=== PATIENT | female | born 1960 | race Caucasian/White ===

== ENCOUNTER → 2017-12-20 11:53 | Outpatient (CLI) | payer OTHER, SELFPAY ==
--- NOTE | 2017-12-20 11:56 | BI_ITS ---
MAMMOGRAPHY - BILATERAL SCREENING REASON FOR EXAM: Female, 57 years old. Routine annual screening examination. PERTINENT HISTORY: Non-contributory. TECHNIQUE: Digital bilateral breast sangeeta (3D mammographic acquisition) in the CC and MLO projections. 2-D mediolateral oblique (MLO) and craniocaudad (CC) views of both breasts were obtained. CAD: Full Field Digital Mammography with Computer Added Detection was performed. COMPARISON: Comparison is made with prior study dated February 10, 2016 and December 10, 2014. FINDINGS: Breast Composition: The breasts are heterogeneously dense, which may obscure small masses. There are no dominant masses or suspicious calcifications. No other significant abnormalities are identified. There has been no significant change since the prior study. BI/SCREENING MAMM (CAD), BILAT IMPRESSION: Stable bilateral screening mammogram. Yearly follow-up mammogram recommended. (A) ASSESSMENT CATEGORY: BIRADS Category 1: Negative. A letter regarding these results will be sent to the patient by the facility within 30 days. Approximately 10% of breast cancers are not detected by mammography. A normal mammogram should not delay biopsy of a clinically suspicious abnormality. [id number] Electronically Signed: Jc Landin MD at 12:47 EDT Tel [phone], Service support ,
== END ==
PROVIDERS: Family Provider Family Medicine; PCP Family Medicine; Visit Provider Nurse Practitioner Adult Health
DX: Z12.31 Encounter for screening mammogram for malignant neoplasm of breast (principal)
CPT/HCPCS: 77063; 77067

== ENCOUNTER → 2018-12-02 | Outpatient (CLI) | payer OTHER, SELFPAY ==
[2016-10-30 11:30] VITALS: BMI 21.7
[2018-12-05 10:07] LABS: HPV Reflexed? NOT INDICATED
== END | disposition home or self-care (01) ==
LOC: LABSPEC 16:21
PROVIDERS: Family Provider Family Medicine; PCP Family Medicine; Referring Provider Nurse Practitioner Adult Health; Visit Provider Nurse Practitioner Adult Health
DX: Z01.419 Encounter for gynecological examination (general) (routine) without abnormal findings (principal)
CPT/HCPCS: 88175; G0145

== ENCOUNTER → 2018-12-25 | Outpatient (CLI) | payer OTHER, SELFPAY ==
--- NOTE | 2018-12-25 12:22 | BI_ITS ---
MAMMOGRAPHY - BILATERAL SCREENING REASON FOR EXAM: Female, 58 years old. Routine annual screening examination. PERTINENT HISTORY: Non-contributory. TECHNIQUE: Digital bilateral breast oren (3D mammographic acquisition) in the CC and MLO projections. 2-D mediolateral oblique (MLO) and craniocaudad (CC) views of both breasts were obtained. CAD: Full Field Digital Mammography with Computer Added Detection was performed. COMPARISON: Comparison is made with prior study dated December 20, 2017 and February 10, 2016. FINDINGS: Breast Composition: The breasts are heterogeneously dense, which may obscure small masses. There are no dominant masses or suspicious calcifications. No other significant abnormalities are identified. There has been no significant change since the prior study. BI/SCREEN MAMM (CAD) W/OREN BILAT IMPRESSION: Stable bilateral screening mammogram. Yearly follow-up mammogram recommended. (A) ASSESSMENT CATEGORY: BIRADS Category 1: Negative. A letter regarding these results will be sent to the patient by the facility within 30 days. Approximately 10% of breast cancers are not detected by mammography. A normal mammogram should not delay biopsy of a clinically suspicious abnormality. [id number] Electronically Signed: Jc Landin, at 13:21 EDT , Service support ,
== END | disposition home or self-care (01) ==
LOC: OPBI 12:19
PROVIDERS: Family Provider Family Medicine; PCP Family Medicine; Referring Provider Nurse Practitioner Adult Health; Visit Provider Nurse Practitioner Adult Health
DX: Z12.31 Encounter for screening mammogram for malignant neoplasm of breast (principal)
CPT/HCPCS: 77063; 77067

== ENCOUNTER → 2019-07-21 10:01 | Outpatient (CLI) | payer OTHER, SELFPAY ==
[2016-10-30 11:30] VITALS: BMI 21.7
[2019-07-21 12:21] LABS: Absolute Lymphocyte Count 1.28 X10^3/uL (0.83-4.51); Basophil# 0.06 X10^3/uL; Basophil% 0.8 % (0-1); Eosinophil# 0.18 X10^3/uL; Eosinophils% 2.5 % (0-5); Hemoglobin 16.3 g/dL (12.0-15.0); Lymphocyte # 1.28 X10^3/ul (4.0); Lymphocyte % 18.1 % (19-41); Mean Corp Hgb Conc 32.6 g/dL (32-36); Mean Corpuscular Hgb 28.7 pg (27.0-32.0); Mean Corpuscular Volume 88.2 fL (81-99); Mean Platelet Vol. 10.1 fl (6.2-12.0); Monocyte# 0.57 X10^3/uL; Monocyte% 8.1 % (0-10); NRBC Flagged by Analyzer 0 % (0-5); Neutrophil # 4.95 X10^3/uL (2.7-7.7); Neutrophil % 70.2 % (47-70); Platelet Count 259 K/mm3 (150-450); RBC Distribution Width CV 13.3 % (11.6-14.6); RBC Distribution Width SD 43.3 fl (35.1-43.9); Red Blood Count 5.67 M/mm3 (4.2-5.4); White Blood Count 7.1 K/mm3 (4.4-11.0)
[2019-07-21 12:45] LABS: AST(SGOT) 27 U/L (15-37); Alanine Aminotransfer ALT/SGPT 37 U/L (13-56)
== END ==
PROVIDERS: PCP Family Medicine; Referring Provider Dermatology; Visit Provider Dermatology
DX: L93.1 Subacute cutaneous lupus erythematosus (principal); L85.3 Xerosis cutis; Z79.899 Other long term (current) drug therapy
CPT/HCPCS: 36415; 84450; 84460; 85025

== ENCOUNTER → 2019-07-29 15:55 | Outpatient (CLI) | payer OTHER, SELFPAY ==
[2016-10-30 11:30] VITALS: BMI 21.7
[2019-07-29 18:35] LABS: ALB/GLOB Ratio 1.1 RATIO (0.9-2.4); AST(SGOT) 24 U/L (15-37); Alanine Aminotransfer ALT/SGPT 30 U/L (13-56); Albumin, Serum 3.8 g/dL (3.2-5.0); Alkaline Phosphatase 116 U/L (45-117); Anion Gap 5 (5-15); BUN 11 mg/dL (7-18); BUN/Creat Ratio 15.5 RATIO (10-20); Calcium,Total 9.8 mg/dL (8.5-10.1); Chloride 100 mmol/L (98-107); Creatinine, Serum 0.71 mg/dL (0.55-1.02); EST Glomerular Filtration Rate 90 mL/min (>60); Est Glom Filt Rate - Afr Amer 109 mL/min (>60); Ferritin 39 ng/mL (8-252); Globulin 3.6 g/dL (2.2-4.2); Glucose 107 mg/dL (74-106); Iron 107 ug/dL (50-170); Iron Binding Capacity,Total 410 ug/dL (250-450); Potassium 3.7 mmol/L (3.5-5.1); Protein, Total 7.4 g/dL (6.4-8.2); Sodium Level 130 mmol/L (136-145); Thyroid Stim Hormone (TSH) 1.21 uIU/mL (0.358-3.74)
[2019-07-29 18:37] LABS: Vitamin D,25 Hydroxy 27.3 ng/mL (29.95-100.01)
[2019-07-29 18:40] LABS: PTHIN 146.5 pg/mL (18.4-80.1)
[2019-07-31 17:09] LABS: Transferrin 287 mg/dL (200-370)
== END ==
PROVIDERS: PCP Family Medicine; Referring Provider Family Medicine; Visit Provider Family Medicine
DX: E83.52 Hypercalcemia (principal); D75.1 Secondary polycythemia; F31.81 Bipolar II disorder; L93.2 Other local lupus erythematosus
CPT/HCPCS: 36415; 80053; 82306; 82330; 82728; 83540; 83550; 83970; 84443; 84466

== ENCOUNTER → 2019-08-06 12:45 | Outpatient (CLI) | payer OTHER, SELFPAY ==
[2016-10-30 11:30] VITALS: BMI 21.7
[2019-08-06 14:20] LABS: Anion Gap 6 (5-15); BUN 10 mg/dL (7-18); BUN/Creat Ratio 15.9 RATIO (10-20); Chloride 100 mmol/L (98-107); Creatinine, Serum 0.63 mg/dL (0.55-1.02); EST Glomerular Filtration Rate 104 mL/min (>60); Est Glom Filt Rate - Afr Amer 125 mL/min (>60); Glucose 87 mg/dL (74-106); Potassium 4.3 mmol/L (3.5-5.1); Sodium Level 132 mmol/L (136-145)
[2019-08-06 14:30] LABS: Vitamin D,25 Hydroxy 22.3 ng/mL (29.95-100.01)
== END ==
PROVIDERS: PCP Family Medicine; Referring Provider Family Medicine; Visit Provider Family Medicine
DX: E83.52 Hypercalcemia (principal); E87.1 Hypo-osmolality and hyponatremia
CPT/HCPCS: 36415; 80048; 82306

== ENCOUNTER → 2019-08-13 09:10 | Outpatient (CLI) | payer OTHER, SELFPAY ==
[2016-10-30 11:30] VITALS: BMI 21.7
--- NOTE | 2019-08-13 09:15 | NM_ITS ---
CLINICAL: 59-year-old female with reported history of clinical hyperparathyroidism, hypercalcemia. 99m Tc SESTAMIBI DUAL PHASE PARATHYROID SCINTIGRAPHY COMPARISON: None available FINDINGS: Following the intravenous administration of 26.0 mCi of 99m Tc sestamibi, image acquisitions of the anterior neck at approximately 15 minutes and 2.0 hours post radiopharmaceutical provision reveal: 1. Immediate static blood pool acquisitions demonstrate symmetric radiopharmaceutical concentration noted in the right-left lobes of a [id number] thyroid gland. 2. Delayed images depict symmetric and near complete washout of the radiotracer from the previously defined right-left thyroid colloid without evidence of focal retention of the radiotracer readily identified. NM/Parathyroid Scan IMPRESSION: 1. NEGATIVE 99m Tc SESTAMIBI PARATHYROID IMAGING DUAL PHASE EXAMINATION. 2. There is no definitive scintigraphic evidence of parathyroid adenoma on the current evaluation. Electronically Signed: Barak Redd DO at 23:55 EST Tel , Service support ,
== END ==
PROVIDERS: PCP Family Medicine; Referring Provider Family Medicine; Visit Provider Family Medicine
DX: E21.3 Hyperparathyroidism, unspecified (principal)
CPT/HCPCS: 78070; A9500

== ENCOUNTER → 2019-09-02 14:56 | Outpatient (CLI) | payer OTHER, SELFPAY ==
[2019-08-28 08:43] VITALS: BMI 21.7
--- NOTE | 2019-09-02 15:05 | BD_ITS ---
STUDY: DUAL ENERGY X-RAY ABSORPTIOMETRY / DXA REASON FOR EXAM: Female, 59 years old. 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 COMPARISON: Comparison is made with prior examination dated April 22, 2014. FINDINGS: Lumbar Spine (L1-L4): g/cm2 (0.954) / T-score (-1.9) / Z-score (-0.8) Findings are suggestive of osteopenia with a moderate fracture risk. Left Femur Total: g/cm2 (0.881) / T-score (-1.0) / Z-score (-0.2) Left Femoral Neck: g/cm2 (0.823) / T-score (-1.5) / Z-score (-0.4) Right Femur Total: g/cm2 (0.868) / T-score (-1.2) / Z-score (-0.3) Right Femoral Neck: g/cm2 (0.819) / T-score (-1.6) / Z-score (-0.4) The T-Scores on the most recent prior examination were: Lumbar Spine (L1-L4): There has been worsening of bone density since the previous examination. Left Femur Total: which represents a worsening of 7.2%. Right Femur Total: which represents a worsening of 6.9%. BD/Dexa Bone Density Study IMPRESSION: The patient is considered osteopenic as outlined below according to World Federico Organization (WHO) criteria with a moderate fracture risk. There has been worsening of bone density since the previous examination. Reference Information: The T-score is the number of standard deviations above or below the standard which is normal for young adults at their peak bone mineral density. The World Health Organization (WHO) interprets the T-scores as follows: Above -1 Normal bone density Between -1 and -2.5 Osteopenia Equal to / or below -2.5 Osteoporosis As a practical clinical guideline, osteopenia may be graded as follows: Mild -1 through -1.5 Moderate -1.6 through -2.0 Severe -2.1 through -2.4 The Z-score is the number of standard deviations above or below age-matched controls. A Z-score of less than -1.5 would be considered abnormal. References: 1. NIH Osteoporosis and Related Bone Diseases http://www.osteo.org 2. International Society for Clinical Densitometry http://www.iscd.org 3. National Osteoporosis Foundation http://www.nof.org Electronically Signed: Jc Landin, at 15:20 EDT , Service support ,
== END ==
PROVIDERS: PCP Family Medicine; Referring Provider Internal Medicine Endocrinology, Diabetes & Metabolism; Visit Provider Internal Medicine Endocrinology, Diabetes & Metabolism
DX: M85.80 Other specified disorders of bone density and structure, unspecified site (principal)
CPT/HCPCS: 77080

== ENCOUNTER → 2019-09-22 14:09 | Outpatient (CLI) | payer OTHER, SELFPAY ==
[2019-08-28 08:43] VITALS: BMI 21.7
[2019-09-22 15:45] LABS: Vitamin D,25 Hydroxy 67.2 ng/mL
[2019-09-22 15:51] LABS: Calcium,Total 10.3 mg/dL (8.5-10.1); Prolactin 6.2 ng/mL; T4 Free Direct 0.94 ng/dL (0.76-1.46); Thyroid Stim Hormone (TSH) 1.41 uIU/mL (0.358-3.74)
[2019-09-23 07:51] LABS: PTHIN 90.5 pg/mL (18.4-80.1)
[2019-09-25 12:03] LABS: Somatomedin C 239 ng/mL (46-172)
== END ==
PROVIDERS: PCP Family Medicine; Referring Provider Internal Medicine Endocrinology, Diabetes & Metabolism; Visit Provider Internal Medicine Endocrinology, Diabetes & Metabolism
DX: E21.3 Hyperparathyroidism, unspecified (principal); E34.9 Endocrine disorder, unspecified; E55.9 Vitamin D deficiency, unspecified
CPT/HCPCS: 36415; 82306; 82310; 83970; 84146; 84305; 84439; 84443

== ENCOUNTER → 2019-12-16 12:02 | Outpatient (CLI) | payer OTHER, SELFPAY ==
[2019-08-28 08:43] VITALS: BMI 21.7
[2019-12-16 13:15] LABS: Anion Gap 7 (5-15); BUN 13 mg/dL (7-18); BUN/Creat Ratio 15.6 RATIO (10-20); Calcium,Total 9.9 mg/dL (8.5-10.1); Chloride 97 mmol/L (98-107); Creatinine, Serum 0.83 mg/dL (0.55-1.02); EST Glomerular Filtration Rate 75 mL/min (>60); Est Glom Filt Rate - Afr Amer 91 mL/min (>60); Glucose 96 mg/dL (74-106); Potassium 4.1 mmol/L (3.5-5.1); Sodium Level 130 mmol/L (136-145)
[2019-12-16 13:19] LABS: PTHIN 152.7 pg/mL (18.4-80.1)
[2019-12-16 13:22] LABS: Vitamin D,25 Hydroxy 70.2 ng/mL
== END ==
PROVIDERS: PCP Family Medicine; Referring Provider Family Medicine; Visit Provider Family Medicine
DX: E87.1 Hypo-osmolality and hyponatremia (principal); E21.3 Hyperparathyroidism, unspecified; E55.9 Vitamin D deficiency, unspecified
CPT/HCPCS: 36415; 80048; 82306; 83970

== ENCOUNTER → 2020-05-12 10:14 | Outpatient (CLI) | payer SELFPAY ==
[2020-05-12 09:02] VITALS: BMI 20.2
[2020-05-12 10:26] LABS: Bacteria 0 SEEN /hpf (None Seen); Mucous, Urine 0 SEEN /hpf (<or=2+); Red Blood Cells-Urine 0 SEEN /hpf (0-5); Squamous Epithelial Cells - UA 0 SEEN /hpf (5-10)
[2020-05-12 11:30] LABS: Absolute Lymphocyte Count 1.17 X10^3/uL (0.83-4.51); Absolute Neutrophil Count 3.5 X10^3/uL (2.0-7.7); Basophil# 0.03 X10^3/uL; Basophil% 0.6 % (0-1); Eosinophil# 0.02 X10^3/uL; Eosinophils% 0.4 % (0-5); Hematocrit 48.2 % (37-47); Hemoglobin 14.7 g/dL (12.0-15.0); Lymphocyte # 1.17 X10^3/ul (4.0); Lymphocyte % 22.3 % (19-41); Mean Corp Hgb Conc 30.5 g/dL (32-36); Mean Corpuscular Hgb 25.5 pg (27.0-32.0); Mean Corpuscular Volume 83.7 fL (81-99); Mean Platelet Vol. 10.1 fl (6.2-12.0); Monocyte# 0.53 X10^3/uL; Monocyte% 10.1 % (0-10); NRBC Flagged by Analyzer 0 % (0-5); Neutrophil # 3.47 X10^3/uL (2.7-7.7); Neutrophil % 66.2 % (47-70); Platelet Count 298 K/mm3 (150-450); RBC Distribution Width CV 19.8 % (11.6-14.6); RBC Distribution Width SD 59.1 fl (35.1-43.9); Red Blood Count 5.76 M/mm3 (4.2-5.4); White Blood Count 5.2 K/mm3 (4.4-11.0)
[2020-05-12 11:35] LABS: Color, Urine Yellow (Yellow); Glucose, Dipstick Normal (Normal); Ketone-Dipstick Negative (Negative); Leukocyte Esterase-Dipstick 25 /ul (Negative); Nitrite-Dipstick Negative (Negative); Occult Blood-Urine Negative /ul (Negative); Protein-Dipstick Negative (Negative); Specific Gravity, Urine 1.005 (1.002-1.030); Urine Bilirubin Dipstick Negative (Negative); Urine Clarity Sl. Cloudy (Clear); Urine Urobilinogen Normal (Normal)
[2020-05-12 11:42] LABS: White Blood Cells 0-5 SEEN /hpf (0-5)
[2020-05-12 12:07] LABS: PTHIN 103.8 pg/mL (18.4-80.1)
[2020-05-12 12:10] LABS: ALB/GLOB Ratio 1.2 RATIO (0.9-2.4); AST(SGOT) 34 U/L (15-37); Alanine Aminotransfer ALT/SGPT 35 U/L (13-56); Albumin, Serum 4.2 g/dL (3.2-5.0); Alkaline Phosphatase 115 U/L (45-117); Anion Gap 5 (5-15); BUN 7 mg/dL (7-18); BUN/Creat Ratio 12.4 RATIO (10-20); Calcium,Total 10.2 mg/dL (8.5-10.1); Chloride 98 mmol/L (98-107); Creatinine, Serum 0.56 mg/dL (0.55-1.02); EST Glomerular Filtration Rate 117 mL/min (>60); Est Glom Filt Rate - Afr Amer 142 mL/min (>60); Globulin 3.4 g/dL (2.2-4.2); Glucose 86 mg/dL (74-106); Phosphorus 3.1 mg/dL (2.5-4.9); Potassium 4.5 mmol/L (3.5-5.1); Protein, Total 7.6 g/dL (6.4-8.2); Sodium Level 130 mmol/L (136-145); Vitamin D,25 Hydroxy 53.3 ng/mL
[2020-05-16 12:16] LABS: Somatomedin C 164 ng/mL (60-207)
== END ==
PROVIDERS: PCP Family Medicine; Referring Provider Family Medicine; Visit Provider Family Medicine
DX: R79.89 Other specified abnormal findings of blood chemistry (principal); E21.3 Hyperparathyroidism, unspecified; M85.80 Other specified disorders of bone density and structure, unspecified site; Z72.0 Tobacco use
CPT/HCPCS: 36415; 80053; 81001; 82306; 83970; 84100; 84305; 85025

== ENCOUNTER → 2020-06-30 13:57 | Outpatient (CLI) | payer SELFPAY ==
[2020-05-12 09:02] VITALS: BMI 20.2
[2020-06-30 15:28] LABS: Absolute Lymphocyte Count 1.91 X10^3/uL (0.83-4.51); Absolute Neutrophil Count 5.2 X10^3/uL (2.0-7.7); Basophil# 0.03 X10^3/uL; Basophil% 0.4 % (0-1); Eosinophil# 0.09 X10^3/uL; Eosinophils% 1.1 % (0-5); Hematocrit 50.4 % (37-47); Hemoglobin 15.7 g/dL (12.0-15.0); Lymphocyte # 1.91 X10^3/ul (4.0); Mean Corp Hgb Conc 31.2 g/dL (32-36); Mean Corpuscular Hgb 26.7 pg (27.0-32.0); Mean Corpuscular Volume 85.9 fL (81-99); Mean Platelet Vol. 9.5 fl (6.2-12.0); Monocyte# 0.68 X10^3/uL; Monocyte% 8.5 % (0-10); NRBC Flagged by Analyzer 0 % (0-5); Neutrophil # 5.23 X10^3/uL (2.7-7.7); Neutrophil % 65.7 % (47-70); Platelet Count 273 K/mm3 (150-450); RBC Distribution Width CV 18.1 % (11.6-14.6); RBC Distribution Width SD 56.4 fl (35.1-43.9); Red Blood Count 5.87 M/mm3 (4.2-5.4)
[2020-06-30 15:59] LABS: Anion Gap 6 (5-15); BUN 10 mg/dL (7-18); BUN/Creat Ratio 12.8 RATIO (10-20); Calcium,Total 9.8 mg/dL (8.5-10.1); Chloride 99 mmol/L (98-107); Creatinine, Serum 0.78 mg/dL (0.55-1.02); EST Glomerular Filtration Rate 80 mL/min (>60); Est Glom Filt Rate - Afr Amer 97 mL/min (>60); Ferritin 14 ng/mL (8-252); Glucose 89 mg/dL (74-106); Iron 51 ug/dL (50-170); Iron Binding Capacity,Total 434 ug/dL (250-450); Potassium 4.3 mmol/L (3.5-5.1); Sodium Level 133 mmol/L (136-145)
[2020-07-01 09:09] LABS: PTHIN 124.3 pg/mL (18.4-80.1)
[2020-07-02 08:38] LABS: Transferrin 311 mg/dL (192-364)
== END ==
PROVIDERS: PCP Family Medicine; Referring Provider Family Medicine; Visit Provider Family Medicine
DX: E87.1 Hypo-osmolality and hyponatremia (principal); D75.1 Secondary polycythemia; E21.3 Hyperparathyroidism, unspecified
CPT/HCPCS: 36415; 80048; 82728; 83540; 83550; 83970; 84466; 85025

== ENCOUNTER → 2021-04-04 12:13 | Outpatient (CLI) | payer SELFPAY ==
[2021-04-04 15:19] LABS: Hematocrit 46.4 % (37-47); Hemoglobin 14.7 g/dL (12.0-15.0); Mean Corp Hgb Conc 31.7 g/dL (32-36); Mean Corpuscular Hgb 31.5 pg (27.0-32.0); Mean Corpuscular Volume 99.6 fL (81-99); Mean Platelet Vol. 10.5 fl (6.2-12.0); Platelet Count 673 K/mm3 (150-450); RBC Distribution Width CV 15.6 % (11.6-14.6); RBC Distribution Width SD 56.6 fl (35.1-43.9); Red Blood Count 4.66 M/mm3 (4.2-5.4); White Blood Count 13.6 K/mm3 (4.4-11.0)
[2021-04-04 15:36] LABS: Anion Gap 6 (5-15); BUN 9 mg/dL (7-18); BUN/Creat Ratio 11.7 RATIO (10-20); Calcium,Total 10.5 mg/dL (8.5-10.1); Chloride 103 mmol/L (98-107); Creatinine, Serum 0.77 mg/dL (0.55-1.02); EST Glomerular Filtration Rate 82 mL/min (>60); Est Glom Filt Rate - Afr Amer 99 mL/min (>60); Glucose 104 mg/dL (74-106); Potassium 4.6 mmol/L (3.5-5.1); Sodium Level 136 mmol/L (136-145)
== END ==
PROVIDERS: Nurse Practitioner Family; PCP Family Medicine; Visit Provider Family Medicine
DX: I10 Essential (primary) hypertension (principal)
CPT/HCPCS: 36415; 80048; 85027

== ENCOUNTER → 2021-05-04 11:40 | Outpatient (CLI) | payer SELFPAY ==
[2021-05-04 15:15] LABS: Absolute Lymphocyte Count 1.78 X10^3/uL (0.83-4.51); Absolute Neutrophil Count 5.5 X10^3/uL (2.0-7.7); Basophil# 0.05 X10^3/uL; Basophil% 0.6 % (0-1); Eosinophil# 0.12 X10^3/uL; Eosinophils% 1.5 % (0-5); Hematocrit 50.2 % (37-47); Hemoglobin 15.9 g/dL (12.0-15.0); Lymphocyte # 1.78 X10^3/ul (0.83-4.51); Lymphocyte % 22.4 % (19-41); Mean Corp Hgb Conc 31.7 g/dL (32-36); Mean Corpuscular Hgb 31.2 pg (27.0-32.0); Mean Corpuscular Volume 98.6 fL (81-99); Mean Platelet Vol. 11.1 fl (6.2-12.0); Monocyte# 0.49 X10^3/uL; Monocyte% 6.2 % (0-10); NRBC Flagged by Analyzer 0 % (0-5); Neutrophil # 5.45 X10^3/uL (2.7-7.7); Neutrophil % 68.8 % (47-70); Platelet Count 346 K/mm3 (150-450); Red Blood Count 5.09 M/mm3 (4.2-5.4); White Blood Count 7.9 K/mm3 (4.4-11.0)
[2021-05-04 15:34] LABS: Vitamin B12 301 pg/mL (211-911)
[2021-05-04 15:36] LABS: Erythrocyte Sedimentation Rate 12 mm/hr (0-30)
[2021-05-04 15:46] LABS: ALB/GLOB Ratio 0.9 RATIO (0.9-2.4); AST(SGOT) 17 U/L (15-37); Alanine Aminotransfer ALT/SGPT 27 U/L (13-56); Albumin, Serum 3.6 g/dL (3.2-5.0); Alkaline Phosphatase 110 U/L (45-117); Anion Gap 4 (5-15); BUN 8 mg/dL (7-18); BUN/Creat Ratio 11.1 RATIO (10-20); CRP < 2.90 mg/L (0.0-3.0); Calcium,Total 10.2 mg/dL (8.5-10.1); Chloride 105 mmol/L (98-107); Creatinine, Serum 0.72 mg/dL (0.55-1.02); EST Glomerular Filtration Rate 87 mL/min (>60); Est Glom Filt Rate - Afr Amer 106 mL/min (>60); Ferritin 48 ng/mL (8-252); Glucose 130 mg/dL (74-106); Iron 153 ug/dL (50-170); Iron Binding Capacity,Total 501 ug/dL (250-450); PERCENT IRON SATURATION 30.5 % (15.0-55.0); Potassium 3.4 mmol/L (3.5-5.1); Protein, Total 7.6 g/dL (6.4-8.2); Rheumatoid Factor < 10.0 IU/mL (<15); Sodium Level 136 mmol/L (136-145)
[2021-05-06 20:38] LABS: Erythropoietin 7.7 mIU/mL (2.6-18.5)
== END ==
PROVIDERS: PCP Family Medicine; Referring Provider Family Medicine
DX: D69.6 Thrombocytopenia, unspecified (principal)
CPT/HCPCS: 36415; 80053; 82607; 82668; 82728; 82746; 83540; 83550; 85025; 85652; 86038; 86140; 86431

== ENCOUNTER 2021-08-11 09:27 | Outpatient (CLI) | payer SELFPAY ==
[2021-08-11 09:55] LABS: Bacteria 0 SEEN /hpf (None Seen); Mucous, Urine 0 SEEN /hpf (<or=2+); Red Blood Cells-Urine 0 SEEN /hpf (0-5); Squamous Epithelial Cells - UA 0 SEEN /hpf (5-10); White Blood Cells 0 SEEN /hpf (0-5)
[2021-08-11 12:13] LABS: Color, Urine Straw (Yellow); Glucose, Dipstick Normal (Normal); Ketone-Dipstick Negative (Negative); Leukocyte Esterase-Dipstick Negative /ul (Negative); Nitrite-Dipstick Negative (Negative); Occult Blood-Urine Negative /ul (Negative); Protein-Dipstick Negative (Negative); Specific Gravity, Urine 1.005 (1.002-1.030); Urine Bilirubin Dipstick Negative (Negative); Urine Clarity Clear (Clear); Urine Urobilinogen Normal (Normal)
[2021-08-11 12:14] LABS: Absolute Lymphocyte Count 1.84 X10^3/uL (0.83-4.51); Absolute Neutrophil Count 4.3 X10^3/uL (2.0-7.7); Basophil# 0.05 X10^3/uL; Basophil% 0.7 % (0-1); Eosinophil# 0.08 X10^3/uL; Eosinophils% 1.1 % (0-5); Hematocrit 48.3 % (37-47); Hemoglobin 15.8 g/dL (12.0-15.0); Lymphocyte # 1.84 X10^3/ul (0.83-4.51); Lymphocyte % 26.3 % (19-41); Mean Corp Hgb Conc 32.7 g/dL (32-36); Mean Corpuscular Hgb 30.9 pg (27.0-32.0); Mean Corpuscular Volume 94.5 fL (81-99); Monocyte# 0.72 X10^3/uL; Monocyte% 10.3 % (0-10); NRBC Flagged by Analyzer 0 % (0-5); Neutrophil # 4.27 X10^3/uL (2.7-7.7); Neutrophil % 61.2 % (47-70); Platelet Count 277 K/mm3 (150-450); RBC Distribution Width CV 14.1 % (11.6-14.6); RBC Distribution Width SD 49.1 fl (35.1-43.9); Red Blood Count 5.11 M/mm3 (4.2-5.4)
[2021-08-11 12:28] LABS: ALB/GLOB Ratio 0.9 RATIO (0.9-2.4); AST(SGOT) 14 U/L (15-37); Alanine Aminotransfer ALT/SGPT 19 U/L (13-56); Albumin, Serum 3.6 g/dL (3.2-5.0); Alkaline Phosphatase 115 U/L (45-117); Anion Gap 3 (5-15); BUN 14 mg/dL (7-18); BUN/Creat Ratio 24.1 RATIO (10-20); Calcium,Total 10.3 mg/dL (8.5-10.1); Chloride 107 mmol/L (98-107); Creatinine, Serum 0.58 mg/dL (0.55-1.02); EST Glomerular Filtration Rate 113 mL/min (>60); Est Glom Filt Rate - Afr Amer 136 mL/min (>60); Globulin 3.8 g/dL (2.2-4.2); Glucose 83 mg/dL (74-106); Potassium 4.1 mmol/L (3.5-5.1); Protein, Total 7.4 g/dL (6.4-8.2); Sodium Level 136 mmol/L (136-145)
== END 2021-08-11 23:59 | disposition home or self-care (01) ==
PROVIDERS: PCP Family Medicine; Referring Provider Family Medicine; Visit Provider Family Medicine
DX: D69.6 Thrombocytopenia, unspecified (principal); I10 Essential (primary) hypertension
CPT/HCPCS: 36415; 80053; 81001; 83970; 85025

== ENCOUNTER → 2022-03-28 | Outpatient (CLI) | payer SELFPAY ==
[2022-03-28 15:23] LABS: Mucous, Urine 0 SEEN /hpf (<or=2+); Red Blood Cells-Urine 0 SEEN /hpf (0-5)
[2022-03-28 18:00] LABS: Color, Urine Straw (Yellow); Glucose, Dipstick Normal (Normal); Ketone-Dipstick Negative (Negative); Leukocyte Esterase-Dipstick 25 /ul (Negative); Nitrite-Dipstick Negative (Negative); Occult Blood-Urine Negative /ul (Negative); Protein-Dipstick Negative (Negative); Urine Bilirubin Dipstick Negative (Negative); Urine Clarity Clear (Clear); Urine Urobilinogen Normal (Normal); Urine pH 6.5 (5.0 - 8.0)
[2022-03-28 18:16] LABS: PTHIN 127.4 pg/mL (18.4-80.1)
[2022-03-28 19:03] LABS: Vitamin D,25 Hydroxy 32.9 ng/mL
[2022-03-28 19:07] LABS: Bacteria 4+ /hpf (None Seen); Squamous Epithelial Cells - UA 0-5 SEEN /hpf (5-10); White Blood Cells 0-5 SEEN /hpf (0-5)
[2022-03-28 19:49] LABS: ALB/GLOB Ratio 0.9 RATIO (0.9-2.4); AST(SGOT) 17 U/L (15-37); Alanine Aminotransfer ALT/SGPT 30 U/L (13-56); Albumin, Serum 3.5 g/dL (3.2-5.0); Alkaline Phosphatase 147 U/L (45-117); Anion Gap 7 (5-15); BUN 13 mg/dL (7-18); BUN/Creat Ratio 17.1 RATIO (10-20); Calcium,Total 9.8 mg/dL (8.5-10.1); Chloride 105 mmol/L (98-107); Cholesterol 162 mg/dL (200); Creatinine, Serum 0.76 mg/dL (0.55-1.02); EST Glomerular Filtration Rate 82 mL/min (>60); Est Glom Filt Rate - Afr Amer 99 mL/min (>60); Globulin 3.7 g/dL (2.2-4.2); Glucose 123 mg/dL (74-106); High Density Lipoprotein 49 mg/dL; Phosphorus 3.1 mg/dL (2.5-4.9); Potassium 3.8 mmol/L (3.5-5.1); Protein, Total 7.2 g/dL (6.4-8.2); Sodium Level 137 mmol/L (136-145); Thyroid Stim Hormone (TSH) 1.17 uIU/mL (0.358-3.74); Triglycerides 183 mg/dL; Very Low Density Lipoprotein 37 mg/dL (5-40)
== END | disposition home or self-care (01) ==
PROVIDERS: PCP Family Medicine; Referring Provider Family Medicine; Visit Provider Family Medicine
DX: I10 Essential (primary) hypertension (principal); E21.3 Hyperparathyroidism, unspecified; E55.9 Vitamin D deficiency, unspecified; M85.80 Other specified disorders of bone density and structure, unspecified site
CPT/HCPCS: 36415; 80053; 80061; 81001; 82306; 83970; 84100; 84443

== ENCOUNTER → 2022-05-01 | Outpatient (CLI) | payer SELFPAY | END | disposition home or self-care (01) | PROVIDERS: PCP Family Medicine; Visit Provider Family Medicine | DX: R73.09 Other abnormal glucose (principal) | CPT/HCPCS: 36415; 83036 ==

== ENCOUNTER → 2022-11-17 | Outpatient (CLI) | payer SELFPAY ==
[2022-11-17 17:35] LABS: Absolute Lymphocyte Count 2.01 X10^3/uL (0.83-4.51); Absolute Neutrophil Count 12.9 X10^3/uL (2.0-7.7); Basophil# 0.06 X10^3/uL; Basophil% 0.4 % (0-1); Eosinophil# 0.06 X10^3/uL; Eosinophils% 0.4 % (0-5); Hematocrit 48.6 % (37-47); Hemoglobin 15.7 g/dL (12.0-15.0); Lymphocyte # 2.01 X10^3/ul (0.83-4.51); Lymphocyte % 12.1 % (19-41); Mean Corp Hgb Conc 32.3 g/dL (32-36); Mean Corpuscular Hgb 28.3 pg (27.0-32.0); Mean Corpuscular Volume 87.6 fL (81-99); Mean Platelet Vol. 11.5 fl (6.2-12.0); Monocyte# 1.58 X10^3/uL; Monocyte% 9.5 % (0-10); NRBC Flagged by Analyzer 0 % (0-5); Neutrophil # 12.88 X10^3/uL (2.7-7.7); Neutrophil % 77.1 % (47-70); POSITIVE DIFFERENTIAL YES; Platelet Count 225 K/mm3 (150-450); RBC Distribution Width CV 14.1 % (11.6-14.6); RBC Distribution Width SD 45.8 fl (35.1-43.9); Red Blood Count 5.55 M/mm3 (4.2-5.4); White Blood Count 16.7 K/mm3 (4.4-11.0)
[2022-11-17 17:37] LABS: Differential Indicated SCAN CRITERIA MET
[2022-11-17 18:05] LABS: ALB/GLOB Ratio 0.7 RATIO (0.9-2.4); AST(SGOT) 26 U/L (15-37); Alanine Aminotransfer ALT/SGPT 42 U/L (13-56); Albumin, Serum 3.4 g/dL (3.2-5.0); Alkaline Phosphatase 185 U/L (45-117); Anion Gap 8 (5-15); BUN 10 mg/dL (7-18); BUN/Creat Ratio 12.5 RATIO (10-20); Calcium,Total 10.1 mg/dL (8.5-10.1); Chloride 100 mmol/L (98-107); EST Glomerular Filtration Rate 77 mL/min (>60); Est Glom Filt Rate - Afr Amer 93 mL/min (>60); Globulin 4.9 g/dL (2.2-4.2); Glucose 98 mg/dL (74-106); Lipase 20 U/L (13-75); Potassium 4.6 mmol/L (3.5-5.1); Protein, Total 8.3 g/dL (6.4-8.2); Sodium Level 130 mmol/L (136-145)
[2022-11-21 12:01] LABS: Pathologist Review Reviewed
== END | disposition home or self-care (01) ==
PROVIDERS: PCP Family Medicine; Visit Provider Family Medicine
DX: R10.9 Unspecified abdominal pain (principal)
CPT/HCPCS: 36415; 80053; 83690; 85025

== ENCOUNTER → 2022-11-17 | Outpatient (CLI) | payer SELFPAY ==
--- NOTE | 2022-11-17 16:24 | CT_ITS ---
STUDY: CT ABDOMEN AND PELVIS WITH CONTRAST REASON FOR EXAM: Female, 62 years old. DIVERTICULITIS RADIATION DOSAGE (If Supplied By Facility): CTDIvol = ( 12.89 ) mGy, DLP = ( 608.57 ) mGycm TECHNIQUE: Transaxial images were obtained from the dome of the diaphragm to the symphysis pubis without oral contrast. Oral and amp; IV Gastrografin and amp; 100mL Isovue-300 was administered. Sagittal and coronal images were reconstructed. Individualized dose optimization techniques were used for this CT. COMPARISON: None. FINDINGS: Limited views the lower chest show an irregular 2 cm focal pulmonary opacity in the posterior right lung base most consistent with focal atelectasis. However small mass is not excluded. Recommend follow-up CT of the chest. Normal liver. Normal gallbladder and extrahepatic biliary system. Normal spleen. Normal pancreas. Normal right knee. 3.6 cm elongated left adrenal mass. Follow-up in one year. Normal right kidney. Normal left kidney with tiny subcentimeter cyst. Normal visualized stomach. Normal small intestine. Inflammatory process involving the cecum prominent wall thickening and pericecal inflammatory stranding. Findings appear to represent severe acute diverticulitis related to an inflamed 2.8 cm diverticulum along the lateral cecal wall. See axial image 73 and coronal image 45. No gross evidence of perforation or abscess. There has been previous rectosigmoid surgery. There is diffuse atherosclerotic calcification of the abdominal aorta, without a demonstrated aneurysm. Normal inferior vena cava. Normal retroperitoneum. Normal urinary bladder. Normal visualized uterus. Normal abdominal wall. Normal osseous structures. CT/Abdomen/Pelvis WITH Contrast IMPRESSION: Inflammatory process involving the cecum and wall thickening and pericecal stranding. Findings appear to be related to severe diverticulitis without perforation or abscess. Probable focal atelectasis in the right lung base but CT of the chest recommended. Left adrenal mass. Recommend follow-up in 12 months. Electronically Signed: Vic Patricio MD at 19:43 EDT ,
== END | disposition home or self-care (01) ==
PROVIDERS: PCP Family Medicine; Referring Provider Family Medicine; Visit Provider Family Medicine
DX: K57.92 Diverticulitis of intestine, part unspecified, without perforation or abscess without bleeding (principal)
CPT/HCPCS: 74177; Q9967

== ENCOUNTER 2024-04-12 22:17 | Emergency (ER) | payer OTHER, SELFPAY ==
[2024-04-12 22:18] VITALS: BP 140/96; PULSE 90; RESP 17; TEMP 36.4; O2SAT 99
[2024-04-12 22:33] VITALS: BMI 22.3
--- NOTE | 2024-04-12 23:01 | RAD_ITS ---
INDICATION: cough sob EXAMINATION/TECHNIQUE: X-RAY - XR Chest 1 View COMPARISON: None. Findings: 2 frontal views of the chest. LUNG PARENCHYMA: No acute focal airspace disease or mass lesion. PLEURA: No pleural effusion. No pneumothorax. HEART/GREAT VESSELS: Cardiomediastinal silhouette is unremarkable. BONES: Osseous structures are unremarkable for age. RAD/Chest 1 View (Portable) IMPRESSION: Chest with no acute disease. Electronically Signed: Peter Sena MD at 23:48 EDT ,
--- NOTE | 2024-04-12 23:03 | EKG12_ITS ---
Test Reason : MHC Blood Pressure : / mmHG Vent. Rate : 075 BPM Atrial Rate : 075 BPM P-R Int : 154 ms QRS Dur : 084 ms QT Int : 352 ms P-R-T Axes : 044 080 073 degrees QTc Int : 393 ms Normal sinus rhythm Normal ECG Confirmed by Ramin Urbina ([id number]), features editor WAYNE LEE ([id number]) on 04/14/2024 11:42:40 AM Referred By: Confirmed By:Ramin Urbina
--- NOTE | 2024-04-12 23:05 | EX.ED.VIS.PS ---
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 She tells me she is an alcoholic and she needs detox but does not want detox, what I want is beer. She states she went through detox couple weeks ago and it was horrible. She is very labile, history is very limited. She told police that she has been ingesting nothing but beer recently, no other food for the past week at least. She tells me she has been feeling a little short of breath and she has had a cough. States she is coughing up sputum but swallowing of so she does not see it. She denies any other physical symptoms. [facility] Medical History (Updated 04/13/24 @ 01:[address] 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 Sigmoid colon injury Vitamin D deficiency Hyperparathyroidism Dysthymia Cutaneous lupus erythematosus Raynauds disease Home Medications ?Medication ?Instructions ?Recorded ?Last Taken ?Type loratadine 10 mg capsule 10 mg PO DAILY 08/28/19 Unknown History nystatin 100,000 unit/gram topical 1 applic topical DAILY 08/28/19 Unknown History powder (Nystop) sodium chloride 0.65 % nasal spray 2 spray intranasal Q2H PRN 08/28/19 Unknown History aerosol (Saline Mist) tacrolimus 0.5 mg capsule, 0.1 mg/kg PO ONCE 08/28/19 Unknown History immediate-release cholecalciferol (vitamin D3) 125 125 mcg PO DAILY 05/12/20 Unknown History mcg (5,000 unit) capsule famotidine 10 mg tablet 20 mg PO DAILY 05/12/20 Unknown History propranolol 120 mg capsule,24 120 mg PO BID 04/12/24 Unknown History hr,extended release (Inderal LA) Allergy/AdvReac Type Severity Reaction Status Date / Time No Known Allergies Allergy Verified 04/12/24 22:18 Family History Other Cancer Heart disease Myocardial infarction Surgical History Hx of appendectomy H/O dilation and curettage Hx of tonsillectomy Social History Smoking Status: Current every day smoker tobacco type: cigarettes alcohol intake: current details: daily 3-8 substance use type: does not use what type of physical activity do you participate in: walking, swimming and aerobics frequency: 5-6 times per week ROS ROS ED Constitutional Constitutional ED: Denies chills or fever(s) Eyes Eyes: Denies change in vision or diplopia ENT ENT ED: Denies rhinorrhea or sore throat Cardiovascular Cardiovascular: Denies chest pain or palpitations Respiratory/Chest Respiratory/Chest: Reports cough and dyspnea Gastrointestinal Gastrointestinal: Denies abdominal pain, diarrhea, nausea or vomiting Genitourinary Genitourinary ED: Denies dysuria or hematuria Musculoskeletal Musculoskeletal: Denies back pain or neck pain Integumentary Denies abscess or rash Neurologic Neurologic: Denies headache(s), paresthesias or weakness Psychiatric Psychiatric: Reports depression and suicidal thoughts; Denies homicidal ideation EXAM Physical Exam Const Vital Signs: 04/12/24 22:18 04/12/24 23:18 04/13/24 00:00 Temperature 97.6 F L Temperature Source Temporal Pulse Rate 90 77 76 Respiratory Rate 17 18 Blood Pressure 140/96 H 116/68 105/79 Blood Pressure Mean 110 84 87 Pulse Ox 99 92 93 Oxygen Delivery Method Room Air Room Air Room Air Positive well nourished and well developed General Appearance ED: well developed and NAD HEENT Reports moist mucous membranes normocephalic and atraumatic Eyes PERRL and EOMs intact bilaterally General Eye ED: Negative for scleral icterus Neck no lymphadenopathy and supple Resp normal respiratory effort and clear to auscultation bilaterally Cardio no murmurs Rate: regular rate Rhythm: regular rhythm GI non-tender and non-distended Auscultation: normoactive bowel sounds Palpation: soft Back/Spine no CVA tenderness and normal ROM Extremity normal to inspection General Extremety ED: Negative for edema General Extremity: Negative for edema Neuro oriented x3, CN's II-XII intact bilaterally, no sensory deficits noted and gait normal Sensorium / Orientation: alert Motor Exam: strength 5/5 throughout Psych mental status grossly normal, thought process normal, cooperative, activity/motor behavior normal and denies homicidal ideation Psych Narrative: Intoxicated. Labile emotions. Mood & Affect: depressed Thought Content: suicidality and other Focused on her alcohol problem mostly Memory / Cognition: cognition impaired Insight: fair Judgement: questionable Skin Lesions: no lesions Rashes: no rashes MDM MDM MDM Narrative Medical decision making narrative: With an alcohol of 337, her workup is negative/normal. She does not have an elevated anion gap and is not an alcoholic ketoacidosis. Other than being intoxicated she is medically cleared. Plan here will be to allow her to rest, keep her under pink slip that police wrote up to get her here, so she can sober up and be evaluated by crisis likely in the morning given that level. With regards to the dyspnea she states she was experiencing although she does not appear to be dyspneic, two-view chest x-ray was obtained and is normal without signs of pneumonia on my interpretation radiology was in agreement. Overnight patient cooperative and doing better after Vistaril which she requested, something to help her relax. Repeat alcohol level ordered for the morning based on rough computation of when she will be at or below 100. Checked out to a.m. physician at shift change for reevaluation, crisis evaluation, final disposition. Given what the patient is saying, I am not sure that she is ready for being admitted here for detox. Lab Data Attestation: I reviewed the patient's lab results. Labs: Laboratory Results - last 24 hr 04/12/24 04/12/24 22:36 23:50 WBC 8.4 RBC 6.12 H Hgb 17.3 H Hct 52.6 H MCV 85.9 MCH 28.3 MCHC 32.9 RDW Std Deviation 45.0 H RDW Coeff of Dave 14.6 Plt Count 324 MPV 9.0 Immature Gran % (Auto) 0.400 Neut % (Auto) 44.8 L Lymph % (Auto) 42.8 H Hood % (Auto) 11.1 H Eos % (Auto) 0.5 Baso % (Auto) 0.4 Absolute Neuts (auto) 3.8 Absolute Lymphs (auto) 3.59 Nucleated RBC % 0 PT 12.8 INR 1.0 Sodium 138 Potassium 4.5 Chloride 104 Carbon Dioxide 26.0 Anion Gap 7 BUN 10 Creatinine 0.62 Estim Creat Clear Calc 77.83 Est GFR (MDRD) Af Amer 125 Est GFR (MDRD) Non-Af 103 BUN/Creatinine Ratio 16.1 Glucose 94 Calcium 9.9 Total Bilirubin 0.30 AST 25 ALT 37 Alkaline Phosphatase 142 H Total Protein 7.3 Albumin 3.6 Globulin 3.7 Albumin/Globulin Ratio 1.0 Urine Opiates Screen NEGATIVE Urine Methadone Screen NEGATIVE Ur Barbiturates Screen NEGATIVE Ur Phencyclidine Scrn NEGATIVE Ur Amphetamines Screen NEGATIVE MDMA (Ecstasy) Screen NEGATIVE U Benzodiazepines Scrn NEGATIVE Urine Cocaine Screen NEGATIVE U Cannabinoids Screen NEGATIVE Ur Drug Screen Comment Ethyl Alcohol 337.0 H* Radiography Diagnostic Testing: Clinical Impression(s) from Imaging Studies Chest X-Ray 04/12/24 23:01 IMPRESSION: Chest with no acute disease. Electronically Signed: Peter Sena MD at 23:48 EDT , Rhythm Strip Rhythm Strip: Sinus Rhythm Rate: 75 Ectopy: None EKG Initial EKG: Attestation: I personally reviewed and interpreted this EKG as follows: Interpretation: Sinus Rhythm and No Acute Injury Pattern Comments: nml intervals, nml EKG Discharge Plan Triage Chief Complaint: Suicidal ED Provider: Dion Maldonado Dx/Rx/DC Orders Clinical Impression: Suicidal ideation, Alcohol abuse, Alcohol dependence Prescriptions: No Action loratadine 10 mg capsule 10 mg PO DAILY sodium chloride [Saline Mist] 0.65 % aerosol,spray 2 spray INTRANASAL Q2H PRN tacrolimus 0.5 mg capsule 0.1 mg/kg PO ONCE nystatin [Nystop] 100,000 unit/gram powder 1 applic TOPICAL DAILY cholecalciferol (vitamin D3) 125 mcg (5,000 unit) capsule 125 mcg PO DAILY Rx Instructions: 2000IU DAILY famotidine 10 mg tablet 20 mg PO DAILY propranolol [Inderal LA] 120 mg capsule,extended release 24 hr 120 mg PO BID Primary Care Provider: Elder Cabrera Referrals: Elder Cabrera MD [Primary Care Provider] - Print Language: Maori
[2024-04-12 23:14] LABS: Absolute Lymphocyte Count 3.59 X10^3/uL (0.83-4.51); Absolute Neutrophil Count 3.8 X10^3/uL (2.0-7.7); Basophil# 0.03 X10^3/uL; Basophil% 0.4 % (0-1); Eosinophil# 0.04 X10^3/uL; Eosinophils% 0.5 % (0-5); Hematocrit 52.6 % (37-47); Hemoglobin 17.3 g/dL (12.0-15.0); Lymphocyte # 3.59 X10^3/ul (0.83-4.51); Lymphocyte % 42.8 % (19-41); Mean Corp Hgb Conc 32.9 g/dL (32-36); Mean Corpuscular Hgb 28.3 pg (27.0-32.0); Mean Corpuscular Volume 85.9 fL (81-99); Monocyte# 0.93 X10^3/uL; Monocyte% 11.1 % (0-10); NRBC Flagged by Analyzer 0 % (0-5); Neutrophil # 3.77 X10^3/uL (2.7-7.7); Neutrophil % 44.8 % (47-70); Platelet Count 324 K/mm3 (150-450); RBC Distribution Width CV 14.6 % (11.6-14.6); Red Blood Count 6.12 M/mm3 (4.2-5.4); White Blood Count 8.4 K/mm3 (4.4-11.0)
[2024-04-12 23:18] VITALS: BP 116/68; PULSE 77; O2SAT 92
[2024-04-12 23:22] LABS: Prothrombin Time (Protime)PT. 12.8 SECONDS (11.7-14.9)
[2024-04-12 23:38] LABS: AST(SGOT) 25 U/L (15-37); Alanine Aminotransfer ALT/SGPT 37 U/L (13-56); Albumin, Serum 3.6 g/dL (3.2-5.0); Alkaline Phosphatase 142 U/L (45-117); Anion Gap 7 (5-15); BUN 10 mg/dL (7-18); BUN/Creat Ratio 16.1 RATIO (10-20); Calcium,Total 9.9 mg/dL (8.5-10.1); Chloride 104 mmol/L (98-107); Creatinine, Serum 0.62 mg/dL (0.55-1.02); EST Glomerular Filtration Rate 103 mL/min (>60); Est Glom Filt Rate - Afr Amer 125 mL/min (>60); Estimated Creatinine Clearance 77.83 ml/min; Globulin 3.7 g/dL (2.2-4.2); Glucose 94 mg/dL (74-106); Potassium 4.5 mmol/L (3.5-5.1); Protein, Total 7.3 g/dL (6.4-8.2); Sodium Level 138 mmol/L (136-145)
[2024-04-13] VITALS: BP 105/79; PULSE 76; RESP 18; O2SAT 93
--- OUTSIDE RECORDS SUMMARY | 2024-04-13 00:29 | XMS RPT_ITS | CCD ---
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 Mechanic Name Role Phone Bogdan Garcias MD Unavailable Gonzalo Rojas Unavailable Unavailable *SELF, REFERRED Unavailable Unavailable Bethany Prater Unavailable Unavailable Diana Rush Unavailable Unavailable Gonzalo Rojas Unavailable Unavailable Bethany Prater Unavailable Unavailable Chester Sanders Unavailable Unavailable Gonzalo Rojas Unavailable Unavailable Bethany Prater Unavailable Unavailable Bethany Prater Unavailable Unavailable Chester Sanders Unavailable Unavailable *SELF, REFERRED Unavailable Unavailable Bethany Prater Unavailable Unavailable Bogdan Garcias MD Unavailable [phone] BETHANY VELIZ MD Primary Care Physician [phone] Bethany Veliz MD Primary Care Provider BENDARAM, EMERY ABDULLAHI Referring Unavaila BETHANY Pickard Primary Care Unavailable MARIAH, EMERY ABDULLAHI Attending Unavaila BETHANY Pickard Referring Unavailable BETHANY VELIZ Primary Care Unavailable BETHANY VELIZ Primary Care Unavailable PETRONAARAM, EMERY ABDULLAHI Attending Unavaila ble MARIAH, EMERY ABDULLAHI Referring Unavaila BETHANY Pickard Primary Care Unavailable PENNYM, EMERY ABDULLAHI Referring Unavaila BETHANY Pickard Primary Care Unavailable Allergies Allergy Classification Reported Allergen(s) Allergy Type Date of Onset Reaction(s) Facility (3 sources) acyclovir; Translations: [ACYCLOVIR] drug allergy [address] [facility] Work Phone: (2 sources) aspartame drug allergy [address] [facility] Work Phone: (1 source) OTHER; Translations: [OTHER] Propensity to adverse reactions (disorder) 9 [facility] Rep[facility] Medications Current Medications Medication Drug Class(es) Dates Sig (Normalized) Sig (Original) amLODIPine 10 mg oral tablet (1 source) Dihydropyridine Calcium Channel Eddie Start: 03-25-2021 amLODIPine 10 mg oral tablet Dose : 10 mg = 1 tab(s), Oral, qDay, # 30 tab(s), 0 Refill(s) Start Date: 03/25/21 Status: Ordered iv contrast (will be provided with radiology test) (2 sources) Start: 08-13-2023 End: 08-14-2023 iv contrast (will be provided with radiology test) CT adrenal WO/W Inject, intravenously, once for 1 dose.No IV access, insert saline lock prior to the beginning of sedation, infusion, injection of imaging exam. Discontinue saline lock post exam. If Pt. has a central line or IVAD, may access for administration according to line specific nursing protocol. Once exam is complete flush line and de-access according to line specific nursing protocol in the CT contrast administration guidelines link. 1 Each 0 08/13/2023 08/14/2023 Active Comment on above: CT adrenal WO/W Inje ct, intravenously, once for 1 dose.No IV access, insert saline lock prior to the beginning of sedation, infusion, injection of imaging exam. Discontinue saline lock post exam. If Pt. has a central line or IVAD, may access for administration according to line specific nursing protocol. Once exam is complete flush line and de-access according to line specific nursing protocol in the CT contrast administration guidelines link. [employer] Women's Daily Multivitamin (1 source) Start: 05-17-2021 [employer] Women's Daily Multivitamin qDay, 0 Refill(s) Start Date: 05/17/21 Status: Ordered pantoprazole 40 mg delayed release oral tablet (1 source) Proton Pump Inhibitor Start: 03-24-2021 pantoprazole 40 mg oral enteric coated tablet Dose : 40 mg = 1 tab(s), Oral, qDayAC, 0 Refill(s) Start Date: 03/24/21 Status: Ordered polymyxin B-trimethoprim 10,000 units-1 mg/mL ophthalmic solution (1 source) Start: 03-28-2021 take 1 dose into the eye(s) every three hours polymyxin B-trimethoprim 10,000 units-1 mg/mL ophthalmic solution Dose = 1 drop(s), Eyes, both, q3h, 0 Refill(s) Start Date: 03/28/21 Status: Ordered Propranolol (1 source) beta-Adrenergic Eddie Start: 05-17-2021 take 1 capsule by mouth twice daily propranolol 120 mg oral capsule, extended release take 1 capsule by mouth twice a day Start Date: 05/17/21 Status: Ordered Completed/Discontinued Medications Medication Drug Class(es) Dates Sig (Normalized) Sig (Original) desloratadine / pseudoephedrine (2 sources) alpha-Adrenergic Agonist, Histamine-1 Receptor Antagonist Start: 08-03-2010 CLARINEX-D 24 HOUR 5-240 MG [id number] 1 tab daily DESLORATADINE-PSEU DOEPHEDRINE [id number] Odette HUDSON dexamethasone 1 mg oral tablet (2 sources) Corticosteroid Start: 06-15-2023 dexAMETHasone (DECADRON) 1 mg tablet Indications: Adrenal cortical nodule (HCC) Take at 11 pm on one day 1 tablet 0 06/15/2023 Active Comment on above: Take at 11 pm on one day famotidine 10 mg oral tablet (2 sources) Histamine-2 Receptor Antagonist Start: 05-12-2020 famotidine (PEPCID) 10 mg tablet Take by mouth. 0 05/12/2020 Active Comment on above: Take by mouth. ferrous sulfate 325 mg oral tablet (2 sources) Start: 10-08-2007 FERROUS SULFATE 325 MG (65 MG ELEMENTAL IRON) TAB one tab PRN 0 10/08/2007 Active Comment on above: one tab PRN ibuprofen 200 mg oral tablet (2 sources) Nonsteroidal Anti-inflammatory Drug Start: 04-11-2011 take 200-400 mg by mouth every four hours as needed ibuprofen 200 mg ORAL tablet Take 1-2 tablets by mouth every 4 hours as needed. FOR PAIN. 0 04/11/2011 Active Comment on above: Take 1-2 tablets by mouth every 4 hours as needed. FOR PAIN. loratadine 10 mg oral capsule (2 sources) Start: 08-28-2019 loratadine 10 mg cap Take by mouth. 0 08/28/2019 Active Comment on above: Take by mouth. multivit,thx,calcium, iron,mins (MULTIVITAMIN AND MINERAL ORAL) (2 sources) Start: 05-17-2021 multivit,thx,calci um,iron,mins (MULTIVITAMIN AND MINERAL ORAL) [employer] Women's Daily Multivitamin qDay, 0 Refill(s) Start Date: 05/17/21 Status: Ordered 0 05/17/2021 Active Comment on above: [employer] Wome n's Daily Multivitamin qDay, 0 Refill(s) Start Date: 05/17/21 Status: Ordered nystatin 100 unt/mg topical powder (2 sources) Polyene Antifungal Start: 05-25-2014 nystatin (MYCOSTATIN) powder Apply 1 application to affected area three times daily. 1 Bottle 0 05/25/2014 Active Comment on above: Apply 1 application to affected area three times daily. sodium chloride 0.111 meq/ml nasal spray (2 sources) Start: 08-28-2019 sodium chloride 0.65 % nasal spray as needed. 0 08/28/2019 Active Comment on above: as needed. Problems Active Problems Problem Classification Problem Date Documented Date Episodic/Chronic Anxiety disorders (4 sources) Anxiety disorder; Translations: [Anxiety disorder, unspecified] Onset: 02-17-2017 02-17-2017 Chronic Coagulation and hemorrhagic disorders (3 sources) Thrombocytopenic disorder; Translations: [Thrombocytopenia, unspecified] Onset: 08-08-2023 05-12-2021 Chronic Diseases of white blood cells (1 source) Leukopenia 05-12-2021 Chronic Diverticulosis and diverticulitis (2 sources) Diverticulitis of colon with perforation; Translations: [Diverticulitis of large intestine with perforation and abscess without bleeding] Onset: 04-11-2011 04-11-2011 Chronic Esophageal disorders (4 sources) Gastroesophageal reflux disease; Translations: [Gastro-esophageal reflux disease without esophagitis] Onset: 02-17-2017 02-17-2017 Chronic Essential hypertension (2 sources) Essential hypertension; Translations: [Essential (primary) hypertension] Onset: 04-02-2022 08-08-2023 Chronic Mood disorders (2 sources) Dysthymia; Translations: [Dysthymic disorder] Onset: 08-08-2023 08-08-2023 Chronic Nutritional deficiencies (2 sources) Vitamin D deficiency; Translations: [Vitamin D deficiency, unspecified] Onset: 08-08-2023 08-08-2023 Chronic Osteoarthritis (4 sources) Osteoarthritis; Translations: [Unspecified osteoarthritis, unspecified site] Onset: 02-17-2017 02-17-2017 Chronic Osteoporosis (2 sources) Osteoporosis; Translations: [Age-related osteoporosis without current pathological fracture] Onset: 08-08-2023 08-08-2023 Chronic Other circulatory disease (2 sources) Raynaud's disease; Translations: [Raynaud's syndrome without gangrene] Onset: 08-08-2023 08-08-2023 Chronic Other endocrine disorders (2 sources) Hyperparathyroidism; Translations: [Hyperparathyroidism, unspecified] Onset: 08-09-2019 08-08-2023 Chronic Other endocrine disorders (1 source) Disorder of adrenal gland; Translations: [Disorder of adrenal gland, unspecified] 08-13-2023 Chronic Other endocrine disorders (1 source) Hyperparathyroidism, unspecified; Translations: [Hyperparathyroidism (HCC)] Onset: 06-15-2023 Chronic Other endocrine disorders (1 source) Other specified disorders of adrenal gland; Translations: [Adrenal cortical nodule (HCC)] Onset: 06-15-2023 Chronic Other inflammatory condition of skin (2 sources) Cutaneous lupus erythematosus; Translations: [Other local lupus erythematosus] Onset: 08-08-2023 08-08-2023 Chronic Thyroid disorders (2 sources) Multinodular goiter; Translations: [Nontoxic multinodular goiter] Onset: 07-09-2023 08-13-2023 Chronic Unclassified (1 source) Physical examination; Translations: [Encounter for general adult medical examination without abnormal findings] Onset: 08-03-2010 08-03-2010 Past or Other Problems Problem Classification Problem Date Documented Da te Episodic/Chronic Appendicitis and other appendiceal conditions (2 sources) Appendicitis; Translations: [Unspecified appendicitis] Onset: 04-11-2011 04-11-2011 Episodic Hemorrhoids (4 sources) Hemorrhoids; Translations: [Unspecified hemorrhoids] Onset: 04-14-2014 02-17-2017 Episodic Other inflammatory condition of skin (2 sources) Pruritus ani; Translations: [Pruritus ani] Onset: 11-24-2014 11-24-2014 Episodic Other skin disorders (2 sources) Skin lesion; Translations: [Disorder of the skin and subcutaneous tissue, unspecified] Onset: 02-09-2016 02-09-2016 Episodic Results Test Name Value Interpretation Reference Range Facility [facility] 08-13-2023 CNOV Office Visit (ENWSTR ) -------- LATISHA STONE ([id number]) 1960 F Date Time Provider Department 08/13/23 11:20 AM EMERY CANTU ENWSTR During your visit today, we recorded the following information about you: Pulse Respiration Blood pressure Weight 77/minute 18/minute 124/82 64.3 kg Height 1.6 m Emery Cantu MD 08/13/2023 6:46 PM Addendum Endocrinology and Metabolism Cope Follow-up visit note Chief Complaint: Hyperparathyroidism History of Present Illness: Latisha Stone is a 63 year old old female with cutaneous lupus erythematosus presenting with hypercalcemia secondary to primary hyperparathyroidism, multinodular goiter, left adrenal nodule. 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 [employer] [employer] She initially presented on 06/15/2023 for hypercalcemia associated with elevated PTH levels. She had no history of kidney stones, fractures, osteoporosis, height loss, weight loss, prior radiation to head and neck. There was no personal history of known thyroid disease. There was no family history of thyroid or parathyroid disease, osteoporosis. Her calcium intake was suboptimal at 1 serving of dietary calcium per day. She was taking multivitamin sporadically which contains vitamin D. She use a steroid ointment for cutaneous lupus. Denied any systemic steroid for prolonged period. She denied use of medications like lithium or thiazide diuretics. Caffeine: 1-3 c/day Smoking: Never smoked and Smoker, 1 ppd Alcohol: occasionally Exercise: no regular exercise program and minimal exercise- walking once a week weh depressed, now incrased to doing more steps a day History of falls: no Menopause at age: 52 years, no HRT HRT: No She had no symptoms of hypercalcemia. She was advised to take adequate calcium, Vitamin D for bone protection. All calcium labs were ordered and revealed primary hyperparathyroidism. 24 hour urine calcium was requested after holding calcium and Vitamin D supplements for 3 weeks (for assessing hypercalciuria as a surgical indication), which she just completed she reports. She has not completed the urine labs yet, due to work. She reports today that she had parathyroid scan done in Jul 2019 for hyperparathyroidism and was negative for adenoma. Left adrenal nodule: On the initial visit, on chart review, there was also found a CT abdomen and pelvis which shows 3.6 cm left adrenal nodule. Patient says this was done to evaluate for abnormal parathyroid glands. She was unaware of adrenal nodule. Symptoms related: Weight gain- 20 lbs in 1 to 2 year no proximal weakness, no easy bruising, no abdominal stretch aguayo No hx of HTN, DM, PCOS Labs done: 1 mg DST- resulted normal. Normal BP and hence aldosterone was not done Multinodular goiter: And on examination on the last visit, thyroid nodules were felt and US thyroid was recommended which showed 3 nodules, and she was recommended FNAB based on review of images. This was not scheduled yet PAST MEDICAL HISTORY Diagnosis Date ALLERGY ENVIRONMENTAL Diverticulosis of colon (without mention of hemorrhage) Diverticulosis Esophageal reflux Gastroesophageal reflux Irritable bowel syndrome Irritable bowel PAST SURGICAL HISTORY Procedure Laterality Date COLONOSCOPY FLX DX W/COLLJ SPEC WHEN PFRMD 04-30-14 DILATION AND CURETTAGE DXAND/THER NONOBSTETRIC Dilation AND curettage DOPPLER ECHOCARD PULSE WAVE W/SPECTRAL DISPLAY ESOPHAGOGASTRODUODENOSCO PY TRANSORAL DIAGNOSTIC 2006 EGD and c-scope HEMORRHOIDECTOMY INT AND XTRNL 2/> COLUMN/FRITZ 04-30-14 LAPAROSCOPY COLECTOMY PARTIAL W/ANASTOMOSIS 04-04-11 appey and umbilical hernia PAST SURGICAL HISTORY OF re-implanted roots in teeth(peridontal disease TONSILLECTOMY PRIMARY/SECONDARY Tonsillectomy FAMILY HISTORY Problem Relation Age of Onset Coronary Artery Disease Mother Cancer Father lung Alcohol/Drug Mother Alcohol/Drug Father Cancer Mother brain Heart Mother Heart Father ALLERGIES No Known Allergies Social History Tobacco Use Smoking status: Every Day Packs/day: 1.00 Years: 30.00 Additional pack years: 0.00 Total pack years: 30.00 Types: Cigarettes Smokeless tobacco: Former Vaping Use Vaping Use: Never used Substance Use Topics Alcohol use: Yes Comment: SOCIAL APPROX. 2 DRINKS PER WEEK Drug use: No Current Outpatient Medications Medication Sig loratadine 10 mg cap Take by mouth. famotidine (PEPCID) 10 mg tablet Take by mouth. sodium chloride 0.65 % nasal spray as needed. nystatin (MYCOSTATIN) powder Apply 1 application to affected area three times daily. iv contrast (will be provided with radiology test) CT adrenal WO/W Inject, intravenously, once for 1 dose.No IV access, insert saline lock prior to the beginning of sedation, infus (more content not included)... Normal [facility] CNPNon 08-13-2023 CNPN Telephone (ENWSTR) -------- LATISHA STONE ([id number]) 1960 F Date Time Provider Department 08/13/23 EMERY CANTU ENWSTR During your visit today, we recorded the following information about you: Nori Dahl RN 08/13/2023 1:50 PM Signed Record release faxed to [facility] Medical Record department for Pt's parathyroid scan in ~2019. Fax confirmation received. Nori Dahl RN August 13, 2023 1:50 PM Allergies As of Date: 08/13/2023 (No Known Allergies) Date Reviewed: 08/13/2023 Reviewed by: Nori Dahl RN - Fully Assessed Reason for Visit: Release Of Medical Records [2017] Prescriptions as of 08/13/2023 - iv contrast (will be provided with radiology test) CT adrenal WO/W Inject, intravenously, once for 1 dose.No IV access, insert saline lock prior to the beginning of sedation, infusion, injection of imaging exam. Discontinue saline lock post exam. If Pt. has a central line or IVAD, may access for administration according to line specific nursing protocol. Once exam is complete flush line and de-access according to line specific nursing protocol in the CT contrast administration guidelines link. - multivit,thx,calcium,iro n,mins (MULTIVITAMIN AND MINERAL ORAL) [employer] Women's Daily Multivitamin qDay, 0 Refill(s) Start Date: 05/17/21 Status: Ordered - loratadine 10 mg cap Take by mouth. - famotidine (PEPCID) 10 mg tablet Take by mouth. - sodium chloride 0.65 % nasal spray as needed. - dexAMETHasone (DECADRON) 1 mg tablet Take at 11 pm on one day - nystatin (MYCOSTATIN) powder Apply 1 application to affected area three times daily. - ibuprofen 200 mg ORAL tablet Take 1-2 tablets by mouth every 4 hours as needed. FOR PAIN. - FERROUS SULFATE 325 MG (65 MG ELEMENTAL IRON) TAB one tab PRN Problem List As Of Date 08/13/2023 Noted Resolved Diverticulitis of colon with perforation [K57.2*04/11/2011 Appendicitis [K37] 04/11/2011 Unspecified hemorrhoids without mention of comp*04/14/2014 Anal pruritus [L29.0] 11/24/2014 Skin lesion [L98.9] 02/09/2016 Anxiety disorder [F41.9] 02/17/2017 Cutaneous lupus erythematosus [L93.2] 08/08/2023 Dysthymia [F34.1] 08/08/2023 Disorder involving thrombocytopenia (HCC) [D69.*08/08/2023 Essential (primary) hypertension [I10] 04/02/2022 Gastroesophageal reflux disease [K21.9] 02/17/2017 Hyperparathyroidism (HCC) [E21.3] 08/09/2019 Osteoarthritis [M19.90] 02/17/2017 Osteoporosis [M81.0] 08/08/2023 Raynaud's disease [I73.00] 08/08/2023 Vitamin D deficiency [E55.9] 08/08/2023 Encounter Status:Closed by NORI DAHL on 08/13/23 [facility] US THYROID/PARATHYROIDon US THYROID/PARATHYROID * * *Final Report* * * DATE OF EXAM: Jul 09 2023 10:56AM MARLY 1048 - US THYROID/PARATHYROID / PROCEDURE REASON: Nodular thyroid disease * * * * Physician Interpretation * * * * EXAMINATION: THYROID ULTRASOUND CLINICAL HISTORY: Nodular thyroid disease TECHNIQUE: Sonography and Doppler imaging of the thyroid was performed. Images were obtained and stored in a permanent archive and interpreted remotely. MQ: UST_1 COMPARISON: None. RESULT: Right Lobe: 1.5 x 1.6 x 4.3 cm; mildly heterogeneous echogenicity, expected vascular flow. Left Lobe: 1.1 x 1.3 x 3.9 cm; mildly heterogeneous echogenicity, expected vascular flow. Isthmus: 0.1 cm The most suspicious thyroid nodule(s) (up to four) as below: NODULE 1: Location: Right mid Size: 0.8 x 1.3 x 1.4 cm Characteristics: Composition: Mixed cystic and solid, 1 point Echogenicity: Echogenicity cannot be determined, 1 point Shape: Ulrtb-catz-cssd, 0 points Margin: Lobulated or irregular, 2 points Echogenic foci (add points for all that apply): None, 0 points Internal vascularity: absent Interval growth: No prior available for comparison TI-RADS Category: TR4 ACR Recommendation: TI-RADS 4 nodule. Follow up imaging in 1, 2, 3 and 5 years is advised. NODULE 2: Location: Right mid to lower Size: 0.8 x 0.8 x 1.4 cm Characteristics: Composition: Solid or almost completely solid, 2 points Echogenicity: Hypoechoic, 2 points Shape: Aknli-sric-ylsl, 0 points Margin: Lobulated or irregular, 2 points Echogenic foci (add points for all that apply): Punctate echogenic foci, 3 points Internal vascularity: present Interval growth: No prior available for comparison TI-RADS Category: TR5 ACR Recommendation: TI-RADS 5 nodule. FNA is advised. NODULE 3: Location: Left mid Size: 0.8 x 1.0 x 1.5 cm Characteristics: Composition: Solid or almost completely solid, 2 points Echogenicity: Hypoechoic, 2 points Shape: Aiaux-kgnb-rare, 0 points Margin: Lobulated or irregular, 2 points Echogenic foci (add points for all that apply): Large comet tail artifacts in cysts, 0 points Internal vascularity: present Interval growth: No prior available for comparison TI-RADS Category: TR4 ACR Recommendation: TI-RADS 4 nodule. FNA is recommended. IMPRESSION: Thyroid nodule(s) is/are present. Fine needle aspiration is recommended for one or more nodules as detailed in the synoptic report. TI-RADS Category: TR5 and TR4 ACR Recommendation: TI-RADS 5 nodule. FNA is advised. TI-RADS 4 nodule. FNA is recommended. ACR recommendations are strictly based on the size and imaging appearance at the time of the exam and do not consider stability or previous biopsy results. Gear Changer: PSCB Transcribe Date/Time: Jul 09 2023 12:25P Dictated by : LISA MONTE MD This examination was interpreted and the report reviewed and electronically signed by: LISA MONTE MD on Jul 09 2023 12:30PM EST [id number] Normal [facility] 25(OH)D3 [facility] 2022 25-hydroxyvitamin D3 [Mass/Vol] 43.4 ng/mL Normal 31.0-80.0 [facility] Comment on above: Order Comment: Speci men Type: BLOOD SPECIMEN Ordering Facility: [facility] Address: [address] [place] [address] Performed By: #### 1 989-3 #### [facility] CLIA [id number] [address] [place] [address] [place] ALK PHOS BONE SPECon 023 ALK PHOSPHATASE, BONE 40.1 ug/L Normal [facility] Comment on above: Order Comment: Speci men Type: BLOOD SPECIMEN Ordering Facility: [facility] Address: [address] [place] [address] Result Comment: INTERPRETIVE INFORMATION: Bone Specific Alkaline Phosphatase Premenopausal Female: 4.5 - 16.9 ug/L Postmenopausal Female: 7.0 - 22.4 ug/L INTERPRETIVE INFORMATION: Bone Specific Alkaline Phosphatase Liver alkaline phosphatase can affect the measurement of bone specific alkaline phosphatase in this assay. Each 100 U/L of liver alkaline phosphatase contributes an additional 2.5 to 5.8 ug/L to the bone specific alkaline phosphatase result. Performed By: [facility] [address] [place] [address] Straw Hat Washer Operator: Octavio Martinez MD, PhD CLIA Number: [id number] Performed By: #### A TYLER #### [id number] [address] [place] [address] Comprehensive metabolic 2000 panelon 06-23-2023 Albumin [Mass/Vol] 4.5 g/dL Normal 3.9-4.9 [facility] Comment on above: Order Comment: Speci men Type: BLOOD SPECIMEN Ordering Facility: [facility] Address: [address] [place] [address] Performed By: #### 2 777-1, , #### [facility] CLIA [id number] [address] [place] [address] [place] ALP [Catalytic activity/Vol] 154 U/L High 34-123 [facility] Comment on above: Order Comment: Speci men Type: BLOOD SPECIMEN Ordering Facility: [facility] Address: [address] [place] [address] Performed By: #### 2 777-1, , #### [facility] CLIA [id number] [address] [place] [address] [place] ALT [Catalytic activity/Vol] 18 U/L Normal 7-38 [facility] Comment on above: Order Comment: Speci men Type: BLOOD SPECIMEN Ordering Facility: [facility] Address: [address] [place] [address] Performed By: #### 2 777-1, , #### [facility] CLIA [id number] [address] [place] [id number] [place] Anion gap [Moles/Vol] 13 mmol/L Normal 9-18 [facility] Comment on above: Order Comment: Speci men Type: BLOOD SPECIMEN Ordering Facility: [facility] Address: [address] [place] [address] Performed By: #### 2 777-1, , #### [facility] CLIA [id number] [address] [place] [address] [place] AST [Catalytic activity/Vol] 19 U/L Normal 13-35 [facility] Comment on above: Order Comment: Speci men Type: BLOOD SPECIMEN Ordering Facility: [facility] Address: [address] [place] [address] Performed By: #### 2 777-1, 53409-5, #### [facility] CLIA [id number] [address] [place] [address] [place] Bilirubin [Mass/Vol] 0.3 mg/dL Normal 0.2-1.3 [facility] Comment on above: Order Comment: Speci men Type: BLOOD SPECIMEN Ordering Facility: [facility] Address: [address] [place] [address] Performed By: #### 2 777-1, , #### [facility] CLIA [id number] [address] [place] [address] [place] Calcium [Mass/Vol] 10.8 mg/dL High 8.5-10.2 [facility] Comment on above: Order Comment: Speci men Type: BLOOD SPECIMEN Ordering Facility: [facility] Address: [address] [place] [address] Performed By: #### 2 777-1, , #### [facility] CLIA [id number] [address] [place] [address] [place] Chloride [Moles/Vol] 99 mmol/L Normal 97-105 [facility] Comment on above: Order Comment: Speci men Type: BLOOD SPECIMEN Ordering Facility: [facility] Address: [address] [place] [address] Performed By: #### 2 777-1, , #### [facility] CLIA [id number] [address] [place] [address] [place] CO2 [Moles/Vol] 22 mmol/L Normal 22-30 [facility] Comment on above: Order Comment: Speci men Type: BLOOD SPECIMEN Ordering Facility: [facility] Address: [address] [place] [address] Performed By: #### 2 777-1, , #### [facility] CLIA [id number] [address] [place] [address] [place] Creatinine [Mass/Vol] 0.58 mg/dL Normal 0.58-0.96 [facility] Comment on above: Order Comment: Speci men Type: BLOOD SPECIMEN Ordering Facility: [facility] Address: [address] [place] [address] Performed By: #### 2 777-1, , #### [facility] CLIA [id number] [address] [place] [address] [place] Creatinine and Glomerular filtration rate.predicted panel (S/P/Bld) 102 mL/min/1.73m??? Normal >=60 [facility] Comment on above: Order Comment: Charmainei men Type: BLOOD SPECIMEN Ordering Facility: [facility] Address: [address] [place] [address] Result Comment: Jaz mated Glomerular Filtration Rate (eGFR) is calculated using the 2020 CKD-EPI creatinine equation. This equation utilizes serum creatinine, sex, and age as parameters. The creatinine assay has traceable calibration to isotope dilution-mass spectrometry. Refer to KDIGO guidelines for clinical interpretation. In patients with unstable renal function, e.g. those with acute kidney injury, the eGFR may not accurately reflect actual GFR. Performed By: #### 2 777-1, , #### [facility] CLIA [id number] [address] [place] [address] [place] Glucose [Mass/Vol] 147 mg/dL High 74-99 [facility] Comment on above: Order Comment: Speci men Type: BLOOD SPECIMEN Ordering Facility: [facility] Address: [address] [place] [address] Result Comment: The [place] Diabetes Association (ADA) provides guidance for cutoff values for fasting glucose and random glucose. The ADA defines fasting as no caloric intake for at least 8 hours. Fasting plasma glucose results between 100 to 125 mg/dL indicate increased risk for diabetes (prediabetes). Fasting plasma glucose results greater than or equal to 126 mg/dL meet the criteria for diagnosis of diabetes. In the absence of unequivocal hyperglycemia, results should be confirmed by repeat testing. In a patient with classic symptoms of hyperglycemia or hyperglycemic crisis, random plasma glucose results greater than or equal to 200 mg/dL meet the criteria for diagnosis of diabetes. Reference: Standards of Medical Care in Diabetes 2016, [place] [employer] Association. Diabetes Care. 2016.39(Suppl 1). Performed By: #### 2 777-1, , #### [facility] CLIA [id number] [address] [place] [address] [place] Potassium [Moles/Vol] 4.6 mmol/L Normal 3.7-5.1 [facility] Comment on above: Order Comment: Speci men Type: BLOOD SPECIMEN Ordering Facility: [facility] Address: [address] [place] [address] Performed By: #### 2 777-1, , #### [facility] CLIA [id number] [address] [place] [address] [place] Protein [Mass/Vol] 7.1 g/dL Normal 6.3-8.0 [facility] Comment on above: Order Comment: Speci men Type: BLOOD SPECIMEN Ordering Facility: [facility] Address: [address] [place] [address] Performed By: #### 2 777-1, , #### [facility] CLIA [id number] [address] [address] [place] Sodium [Moles/Vol] 134 mmol/L Low 136-144 [facility] Comment on above: Order Comment: Speci men Type: BLOOD SPECIMEN Ordering Facility: [facility] Address: [address] [place] [address] Performed By: #### 2 777-1, 22645-8, 94309-1 #### [facility] CLIA [id number] [address] [place] [address] [place] Urea nitrogen [Mass/Vol] 9 mg/dL Normal 7-21 [facility] Comment on above: Order Comment: Specperry men Type: BLOOD SPECIMEN Ordering Facility: [facility] Address: [address] [place] [address] Performed By: #### 2 777-1, 22343-5, 14906-0 #### [facility] CLIA [id number] [address] [place] [address] [place] Cortis p Dex SerPl-mCncon Cortisol post dose dexamethasone [Mass/Vol] 1.5 ug/dL Normal <1.8 [facility] Comment on above: Order Comment: Manjinder leyva Type: BLOOD SPECIMEN Ordering Facility: [facility] Address: [address] [place] [address] Result Comment: Afte r overnight 1 mg dexamethasone, an composite science teacher cortisol of <1.8 ug/dL may indicate an adequate cortisol suppression. This result should be interpreted within the clinical context and other test results. Mazin et al. Evidence for the Low Dose Dexamethasone Suppression Test to Screen for [place]'s Syndrome - Recommendations for a Protocol for Biochemistry Laboratories. 1996 Jaylene. Clin. Biochem. 34 222-229. Performed By: #### 4 7851-1 #### [facility] CLIA [id number] [address] [place] [address] [place] DEXAMETHASONEon 06-23-2023 DEXAMETHASONE 126.8 ng/dL Normal [facility] Comment on above: Order Comment: Manjinder leyva Type: BLOOD SPECIMEN Ordering Facility: [facility] Address: [address] [place] [address] Result Comment: INTE RPRETIVE INFORMATION: Dexamethasone, Serum or Plasma by LC-MS/MS Adults baseline: Less than 50 ng/dL 8:00 AM draw following 1 mg dexamethasone between 11:00 pm and 12:00 am the previous evenin - 295 ng/dL 8:00 AM draw following 8 mg dexamethasone (4 x 2 mg doses) between 11:00 pm and 12:00 am the previous evenin - 2850 ng/dL This test was developed and its performance characteristics determined by [facility]. It has not been cleared or approved by the US Food and Drug Administration. This test was performed in a CLIA certified laboratory and is intended for clinical purposes. Performed By: [facility] [address] [place] [address] Straw Hat Washer Operator: Octavio Martinez MD, PhD CLIA Number: [id number] Performed By: #### D CODEYA #### [facility] CLIA [id number] [address] [place] [address] Magnesium SerPl-mCncon 06-23 Magnesium [Mass/Vol] 2.0 mg/dL Normal 1.7-2.3 [facility] Comment on above: Order Comment: Speci men Type: BLOOD SPECIMEN Ordering Facility: [facility] Address: [address] [place] [address] Performed By: #### 2 777-1, 28672-1, 11839-7 #### [facility] CLIA [id number] [address] [place] [address] [place] PTH-Intact SerPl-mCncon 12-3 0-2022 Parathyrin.intact [Mass/Vol] 116 pg/mL High 15-65 [facility] Comment on above: Order Comment: Speci [facility] Type: BLOOD SPECIMEN Ordering Facility: [facility] Address: [address] [place] [address] Performed By: #### 2 731-8 #### [facility] CLIA [id number] [address] [place] [address] [place] Phosphate SerPl-mCncon 06-23 Phosphate [Mass/Vol] 2.6 mg/dL Low 2.7-4.8 [facility] Comment on above: Order Comment: Speci men Type: BLOOD SPECIMEN Ordering Facility: [facility] Address: [address] [place] [address] Performed By: #### 2 777-1, 71639-5, 01490-8 #### [facility] CLIA [id number] [address] [facility] [id number] [place] [address] OF [facility] CNOVon 06-15-2023 CNOV Office Visit (ENWSTR ) -------- LATISHA STONE ([id number]) 1960 F Date Time Provider Department 06/15/23 1:40 PM EMERY CANTU ENWSTR During your visit today, we recorded the following information about you: Temperature Pulse Blood pressure Weight 98.6 degrees 91/minute 130/62 64.4 kg Height 1.6 m Emery Cantu MD 06/20/2023 5:00 PM Addendum Endocrinology and Metabolism Cope Initial Clinic Visit Note NAME: Latisha Stone is a 63 year old old female PCP: Bethany Veliz MD, MD Requesting Provider: Bethany Veliz MD Critical access hospital [facility] [address] [address] My final recommendations will be communicated back to the requesting physician by way of shared medical record or letter via US mail. Chief Complaint: Hyperparathyroidism History of Present Illness: Latisha Stone is a 63 year old old female with cutaneous lupus erythematosus presenting with elevated PTH hormone. 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 [facility] Personal history of kidney stones: no Personal history of fractures: None Family history of osteoporosis: no Height loss: No Weight <127 lbs: No Prior radiation to the neck: no Personal history of thyroid or parathyroid disease: no Family history of thyroid or parathyroid disease: no Calcium Intake: Patient eats ~1 serving of calcium/day Patient takes calcium supplements- no Vitamin D Intake: Patient takes Vit D supplements- sporadic Mvt No recent or prolonged steroid use- Steroid ointment for Cutaneous lupus Caffeine: 1-3 c/day Smoking: Never smoked and Smoker, 1 ppd Alcohol: occasionally Exercise: no regular exercise program and minimal exercise- walking once a week weh depressed, now incrased to doing more steps a day History of falls: no Menopause at age: 52 years, no HRT HRT: No Signs, Symptoms AND Risk Factors for Hypercalcemia: - Anorexia: - Bone pain: no - Fatigue / poor concentration: no - Constipation: no - Fractures: no - Medications: [place] or thiazide diuretics- no - Muscle weakness: no - Nausea / vomiting: no - Nephrolithiasis: no On chart review, there was also found a CT abdomen and pelvis which shows 3.6 cm left adrenal nodule. Patient says this was done to evaluate for abnormal parathyroid glands. She was unaware of adrenal nodule. Symptoms related: Weight gain- 20 lbs in 1 to 2 year no proximal weakness, no easy bruising, no abdominal stretch aguayo No hx of HTN, DM, PCOS PAST MEDICAL HISTORY Diagnosis Date ALLERGY ENVIRONMENTAL Diverticulosis of colon (without mention of hemorrhage) Diverticulosis Esophageal reflux Gastroesophageal reflux Irritable bowel syndrome Irritable bowel PAST SURGICAL HISTORY Procedure Laterality Date COLONOSCOPY FLX DX W/COLLJ SPEC WHEN PFRMD 04-30-14 DILATION AND CURETTAGE DXAND/THER NONOBSTETRIC Dilation AND curettage DOPPLER ECHOCARD PULSE WAVE W/SPECTRAL DISPLAY ESOPHAGOGASTRODUODENOSCO PY TRANSORAL DIAGNOSTIC 2006 EGD and c-scope HEMORRHOIDECTOMY INT AND XTRNL 2/> COLUMN/FRITZ 04-30-14 LAPAROSCOPY COLECTOMY PARTIAL W/ANASTOMOSIS 04-04-11 appey and umbilical hernia PAST SURGICAL HISTORY OF re-implanted roots in teeth(peridontal disease TONSILLECTOMY PRIMARY/SECONDARY Tonsillectomy FAMILY HISTORY Problem Relation Age of Onset Coronary Artery Disease Mother Cancer Father lung Alcohol/Drug Mother Alcohol/Drug Father Cancer Mother brain Heart Mother Heart Father ALLERGIES Allergen Reactions Acyclovir Intolerance Sloughing of mucous membranes mouth and vagina Aspertain [Other] Hives Social History Tobacco Use Smoking status: Former Packs/day: 1.00 Years: 30.00 Additional pack years: 0.00 Total pack years: 30.00 Types: Cigarettes Quit date: 02/09/1976 Years since quittin.3 Substance Use Topics Alcohol use: Yes Comment: SOCIAL APPROX. 2 DRINKS PER WEEK Drug use: No Current Outpatient Medications Medication Sig multivit,thx,calcium,iro n,mins (MULTIVITAMIN AND MINERAL ORAL) [employer] [facility] Daily Multivitamin qDay, 0 Refill(s) Start Date: 05/17/21 Status: Ordered loratadine 10 mg cap Take by mouth. famotidine (PEPCID) 10 mg tablet Take by mouth. sodium chloride 0.65 % nasal spray as needed. nystatin (MYCOSTATIN) powder Apply 1 application to affected area three times daily. ibuprofen 200 mg ORAL tablet Take 1-2 tablets by mouth every 4 hours as needed. FOR PAIN. FERROUS SULFATE 325 MG (65 MG ELEMENTAL IRON) TAB one tab PRN No current facility-administered medications for this visit. Review of Systems 10 point ROS was reviewed and negative unless indicated in the HPI Physical Exam: Body mass index is 25.15 kg/m?. General: Comfortable, no obvious distress Eyes: Sclera anicteric, no pallor Mouth/Throat: Moist Mucous membra (more content not included)... Normal [facility] 03-31-2021 Methylmalonic Acid 190 nmol/L Normal 79-376 [facility] ([place]) Comment on above: Result Comment: This test was developed and its performance characteristics determined by [facility] ( [facility]). It has not been cleared or approved by the FDA. [facility] is regulated under CLIA as qualified to perform high complexity testing. This test is used for clinical purposes. It should not be regarded as investigational or for research. Performed By: [facility] [address] [place] [address] Filtrose Crusher: Juan Berry III, M.D. CLIA#: [id number] Phone#: Performed By: #### C BC, ADIFF, ANEU, LIP, AMRIT, CMP, ALC #### [address] [place], [place] [address] #### GFR, ACETA #### [id number] [place] [address] 03-31-2021 Rheumatoid Factor <6.0 Normal <=6.0 Replaced By [facility] ([place]) Comment on above: Result Comment: RF I gM Antibody by Enzyme Immunoassay: Negative < or = 6 Positive > 6 A positive result indicates the presence of RF antibodies and suggests the possibility of rheumatoid arthritis. A negative result indicates no RF IgM antibody or levels below the negative cut-off of the assay. Results of this assay should be used in conjunction with clinical findings and other serological tests. These results were obtained with the Commutable QUANTA Lite RF IgM CYNDIE. RF IgM values obtained with different manufacturers' assay methods may not be used interchangeably. The magnitude of the reported IgM levels cannot be correlated to an endpoint titer. Performed By: #### C BC, ADIFF, ANEU, LIP, AMRIT, CMP, ALC #### [place] [address] #### GFR, ACETA #### [place] [address] .ANATon 03-28-2021 PANKAJ Pattern 1 Homogeneous Normal Replaced By [facility] ([place]) Comment on above: Result Comment: At [facility], an PANKAJ titer of less than 160 is not considered suggestive of significant rheumatoid disease. If clinical suspicion is high, suggest repeat testing in 1-2 months. Performed By: #### C BC, ADIFF, ANEU, LIP, AMRIT, CMP, ALC #### [place] [address] #### GFR, ACETA #### [place] [address] PANKAJ Titer 1 40 Normal Replaced By [facility] ([place]) Comment on above: Performed By: #### C BC, ADIFF, ANEU, LIP, AMRIT, CMP, ALC #### [place] [address] #### GFR, ACETA #### [place] [address] .Auto Diffon 03-28-2021 Basophil, Absolute 0.00 10 3/mcL Normal 0.00-0.27 [facility] ([place]) Comment on above: Performed By: #### C BC, ADIFF, ANEU, LIP, AMRIT, CMP, ALC #### [place] [address] #### GFR, ACETA #### [address] [address] Basophils/100 WBC (Bld) 0.6 % Normal 0.0-2.5 Replaced By [facility] ([place]) Comment on above: Performed By: #### C BC, ADIFF, ANEU, LIP, AMRIT, CMP, ALC #### [place] [address] #### GFR, ACETA #### [address] [address] Eosinophil, Absolute 0.10 10 3/mcL Normal 0.00-0.65 A [facility] ([place]) Comment on above: Performed By: #### C BC, ADIFF, ANEU, LIP, AMRIT, CMP, ALC #### [place] [address] #### GFR, ACETA #### [address] [address] Eosinophils/100 WBC (Bld) 1.1 % Normal 0.0-6.0 Replaced By [facility] ([place]) Comment on above: Performed By: #### C BC, ADIFF, ANEU, LIP, AMRIT, CMP, ALC #### [place] [address] #### GFR, ACETA #### [address] [address] Lymphocyte, Absolute 1.30 10 3/mcL Normal 0.90-4.32 A [facility] ([place]) Comment on above: Performed By: #### C BC, ADIFF, ANEU, LIP, AMRIT, CMP, ALC #### [place] [address] #### GFR, ACETA #### [address] [address] Lymphocytes/100 WBC (Bld) 19.2 % Low 20.0-40.0 Replaced By [facility] ([place]) Comment on above: Performed By: #### C BC, ADIFF, ANEU, LIP, AMRIT, CMP, ALC #### [address] [address] #### GFR, ACETA #### [address] [address] Monocyte, Absolute 1.00 10 3/mcL Normal 0.09-1.40 [facility] ([place]) Comment on above: Performed By: #### C BC, ADIFF, ANEU, LIP, AMRIT, CMP, ALC #### [place] [address] #### GFR, ACETA #### [address] [address] Monocytes/100 WBC (Bld) 15.0 % High 2.0-13.0 Replaced By [facility] ([place]) Comment on above: Performed By: #### C BC, ADIFF, ANEU, LIP, AMRIT, CMP, ALC #### [address] [address] #### GFR, ACETA #### [address] [address] Neutrophils/100 WBC (Bld) 64.1 % Normal 50.0-75.0 Replaced By [facility] ([place] Comment on above: Performed By: #### C BC, ADIFF, ANEU, LIP, AMRIT, CMP, ALC #### [address] [address] #### GFR, ACETA #### [address] [address] .GFRon 03-28-2021 GFR >60 Normal [facility] ([place]) Comment on above: Result Comment: GFR Population mean for , Non- Americans Ages 20-29 = 116 mL/min/1.73 sq.m. Ages 30-39 = 107 mL/min/1.73 sq.m. Ages 40-49 = 99 mL/min/1.73 sq.m. Ages 50-59 = 93 mL/min/1.73 sq.m. Ages 60-69 = 85 mL/min/1.73 sq.m. Ages 70+ = 75 mL/min/1.73 sq.m. Chronic Kidney Disease: Less than 60 mL/min/1.73 square meters End Stage Renal Disease: Less than 15 mL/min/1.73 square meters Performed By: #### C BC, ADIFF, ANEU, LIP, AMRIT, CMP, ALC #### [place] [address] #### GFR, ACETA #### [address] [address] GFR Non- >60 Normal Replaced By [facility] ([place]) Comment on above: Result Comment: GFR Population mean for , Non- Americans Ages 20-29 = 116 mL/min/1.73 sq.m. Ages 30-39 = 107 mL/min/1.73 sq.m. Ages 40-49 = 99 mL/min/1.73 sq.m. Ages 50-59 = 93 mL/min/1.73 sq.m. Ages 60-69 = 85 mL/min/1.73 sq.m. Ages 70+ = 75 mL/min/1.73 sq.m. Chronic Kidney Disease: Less than 60 mL/min/1.73 square meters End Stage Renal Disease: Less than 15 mL/min/1.73 square meters Performed By: #### C BC, ADIFF, ANEU, LIP, AMRIT, CMP, ALC #### [place] [address] #### GFR, ACETA #### [place] [address] .Morphon 03-28-2021 Anisocytosis Ql (Bld) Slight Normal Replaced By [facility] ([place]) Comment on above: Performed By: #### C BC, ADIFF, ANEU, LIP, AMRIT, CMP, ALC #### [place] [address] #### GFR, ACETA #### [place] [address] Platelet Estimate Normal Normal Replaced By [facility] ([place] Comment on above: Performed By: #### C BC, ADIFF, ANEU, LIP, AMRIT, CMP, ALC #### [place] [address] #### GFR, ACETA #### [address] [address] .NEUABSon 03-28-2021 Neutrophil, Absolute 4.20 10 3/mcL Normal 2.25-8.10 A [facility] ([place]) Comment on above: Performed By: #### C BC, ADIFF, ANEU, LIP, AMRIT, CMP, ALC #### [address] [address] #### GFR, ACETA #### [place] [address] ANAon 03-28-2021 PANKAJ See Titer Normal Neg 40 Replaced By [facility] ([place] Comment on above: Result Comment: PANKAJ Screen and Titer methodology is an immunofluorescent technique utilizing Hep2 Substrate. Performed By: #### C BC, ADIFF, ANEU, LIP, AMRIT, CMP, ALC #### [place] [address] #### GFR, ACETA #### [place] [address] CBCon 03-28-2021 Platelet 186 10 3/mcL Normal 150-450 Replaced By [facility] ([place]) Comment on above: Performed By: #### C BC, ADIFF, ANEU, LIP, AMRIT, CMP, ALC #### [address] [address] #### GFR, ACETA #### [place] [address] Platelet mean volume (Bld) [Entitic vol] 8.1 fL Normal 6.6-10.5 Replaced By [facility] ([place] Comment on above: Performed By: #### C BC, ADIFF, ANEU, LIP, AMRIT, CMP, ALC #### [place] [address] #### GFR, ACETA #### [place] [address] Erythrocyte distribution width (RBC) [Ratio] 15.2 % Normal 11.5-15.5 Replaced By [facility] ([place] Comment on above: Performed By: #### C BC, ADIFF, ANEU, LIP, AMRIT, CMP, ALC #### [place] [address] #### GFR, ACETA #### [place] [address] Hematocrit (Bld) [Volume fraction] 43.1 % Normal 34.0-46.0 Replaced By [facility] ([place] Comment on above: Performed By: #### C BC, ADIFF, ANEU, LIP, AMRIT, CMP, ALC #### [place] [address] #### GFR, ACETA #### [place] [address] Hgb 14.5 G/dL Normal 12.0-16.0 Replaced By [facility] ([place] Comment on above: Performed By: #### C BC, ADIFF, ANEU, LIP, AMRIT, CMP, ALC #### [place] [address] #### GFR, ACETA #### [place] [address] MCH (RBC) [Entitic mass] 32.2 pg Normal 27.0-33.0 Replaced By [facility] ([place] Comment on above: Performed By: #### C BC, ADIFF, ANEU, LIP, AMRIT, CMP, ALC #### [place] [address] #### GFR, ACETA #### [place] [address] MCHC 33.6 G/dL Normal 32.0-36.0 Replaced By [facility] ([place]) Comment on above: Performed By: #### C BC, ADIFF, ANEU, LIP, AMRIT, CMP, ALC #### [place] [address] #### GFR, ACETA #### [place] [address] MCV (RBC) [Entitic vol] 95.6 fL Normal 80.0-99.0 Replaced By [facility] ([place] Comment on above: Performed By: #### C BC, ADIFF, ANEU, LIP, AMRIT, CMP, ALC #### [place] [address] #### GFR, ACETA #### [place] [address] RBC 4.50 10 6/mcL Normal 4.10-5.30 Replaced By [facility] ([place] Comment on above: Performed By: #### C BC, ADIFF, ANEU, LIP, AMRIT, CMP, ALC #### [place] [address] #### GFR, ACETA #### [place] [address] WBC 6.50 10 3/mcL Normal 4.50-10.80 Replaced By [facility] ([place] Comment on above: Performed By: #### C BC, ADIFF, ANEU, LIP, AMRIT, CMP, ALC #### [place] [address] #### GFR, ACETA #### [place] [address] CMPon 03-28-2021 Albumin Level 3.5 G/dL Normal 3.2-4.8 Replaced By [facility] ([place] Comment on above: Performed By: #### C BC, ADIFF, ANEU, LIP, AMRIT, CMP, ALC #### [place] [address] #### GFR, ACETA #### [place] [address] Albumin/Globulin [Mass ratio] 1.1 {ratio} Normal 0.9-1.6 Replaced By [facility] ([place] Comment on above: Performed By: #### C BC, ADIFF, ANEU, LIP, AMRIT, CMP, ALC #### [place] [address] #### GFR, ACETA #### [place] [address] ALP [Catalytic activity/Vol] 143 U/L High 38-126 Replaced By [facility] ([place] Comment on above: Performed By: #### C BC, ADIFF, ANEU, LIP, AMRIT, CMP, ALC #### [place] [address] #### GFR, ACETA #### [place] [address] ALT [Catalytic activity/Vol] 100 U/L High 10-49 Replaced By [facility] ([place] Comment on above: Performed By: #### C BC, ADIFF, ANEU, LIP, AMRIT, CMP, ALC #### [place] [address] #### GFR, ACETA #### [place] [address] AST [Catalytic activity/Vol] 109 U/L High 8-34 Replaced By [facility] ([place] Comment on above: Performed By: #### C BC, ADIFF, ANEU, LIP, AMRIT, CMP, ALC #### [place] [place] [address] #### GFR, ACETA #### [place] [address] Bili Total 0.70 mg/dL Normal 0.20-1.20 Replaced By [facility] ([place]) Comment on above: Result Comment: Use of this assay is not recommended for patients undergoing treatment with eltrombopag due to the potential for falsely elevated results. Performed By: #### C BC, ADIFF, ANEU, LIP, AMRIT, CMP, ALC #### [place] [address] #### GFR, ACETA #### [place] [address] BUN/Creatinine Ratio 20.7 ratio Normal 10.0-22.0 [facility] ([place]) Comment on above: Performed By: #### C BC, ADIFF, ANEU, LIP, AMRIT, CMP, ALC #### [place] [address] #### GFR, ACETA #### [place] [address] Calcium [Mass/Vol] 10.9 mg/dL High 8.7-10.4 [facility] ([place]) Comment on above: Result Comment: No te - New Reference Range in effect 20 Performed By: #### C BC, ADIFF, ANEU, LIP, AMRIT, CMP, ALC #### [place] [address] #### GFR, ACETA #### [place] [address] Chloride [Moles/Vol] 104 mmol/L Normal 98-110 [facility] ([place] Comment on above: Performed By: #### C BC, ADIFF, ANEU, LIP, AMRIT, CMP, ALC #### [place] [address] #### GFR, ACETA #### [place] [address] CO2 [Moles/Vol] 26 mmol/L Normal 22-32 Replaced By [facility] ([place] Comment on above: Performed By: #### C BC, ADIFF, ANEU, LIP, AMRIT, CMP, ALC #### [place] [address] #### GFR, ACETA #### [place] [address] Creatinine [Mass/Vol] 0.58 mg/dL Normal 0.50-1.20 Replaced By [facility] ([place] Comment on above: Performed By: #### C BC, ADIFF, ANEU, LIP, AMRIT, CMP, ALC #### [place] [address] #### GFR, ACETA #### [place] [address] Electrolyte Balance 8.0 mEq/L Normal 4.0-15.0 [facility] ([place]) Comment on above: Performed By: #### C BC, ADIFF, ANEU, LIP, AMRIT, CMP, ALC #### [place] [address] #### GFR, ACETA #### [place] [address] Globulin 3.2 G/dL Normal 1.5-3.8 Replaced By [facility] ([place] Comment on above: Performed By: #### C BC, ADIFF, ANEU, LIP, AMRIT, CMP, ALC #### [address] [address] #### GFR, ACETA #### [address] [address] Glucose [Mass/Vol] 101 mg/dL Normal 70-110 [facility] ([place] Comment on above: Performed By: #### C BC, ADIFF, ANEU, LIP, AMRIT, CMP, ALC #### [place] [address] #### GFR, ACETA #### [address] [address] Potassium [Moles/Vol] 3.8 mmol/L Normal 3.5-5.0 Replaced By [facility] ([place] Comment on above: Result Comment: Spec imen slightly hemolyzed. Performed By: #### C BC, ADIFF, ANEU, LIP, AMRIT, CMP, ALC #### [place] [address] #### GFR, ACETA #### [address] [address] Sodium [Moles/Vol] 138 mmol/L Normal 136-145 [facility] ([place] Comment on above: Performed By: #### C BC, ADIFF, ANEU, LIP, AMRIT, CMP, ALC #### [place] [address] #### GFR, ACETA #### [address] [address] Total Protein 6.7 G/dL Normal 5.7-8.2 Replaced By [facility] ([place] Comment on above: Result Comment: No te - New Reference Range in effect 20 Performed By: #### C BC, ADIFF, ANEU, LIP, AMRIT, CMP, ALC #### [place] [address] #### GFR, ACETA #### [address] [address] Urea nitrogen [Mass/Vol] 12.0 mg/dL Normal 8.0-22.0 Replaced By [facility] [place] Comment on above: Performed By: #### C BC, ADIFF, ANEU, LIP, AMRIT, CMP, ALC #### [place] [address] #### GFR, ACETA #### [address] [address] .Auto Diffon 03-27-2021 Basophil, Absolute 0.00 10 3/mcL Normal 0.00-0.27 [facility] ([place] Comment on above: Performed By: #### C BC, ADIFF, ANEU, LIP, AMRIT, CMP, ALC #### [place] [address] #### GFR, ACETA #### [address] [address] Basophils/100 WBC (Bld) 0.5 % Normal 0.0-2.5 Replaced By [facility] [place] Comment on above: Performed By: #### C BC, ADIFF, ANEU, LIP, AMRIT, CMP, ALC #### [place] [address] #### GFR, ACETA #### [address] [address] Eosinophil, Absolute 0.10 10 3/mcL Normal 0.00-0.65 A Formerly [facility] ([place] Comment on above: Performed By: #### C BC, ADIFF, ANEU, LIP, AMRIT, CMP, ALC #### [place] [address] #### GFR, ACETA #### [address] [address] Eosinophils/100 WBC (Bld) 1.3 % Normal 0.0-6.0 Replaced By [facility] [place] Comment on above: Performed By: #### C BC, ADIFF, ANEU, LIP, AMRIT, CMP, ALC #### [place] [address] #### GFR, ACETA #### [address] [address] Lymphocyte, Absolute 0.70 10 3/mcL Low 0.90-4.32 A [facility]ly [facility] ([place] Comment on above: Performed By: #### C BC, ADIFF, ANEU, LIP, AMRIT, CMP, ALC #### [place] [address] #### GFR, ACETA #### [address] [address] Lymphocytes/100 WBC (Bld) 15.8 % Low 20.0-40.0 Replaced By [facility] [place] Comment on above: Performed By: #### C BC, ADIFF, ANEU, LIP, AMRIT, CMP, ALC #### [place] [address] #### GFR, ACETA #### [address] [address] Monocyte, Absolute 0.50 10 3/mcL Normal 0.09-1.40 [facility] ([place]) Comment on above: Performed By: #### C BC, ADIFF, ANEU, LIP, AMRIT, CMP, ALC #### [place] [address] #### GFR, ACETA #### [address] [address] Monocytes/100 WBC (Bld) 10.5 % Normal 2.0-13.0 Replaced By [facility] ([place]) Comment on above: Performed By: #### C BC, ADIFF, ANEU, LIP, AMRIT, CMP, ALC #### [place] [address] #### GFR, ACETA #### [address] [address] Neutrophils/100 WBC (Bld) 71.9 % Normal 50.0-75.0 Replaced By [facility] ([place] Comment on above: Performed By: #### C BC, ADIFF, ANEU, LIP, AMRIT, CMP, ALC #### [address] [address] #### GFR, ACETA #### [facility] [address] [place] [address] .GFRon 03-27-2021 GFR >60 Normal [facility] ([place]) Comment on above: Result Comment: GFR Population mean for , Non- Americans Ages 20-29 = 116 mL/min/1.73 sq.m. Ages 30-39 = 107 mL/min/1.73 sq.m. Ages 40-49 = 99 mL/min/1.73 sq.m. Ages 50-59 = 93 mL/min/1.73 sq.m. Ages 60-69 = 85 mL/min/1.73 sq.m. Ages 70+ = 75 mL/min/1.73 sq.m. Chronic Kidney Disease: Less than 60 mL/min/1.73 square meters End Stage Renal Disease: Less than 15 mL/min/1.73 square meters Performed By: #### C BC, ADIFF, ANEU, LIP, AMRIT, CMP, ALC #### [address] [address] #### GFR, ACETA #### [facility] [address] [place] [address] GFR Non- >60 Normal Replaced By [facility] ([place] Comment on above: Result Comment: GFR Population mean for , Non- Americans Ages 20-29 = 116 mL/min/1.73 sq.m. Ages 30-39 = 107 mL/min/1.73 sq.m. Ages 40-49 = 99 mL/min/1.73 sq.m. Ages 50-59 = 93 mL/min/1.73 sq.m. Ages 60-69 = 85 mL/min/1.73 sq.m. Ages 70+ = 75 mL/min/1.73 sq.m. Chronic Kidney Disease: Less than 60 mL/min/1.73 square meters End Stage Renal Disease: Less than 15 mL/min/1.73 square meters Performed By: #### C BC, ADIFF, ANEU, LIP, AMRIT, CMP, ALC #### [place] [address] #### GFR, ACETA #### [place] [address] .NEUABSon 03-27-2021 Neutrophil, Absolute 3.20 10 3/mcL Normal 2.25-8.10 A [facility]ly [facility] ([place] Comment on above: Performed By: #### C BC, ADIFF, ANEU, LIP, AMRIT, CMP, ALC #### [place] [address] #### GFR, ACETA #### [place] [address] B12on 03-27-2021 Cobalamin (Vitamin B12) [Mass/Vol] 1134 pg/mL High 211-911 Replaced By [facility] [place] Comment on above: Performed By: #### C BC, ADIFF, ANEU, LIP, AMRIT, CMP, ALC #### [place] [address] #### GFR, ACETA #### [place] [address] CBCon 03-27-2021 Erythrocyte distribution width (RBC) [Ratio] 14.7 % Normal 11.5-15.5 Replaced By [facility] [place] Comment on above: Performed By: #### C BC, ADIFF, ANEU, LIP, AMRIT, CMP, ALC #### [place] [address] #### GFR, ACETA #### [place] [address] Hematocrit (Bld) [Volume fraction] 44.2 % Normal 34.0-46.0 Replaced By [facility] [place] Comment on above: Performed By: #### C BC, ADIFF, ANEU, LIP, AMRIT, CMP, ALC #### [place] [address] #### GFR, ACETA #### [place] [address] Hgb 14.8 G/dL Normal 12.0-16.0 Replaced By [facility] ([place] Comment on above: Performed By: #### C BC, ADIFF, ANEU, LIP, AMRIT, CMP, ALC #### [place] [address] #### GFR, ACETA #### [address] [address] MCH (RBC) [Entitic mass] 32.2 pg Normal 27.0-33.0 Replaced By [facility] [place] Comment on above: Performed By: #### C BC, ADIFF, ANEU, LIP, AMRIT, CMP, ALC #### [place] [address] #### GFR, ACETA #### [place] [address] MCHC 33.4 G/dL Normal 32.0-36.0 Replaced By [facility] ([place] Comment on above: Performed By: #### C BC, ADIFF, ANEU, LIP, AMRIT, CMP, ALC #### [place] [address] #### GFR, ACETA #### [place] [address] MCV (RBC) [Entitic vol] 96.4 fL Normal 80.0-99.0 Replaced By [facility] [place] Comment on above: Performed By: #### C BC, ADIFF, ANEU, LIP, AMRIT, CMP, ALC #### [place] [address] #### GFR, ACETA #### [place] [address] Platelet 82 10 3/mcL Low 150-450 Replaced By [facility] [place] Comment on above: Performed By: #### C BC, ADIFF, ANEU, LIP, AMRIT, CMP, ALC #### [place] [address] #### GFR, ACETA #### [place] [address] Platelet mean volume (Bld) [Entitic vol] 8.7 fL Normal 6.6-10.5 Replaced By [facility] [place] Comment on above: Performed By: #### C BC, ADIFF, ANEU, LIP, AMRIT, CMP, ALC #### [place] [address] #### GFR, ACETA #### [place] [address] RBC 4.58 10 6/mcL Normal 4.10-5.30 Replaced By [facility] [place] Comment on above: Performed By: #### C BC, ADIFF, ANEU, LIP, AMRIT, CMP, ALC #### [place] [address] #### GFR, ACETA #### [place] [address] WBC 4.40 10 3/mcL Low 4.50-10.80 Replaced By [facility] [place] Comment on above: Performed By: #### C BC, ADIFF, ANEU, LIP, AMRIT, CMP, ALC #### [place] [address] #### GFR, ACETA #### [place] [address] CMPon 03-27-2021 Albumin Level 3.5 G/dL Normal 3.2-4.8 Replaced By [facility] [place] Comment on above: Performed By: #### C BC, ADIFF, ANEU, LIP, AMRIT, CMP, ALC #### [place] [address] #### GFR, ACETA #### [place] [address] Albumin/Globulin [Mass ratio] 1.1 {ratio} Normal 0.9-1.6 Replaced By [facility] ([place] Comment on above: Performed By: #### C BC, ADIFF, ANEU, LIP, AMRIT, CMP, ALC #### [place] [address] #### GFR, ACETA #### [place] [address] ALP [Catalytic activity/Vol] 151 U/L High 38-126 Replaced By [facility] ([place] Comment on above: Performed By: #### C BC, ADIFF, ANEU, LIP, AMRIT, CMP, ALC #### [place] [address] #### GFR, ACETA #### [address] [address] ALT [Catalytic activity/Vol] 80 U/L High 10-49 Replaced By [facility] ([place] Comment on above: Performed By: #### C BC, ADIFF, ANEU, LIP, AMRIT, CMP, ALC #### [place] [address] #### GFR, ACETA #### [place] [address] AST [Catalytic activity/Vol] 119 U/L High 8-34 Replaced By [facility] ([place] Comment on above: Performed By: #### C BC, ADIFF, ANEU, LIP, AMRIT, CMP, ALC #### [place] [address] #### GFR, ACETA #### [place] [address] Bili Total 1.00 mg/dL Normal 0.20-1.20 Replaced By [facility] ([place] Comment on above: Result Comment: Use of this assay is not recommended for patients undergoing treatment with eltrombopag due to the potential for falsely elevated results. Performed By: #### C BC, ADIFF, ANEU, LIP, AMRIT, CMP, ALC #### [place] [address] #### GFR, ACETA #### [place] [address] BUN/Creatinine Ratio 13.6 ratio Normal 10.0-22.0 [facility] ([place] Comment on above: Performed By: #### C BC, ADIFF, ANEU, LIP, AMRIT, CMP, ALC #### [place] [address] #### GFR, ACETA #### [place] [address] Calcium [Mass/Vol] 10.8 mg/dL High 8.7-10.4 [facility] ([place] Comment on above: Result Comment: No te - New Reference Range in effect 20 Performed By: #### C BC, ADIFF, ANEU, LIP, AMRIT, CMP, ALC #### [place] [address] #### GFR, ACETA #### [place] [address] Chloride [Moles/Vol] 107 mmol/L Normal 98-110 [facility] ([place] Comment on above: Performed By: #### C BC, ADIFF, ANEU, LIP, AMRIT, CMP, ALC #### [place] [address] #### GFR, ACETA #### [place] [address] CO2 [Moles/Vol] 27 mmol/L Normal 22-32 Replaced By [facility] [place] Comment on above: Performed By: #### C BC, ADIFF, ANEU, LIP, AMRIT, CMP, ALC #### [place] [address] #### GFR, ACETA #### [place] [address] Creatinine [Mass/Vol] 0.44 mg/dL Low 0.50-1.20 Replaced By [facility] ([place] Comment on above: Performed By: #### C BC, ADIFF, ANEU, LIP, AMRIT, CMP, ALC #### [place] [address] #### GFR, ACETA #### [place] [address] Electrolyte Balance 9.0 mEq/L Normal 4.0-15.0 [facility] ([place]) Comment on above: Performed By: #### C BC, ADIFF, ANEU, LIP, AMRIT, CMP, ALC #### [place] [address] #### GFR, ACETA #### [address] [address] Globulin 3.2 G/dL Normal 1.5-3.8 Replaced By [facility] ([place] Comment on above: Performed By: #### C BC, ADIFF, ANEU, LIP, AMRIT, CMP, ALC #### [address] [address] #### GFR, ACETA #### [address] [address] Glucose [Mass/Vol] 105 mg/dL Normal 70-110 [facility] ([place] Comment on above: Performed By: #### C BC, ADIFF, ANEU, LIP, AMRIT, CMP, ALC #### [place] [address] #### GFR, ACETA #### [address] [address] Potassium [Moles/Vol] 3.3 mmol/L Low 3.5-5.0 Replaced By [facility] ([place] Comment on above: Performed By: #### C BC, ADIFF, ANEU, LIP, AMRIT, CMP, ALC #### [place] [address] #### GFR, ACETA #### [address] [address] Sodium [Moles/Vol] 143 mmol/L Normal 136-145 [facility] ([place] Comment on above: Performed By: #### C BC, ADIFF, ANEU, LIP, AMRIT, CMP, ALC #### [place] [address] #### GFR, ACETA #### [address] [address] Total Protein 6.7 G/dL Normal 5.7-8.2 Replaced By [facility] ([place] Comment on above: Result Comment: No te - New Reference Range in effect 20 Performed By: #### C BC, ADIFF, ANEU, LIP, AMRIT, CMP, ALC #### [place] [address] #### GFR, ACETA #### [place] [address] Urea nitrogen [Mass/Vol] 6.0 mg/dL Low 8.0-22.0 Replaced By [facility] [place] Comment on above: Performed By: #### C BC, ADIFF, ANEU, LIP, AMRIT, CMP, ALC #### [place] [address] #### GFR, ACETA #### [place] [address] CRPon 03-27-2021 C-Reactive Protein 0.5 mg/dL Normal 0.0-1.0 [facility] ([place] Comment on above: Result Comment: No te - New Reference Range in effect 20 Performed By: #### C BC, ADIFF, ANEU, LIP, AMRIT, CMP, ALC #### [place] [address] #### GFR, ACETA #### [place] [address] ESRon 03-27-2021 Erythrocyte Sed Rate 46 mm/hr High 0-30 [facility] ([place] Comment on above: Performed By: #### C BC, ADIFF, ANEU, LIP, AMRIT, CMP, ALC #### [place] [address] #### GFR, ACETA #### [place] [address] Swetha 03-27-2021 Ferritin [Mass/Vol] 183.2 ng/mL Normal 8.0-252.0 [facility] ([place] Comment on above: Performed By: #### C BC, ADIFF, ANEU, LIP, AMRIT, CMP, ALC #### [place] [address] #### GFR, ACETA #### [place] [address] FESon 03-27-2021 Iron [Mass/Vol] 110 ug/dL Normal 50-170 Replaced By [facility] [place] Comment on above: Performed By: #### C BC, ADIFF, ANEU, LIP, AMRIT, CMP, ALC #### [place] [address] #### GFR, ACETA #### [place] [address] Iron Sat 32 % Normal Replaced By [facility] ([place] Comment on above: Performed By: #### C BC, ADIFF, ANEU, LIP, AMRIT, CMP, ALC #### [place] [address] #### GFR, ACETA #### [place] [address] TIBC 339 mcg/dL Normal 250-500 Replaced By [facility] ([place] Comment on above: Performed By: #### C BC, ADIFF, ANEU, LIP, AMRIT, CMP, ALC #### [place] [address] #### GFR, ACETA #### [place] [address] FOLon 03-27-2021 Folate 11.98 ng/mL Normal 5.38-24.00 Replaced By [facility] [place] Comment on above: Performed By: #### C BC, ADIFF, ANEU, LIP, AMRIT, CMP, ALC #### [place] [address] #### GFR, ACETA #### [place] [address] LDHon 03-27-2021 LDH 310 U/L High 120-246 Replaced By [facility] [place] Comment on above: Performed By: #### C BC, ADIFF, ANEU, LIP, AMRIT, CMP, ALC #### [place] [address] #### GFR, ACETA #### [place] [address] MGon 03-27-2021 Magnesium [Mass/Vol] 1.9 mg/dL Normal 1.6-2.4 [facility] ([place] Comment on above: Performed By: #### C BC, ADIFF, ANEU, LIP, AMRIT, CMP, ALC #### [place] [address] #### GFR, ACETA #### [place] [address] RETICon 03-27-2021 Immature Retic Fraction 0.60 IRF High 0.20-0.46 Replaced By [facility] [place] Comment on above: Performed By: #### C BC, ADIFF, ANEU, LIP, AMRIT, CMP, ALC #### [place] [address] #### GFR, ACETA #### [place] [address] Reticulocytes, Absolute 23.8 10 3/mcL Normal 8.0-108.0 Replaced By [facility] [place] Comment on above: Performed By: #### C BC, ADIFF, ANEU, LIP, AMRIT, CMP, ALC #### [place] [address] #### GFR, ACETA #### [place] [address] Reticulocytes, Auto 0.5 % Normal 0.2-2.3 [facility] ([place] Comment on above: Performed By: #### C BC, ADIFF, ANEU, LIP, AMRIT, CMP, ALC #### [place] [address] #### GFR, ACETA #### [place] [address] TSHon 03-27-2021 TSH 2.286 mIU/mL Normal 0.550-4.780 Replaced By [facility] [place] Comment on above: Result Comment: No te - New Reference Range in effect 20 Performed By: #### C BC, ADIFF, ANEU, LIP, AMRIT, CMP, ALC #### [place] [address] #### GFR, ACETA #### [place] [address] .Auto Diffon 03-26-2021 Basophil, Absolute 0.00 10 3/mcL Normal 0.00-0.27 [facility] ([place] Comment on above: Performed By: #### C BC, ADIFF, ANEU, LIP, AMRIT, CMP, ALC #### [place] [address] #### GFR, ACETA #### [address] [address] Basophils/100 WBC (Bld) 0.4 % Normal 0.0-2.5 Replaced By [facility] [place] Comment on above: Performed By: #### C BC, ADIFF, ANEU, LIP, AMRIT, CMP, ALC #### [place] [address] #### GFR, ACETA #### [address] [address] Eosinophil, Absolute 0.10 10 3/mcL Normal 0.00-0.65 A Formerly [facility] ([place] Comment on above: Performed By: #### C BC, ADIFF, ANEU, LIP, AMRIT, CMP, ALC #### [place] [address] #### GFR, ACETA #### [address] [address] Eosinophils/100 WBC (Bld) 2.4 % Normal 0.0-6.0 Replaced By [facility] [place] Comment on above: Performed By: #### C BC, ADIFF, ANEU, LIP, AMRIT, CMP, ALC #### [place] [address] #### GFR, ACETA #### [address] [address] Lymphocyte, Absolute 1.00 10 3/mcL Normal 0.90-4.32 A [facility] ([place] Comment on above: Performed By: #### C BC, ADIFF, ANEU, LIP, AMRIT, CMP, ALC #### [place] [address] #### GFR, ACETA #### [address] [address] Lymphocytes/100 WBC (Bld) 24.9 % Normal 20.0-40.0 Replaced By [facility] [place] Comment on above: Performed By: #### C BC, ADIFF, ANEU, LIP, AMRIT, CMP, ALC #### [address] [address] #### GFR, ACETA #### [address] [address] Monocyte, Absolute 0.30 10 3/mcL Normal 0.09-1.40 [facility] ([place]) Comment on above: Performed By: #### C BC, ADIFF, ANEU, LIP, AMRIT, CMP, ALC #### [address] [address] #### GFR, ACETA #### [address] [address] Monocytes/100 WBC (Bld) 6.8 % Normal 2.0-13.0 Replaced By [facility] [place] Comment on above: Performed By: #### C BC, ADIFF, ANEU, LIP, AMRIT, CMP, ALC #### [address] [address] #### GFR, ACETA #### [address] [address] Neutrophils/100 WBC (Bld) 65.5 % Normal 50.0-75.0 Replaced By [facility] [place] Comment on above: Performed By: #### C BC, ADIFF, ANEU, LIP, AMRIT, CMP, ALC #### [address] [address] #### GFR, ACETA #### [address] [address] .GFRon 03-26-2021 GFR >60 Normal [facility] ([place] Comment on above: Result Comment: GFR Population mean for , Non- Americans Ages 20-29 = 116 mL/min/1.73 sq.m. Ages 30-39 = 107 mL/min/1.73 sq.m. Ages 40-49 = 99 mL/min/1.73 sq.m. Ages 50-59 = 93 mL/min/1.73 sq.m. Ages 60-69 = 85 mL/min/1.73 sq.m. Ages 70+ = 75 mL/min/1.73 sq.m. Chronic Kidney Disease: Less than 60 mL/min/1.73 square meters End Stage Renal Disease: Less than 15 mL/min/1.73 square meters Performed By: #### C BC, ADIFF, ANEU, LIP, AMRIT, CMP, ALC #### [address] [address] #### GFR, ACETA #### [address] [address] GFR Non- >60 Normal Replaced By [facility] [place] Comment on above: Result Comment: GFR Population mean for , Non- Americans Ages 20-29 = 116 mL/min/1.73 sq.m. Ages 30-39 = 107 mL/min/1.73 sq.m. Ages 40-49 = 99 mL/min/1.73 sq.m. Ages 50-59 = 93 mL/min/1.73 sq.m. Ages 60-69 = 85 mL/min/1.73 sq.m. Ages 70+ = 75 mL/min/1.73 sq.m. Chronic Kidney Disease: Less than 60 mL/min/1.73 square meters End Stage Renal Disease: Less than 15 mL/min/1.73 square meters Performed By: #### C BC, ADIFF, ANEU, LIP, AMRIT, CMP, ALC #### [address] [address] #### GFR, ACETA #### [address] [address] .NEUABSon 03-26-2021 Neutrophil, Absolute 2.70 10 3/mcL Normal 2.25-8.10 A [facility] ([place] Comment on above: Performed By: #### C BC, ADIFF, ANEU, LIP, AMRIT, CMP, ALC #### [address] [address] #### GFR, ACETA #### [address] [address] BMPon 03-26-2021 BUN/Creatinine Ratio 15.4 ratio Normal 10.0-22.0 [facility] ([place] Comment on above: Performed By: #### C BC, ADIFF, ANEU, LIP, AMRIT, CMP, ALC #### [address] [address] #### GFR, ACETA #### [address] [address] Calcium [Mass/Vol] 9.5 mg/dL Normal 8.7-10.4 [facility] ([place] Comment on above: Result Comment: No te - New Reference Range in effect 20 Performed By: #### C BC, ADIFF, ANEU, LIP, AMRIT, CMP, ALC #### [address] [address] #### GFR, ACETA #### [place] [address] Chloride [Moles/Vol] 110 mmol/L Normal 98-110 [facility] ([place] Comment on above: Performed By: #### C BC, ADIFF, ANEU, LIP, AMRIT, CMP, ALC #### [address] [address] #### GFR, ACETA #### [place] [address] CO2 [Moles/Vol] 28 mmol/L Normal 22-32 Replaced By [facility] [place] Comment on above: Performed By: #### C BC, ADIFF, ANEU, LIP, AMRIT, CMP, ALC #### [place] [address] #### GFR, ACETA #### [place] [address] Creatinine [Mass/Vol] 0.39 mg/dL Low 0.50-1.20 Replaced By [facility] [place] Comment on above: Performed By: #### C BC, ADIFF, ANEU, LIP, AMRIT, CMP, ALC #### [address] [address] #### GFR, ACETA #### [address] [address] Electrolyte Balance 7.0 mEq/L Normal 4.0-15.0 [facility] ([place]) Comment on above: Performed By: #### C BC, ADIFF, ANEU, LIP, AMRIT, CMP, ALC #### [place] [address] #### GFR, ACETA #### [address] [address] Glucose [Mass/Vol] 79 mg/dL Normal 70-110 [facility] ([place]) Comment on above: Performed By: #### C BC, ADIFF, ANEU, LIP, AMRIT, CMP, ALC #### [address] [address] #### GFR, ACETA #### [place] [address] Potassium [Moles/Vol] 2.7 mmol/L Critically abnormal 3.5-5.0 Replaced By [facility] ([place]) Comment on above: Performed By: #### C BC, ADIFF, ANEU, LIP, AMRIT, CMP, ALC #### [address] [address] #### GFR, ACETA #### [address] [address] Sodium [Moles/Vol] 145 mmol/L Normal 136-145 [facility] ([place]) Comment on above: Performed By: #### C BC, ADIFF, ANEU, LIP, AMRIT, CMP, ALC #### [place] [address] #### GFR, ACETA #### [address] [address] Urea nitrogen [Mass/Vol] 6.0 mg/dL Low 8.0-22.0 Replaced By [facility] ([place]) Comment on above: Performed By: #### C BC, ADIFF, ANEU, LIP, AMRIT, CMP, ALC #### [place] [address] #### GFR, ACETA #### [place] [address] CBCon 03-26-2021 Erythrocyte distribution width (RBC) [Ratio] 14.5 % Normal 11.5-15.5 Replaced By [facility] ([place]) Comment on above: Performed By: #### C BC, ADIFF, ANEU, LIP, AMRIT, CMP, ALC #### [place] [address] #### GFR, ACETA #### [place] [address] Hematocrit (Bld) [Volume fraction] 38.4 % Normal 34.0-46.0 Replaced By [facility] ([place] Comment on above: Performed By: #### C BC, ADIFF, ANEU, LIP, AMRIT, CMP, ALC #### [place] [address] #### GFR, ACETA #### [place] [address] Hgb 12.8 G/dL Normal 12.0-16.0 Replaced By [facility] ([place]) Comment on above: Performed By: #### C BC, ADIFF, ANEU, LIP, AMRIT, CMP, ALC #### [place] [address] #### GFR, ACETA #### [place] [address] MCH (RBC) [Entitic mass] 31.7 pg Normal 27.0-33.0 Replaced By [facility] ([place]) Comment on above: Performed By: #### C BC, ADIFF, ANEU, LIP, AMRIT, CMP, ALC #### [place] [address] #### GFR, ACETA #### [place] [address] MCHC 33.4 G/dL Normal 32.0-36.0 Replaced By [facility] ([place]) Comment on above: Performed By: #### C BC, ADIFF, ANEU, LIP, AMRIT, CMP, ALC #### [place] [address] #### GFR, ACETA #### [address] [address] MCV (RBC) [Entitic vol] 95.0 fL Normal 80.0-99.0 Replaced By [facility] [place] Comment on above: Performed By: #### C BC, ADIFF, ANEU, LIP, AMRIT, CMP, ALC #### [place] [address] #### GFR, ACETA #### [place] [address] Platelet 54 10 3/mcL Low 150-450 Replaced By [facility] ([place] Comment on above: Performed By: #### C BC, ADIFF, ANEU, LIP, AMRIT, CMP, ALC #### [place] [address] #### GFR, ACETA #### [place] [address] Platelet mean volume (Bld) [Entitic vol] 8.1 fL Normal 6.6-10.5 Replaced By [facility] [place] Comment on above: Performed By: #### C BC, ADIFF, ANEU, LIP, AMRIT, CMP, ALC #### [place] [address] #### GFR, ACETA #### [place] [address] RBC 4.04 10 6/mcL Low 4.10-5.30 Replaced By [facility] ([place]) Comment on above: Performed By: #### C BC, ADIFF, ANEU, LIP, AMRIT, CMP, ALC #### [place] [address] #### GFR, ACETA #### [place] [address] WBC 4.20 10 3/mcL Low 4.50-10.80 Replaced By [facility] [place] Comment on above: Performed By: #### C BC, ADIFF, ANEU, LIP, AMRIT, CMP, ALC #### [address] [address] #### GFR, ACETA #### [place] [address] CKon 03-26-2021 CK [Catalytic activity/Vol] 252 U/L High 7-185 Replaced By [facility] [place] Comment on above: Performed By: #### C BC, ADIFF, ANEU, LIP, AMRTI, CMP, ALC #### [place] [address] #### GFR, ACETA #### [place] [address] Gordy 03-26-2021 Potassium [Moles/Vol] 3.6 mmol/L Normal 3.5-5.0 Replaced By [facility] [place] Comment on above: Performed By: #### C BC, ADIFF, ANEU, LIP, AMRIT, CMP, ALC #### [place] [address] #### GFR, ACETA #### [place] [address] MGon 03-26-2021 Magnesium [Mass/Vol] 1.2 mg/dL Low 1.6-2.4 [facility] ([place]) Comment on above: Performed By: #### C BC, ADIFF, ANEU, LIP, AMRIT, CMP, ALC #### [place] [address] #### GFR, ACETA #### [place] [address] MRI BRAIN W/ + W/O CONTRASTo n 03-26-2021 MRI BRAIN W/ + W/O CONTRAST ORIGINAL MR of the brain HISTORY: Possible seizure, stroke, PRES COMPARISON: Head CT 2 days previously TECHNIQUE: 1. Axial and sagittal T1-weighted images. 2. Axial T2-weighted images. 3. Axial T2*-weighted images. 4. Axial FLAIR images. 5. Axial diffusion-weighted images with ADC map. 6. Axial, coronal and sagittal T1-weighted images following uncomplicated administration of intravenous gadolinium contrast. FINDINGS: The ventricles and sulci are normal in size and configuration. There are no abnormal intra or extra-axial fluid collection. There is mild T2 hyperintensity in the subcortical white matter in the occipital posterior occipital lobes, fairly symmetric, and in the parietal lobes right significantly greater than left. There is mild scattered punctate and nodular T2 hyperintensity in the cerebral white matter. Mercado-white matter differentiation is maintained. There is no abnormal restriction of diffusion. There is no abnormal enhancement of the brain or its coverings. The orbital contents are normal in appearance. The paranasal sinuses are clear. IMPRESSION: Findings are consistent with a combination of PRES and small vessel ischemic disease. Interpreted by: Jose Hoffmann MD Preliminary Report By: Jose Hoffmann MD Electronically signed By Jose Hoffmann MD Dictated Date: 03/25/2021 10:37:10 PM Prelim Date: 03/25/2021 10:41:29 PM Sign Date: 03/25/2021 10:41:29 PM Ordering Provider: ELAINA Gooden Replaced By [facility] ([place]) .Auto Diffon 03-25-2021 Basophil, Absolute 0.00 10 3/mcL Normal 0.00-0.27 [facility] ([place]) Comment on above: Performed By: #### C BC, ADIFF, ANEU, LIP, AMRIT, CMP, ALC #### [place] [address] #### GFR, ACETA #### [address] [address] Basophils/100 WBC (Bld) 0.5 % Normal 0.0-2.5 Replaced By [facility] [place] Comment on above: Performed By: #### C BC, ADIFF, ANEU, LIP, AMRIT, CMP, ALC #### [place] [address] #### GFR, ACETA #### [address] [address] Eosinophil, Absolute 0.10 10 3/mcL Normal 0.00-0.65 A [facility]ly [facility] ([place]) Comment on above: Performed By: #### C BC, ADIFF, ANEU, LIP, AMRIT, CMP, ALC #### [place] [address] #### GFR, ACETA #### [address] [address] Eosinophils/100 WBC (Bld) 1.4 % Normal 0.0-6.0 Replaced By [facility] [place] Comment on above: Performed By: #### C BC, ADIFF, ANEU, LIP, AMRIT, CMP, ALC #### [place] [address] #### GFR, ACETA #### [address] [address] Lymphocyte, Absolute 0.90 10 3/mcL Normal 0.90-4.32 A [facility] ([place] Comment on above: Performed By: #### C BC, ADIFF, ANEU, LIP, AMRIT, CMP, ALC #### [place] [address] #### GFR, ACETA #### [address] [address] Lymphocytes/100 WBC (Bld) 21.8 % Normal 20.0-40.0 Replaced By [facility] [place] Comment on above: Performed By: #### C BC, ADIFF, ANEU, LIP, AMRIT, CMP, ALC #### [place] [address] #### GFR, ACETA #### [address] [address] Monocyte, Absolute 0.20 10 3/mcL Normal 0.09-1.40 [facility] ([place] Comment on above: Performed By: #### C BC, ADIFF, ANEU, LIP, AMRIT, CMP, ALC #### [place] [address] #### GFR, ACETA #### [address] [address] Monocytes/100 WBC (Bld) 4.9 % Normal 2.0-13.0 Replaced By [facility] [place] Comment on above: Performed By: #### C BC, ADIFF, ANEU, LIP, AMRIT, CMP, ALC #### [place] [address] #### GFR, ACETA #### [address] [address] Neutrophils/100 WBC (Bld) 71.4 % Normal 50.0-75.0 Replaced By [facility] [place] Comment on above: Performed By: #### C BC, ADIFF, ANEU, LIP, AMRIT, CMP, ALC #### [address] [address] #### GFR, ACETA #### [address] [address] .GFRon 03-25-2021 GFR >60 Normal [facility] ([place] Comment on above: Result Comment: GFR Population mean for , Non- Americans Ages 20-29 = 116 mL/min/1.73 sq.m. Ages 30-39 = 107 mL/min/1.73 sq.m. Ages 40-49 = 99 mL/min/1.73 sq.m. Ages 50-59 = 93 mL/min/1.73 sq.m. Ages 60-69 = 85 mL/min/1.73 sq.m. Ages 70+ = 75 mL/min/1.73 sq.m. Chronic Kidney Disease: Less than 60 mL/min/1.73 square meters End Stage Renal Disease: Less than 15 mL/min/1.73 square meters Performed By: #### C BC, ADIFF, ANEU, LIP, AMRIT, CMP, ALC #### [address] [address] #### GFR, ACETA #### [address] [address] GFR Non- >60 Normal Replaced By [facility] ([place] Comment on above: Result Comment: GFR Population mean for , Non- Americans Ages 20-29 = 116 mL/min/1.73 sq.m. Ages 30-39 = 107 mL/min/1.73 sq.m. Ages 40-49 = 99 mL/min/1.73 sq.m. Ages 50-59 = 93 mL/min/1.73 sq.m. Ages 60-69 = 85 mL/min/1.73 sq.m. Ages 70+ = 75 mL/min/1.73 sq.m. Chronic Kidney Disease: Less than 60 mL/min/1.73 square meters End Stage Renal Disease: Less than 15 mL/min/1.73 square meters Performed By: #### C BC, ADIFF, ANEU, LIP, AMRIT, CMP, ALC #### [place] [address] #### GFR, ACETA #### [place] [address] .NEUABSon 03-25-2021 Neutrophil, Absolute 2.90 10 3/mcL Normal 2.25-8.10 A [facility] ([place] Comment on above: Performed By: #### C BC, ADIFF, ANEU, LIP, AMRIT, CMP, ALC #### [place] [address] #### GFR, ACETA #### [place] [address] CBCon 03-25-2021 Erythrocyte distribution width (RBC) [Ratio] 14.6 % Normal 11.5-15.5 Replaced By [facility] ([place] Comment on above: Performed By: #### C BC, ADIFF, ANEU, LIP, AMRIT, CMP, ALC #### [place] [address] #### GFR, ACETA #### [place] [address] Hematocrit (Bld) [Volume fraction] 38.0 % Normal 34.0-46.0 Replaced By [facility] [place] Comment on above: Performed By: #### C BC, ADIFF, ANEU, LIP, AMRIT, CMP, ALC #### [place] [address] #### GFR, ACETA #### [place] [address] Hgb 12.8 G/dL Normal 12.0-16.0 Replaced By [facility] ([place] Comment on above: Performed By: #### C BC, ADIFF, ANEU, LIP, AMRIT, CMP, ALC #### [place] [address] #### GFR, ACETA #### [place] [address] MCH (RBC) [Entitic mass] 32.0 pg Normal 27.0-33.0 Replaced By [facility] [place] Comment on above: Performed By: #### C BC, ADIFF, ANEU, LIP, AMRIT, CMP, ALC #### [place] [address] #### GFR, ACETA #### [place] [address] MCHC 33.8 G/dL Normal 32.0-36.0 Replaced By [facility] ([place]) Comment on above: Performed By: #### C BC, ADIFF, ANEU, LIP, AMRIT, CMP, ALC #### [place] [address] #### GFR, ACETA #### [place] [address] MCV (RBC) [Entitic vol] 94.7 fL Normal 80.0-99.0 Replaced By [facility] ([place]) Comment on above: Performed By: #### C BC, ADIFF, ANEU, LIP, AMRIT, CMP, ALC #### [place] [address] #### GFR, ACETA #### [place] [address] Platelet 50 10 3/mcL Low 150-450 Replaced By [facility] [place] Comment on above: Performed By: #### C BC, ADIFF, ANEU, LIP, AMRIT, CMP, ALC #### [place] [address] #### GFR, ACETA #### [place] [address] Platelet mean volume (Bld) [Entitic vol] 9.4 fL Normal 6.6-10.5 Replaced By [facility] [place] Comment on above: Performed By: #### C BC, ADIFF, ANEU, LIP, AMRIT, CMP, ALC #### [place] [address] #### GFR, ACETA #### [place] [id number] RBC 4.01 10 6/mcL Low 4.10-5.30 Replaced By [facility] [place] Comment on above: Performed By: #### C BC, ADIFF, ANEU, LIP, AMRIT, CMP, ALC #### [place] [address] #### GFR, ACETA #### [place] [address] WBC 4.00 10 3/mcL Low 4.50-10.80 Replaced By [facility] [place] Comment on above: Performed By: #### C BC, ADIFF, ANEU, LIP, AMRIT, CMP, ALC #### [place] [address] #### GFR, ACETA #### [place] [address] CKon 03-25-2021 CK [Catalytic activity/Vol] 616 U/L High 7-185 Replaced By [facility] [place] Comment on above: Performed By: #### C BC, ADIFF, ANEU, LIP, AMRIT, CMP, ALC #### [place] [address] #### GFR, ACETA #### [place] [address] CMPon 03-25-2021 Albumin Level 2.6 G/dL Low 3.2-4.8 Replaced By [facility] [place] Comment on above: Performed By: #### C BC, ADIFF, ANEU, LIP, AMRIT, CMP, ALC #### [place] [address] #### GFR, ACETA #### [place] [address] Albumin/Globulin [Mass ratio] 1.0 {ratio} Normal 0.9-1.6 Replaced By [facility] ([place] Comment on above: Performed By: #### C BC, ADIFF, ANEU, LIP, AMRIT, CMP, ALC #### [place] [address] #### GFR, ACETA #### [place] [address] ALP [Catalytic activity/Vol] 125 U/L Normal 38-126 Replaced By [facility] ([place] Comment on above: Performed By: #### C BC, ADIFF, ANEU, LIP, AMRIT, CMP, ALC #### [place] [address] #### GFR, ACETA #### [place] [address] ALT [Catalytic activity/Vol] 24 U/L Normal 10-49 Replaced By [facility] ([place] Comment on above: Performed By: #### C BC, ADIFF, ANEU, LIP, AMRIT, CMP, ALC #### [place] [address] #### GFR, ACETA #### [place] [address] AST [Catalytic activity/Vol] 78 U/L High 8-34 Replaced By [facility] [place] Comment on above: Performed By: #### C BC, ADIFF, ANEU, LIP, AMRIT, CMP, ALC #### [place] [address] #### GFR, ACETA #### [place] [address] Bili Total 0.80 mg/dL Normal 0.20-1.20 Replaced By [facility] ([place] Comment on above: Result Comment: Use of this assay is not recommended for patients undergoing treatment with eltrombopag due to the potential for falsely elevated results. Performed By: #### C BC, ADIFF, ANEU, LIP, AMRIT, CMP, ALC #### [place] [address] #### GFR, ACETA #### [place] [address] BUN/Creatinine Ratio 27.7 ratio High 10.0-22.0 [facility] ([place] Comment on above: Performed By: #### C BC, ADIFF, ANEU, LIP, AMRIT, CMP, ALC #### [address] [address] #### GFR, ACETA #### [address] [address] Calcium [Mass/Vol] 9.4 mg/dL Normal 8.7-10.4 [facility] ([place] Comment on above: Result Comment: No te - New Reference Range in effect 20 Performed By: #### C BC, ADIFF, ANEU, LIP, AMRIT, CMP, ALC #### [place] [address] #### GFR, ACETA #### [address] [address] Chloride [Moles/Vol] 110 mmol/L Normal 98-110 [facility] ([place] Comment on above: Performed By: #### C BC, ADIFF, ANEU, LIP, AMRIT, CMP, ALC #### [place] [address] #### GFR, ACETA #### [address] [address] CO2 [Moles/Vol] 27 mmol/L Normal 22-32 Replaced By [facility] [place] Comment on above: Performed By: #### C BC, ADIFF, ANEU, LIP, AMRIT, CMP, ALC #### [place] [address] #### GFR, ACETA #### [address] [address] Creatinine [Mass/Vol] 0.47 mg/dL Low 0.50-1.20 Replaced By [facility] ([place] Comment on above: Performed By: #### C BC, ADIFF, ANEU, LIP, AMRIT, CMP, ALC #### [place] [address] #### GFR, ACETA #### [address] [address] Electrolyte Balance 5.0 mEq/L Normal 4.0-15.0 [facility] ([place]) Comment on above: Performed By: #### C BC, ADIFF, ANEU, LIP, AMRIT, CMP, ALC #### [place] [address] #### GFR, ACETA #### [address] [address] Globulin 2.6 G/dL Normal 1.5-3.8 Replaced By [facility] [place] Comment on above: Performed By: #### C BC, ADIFF, ANEU, LIP, AMRIT, CMP, ALC #### [place] [address] #### GFR, ACETA #### [address] [address] Glucose [Mass/Vol] 93 mg/dL Normal 70-110 [facility] ([place] Comment on above: Performed By: #### C BC, ADIFF, ANEU, LIP, AMRIT, CMP, ALC #### [place] [address] #### GFR, ACETA #### [address] [address] Potassium [Moles/Vol] 3.3 mmol/L Low 3.5-5.0 Replaced By [facility] [place] Comment on above: Performed By: #### C BC, ADIFF, ANEU, LIP, AMRIT, CMP, ALC #### [place] [address] #### GFR, ACETA #### [address] [address] Sodium [Moles/Vol] 142 mmol/L Normal 136-145 [facility] ([place] Comment on above: Performed By: #### C BC, ADIFF, ANEU, LIP, AMRIT, CMP, ALC #### [place] [address] #### GFR, ACETA #### [address] [address] Total Protein 5.2 G/dL Low 5.7-8.2 Replaced By [facility] ([place] Comment on above: Result Comment: No te - New Reference Range in effect 20 Performed By: #### C BC, ADIFF, ANEU, LIP, AMRIT, CMP, ALC #### [place] [address] #### GFR, ACETA #### [address] [address] Urea nitrogen [Mass/Vol] 13.0 mg/dL Normal 8.0-22.0 Replaced By [facility] [place] Comment on above: Performed By: #### C BC, ADIFF, ANEU, LIP, AMRIT, CMP, ALC #### [place] [address] #### GFR, ACETA #### [place] [address] .Auto Diffon 03-24-2021 Basophil, Absolute 0.00 10 3/mcL Normal 0.00-0.27 [facility] ([place] Comment on above: Performed By: #### C BC, ADIFF, ANEU, LIP, AMRIT, CMP, ALC #### [place] [address] #### GFR, ACETA #### [place] [address] Basophils/100 WBC (Bld) 0.3 % Normal 0.0-2.5 Replaced By [facility] [place] Comment on above: Performed By: #### C BC, ADIFF, ANEU, LIP, AMRIT, CMP, ALC #### [place] [address] #### GFR, ACETA #### [place] [address] Eosinophil, Absolute 0.00 10 3/mcL Normal 0.00-0.65 A [facility]ly [facility] ([place] Comment on above: Performed By: #### C BC, ADIFF, ANEU, LIP, AMRIT, CMP, ALC #### [place] [address] #### GFR, ACETA #### [address] [address] Eosinophils/100 WBC (Bld) 0.4 % Normal 0.0-6.0 Replaced By [facility] [place] Comment on above: Performed By: #### C BC, ADIFF, ANEU, LIP, AMRIT, CMP, ALC #### [place] [address] #### GFR, ACETA #### [address] [address] Lymphocyte, Absolute 0.50 10 3/mcL Low 0.90-4.32 A [facility] ([place] Comment on above: Performed By: #### C BC, ADIFF, ANEU, LIP, AMRIT, CMP, ALC #### [place] [address] #### GFR, ACETA #### [address] [address] Lymphocytes/100 WBC (Bld) 12.2 % Low 20.0-40.0 Replaced By [facility] ([place]) Comment on above: Performed By: #### C BC, ADIFF, ANEU, LIP, AMRIT, CMP, ALC #### [place] [address] #### GFR, ACETA #### [address] [address] Monocyte, Absolute 0.30 10 3/mcL Normal 0.09-1.40 [facility] ([place] Comment on above: Performed By: #### C BC, ADIFF, ANEU, LIP, AMRIT, CMP, ALC #### [place] [address] #### GFR, ACETA #### [address] [address] Monocytes/100 WBC (Bld) 8.4 % Normal 2.0-13.0 Replaced By [facility] ([place]) Comment on above: Performed By: #### C BC, ADIFF, ANEU, LIP, AMRIT, CMP, ALC #### [place] [address] #### GFR, ACETA #### [address] [address] Neutrophils/100 WBC (Bld) 78.7 % High 50.0-75.0 Replaced By [facility] [place] Comment on above: Performed By: #### C BC, ADIFF, ANEU, LIP, AMRIT, CMP, ALC #### [address] [address] #### GFR, ACETA #### [address] [address] .GFRon 03-24-2021 GFR Non- >60 Normal Replaced By [facility] ([place] Comment on above: Result Comment: GFR Population mean for , Non- Americans Ages 20-29 = 116 mL/min/1.73 sq.m. Ages 30-39 = 107 mL/min/1.73 sq.m. Ages 40-49 = 99 mL/min/1.73 sq.m. Ages 50-59 = 93 mL/min/1.73 sq.m. Ages 60-69 = 85 mL/min/1.73 sq.m. Ages 70+ = 75 mL/min/1.73 sq.m. Chronic Kidney Disease: Less than 60 mL/min/1.73 square meters End Stage Renal Disease: Less than 15 mL/min/1.73 square meters Performed By: #### C BC, ADIFF, ANEU, LIP, AMRIT, CMP, ALC #### [address] [address] #### GFR, ACETA #### [address] [address] GFR >60 Normal [facility] ([place] Comment on above: Result Comment: GFR Population mean for , Non- Americans Ages 20-29 = 116 mL/min/1.73 sq.m. Ages 30-39 = 107 mL/min/1.73 sq.m. Ages 40-49 = 99 mL/min/1.73 sq.m. Ages 50-59 = 93 mL/min/1.73 sq.m. Ages 60-69 = 85 mL/min/1.73 sq.m. Ages 70+ = 75 mL/min/1.73 sq.m. Chronic Kidney Disease: Less than 60 mL/min/1.73 square meters End Stage Renal Disease: Less than 15 mL/min/1.73 square meters Performed By: #### C BC, ADIFF, ANEU, LIP, AMRIT, CMP, ALC #### [place] [address] #### GFR, ACETA #### [place] [address] .NEUABSon 03-24-2021 Neutrophil, Absolute 3.10 10 3/mcL Normal 2.25-8.10 A [facility] ([place] Comment on above: Performed By: #### C BC, ADIFF, ANEU, LIP, AMRIT, CMP, ALC #### [place] [address] #### GFR, ACETA #### [place] [address] Leydi 03-24-2021 Ammonia 17 mcmol/l Normal 11-32 Replaced By [facility] [place] Comment on above: Performed By: #### C BC, ADIFF, ANEU, LIP, AMRIT, CMP, ALC #### [place] [address] #### GFR, ACETA #### [place] [address] BMPon 03-24-2021 BUN/Creatinine Ratio 40.0 ratio High 10.0-22.0 [facility] ([place] Comment on above: Performed By: #### C BC, ADIFF, ANEU, LIP, AMRIT, CMP, ALC #### [place] [address] #### GFR, ACETA #### [place] [address] Calcium [Mass/Vol] 9.5 mg/dL Normal 8.7-10.4 [facility] ([place] Comment on above: Result Comment: No te - New Reference Range in effect 20 Performed By: #### C BC, ADIFF, ANEU, LIP, AMRIT, CMP, ALC #### [address] [address] #### GFR, ACETA #### [address] [address] Chloride [Moles/Vol] 103 mmol/L Normal 98-110 [facility] ([place] Comment on above: Performed By: #### C BC, ADIFF, ANEU, LIP, AMRIT, CMP, ALC #### [place] [address] #### GFR, ACETA #### [address] [address] CO2 [Moles/Vol] 28 mmol/L Normal 22-32 Replaced By [facility] [place] Comment on above: Performed By: #### C BC, ADIFF, ANEU, LIP, AMRIT, CMP, ALC #### [address] [address] #### GFR, ACETA #### [address] [address] Creatinine [Mass/Vol] 0.50 mg/dL Normal 0.50-1.20 Replaced By [facility] [place] Comment on above: Performed By: #### C BC, ADIFF, ANEU, LIP, AMRIT, CMP, ALC #### [address] [address] #### GFR, ACETA #### [address] [address] Electrolyte Balance 8.0 mEq/L Normal 4.0-15.0 [facility] ([place] Comment on above: Performed By: #### C BC, ADIFF, ANEU, LIP, AMRIT, CMP, ALC #### [address] [address] #### GFR, ACETA #### [address] [address] Glucose [Mass/Vol] 81 mg/dL Normal 70-110 [facility] ([place] Comment on above: Performed By: #### C BC, ADIFF, ANEU, LIP, AMRIT, CMP, ALC #### [place] [address] #### GFR, ACETA #### [address] [address] Potassium [Moles/Vol] 2.9 mmol/L Low 3.5-5.0 Replaced By [facility] [place] Comment on above: Performed By: #### C BC, ADIFF, ANEU, LIP, AMRIT, CMP, ALC #### [place] [address] #### GFR, ACETA #### [place] [address] Sodium [Moles/Vol] 139 mmol/L Normal 136-145 [facility] ([place] Comment on above: Performed By: #### C BC, ADIFF, ANEU, LIP, AMRIT, CMP, ALC #### [place] [address] #### GFR, ACETA #### [place] [address] Urea nitrogen [Mass/Vol] 20.0 mg/dL Normal 8.0-22.0 Replaced By [facility] [place] Comment on above: Performed By: #### C BC, ADIFF, ANEU, LIP, AMRIT, CMP, ALC #### [place] [address] #### GFR, ACETA #### [address] [address] CBCon 03-24-2021 Erythrocyte distribution width (RBC) [Ratio] 14.9 % Normal 11.5-15.5 Replaced By [facility] [place] Comment on above: Performed By: #### C BC, ADIFF, ANEU, LIP, AMRIT, CMP, ALC #### [place] [address] #### GFR, ACETA #### [place] [address] Hematocrit (Bld) [Volume fraction] 41.8 % Normal 34.0-46.0 Replaced By [facility] [place] Comment on above: Performed By: #### C BC, ADIFF, ANEU, LIP, AMRIT, CMP, ALC #### [place] [address] #### GFR, ACETA #### [place] [address] Hgb 14.0 G/dL Normal 12.0-16.0 Replaced By [facility] ([place] Comment on above: Performed By: #### C BC, ADIFF, ANEU, LIP, AMRIT, CMP, ALC #### [place] [address] #### GFR, ACETA #### [place] [address] MCH (RBC) [Entitic mass] 31.7 pg Normal 27.0-33.0 Replaced By [facility] ([place]) Comment on above: Performed By: #### C BC, ADIFF, ANEU, LIP, AMRIT, CMP, ALC #### [place] [address] #### GFR, ACETA #### [place] [address] MCHC 33.5 G/dL Normal 32.0-36.0 Replaced By [facility] ([place]) Comment on above: Performed By: #### C BC, ADIFF, ANEU, LIP, AMRIT, CMP, ALC #### [place] [address] #### GFR, ACETA #### [place] [address] MCV (RBC) [Entitic vol] 94.7 fL Normal 80.0-99.0 Replaced By [facility] ([place]) Comment on above: Performed By: #### C BC, ADIFF, ANEU, LIP, AMRIT, CMP, ALC #### [place] [address] #### GFR, ACETA #### [place] [address] Platelet 51 10 3/mcL Low 150-450 Replaced By [facility] ([place]) Comment on above: Performed By: #### C BC, ADIFF, ANEU, LIP, AMRIT, CMP, ALC #### [place] [address] #### GFR, ACETA #### [place] [address] Platelet mean volume (Bld) [Entitic vol] 8.7 fL Normal 6.6-10.5 Replaced By [facility] ([place] Comment on above: Performed By: #### C BC, ADIFF, ANEU, LIP, AMRIT, CMP, ALC #### [place] [address] #### GFR, ACETA #### [place] [address] RBC 4.41 10 6/mcL Normal 4.10-5.30 Replaced By [facility] ([place] Comment on above: Performed By: #### C BC, ADIFF, ANEU, LIP, AMRIT, CMP, ALC #### [place] [address] #### GFR, ACETA #### [place] [address] WBC 3.90 10 3/mcL Low 4.50-10.80 Replaced By [facility] ([place] Comment on above: Performed By: #### C BC, ADIFF, ANEU, LIP, AMRIT, CMP, ALC #### [place] [address] #### GFR, ACETA #### [place] [address] CKon 03-24-2021 CK [Catalytic activity/Vol] 1000 U/L High 7-185 Replaced By [facility] ([place] Comment on above: Performed By: #### C BC, ADIFF, ANEU, LIP, AMRIT, CMP, ALC #### [place] [address] #### GFR, ACETA #### [place] [address] US ABDOMEN LIMITEDon 021 US ABDOMEN LIMITED ORIGINAL EXAMINATION: LIMITED ABDOMINAL ULTRASOUND03/24/2021 3:05 pm COMPARISON: None HISTORY: ORDERING SYSTEM PROVIDED HISTORY: Reason for Exam: Elevated bilirubin FINDINGS: The liver is normal in size and echogenicity. No focal lesion is seen and there is no obvious nodularity of its margins. No intrahepatic bile duct dilatation. The common duct is 7 mm at the bharat hepatis but shows normal distal tapering. This is probably physiologic. The gallbladder is slightly over distended with a moderate amount of internal echoes of unlikely significance. There is no gallstone. No abnormal gallbladder wall thickening. Negative sonographic Rowe's sign. The visualized pancreas is normal, small lesions are not excludable. There is no right upper quadrant ascites. Right kidney is unremarkable. IMPRESSION: Negative right upper quadrant ultrasound. Interpreted by: Raheem Lira MD Preliminary Report By: Raheem Lira MD Electronically signed By Raheem Lira MD Dictated Date: 03/24/2021 4:00:23 PM Prelim Date: 03/24/2021 4:08:37 PM Sign Date: 03/24/2021 4:08:37 PM Ordering Provider: AYLA Gooden Replaced By [facility] ([place] .Auto Diffon 03-23-2021 Basophil, Absolute 0.00 10 3/mcL Normal 0.00-0.19 [facility]ly [facility], later [facility] ([place]) Comment on above: Performed By: #### C BC, ADIFF, ANEU, LIP, AMRIT, CMP, ALC #### [place] [address] #### GFR, ACETA #### [address] [address] Basophils/100 WBC (Bld) 0.1 % Normal 0.0-2.5 Replaced By [facility] ([place] Comment on above: Performed By: #### C BC, ADIFF, ANEU, LIP, AMRIT, CMP, ALC #### [address] [address] #### GFR, ACETA #### [address] [address] Eosinophil, Absolute 0.00 10 3/mcL Normal 0.00-0.40 A Formerly [facility] ([place]) Comment on above: Performed By: #### C BC, ADIFF, ANEU, LIP, AMRIT, CMP, ALC #### [place] [address] #### GFR, ACETA #### [address] [address] Eosinophils/100 WBC (Bld) 0.0 % Normal 0.0-7.0 Replaced By [facility] ([place]) Comment on above: Performed By: #### C BC, ADIFF, ANEU, LIP, AMRIT, CMP, ALC #### [place] [address] #### GFR, ACETA #### [address] [address] Lymphocyte, Absolute 0.40 10 3/mcL Low 0.77-3.85 A [facility]ly [facility] ([place]) Comment on above: Performed By: #### C BC, ADIFF, ANEU, LIP, AMRIT, CMP, ALC #### [place] [address] #### GFR, ACETA #### [address] [address] Lymphocytes/100 WBC (Bld) 3.8 % Low 10.0-50.0 Replaced By [facility] ([place]) Comment on above: Performed By: #### C BC, ADIFF, ANEU, LIP, AMRIT, CMP, ALC #### [place] [address] #### GFR, ACETA #### [address] [address] Monocyte, Absolute 0.50 10 3/mcL Normal 0.15-1.00 [facility] ([place]) Comment on above: Performed By: #### C BC, ADIFF, ANEU, LIP, AMRIT, CMP, ALC #### [place] [address] #### GFR, ACETA #### [address] [address] Monocytes/100 WBC (Bld) 4.9 % Normal 1.7-13.0 Replaced By [facility] ([place]) Comment on above: Performed By: #### C BC, ADIFF, ANEU, LIP, AMRIT, CMP, ALC #### [address] [address] #### GFR, ACETA #### [address] [address] Neutrophils/100 WBC (Bld) 91.2 % High 37.0-80.0 Replaced By [facility] [place] Comment on above: Performed By: #### C BC, ADIFF, ANEU, LIP, AMRIT, CMP, ALC #### [address] [address] #### GFR, ACETA #### [address] [address] .GFRon 03-23-2021 GFR 56 ml/min/1.73sqm Normal Replaced By [facility] ([place]) Comment on above: Result Comment: GFR Population mean for , Non- Americans Ages 20-29 = 116 mL/min/1.73 sq.m. Ages 30-39 = 107 mL/min/1.73 sq.m. Ages 40-49 = 99 mL/min/1.73 sq.m. Ages 50-59 = 93 mL/min/1.73 sq.m. Ages 60-69 = 85 mL/min/1.73 sq.m. Ages 70+ = 75 mL/min/1.73 sq.m. Chronic Kidney Disease: Less than 60 mL/min/1.73 square meters End Stage Renal Disease: Less than 15 mL/min/1.73 square meters Performed By: #### C BC, ADIFF, ANEU, LIP, AMRIT, CMP, ALC #### [address] [address] #### GFR, ACETA #### [address] [address] GFR Non- 46 ml/min/1.73sqm Normal Replaced By [facility] ([place]) Comment on above: Result Comment: GFR Population mean for , Non- Americans Ages 20-29 = 116 mL/min/1.73 sq.m. Ages 30-39 = 107 mL/min/1.73 sq.m. Ages 40-49 = 99 mL/min/1.73 sq.m. Ages 50-59 = 93 mL/min/1.73 sq.m. Ages 60-69 = 85 mL/min/1.73 sq.m. Ages 70+ = 75 mL/min/1.73 sq.m. Chronic Kidney Disease: Less than 60 mL/min/1.73 square meters End Stage Renal Disease: Less than 15 mL/min/1.73 square meters Performed By: #### C BC, ADIFF, ANEU, LIP, AMRIT, CMP, ALC #### [place] [address] #### GFR, ACETA #### [place] [address] .NEUABSon 03-23-2021 Neutrophil, Absolute 9.60 10 3/mcL High 2.85-6.16 A [facility] ([place] Comment on above: Performed By: #### C BC, ADIFF, ANEU, LIP, AMRIT, CMP, ALC #### [place] [address] #### GFR, ACETA #### [place] [address] .Urinalysis Microscopic (AO) on 03-23-2021 UA Bacteria 4+ /hpf Abnormal Replaced By [facility] ([place] Comment on above: Performed By: #### C BC, ADIFF, ANEU, LIP, AMRIT, CMP, ALC #### [place] [address] #### GFR, ACETA #### [place] [address] UA RBC None Seen Normal None Seen Replaced By [facility] ([place] Comment on above: Performed By: #### C BC, ADIFF, ANEU, LIP, AMRIT, CMP, ALC #### [place] [address] #### GFR, ACETA #### [place] [address] UA Squam Epithelial 0-5 Abnormal None Seen [facility] ([place]) Comment on above: Performed By: #### C BC, ADIFF, ANEU, LIP, AMRIT, CMP, ALC #### [place] [address] #### GFR, ACETA #### [place] [address] UA WBC 0-5 Abnormal None Seen Replaced By [facility] [place] Comment on above: Performed By: #### C BC, ADIFF, ANEU, LIP, AMRIT, CMP, ALC #### [place] [address] #### GFR, ACETA #### [place] [address] ACETAon 03-23-2021 Acetaminophen [Mass/Vol] 0.0 ug/mL Low 10.0-30.0 Replaced By [facility] [place] Comment on above: Performed By: #### C BC, ADIFF, ANEU, LIP, AMRIT, CMP, ALC #### [place] [address] #### GFR, ACETA #### [place] [address] Shahida 03-23-2021 Ethanol Level <3 Normal 0-3 Replaced By [facility] ([place] Comment on above: Performed By: #### C BC, ADIFF, ANEU, LIP, AMRIT, CMP, ALC #### [place] [address] #### GFR, ACETA #### [place] [address] CBCon 03-23-2021 Erythrocyte distribution width (RBC) [Ratio] 14.2 % Normal 11.5-14.5 Replaced By [facility] ([place] Comment on above: Performed By: #### C BC, ADIFF, ANEU, LIP, AMRIT, CMP, ALC #### [place] [address] #### GFR, ACETA #### [place] [address] Hematocrit (Bld) [Volume fraction] 48.9 % High 37.0-47.0 Replaced By [facility] [place] Comment on above: Performed By: #### C BC, ADIFF, ANEU, LIP, AMRIT, CMP, ALC #### [place] [address] #### GFR, ACETA #### [place] [address] Hgb 16.9 G/dL High 12.0-16.0 Replaced By [facility] [place] Comment on above: Performed By: #### C BC, ADIFF, ANEU, LIP, AMRIT, CMP, ALC #### [place] [address] #### GFR, ACETA #### [place] [address] MCH (RBC) [Entitic mass] 32.5 pg High 27.0-31.2 Replaced By [facility] ([place]) Comment on above: Performed By: #### C BC, ADIFF, ANEU, LIP, AMRIT, CMP, ALC #### [place] [address] #### GFR, ACETA #### [place] [address] MCHC 34.6 G/dL Normal 33.0-37.0 Replaced By [facility] ([place] Comment on above: Performed By: #### C BC, ADIFF, ANEU, LIP, AMRIT, CMP, ALC #### [place] [address] #### GFR, ACETA #### [place] [address] MCV (RBC) [Entitic vol] 93.9 fL Normal 80.0-94.0 Replaced By [facility] ([place]) Comment on above: Performed By: #### C BC, ADIFF, ANEU, LIP, AMRIT, CMP, ALC #### [place] [address] #### GFR, ACETA #### [place] [address] Platelet 94 10 3/mcL Low 130-400 Replaced By [facility] ([place]) Comment on above: Performed By: #### C BC, ADIFF, ANEU, LIP, AMRIT, CMP, ALC #### [place] [address] #### GFR, ACETA #### [place] [address] Platelet mean volume (Bld) [Entitic vol] 8.3 fL Normal 7.4-10.4 Replaced By [facility] [place] Comment on above: Performed By: #### C BC, ADIFF, ANEU, LIP, AMRIT, CMP, ALC #### [place] [address] #### GFR, ACETA #### [place] [address] RBC 5.21 10 6/mcL Normal 4.20-5.40 Replaced By [facility] [place] Comment on above: Performed By: #### C BC, ADIFF, ANEU, LIP, AMRIT, CMP, ALC #### [place] [address] #### GFR, ACETA #### [place] [address] WBC 10.50 10 3/mcL Normal 4.60-10.80 Replaced By [facility] ([place] Comment on above: Performed By: #### C BC, ADIFF, ANEU, LIP, AMRIT, CMP, ALC #### [place] [address] #### GFR, ACETA #### [place] [address] CKon 03-23-2021 CK [Catalytic activity/Vol] 369 U/L High 26-192 Replaced By [facility] ([place]) Comment on above: Performed By: #### C BC, ADIFF, ANEU, LIP, AMRIT, CMP, ALC #### [place] [address] #### GFR, ACETA #### [place] [address] CMPon 03-23-2021 Albumin Level 3.0 G/dL Low 3.5-5.0 Replaced By [facility] [place] Comment on above: Performed By: #### C BC, ADIFF, ANEU, LIP, AMRIT, CMP, ALC #### [place] [address] #### GFR, ACETA #### [address] [address] Albumin/Globulin [Mass ratio] 0.9 {ratio} Low 1.1-2.5 Replaced By [facility] [place] Comment on above: Performed By: #### C BC, ADIFF, ANEU, LIP, AMRIT, CMP, ALC #### [place] [address] #### GFR, ACETA #### [address] [address] ALP [Catalytic activity/Vol] 178 U/L High 40-135 Replaced By [facility] ([place]) Comment on above: Performed By: #### C BC, ADIFF, ANEU, LIP, AMRIT, CMP, ALC #### [place] [address] #### GFR, ACETA #### [address] [address] ALT [Catalytic activity/Vol] 34 U/L Normal 14-59 Replaced By [facility] ([place] Comment on above: Performed By: #### C BC, ADIFF, ANEU, LIP, AMRIT, CMP, ALC #### [place] [address] #### GFR, ACETA #### [address] [address] AST [Catalytic activity/Vol] 56 U/L High 10-40 Replaced By [facility] ([place]) Comment on above: Performed By: #### C BC, ADIFF, ANEU, LIP, AMRIT, CMP, ALC #### [place] [address] #### GFR, ACETA #### [address] [address] Bili Total 1.2 mg/dL High 0.2-1.0 Replaced By [facility] ([place]) Comment on above: Result Comment: Use of this assay is not recommended for patients undergoing treatment with eltrombopag due to the potential for falsely elevated results. Performed By: #### C BC, ADIFF, ANEU, LIP, AMRIT, CMP, ALC #### [place] [address] #### GFR, ACETA #### [address] [address] BUN/Creatinine Ratio 18 ratio Normal 7-27 [facility] ([place]) Comment on above: Performed By: #### C BC, ADIFF, ANEU, LIP, AMRIT, CMP, ALC #### [place] [address] #### GFR, ACETA #### [address] [address] Calcium [Mass/Vol] 9.5 mg/dL Normal 8.4-10.2 [facility] ([place]) Comment on above: Performed By: #### C BC, ADIFF, ANEU, LIP, AMRIT, CMP, ALC #### [place] [address] #### GFR, ACETA #### [address] [address] Chloride [Moles/Vol] 99 mmol/L Normal 98-107 [facility] ([place]) Comment on above: Performed By: #### C BC, ADIFF, ANEU, LIP, AMRIT, CMP, ALC #### [place] [address] #### GFR, ACETA #### [address] [address] CO2 [Moles/Vol] 27 mmol/L Normal 22-29 Replaced By [facility] ([place] Comment on above: Performed By: #### C BC, ADIFF, ANEU, LIP, AMRIT, CMP, ALC #### [place] [address] #### GFR, ACETA #### [address] [address] Creatinine [Mass/Vol] 1.19 mg/dL High 0.55-1.02 Replaced By [facility] [place] Comment on above: Performed By: #### C BC, ADIFF, ANEU, LIP, AMRIT, CMP, ALC #### [address] [address] #### GFR, ACETA #### [address] [address] Electrolyte Balance 12.0 mEq/L Normal [facility] ([place]) Comment on above: Performed By: #### C BC, ADIFF, ANEU, LIP, AMRIT, CMP, ALC #### [address] [address] #### GFR, ACETA #### [address] [address] Globulin 3.3 G/dL Normal Replaced By [facility] ([place] Comment on above: Performed By: #### C BC, ADIFF, ANEU, LIP, AMRIT, CMP, ALC #### [place] [address] #### GFR, ACETA #### [address] [address] Glucose [Mass/Vol] 125 mg/dL High 70-105 [facility] ([place] Comment on above: Performed By: #### C BC, ADIFF, ANEU, LIP, AMRIT, CMP, ALC #### [address] [address] #### GFR, ACETA #### [address] [address] Potassium [Moles/Vol] 3.7 mmol/L Normal 3.5-5.1 Replaced By [facility] [place] Comment on above: Performed By: #### C BC, ADIFF, ANEU, LIP, AMRIT, CMP, ALC #### [address] [address] #### GFR, ACETA #### [address] [address] Sodium [Moles/Vol] 138 mmol/L Normal 136-145 [facility] ([place] Comment on above: Performed By: #### C BC, ADIFF, ANEU, LIP, AMRIT, CMP, ALC #### [place] [address] #### GFR, ACETA #### [place] [address] Total Protein 6.3 G/dL Low 6.4-8.2 Replaced By [facility] [place] Comment on above: Performed By: #### C BC, ADIFF, ANEU, LIP, AMRIT, CMP, ALC #### [place] [address] #### GFR, ACETA #### [place] [address] Urea nitrogen [Mass/Vol] 21 mg/dL High 7-18 Replaced By [facility] [place] Comment on above: Performed By: #### C BC, ADIFF, ANEU, LIP, AMRIT, CMP, ALC #### [place] [address] #### GFR, ACETA #### [place] [address] [id number] 03-23-2021 Date of Onset [id number] Invalid Interpretation Code Replaced By [facility] ([place] Comment on above: Performed By: #### C BC, ADIFF, ANEU, LIP, AMRIT, CMP, ALC #### [place] [address] #### GFR, ACETA #### [place] [address] Employed in Healthcare No [facility] ([place] Comment on above: Performed By: #### C BC, ADIFF, ANEU, LIP, AMRIT, CMP, ALC #### [place] [address] #### GFR, ACETA #### [place] [address] First Test Unknown [facility] ([place] Comment on above: Performed By: #### C BC, ADIFF, ANEU, LIP, AMRIT, CMP, ALC #### [place] [address] #### GFR, ACETA #### [address] [address] Hospitalized No [facility] ([place] Comment on above: Performed By: #### C BC, ADIFF, ANEU, LIP, AMRIT, CMP, ALC #### [address] [address] #### GFR, ACETA #### [place] [address] ICU No [facility] ([place] Comment on above: Performed By: #### C BC, ADIFF, ANEU, LIP, AMRIT, CMP, ALC #### [place] [address] #### GFR, ACETA #### [place] [address] Not [facility] ([place] Comment on above: Performed By: #### C BC, ADIFF, ANEU, LIP, AMRIT, CMP, ALC #### [place] [address] #### GFR, ACETA #### [place] [address] Resides in Congregate Care Setting [facility] ([place] Comment on above: Performed By: #### C BC, ADIFF, ANEU, LIP, AMRIT, CMP, ALC #### [place] [address] #### GFR, ACETA #### [place] [address] SARS-CoV-2 (COVID-19) RNA GABRIELLE+probe Ql (Unsp spec) Negative Normal Negative Replaced By [facility] [place] Comment on above: Performed By: #### C BC, ADIFF, ANEU, LIP, AMRIT, CMP, ALC #### [place] [address] #### GFR, ACETA #### [place] [address] SARS-CoV-2 (COVID-19) RNA GABRIELLE+probe Ql (Unsp spec) Normal Replaced By [facility] ([place] Comment on above: Result Comment: Nega tive results do not preclude SARS-CoV-2 infection and should not be used as the sole basis for patient management decisions. Negative results must be combined with clinical observations, patient history, and epidemiological information. There is a risk of false negative values resulting from improperly collected, transported, or handled specimens. There is a risk of false negative values due to the presence of sequence variants in the pathogen targets of the assay, procedural errors, amplification inhibitors in specimens, or inadequate numbers of organisms for amplification. CHANG SARS-CoV-2 Assay is a Real-Time reverse-transcriptase polymerase chain reaction (RT-PCR) based qualitative in vitro diagnostic test intended for the qualitative detection of nucleic acid from the SARS-CoV-2 in nasopharyngeal swab specimens collected from individuals suspected of COVID-19 by their healthcare provider. Testing is limited to laboratories certified under the Clinical Laboratory Improvement Amendments of 1988 (CLIA), 42 U.S.C. ?263a, to perform moderate and high complexity tests. COVID-19 Int Performed By: #### C BC, ADIFF, ANEU, LIP, AMRIT, CMP, ALC #### [place] [address] #### GFR, ACETA #### [place] [address] Symptomatic as Defined by CDC No [facility] ([place]) Comment on above: Performed By: #### C BC, ADIFF, ANEU, LIP, AMRIT, CMP, ALC #### [place] [address] #### GFR, ACETA #### [place] [address] [address] HEAD OR BRAIN W/O CONTRAS Ton 03-23-2021 CT HEAD OR BRAIN W/O CONTRAST ORIGINAL EXAMINATION: CT OF THE HEAD WITHOUT CONTRAST03/23/2021 1:25 pm TECHNIQUE: Axial CT images from skull base to vertex without IV contrast. This exam was performed according to our departmental dose optimization program, and includes the following measures where applicable: automated exposure control, adjustment of the mAs and/or kVp according to patient size and/or exam, and an iterative reconstruction algorithm. COMPARISON: Comparison. HISTORY: ORDERING SYSTEM PROVIDED HISTORY: Reason for Exam: Altered mental status FINDINGS: Parenchyma: Symmetric areas of decreased attenuation are identified in the bilateral occipital lobes. No acute intracranial hemorrhage, midline shift, or mass effect is demonstrated. The mercado-white matter junctions are preserved. No space occupying intra-axial masses or extra-axial fluid collections are seen. Mild parenchymal volume loss is noted. Scattered areas of decreased attenuation within the subcortical periventricular deep white matter likely reflects mild chronic microvascular white matter ischemic disease Ventricles: No evidence of hydrocephalus or ventricular effacement. Vessels: No significant atherosclerotic calcifications. Orbits: Unremarkable. Calvarium: Unremarkable. Paranasal sinuses: Clear. Mastoid sinuses: Clear. IMPRESSION: 1.Symmetric areas of decreased attenuation within the bilateral occipital lobes. Considerations include PRES syndrome and acute/recent ischemic infarcts. Further evaluation with MRI brain recommended. 2. Mild parenchymal volume loss and chronic microvascular white matter ischemic disease. Communication was initiated for the radiology call center by this radiologist through PACS at 1:52 p.m. on 03/23/2021with instructions to provide the results of this examination to a licensed caregiver. Interpreted by: Bogdan Morin Preliminary Report By: Bogdan Morin Electronically signed By Bogdan Morin Dictated Date: 03/23/2021 1:35:13 PM Prelim Date: 03/23/2021 1:52:26 PM Sign Date: 03/23/2021 1:52:26 PM Ordering Provider: CECE Gooden Replaced By [facility] [place] on 03-23-2021 Magnesium [Mass/Vol] 1.9 mg/dL Normal 1.8-2.4 [facility]) Comment on above: Performed By: #### C BC, ADIFF, ANEU, LIP, AMRIT, CMP, ALC #### [address] [address] #### GFR, ACETA #### [id number] [place] [address] 03-23-2021 Salicylate Level 3.9 mg/dL Normal 2.8-20.0 [facility]) Comment on above: Performed By: #### C BC, ADIFF, ANEU, LIP, AMRIT, CMP, ALC #### [address] [address] #### GFR, ACETA #### [address] [address] TOXSCon 03-23-2021 U Ampheta (AO) Negative [facility] ([place]) Comment on above: Performed By: #### C BC, ADIFF, ANEU, LIP, AMRIT, CMP, ALC #### [address] [address] #### GFR, ACETA #### [address] [address] U Kimberly (AO) Negative [facility] ([place] Comment on above: Performed By: #### C BC, ADIFF, ANEU, LIP, AMRIT, CMP, ALC #### [place] [address] #### GFR, ACETA #### [place] [id number] U Yariel (AO) Negative [facility] ([place] Comment on above: Performed By: #### C BC, ADIFF, ANEU, LIP, AMRIT, CMP, ALC #### [place] [address] #### GFR, ACETA #### [address] [address] U Cannab (AO) Negative [facility] ([place] Comment on above: Performed By: #### C BC, ADIFF, ANEU, LIP, AMRIT, CMP, ALC #### [place] [address] #### GFR, ACETA #### [address] [address] U Cocaine (AO) Negative [facility] ([place]) Comment on above: Performed By: #### C BC, ADIFF, ANEU, LIP, AMRIT, CMP, ALC #### [address] [address] #### GFR, ACETA #### [address] [address] U Methadone (AO) Negative [facility] ([place]) Comment on above: Performed By: #### C BC, ADIFF, ANEU, LIP, AMRIT, CMP, ALC #### [address] [address] #### GFR, ACETA #### [address] [address] U PCP (AO) Negative [facility] ([place] Comment on above: Performed By: #### C BC, ADIFF, ANEU, LIP, AMRIT, CMP, ALC #### [address] [address] #### GFR, ACETA #### [address] [address] U TCA (AO) Negative [facility] ([place] Comment on above: Performed By: #### C BC, ADIFF, ANEU, LIP, AMRIT, CMP, ALC #### [place] [address] #### GFR, ACETA #### [address] [address] Urine Opiates (AO) Negative [facility] ([place]) Comment on above: Performed By: #### C BC, ADIFF, ANEU, LIP, AMRIT, CMP, ALC #### [address] [address] #### GFR, ACETA #### [address] [address] UAon 03-23-2021 Color (U) Yellow Normal Replaced By [facility] [place] Comment on above: Performed By: #### C BC, ADIFF, ANEU, LIP, AMRIT, CMP, ALC #### [place] [address] #### GFR, ACETA #### [address] [address] Glucose (U) [Mass/Vol] Negative Normal Negative Replaced By [facility] [place] Comment on above: Performed By: #### C BC, ADIFF, ANEU, LIP, AMRIT, CMP, ALC #### [place] [address] #### GFR, ACETA #### [address] [address] Ketones Ql (U) Negative Normal Negative Replaced By [facility] [place] Comment on above: Performed By: #### C BC, ADIFF, ANEU, LIP, AMRIT, CMP, ALC #### [place] [address] #### GFR, ACETA #### [place] [address] UA Appear Cloudy Abnormal Clear Replaced By [facility] [place] Comment on above: Performed By: #### C BC, ADIFF, ANEU, LIP, AMRIT, CMP, ALC #### [place] [address] #### GFR, ACETA #### [place] [address] UA Blood Small Abnormal Negative Replaced By [facility] [place] Comment on above: Performed By: #### C BC, ADIFF, ANEU, LIP, AMRIT, CMP, ALC #### [place] [address] #### GFR, ACETA #### [place] [address] UA Leuk Est Negative Normal Negative Replaced By [facility] [place] Comment on above: Performed By: #### C BC, ADIFF, ANEU, LIP, AMRIT, CMP, ALC #### [place] [address] #### GFR, ACETA #### [place] [address] UA Nitrite Negative Normal Negative Replaced By [facility] [place] Comment on above: Performed By: #### C BC, ADIFF, ANEU, LIP, AMRIT, CMP, ALC #### [place] [address] #### GFR, ACETA #### [place] [address] UA pH 6.0 Normal 5.0 - 8.0 Replaced By [facility] ([place] Comment on above: Performed By: #### C BC, ADIFF, ANEU, LIP, AMRIT, CMP, ALC #### [place] [address] #### GFR, ACETA #### [place] [address] UA Protein 100 mg/dL Abnormal Negative Replaced By [facility] ([place] Comment on above: Performed By: #### C BC, ADIFF, ANEU, LIP, AMRIT, CMP, ALC #### [place] [address] #### GFR, ACETA #### [place] [address] UA Spec Grav >=1.030 Abnormal 1.015-1.025 Replaced By [facility] [place] Comment on above: Performed By: #### C BC, ADIFF, ANEU, LIP, AMRIT, CMP, ALC #### [place] [address] #### GFR, ACETA #### [place] [address] UA Specimen Type Clean Catch Normal Replaced By [facility] [place] Comment on above: Performed By: #### C BC, ADIFF, ANEU, LIP, AMRIT, CMP, ALC #### [place] [address] #### GFR, ACETA #### [place] [address] UA Urobilinogen 0.2 E.U./dL Normal 0.2-1.0 Replaced By [facility] [place] Comment on above: Performed By: #### C BC, ADIFF, ANEU, LIP, AMRIT, CMP, ALC #### [place] [address] #### GFR, ACETA #### [place] [address] Urobilinogen (U) [Mass/Vol] Negative Normal Negative Replaced By [facility] [place] Comment on above: Performed By: #### C BC, ADIFF, ANEU, LIP, AMRIT, CMP, ALC #### [address] [address] #### GFR, ACETA #### [place] [id number] XR CHEST 1 VIEWon 03-23-2021 XR CHEST 1 VIEW ORIGINAL EXAMINATION: ONE XRAY VIEW OF THE CHEST 03/23/2021 1:24 pm COMPARISON: None. HISTORY: ORDERING SYSTEM PROVIDED HISTORY: Reason for Exam: Altered mental status FINDINGS: The cardiomediastinal silhouette demonstrates a normal appearance. No consolidative opacity is identified. There is no pleural effusion or pneumothorax. No free air seen beneath the level of the diaphragm. The bony thorax appears acutely intact. IMPRESSION: No evidence of an acute process. Interpreted by: Bernardino Phelan Preliminary Report By: Bernardino Phelan Electronically signed By Bernardino Phelan Dictated Date: 03/23/2021 1:29:49 PM Prelim Date: 03/23/2021 1:31:08 PM Sign Date: 03/23/2021 1:31:08 PM Ordering Provider: CECE BRADLEY Normal Replaced By [facility] [place] .Urinalysis Microscopic (AO) on 08-19-2020 UA Bacteria 3+ /hpf Abnormal Replaced By [facility] [place] Comment on above: Performed By: #### C BC, ADIFF, ANEU, LIP, AMRIT, CMP, ALC #### [place] [address] #### GFR, ACETA #### [place] [address] UA RBC None Seen Normal None Seen Replaced By [facility] [place] Comment on above: Performed By: #### C BC, ADIFF, ANEU, LIP, AMRIT, CMP, ALC #### [place] [address] #### GFR, ACETA #### [place] [address] UA Squam Epithelial 0-5 Abnormal None Seen [facility] ([place] Comment on above: Performed By: #### C BC, ADIFF, ANEU, LIP, AMRIT, CMP, ALC #### [address] [address] #### GFR, ACETA #### [address] [address] UA WBC 5-10 Abnormal None Seen Replaced By [facility] [place] Comment on above: Performed By: #### C BC, ADIFF, ANEU, LIP, AMRIT, CMP, ALC #### [address] [address] #### GFR, ACETA #### [address] [address] TOXSCon 08-19-2020 U Ampheta (AO) Negative Normal Replaced By [facility] [place] Comment on above: Performed By: #### T OXSC, UADIP, UAMICAO #### [address] [address] U Kimberly (AO) Negative Normal Replaced By [facility] [place] Comment on above: Performed By: #### T OXSC, UADIP, UAMICAO #### [address] [address] U Yariel (AO) Negative Normal Replaced By [facility] [place] Comment on above: Performed By: #### T OXSC, UADIP, UAMICAO #### [address] [address] U Cannab (AO) Negative [facility] ([place] Comment on above: Performed By: #### T OXSC, UADIP, UAMICAO #### [address] [address] U Cocaine (AO) Negative [facility] ([place] Comment on above: Performed By: #### T OXSC, UADIP, U[place]ICAO #### [address] [address] U Methadone (AO) Negative [facility] ([place] Comment on above: Performed By: #### T OXSC, UADIP, U[place]O #### [address] [address] U PCP (AO) Negative Normal Replaced By [facility] [place] Comment on above: Performed By: #### T OXSC, UADIP, UAMICAO #### [address] [address] U TCA (AO) Negative Normal Replaced By [facility] [place] Comment on above: Performed By: #### T OXSC, UADIP, UAMICAO #### [address] [address] Urine Opiates (AO) Negative Normal [facility] ([place] Comment on above: Performed By: #### T OXSC, UADIP, UAMICAO #### [place] [address] URINon 08-19-2020 Color (U) Yellow Normal Replaced By [facility] [place] Comment on above: Performed By: #### C BC, ADIFF, ANEU, LIP, AMRIT, CMP, ALC #### [place] [address] #### GFR, ACETA #### [place] [address] Glucose (U) [Mass/Vol] Negative Normal Negative Replaced By [facility] [place] Comment on above: Performed By: #### C BC, ADIFF, ANEU, LIP, AMRIT, CMP, ALC #### [place] [address] #### GFR, ACETA #### [place] [address] Ketones Ql (U) Negative Normal Negative Replaced By [facility] [place] Comment on above: Performed By: #### C BC, ADIFF, ANEU, LIP, AMRIT, CMP, ALC #### [place] [address] #### GFR, ACETA #### [place] [address] UA Appear Slightly Cloudy Abnormal Clear Replaced By [facility] [place] Comment on above: Performed By: #### C BC, ADIFF, ANEU, LIP, AMRIT, CMP, ALC #### [place] [address] #### GFR, ACETA #### [place] [address] UA Blood Negative Normal Negative Replaced By [facility] [place] Comment on above: Performed By: #### C BC, ADIFF, ANEU, LIP, AMRIT, CMP, ALC #### [place] [address] #### GFR, ACETA #### [place] [address] UA Leuk Est Trace Abnormal Negative Replaced By [facility] [place] Comment on above: Performed By: #### C BC, ADIFF, ANEU, LIP, AMRIT, CMP, ALC #### [place] [address] #### GFR, ACETA #### [place] [address] UA Nitrite Positive Abnormal Negative Replaced By [facility] [place] Comment on above: Performed By: #### C BC, ADIFF, ANEU, LIP, AMRIT, CMP, ALC #### [place] [address] #### GFR, ACETA #### [place] [address] UA pH 6.0 Normal 5.0 - 8.0 Replaced By [facility] [place] Comment on above: Performed By: #### C BC, ADIFF, ANEU, LIP, AMRIT, CMP, ALC #### [place] [address] #### GFR, ACETA #### [place] [address] UA Protein Negative Normal Negative Replaced By [facility] [place] Comment on above: Performed By: #### C BC, ADIFF, ANEU, LIP, AMRIT, CMP, ALC #### [place] [address] #### GFR, ACETA #### [place] [address] UA Spec Grav 1.015 Normal 1.015-1.025 Replaced By [facility] [place] Comment on above: Performed By: #### C BC, ADIFF, ANEU, LIP, AMRIT, CMP, ALC #### [place] [address] #### GFR, ACETA #### [place] [address] UA Specimen Type Clean Catch Normal Replaced By [facility] [place] Comment on above: Performed By: #### C BC, ADIFF, ANEU, LIP, AMRIT, CMP, ALC #### [place] [address] #### GFR, ACETA #### [place] [address] UA Urobilinogen 0.2 E.U./dL Normal 0.2-1.0 Replaced By [facility] [place] Comment on above: Performed By: #### C BC, ADIFF, ANEU, LIP, AMRIT, CMP, ALC #### [place] [address] #### GFR, ACETA #### [place] [address] Urobilinogen (U) [Mass/Vol] Negative Normal Negative Replaced By [facility] [place] Comment on above: Performed By: #### C BC, ADIFF, ANEU, LIP, AMRIT, CMP, ALC #### [place] [address] #### GFR, ACETA #### [place] [address] .Auto Diffon 08-18-2020 Basophil, Absolute 0.10 10 3/mcL Normal 0.00-0.19 [facility] ([place] Comment on above: Performed By: #### C BC, ADIFF, ANEU, LIP, AMRIT, CMP, ALC #### [place] [address] #### GFR, ACETA #### [place] [address] Basophils/100 WBC (Bld) 0.9 % Normal 0.0-2.5 Replaced By [facility] [place] Comment on above: Performed By: #### C BC, ADIFF, ANEU, LIP, AMRIT, CMP, ALC #### [place] [address] #### GFR, ACETA #### [address] [address] Eosinophil, Absolute 0.00 10 3/mcL Normal 0.00-0.40 A [facility] ([place] Comment on above: Performed By: #### C BC, ADIFF, ANEU, LIP, AMRIT, CMP, ALC #### [place] [address] #### GFR, ACETA #### [address] [address] Eosinophils/100 WBC (Bld) 0.3 % Normal 0.0-7.0 Replaced By [facility] [place] Comment on above: Performed By: #### C BC, ADIFF, ANEU, LIP, AMRIT, CMP, ALC #### [place] [address] #### GFR, ACETA #### [address] [address] Lymphocyte, Absolute 2.60 10 3/mcL Normal 0.77-3.85 A [facility] ([place] Comment on above: Performed By: #### C BC, ADIFF, ANEU, LIP, AMRIT, CMP, ALC #### [place] [address] #### GFR, ACETA #### [address] [address] Lymphocytes/100 WBC (Bld) 32.8 % Normal 10.0-50.0 Replaced By [facility] [place] Comment on above: Performed By: #### C BC, ADIFF, ANEU, LIP, AMRIT, CMP, ALC #### [place] [address] #### GFR, ACETA #### [address] [address] Monocyte, Absolute 0.60 10 3/mcL Normal 0.15-1.00 [facility] ([place] Comment on above: Performed By: #### C BC, ADIFF, ANEU, LIP, AMRIT, CMP, ALC #### [address] [address] #### GFR, ACETA #### [address] [address] Monocytes/100 WBC (Bld) 7.5 % Normal 1.7-13.0 Replaced By [facility] [place] Comment on above: Performed By: #### C BC, ADIFF, ANEU, LIP, AMRIT, CMP, ALC #### [address] [address] #### GFR, ACETA #### [address] [address] Neutrophils/100 WBC (Bld) 58.5 % Normal 37.0-80.0 Replaced By [facility] [place] Comment on above: Performed By: #### C BC, ADIFF, ANEU, LIP, AMRIT, CMP, ALC #### [address] [address] #### GFR, ACETA #### [address] [address] .GFRon 08-18-2020 GFR 109 ml/min/1.73sqm Normal Replaced By [facility] ([place] Comment on above: Result Comment: GFR Population mean for , Non- Americans Ages 20-29 = 116 mL/min/1.73 sq.m. Ages 30-39 = 107 mL/min/1.73 sq.m. Ages 40-49 = 99 mL/min/1.73 sq.m. Ages 50-59 = 93 mL/min/1.73 sq.m. Ages 60-69 = 85 mL/min/1.73 sq.m. Ages 70+ = 75 mL/min/1.73 sq.m. Chronic Kidney Disease: Less than 60 mL/min/1.73 square meters End Stage Renal Disease: Less than 15 mL/min/1.73 square meters Performed By: #### C BC, ADIFF, ANEU, LIP, AMRIT, CMP, ALC #### [place] [address] [place], [place] [address] #### GFR, ACETA #### [address] [address] GFR Non- 90 ml/min/1.73sqm Normal Replaced By [facility] [place] Comment on above: Result Comment: GFR Population mean for , Non- Americans Ages 20-29 = 116 mL/min/1.73 sq.m. Ages 30-39 = 107 mL/min/1.73 sq.m. Ages 40-49 = 99 mL/min/1.73 sq.m. Ages 50-59 = 93 mL/min/1.73 sq.m. Ages 60-69 = 85 mL/min/1.73 sq.m. Ages 70+ = 75 mL/min/1.73 sq.m. Chronic Kidney Disease: Less than 60 mL/min/1.73 square meters End Stage Renal Disease: Less than 15 mL/min/1.73 square meters Performed By: #### C BC, ADIFF, ANEU, LIP, AMRIT, CMP, ALC #### [address] [address] #### GFR, ACETA #### [address] [address] .NEUABSon 08-18-2020 Neutrophil, Absolute 4.70 10 3/mcL Normal 2.85-6.16 A [facility] ([place] Comment on above: Performed By: #### C BC, ADIFF, ANEU, LIP, AMRIT, CMP, ALC #### [address] [address] #### GFR, ACETA #### [address] [address] ACETAon 08-18-2020 Acetaminophen [Mass/Vol] 0.0 ug/mL Low 10.0-30.0 Replaced By [facility] [place] Comment on above: Performed By: #### C BC, ADIFF, ANEU, LIP, AMRIT, CMP, ALC #### [address] [address] #### GFR, ACETA #### [place] [address] Shahida 08-18-2020 Ethanol Level 360 mg/dL Critically abnormal 0-3 Replaced By [facility] ([place] Comment on above: Performed By: #### C BC, ADIFF, ANEU, LIP, AMRIT, CMP, ALC #### [place] [address] #### GFR, ACETA #### [place] [address] CBCon 08-18-2020 Erythrocyte distribution width (RBC) [Ratio] 16.4 % High 11.5-14.5 Replaced By [facility] ([place]) Comment on above: Performed By: #### C BC, ADIFF, ANEU, LIP, AMRIT, CMP, ALC #### [place] [address] #### GFR, ACETA #### [place] [address] Hematocrit (Bld) [Volume fraction] 51.6 % High 37.0-47.0 Replaced By [facility] ([place]) Comment on above: Performed By: #### C BC, ADIFF, ANEU, LIP, AMRIT, CMP, ALC #### [place] [address] #### GFR, ACETA #### [place] [address] Hgb 17.6 G/dL High 12.0-16.0 Replaced By [facility] [place] Comment on above: Performed By: #### C BC, ADIFF, ANEU, LIP, AMRIT, CMP, ALC #### [place] [address] #### GFR, ACETA #### [place] [address] MCH (RBC) [Entitic mass] 30.0 pg Normal 27.0-31.2 Replaced By [facility] ([place] Comment on above: Performed By: #### C BC, ADIFF, ANEU, LIP, AMRIT, CMP, ALC #### [place] [address] #### GFR, ACETA #### [place] [address] MCHC 34.1 G/dL Normal 33.0-37.0 Replaced By [facility] ([place] Comment on above: Performed By: #### C BC, ADIFF, ANEU, LIP, AMRIT, CMP, ALC #### [place] [address] #### GFR, ACETA #### [place] [address] MCV (RBC) [Entitic vol] 88.0 fL Normal 80.0-94.0 Replaced By [facility] [place] Comment on above: Performed By: #### C BC, ADIFF, ANEU, LIP, AMRIT, CMP, ALC #### [place] [address] #### GFR, ACETA #### [place] [address] Platelet 294 10 3/mcL Normal 130-400 Replaced By [facility] ([place] Comment on above: Performed By: #### C BC, ADIFF, ANEU, LIP, AMRIT, CMP, ALC #### [place] [address] #### GFR, ACETA #### [place] [address] Platelet mean volume (Bld) [Entitic vol] 7.4 fL Normal 7.4-10.4 Replaced By [facility] [place] Comment on above: Performed By: #### C BC, ADIFF, ANEU, LIP, AMRIT, CMP, ALC #### [place] [address] #### GFR, ACETA #### [place] [address] RBC 5.86 10 6/mcL High 4.20-5.40 Replaced By [facility] [place] Comment on above: Performed By: #### C BC, ADIFF, ANEU, LIP, AMRIT, CMP, ALC #### [place] [address] #### GFR, ACETA #### [place] [address] WBC 8.00 10 3/mcL Normal 4.60-10.80 Replaced By [facility] ([place] Comment on above: Performed By: #### C BC, ADIFF, ANEU, LIP, AMRIT, CMP, ALC #### [place] [address] #### GFR, ACETA #### [place] [address] CMPon 08-18-2020 Albumin Level 3.9 G/dL Normal 3.5-5.0 Replaced By [facility] [place] Comment on above: Performed By: #### C BC, ADIFF, ANEU, LIP, AMRIT, CMP, ALC #### [place] [address] #### GFR, ACETA #### [place] [address] Albumin/Globulin [Mass ratio] 1.1 {ratio} Normal 1.1-2.5 Replaced By [facility] [place] Comment on above: Performed By: #### C BC, ADIFF, ANEU, LIP, AMRIT, CMP, ALC #### [place] [address] #### GFR, ACETA #### [place] [address] ALP [Catalytic activity/Vol] 151 U/L High 40-135 Replaced By [facility] ([place] Comment on above: Performed By: #### C BC, ADIFF, ANEU, LIP, AMRIT, CMP, ALC #### [place] [address] #### GFR, ACETA #### [place] [address] ALT [Catalytic activity/Vol] 91 U/L High 14-59 Replaced By [facility] ([place] Comment on above: Performed By: #### C BC, ADIFF, ANEU, LIP, AMRIT, CMP, ALC #### [place] [address] #### GFR, ACETA #### [address] [address] AST [Catalytic activity/Vol] 105 U/L High 10-40 Replaced By [facility] ([place] Comment on above: Performed By: #### C BC, ADIFF, ANEU, LIP, AMRIT, CMP, ALC #### [place] [address] #### GFR, ACETA #### [place] [address] Bili Total 0.4 mg/dL Normal 0.2-1.0 Replaced By [facility] ([place] Comment on above: Result Comment: Use of this assay is not recommended for patients undergoing treatment with eltrombopag due to the potential for falsely elevated results. Performed By: #### C BC, ADIFF, ANEU, LIP, AMRIT, CMP, ALC #### [place] [address] #### GFR, ACETA #### [place] [address] BUN/Creatinine Ratio 15 ratio Normal 7-27 [facility] ([place]) Comment on above: Performed By: #### C BC, ADIFF, ANEU, LIP, AMRIT, CMP, ALC #### [place] [address] #### GFR, ACETA #### [place] [address] Calcium [Mass/Vol] 9.9 mg/dL Normal 8.4-10.2 [facility] ([place] Comment on above: Performed By: #### C BC, ADIFF, ANEU, LIP, AMRIT, CMP, ALC #### [place] [address] #### GFR, ACETA #### [place] [address] Chloride [Moles/Vol] 101 mmol/L Normal 98-107 [facility] ([place] Comment on above: Performed By: #### C BC, ADIFF, ANEU, LIP, AMRIT, CMP, ALC #### [address] [address] #### GFR, ACETA #### [address] [address] CO2 [Moles/Vol] 24 mmol/L Normal 22-29 Replaced By [facility] [place] Comment on above: Performed By: #### C BC, ADIFF, ANEU, LIP, AMRIT, CMP, ALC #### [place] [address] #### GFR, ACETA #### [address] [address] Creatinine [Mass/Vol] 0.67 mg/dL Normal 0.55-1.02 Replaced By [facility] ([place] Comment on above: Performed By: #### C BC, ADIFF, ANEU, LIP, AMRIT, CMP, ALC #### [place] [address] #### GFR, ACETA #### [address] [address] Electrolyte Balance 14.0 mEq/L Normal [facility] ([place]) Comment on above: Performed By: #### C BC, ADIFF, ANEU, LIP, AMRIT, CMP, ALC #### [place] [address] #### GFR, ACETA #### [address] [address] Globulin 3.6 G/dL Normal Replaced By [facility] ([place] Comment on above: Performed By: #### C BC, ADIFF, ANEU, LIP, AMRIT, CMP, ALC #### [address] [address] #### GFR, ACETA #### [address] [address] Glucose [Mass/Vol] 79 mg/dL Normal 70-105 [facility] ([place] Comment on above: Performed By: #### C BC, ADIFF, ANEU, LIP, AMRIT, CMP, ALC #### [place] [address] #### GFR, ACETA #### [address] [address] Potassium [Moles/Vol] 4.4 mmol/L Normal 3.5-5.1 Replaced By [facility] [place] Comment on above: Performed By: #### C BC, ADIFF, ANEU, LIP, AMRIT, CMP, ALC #### [place] [address] #### GFR, ACETA #### [place] [address] Sodium [Moles/Vol] 139 mmol/L Normal 136-145 [facility] ([place] Comment on above: Performed By: #### C BC, ADIFF, ANEU, LIP, AMRIT, CMP, ALC #### [place] [address] #### GFR, ACETA #### [place] [address] Total Protein 7.5 G/dL Normal 6.4-8.2 Replaced By [facility] ([place] Comment on above: Performed By: #### C BC, ADIFF, ANEU, LIP, AMRIT, CMP, ALC #### [place] [address] #### GFR, ACETA #### [place] [address] Urea nitrogen [Mass/Vol] 10 mg/dL Normal 7-18 Replaced By [facility] ([place] Comment on above: Performed By: #### C BC, ADIFF, ANEU, LIP, AMRIT, CMP, ALC #### [place] [address] #### GFR, ACETA #### [place] [id number] LIPon 08-18-2020 Lipase Level 198 U/L Normal 73-393 Replaced By [facility] ([place] Comment on above: Performed By: #### C BC, ADIFF, ANEU, LIP, AMRIT, CMP, ALC #### [place] [address] #### GFR, ACETA #### [address] [address] SALon 08-18-2020 Salicylate Level 7.1 mg/dL Normal 2.8-20.0 Replaced By [facility] ([place] Comment on above: Performed By: #### C BC, ADIFF, ANEU, LIP, AMRIT, CMP, ALC #### [address] [address] #### GFR, ACETA #### [address] [address] PANKAJ PANELon 07-18-2017 ANTINUCLEAR ANTIBODY Negative Normal NEGATIVE [facility] Comment on above: Order Comment: PANKAJ T EST INCLUDED IN ANAP2 Performed By: #### A NAP2 ####[facility] [place] [address] ANTI-CENTROMERE <0.2 Normal [facility] Comment on above: Order Comment: PANKAJ T EST INCLUDED IN ANAP2 Result Comment: REF VALUES< 1.0 = NEGATIVE>=1.0 = POSITIVE Performed By: #### A NAP2 ####[facility] [place] [address] ANTI-CHROMATIN <0.2 Normal [facility] Comment on above: Order Comment: PANKAJ T EST INCLUDED IN ANAP2 Result Comment: REF VALUES< 1.0 = NEGATIVE>=1.0 = POSITIVE Performed By: #### A NAP2 ####[facility] [place] [address] ANTI-DNA [DS] 2.0 IU/mL Normal [facility] Comment on above: Order Comment: PANKAJ T EST INCLUDED IN ANAP2 Result Comment: REF VALUESNEGATIVE: <= 4 IU/MLEQUIVOCAL: 5- 9 IU/MLPOSITIVE: >=10 IU/ML Performed By: #### A NAP2 ####[facility] [place] [address] ANTI-NATALY-1 <0.2 Normal [facility] Comment on above: Order Comment: PANKAJ T EST INCLUDED IN ANAP2 Result Comment: REF VALUES< 1.0 = NEGATIVE>=1.0 = POSITIVE Performed By: #### A NAP2 ####[facility] [place] [address] ANTI-RIBOSOMAL P <0.2 Normal [facility] Comment on above: Order Comment: PANKAJ T EST INCLUDED IN ANAP2 Result Comment: REF VALUES< 1.0 = NEGATIVE>=1.0 = POSITIVE Performed By: #### A NAP2 ####[facility] [place] [address] ANTI-TERMINAL OPERATIONS MANAGER <0.2 Normal [facility] Comment on above: Order Comment: PANKAJ T EST INCLUDED IN ANAP2 Result Comment: REF VALUES< 1.0 = NEGATIVE>=1.0 = POSITIVE Performed By: #### A NAP2 ####[facility] [place] [address] ANTI-SCL-70 <0.2 Normal [facility] Comment on above: Order Comment: PANKAJ T EST INCLUDED IN ANAP2 Result Comment: REF VALUES< 1.0 = NEGATIVE>=1.0 = POSITIVE Performed By: #### A NAP2 ####[facility] [place] [address] ANTI-SM <0.2 Normal [facility] Comment on above: Order Comment: PANKAJ T EST INCLUDED IN ANAP2 Result Comment: REF VALUES< 1.0 = NEGATIVE>=1.0 = POSITIVE Performed By: #### A NAP2 ####[facility] [place] [address] ANTI-SM/TERMINAL OPERATIONS MANAGER <0.2 Normal [facility] Comment on above: Order Comment: PANKAJ T EST INCLUDED IN ANAP2 Result Comment: REF VALUES< 1.0 = NEGATIVE>=1.0 = POSITIVE Performed By: #### A NAP2 ####[facility] [place] [address] ANTI-SSA 0.8 AI Normal [facility] Comment on above: Order Comment: PANKAJ T EST INCLUDED IN ANAP2 Result Comment: REF VALUES< 1.0 = NEGATIVE>=1.0 = POSITIVE Performed By: #### A NAP2 ####[facility] [place] [address] ANTI-SSB 0.2 AI Normal [facility] Comment on above: Order Comment: PANKAJ T EST INCLUDED IN ANAP2 Result Comment: REF VALUES< 1.0 = NEGATIVE>=1.0 = POSITIVE Performed By: #### A NAP2 ####[facility] [place] [address] URINALYSISon 07-18-2017 APPEARANCE CLEAR Normal CLEAR [facility] Comment on above: Order Comment: PANKAJ T EST INCLUDED IN ANAP2 Performed By: #### U A ####[facility] [place] [address] BILIRUBIN Negative Normal NEGATIVE [facility] Comment on above: Order Comment: PANKAJ T EST INCLUDED IN ANAP2 Performed By: #### U A ####[facility] [place] [address] BLOOD Negative Normal NEGATIVE [facility] Comment on above: Order Comment: PANKAJ T EST INCLUDED IN ANAP2 Performed By: #### U A ####[facility] [place] [address] COLOR STRAW Normal STRAW,YELLOW [facility] Comment on above: Order Comment: PANKAJ T EST INCLUDED IN ANAP2 Performed By: #### U A ####[facility] [place] [place] [address] GLUCOSE Negative Normal NEGATIVE [facility] Comment on above: Order Comment: PANKAJ T EST INCLUDED IN ANAP2 Performed By: #### U A ####[facility] [place] [place] [address] KETONES Negative Normal NEGATIVE [facility] Comment on above: Order Comment: PANKAJ T EST INCLUDED IN ANAP2 Performed By: #### U A ####[facility] [place] [id number] LEUKOCYTE ESTERASE Negative Normal NEGATIVE [facility] Comment on above: Order Comment: PANKAJ T EST INCLUDED IN ANAP2 Performed By: #### U A ####[facility] [place] [place] [address] NITRITE Negative Normal NEGATIVE [facility] Comment on above: Order Comment: PANKAJ T EST INCLUDED IN ANAP2 Performed By: #### U A ####[facility] [place] [place] [address] pH 7.0 Normal 5.0 - 8.0 [facility] Comment on above: Order Comment: PANKAJ T EST INCLUDED IN ANAP2 Performed By: #### U A ####[facility] [place] [place] [address] PROTEIN Negative Normal NEGATIVE [facility] Comment on above: Order Comment: PANKAJ T EST INCLUDED IN ANAP2 Performed By: #### U A ####[facility] [place] [place] [address] SPECIFIC GRAVITY 1.003 Low 1.005 - 1.035 [facility] [place], [facility] Comment on above: Order Comment: PANKAJ T EST INCLUDED IN ANAP2 Performed By: #### U A ####[facility] [place] [place] [address] UROBILINOGEN <2.0 Normal 0.0 - 1.9 [facility] Comment on above: Order Comment: PANKAJ T EST INCLUDED IN ANAP2 Performed By: #### U A ####[facility] [place] [place] [address] CBC AND DIFFERENTIALon 07-17 % AUTOMATED IMMATURE GRAN 0.3 % Normal 0.0 - 0.9 [facility] Comment on above: Order Comment: PANKAJ T EST INCLUDED IN ANAP2 Result Comment: Perc ent differential counts (%) should be interpreted in the context of the absolute cell counts (cells/L). Performed By: #### C BCDF ####[facility] [place] [place] [address] % NEUTROPHIL 58.0 % Normal 40.0 - 80.0 [facility] Comment on above: Order Comment: PANKAJ T EST INCLUDED IN ANAP2 Performed By: #### C BCDF ####[facility] [place] [place] [address] Basophils/100 WBC Auto (Bld) 0.04 x10E9/L Normal 0.00 - 0.10 [facility] Comment on above: Order Comment: PANKAJ T EST INCLUDED IN ANAP2 Performed By: #### C BCDF ####[facility] [place] [place] [address] Basophils/100 WBC Auto (Bld) 0.6 % Normal 0.0 - 2.0 [facility] Comment on above: Order Comment: PANKAJ T EST INCLUDED IN ANAP2 Performed By: #### C BCDF ####[facility] [place] [place] [address] Eosinophils 0.05 10*3/uL Normal 0.00 - 0.70 [facility] Comment on above: Order Comment: PANKAJ T EST INCLUDED IN ANAP2 Performed By: #### C BCDF ####[facility] [place] [place] [address] Eosinophils/100 leukocytes 0.7 % Normal 0.0 - 6.0 [facility] Comment on above: Order Comment: PANKAJ T EST INCLUDED IN ANAP2 Performed By: #### C BCDF ####[facility] [place] [place] [address] Erythrocyte distribution width Auto Ratio (RBC) 15.3 % High 11.5 - 14.5 [facility] Comment on above: Order Comment: PANKAJ T EST INCLUDED IN ANAP2 Performed By: #### C BCDF ####[facility] [place] [place] [address] Erythrocytes (RBC) 5.36 x10E12/L High 4.00 - 5.20 [facility] Comment on above: Order Comment: PANKAJ T EST INCLUDED IN ANAP2 Performed By: #### C BCDF ####[facility] [place] [place] [address] Hematocrit (HCT) 49.6 % High 36.0 - 46.0 [facility] [place] Comment on above: Order Comment: PANKAJ T EST INCLUDED IN ANAP2 Performed By: #### C BCDF ####[facility] [place] [place] [address] Hemoglobin mass conc (Bld) 15.4 g/dL Normal 12.0 - 16.0 [facility] Comment on above: Order Comment: PANKAJ T EST INCLUDED IN ANAP2 Performed By: #### C BCDF ####[facility] [place] [place] [address] Lymphocytes 2.26 10*3/uL Normal 1.20 - 4.80 [facility] Comment on above: Order Comment: PANKAJ T EST INCLUDED IN ANAP2 Performed By: #### C BCDF ####[facility] [place] [place] [address] Lymphocytes/100 leukocytes 33.2 % Normal 13.0 - 44.0 [facility] Comment on above: Order Comment: PANKAJ T EST INCLUDED IN ANAP2 Performed By: #### C BCDF ####[facility] [place] [place] [address] MCHC mass conc (RBC) 31.0 g/dL Low 32.0 - 36.0 [facility] Comment on above: Order Comment: PANKAJ T EST INCLUDED IN ANAP2 Performed By: #### C BCDF ####[facility] [place] [place] [address] MCV 93 fL Normal 80 - 100 [facility] Comment on above: Order Comment: PANKAJ T EST INCLUDED IN ANAP2 Performed By: #### C BCDF ####[facility] [place] [place] [address] Monocytes 0.49 10*3/uL Normal 0.10 - 1.00 [facility] Comment on above: Order Comment: PANKAJ T EST INCLUDED IN ANAP2 Performed By: #### C BCDF ####[facility] [place] [place] [address] Monocytes/100 leukocytes 7.2 % Normal 2.0 - 10.0 [facility] Comment on above: Order Comment: PANKAJ T EST INCLUDED IN ANAP2 Performed By: #### C BCDF ####[facility] [place] [place] [address] Neutrophils 3.94 10*3/uL Normal 1.20 - 7.70 [facility] Comment on above: Order Comment: PANKAJ T EST INCLUDED IN ANAP2 Performed By: #### C BCDF ####[facility] [place] [place] [address] Nucleated erythrocytes 0.0 /100 WBC Normal 0.0-0.0 [facility] Comment on above: Order Comment: PANKAJ T EST INCLUDED IN ANAP2 Performed By: #### C BCDF ####[facility] [place] [place] [address] Platelets 323 10*3/uL Normal 150 - 450 [facility] Comment on above: Order Comment: PANKAJ T EST INCLUDED IN ANAP2 Performed By: #### C BCDF ####[facility] [place] [place] [address] WBC (Leukocytes) 6.8 10*3/uL Normal 4.4 - 11.3 [facility] [place] Comment on above: Order Comment: PANKAJ T EST INCLUDED IN ANAP2 Performed By: #### C BCDF ####[facility] [place] [place] [address] COMPREHENSIVE PANELon 2017 Alanine aminotransferase (ALT) 17 U/L Normal 7 - 45 [facility] Comment on above: Order Comment: PANKAJ T EST INCLUDED IN ANAP2 Result Comment: Lu ents treated with Sulfasalazine may generate falsely decreased results for ALT. Performed By: #### C MP ####[facility] [place] [place] [address] Albumin 5.2 g/dL High 3.4 - 5.0 [facility] Comment on above: Order Comment: PANKAJ T EST INCLUDED IN ANAP2 Performed By: #### C MP ####[facility] [place] [place] [address] Alkaline phosphatase (ALP) 112 U/L High 33 - 110 [facility] Comment on above: Order Comment: PANKAJ T EST INCLUDED IN ANAP2 Performed By: #### C MP ####[facility] [place] [place] [address] Anion gap 12 mmol/L Normal 10 - 20 [facility] Comment on above: Order Comment: PANKAJ T EST INCLUDED IN ANAP2 Performed By: #### C MP ####[facility] [place] [place] [address] Aspartate aminotransferase (AST) 18 U/L Normal 9 - 39 [facility] Comment on above: Order Comment: PANKAJ T EST INCLUDED IN ANAP2 Performed By: #### C MP ####[facility] [place] [place] [address] Bicarbonate (HCO3) 28 mmol/L Normal 21 - 32 [facility] Comment on above: Order Comment: PANKAJ T EST INCLUDED IN ANAP2 Performed By: #### C MP ####[facility] [place] [place] [address] Bilirubin (total) 0.5 mg/dL Normal 0.0 - 1.2 [facility] [place] Comment on above: Order Comment: PANKAJ T EST INCLUDED IN ANAP2 Performed By: #### C MP ####[facility] [place] [place] [address] Calcium 11.3 mg/dL High 8.6 - 10.6 [facility] Comment on above: Order Comment: PANKAJ T EST INCLUDED IN ANAP2 Performed By: #### C MP ####[facility] [place] [place] [address] Chloride 100 mmol/L Normal 98 - 107 [facility] Comment on above: Order Comment: PANKAJ T EST INCLUDED IN ANAP2 Performed By: #### C MP ####[facility] [place] [place] [address] Creatinine 0.72 mg/dL Normal 0.50 - 1.05 [facility] Comment on above: Order Comment: PANKAJ T EST INCLUDED IN ANAP2 Performed By: #### C MP ####[facility] [place] [place] [address] GFR- AM. >60 Normal >60 [facility] Comment on above: Order Comment: PANKAJ T EST INCLUDED IN ANAP2 Result Comment: CALC ULATIONS OF ESTIMATED GFR ARE PERFORMED USING THE MDRD STUDY EQUATION FOR THE IDMS-TRACEABLE CREATININE METHODS. CLIN CHEM 2007;53:766-72 Performed By: #### C MP ####[facility] [place] [place] [address] GFR-NON AM. >60 Normal >60 [facility] [place] Comment on above: Order Comment: PANKAJ T EST INCLUDED IN ANAP2 Performed By: #### C MP ####[facility] [place] [place] [address] Glucose mass conc 85 mg/dL Normal 74 - 99 [facility] [place] Comment on above: Order Comment: PANKAJ T EST INCLUDED IN ANAP2 Performed By: #### C MP ####[facility] [place] [place] [address] Potassium molar conc 4.3 mmol/L Normal 3.5 - 5.3 [facility] Comment on above: Order Comment: PANKAJ T EST INCLUDED IN ANAP2 Performed By: #### C MP ####[facility] [place] [place] [address] Protein 7.7 g/dL Normal 6.4 - 8.2 [facility] Comment on above: Order Comment: PANKAJ T EST INCLUDED IN ANAP2 Performed By: #### C MP ####[facility] [place] [place] [address] Sodium 136 mmol/L Normal 136 - 145 [facility] Comment on above: Order Comment: PANKAJ T EST INCLUDED IN ANAP2 Performed By: #### C MP ####[facility] [place] [place] [address] Urea nitrogen 9 mg/dL Normal 6 - 23 [facility] Comment on above: Order Comment: PANKAJ T EST INCLUDED IN ANAP2 Performed By: #### C MP ####[facility] [place] [place] [address] SYPHILIS IGGon 07-17-2017 SYPHILIS IGG NON REACTIVE Normal NONREACTIVE [facility] Comment on above: Order Comment: PANKAJ T EST INCLUDED IN ANAP2 Result Comment: Lu ents receiving more than 5 mg/day of biotin may have interference in test results. A sample should be taken no sooner than eight hours after previous dose. Contact [phone] for additional information. Performed By: #### S YPH ####[facility] [place] [place] [address] Lab Specimen Source Normal [facility] [place] Comment on above: Order Comment: PANKAJ T EST INCLUDED IN ANAP2 Performed By: #### S YPH ####[facility] [place] [place] [address] Performed By: #### C MP ####[facility] [place] [id number] Dermatopathologyon 7 Dermatopathology 83 Pathologist: CHANEL ADDISONate of Procedure: 06/12/2017Date Received: 06/13/2017Date Reported 06/19/2017Submitting Physician: GONZALO ROJAS MDLocation: BETINA FINAL DIAGNOSISSKIN, LEFT MIDLINE UPPER BACK, SHAVE BIOPSY:INTERFACE DERMATITIS WITH OCCASIONAL ISLANDS OF MILDLY ATYPICAL KERATINOCYTESIN THE SUPERFICIAL DERMIS, SEE NOTE.Note: Microscopic examination reveals a specimen that extends into thesuperficial dermis. There is basal layer vacuolization, with a superficiallymphocytic infiltrate. There are areas of epidermal hyperplasia, and thereare occasional islands of mildly atypical keratinocytes in the superficialdermis, with mild solar elastosis. While the findings may represent an interface dermatitis that could be seen dwayne connective tissue disease such as acute cutaneous lupus erythematosus,subacute cutaneous lupus erythematosus, or dermatomyositis, secondary syphilisor pityriasis lichenoides and an invasive squamous cell carcinoma, welldifferentiated, cannot be excluded. If this is a solitary lesion, a completere-excision is recommended. Electronically Signed Out by DIANA RUSH M.D. Electronically SignedOut By DIANA RUSH MD/[facility] Clinical History:R/O inflammatory. R/O pleva. ([facility]). Specimens Submitted As:A: SKIN, LEFT MIDLINE UPPER BACK Gross Description:Received in formalin is a hagan piece of skin measuring [id number]. The specimen isinked and embedded in toto.dcp/06/13/2017 Normal [facility] Comment on above: Performed By: #### D ####Dermatopathology Office Visit: excision recta l tagon 02-17-2017 Documentation of current medications (procedure) Done Invalid Interpretation Code [facility] Work Phone: Fall risk assessment No [facility] [employer] Work Phone: Protein mass conc yes [facility] [employer] Work Phone: Protein mass conc Done [facility] [employer] Work Phone: Smoking cessation education (procedure) yes Invalid Interpretation Code [facility] [employer] Work Phone: Tobacco smoking status NHIS no [facility] [employer] Work Phone: Tobacco smoking status NHIS Current every day smoker [facility] [employer] Work Phone: Tobacco use [facility] Current every day smoker Invali d Interpretation Code [facility] [employer] Work Phone: Vital Signs Date Time Vital Sign Value Performing Clinician Facility 08-13-2023 11:22-0500 Body height 160 cm Emery Cantu MD Work Phone: [facility] 08-13-2023 11:22-0500 Body weight 64.32 kg Emery Cantu MD Work Phone: [facility] 08-13-2023 11:22-0500 Diastolic blood pressure 82 mm[Hg] Emery Cantu MD Work Phone: [facility] 08-13-2023 11:22-0500 Heart rate 77 /min Emery Cantu MD Work Phone: [facility] 08-13-2023 11:22-0500 Respiratory rate 18 /min Emery Cantu MD Work Phone: [facility] 08-13-2023 11:22-0500 SaO2% (BldA) [Mass fraction] 98 % Emery Cantu MD Work Phone: [facility] 08-13-2023 11:22-0500 Systolic blood pressure 124 mm[Hg] Emery Cantu MD Work Phone: [facility] 02-17-2017 08:51-0400 Height 160.02 cm Bogdan Garcias MD [facility] [employer] Work Phone: 08-03-2010 17:45-0500 Body Temperature 97.7 [degF] Bogdan Garcias MD [facility] Work Phone: 08-03-2010 17:45-0500 BP Diastolic 70 mm[Hg] Bogdan Garcias MD [facility] Work Phone: 08-03-2010 17:45-0500 BP Systolic 110 mm[Hg] Bogdan Garcias MD [facility] [employer] Work Phone: 08-03-2010 17:45-0500 Pulse (Heart Rate) 72 /min Bogdan Garcias MD [facility] [employer] Work Phone: 08-03-2010 17:45-0500 Respiratory Rate 16 /min Bogdan Garcias MD [facility] [employer] Work Phone: 08-03-2010 17:45-0500 Weight 59.42 kg Bogdan Garcias MD [facility] [employer] Work Phone: Encounters Encounter Date Encounter Type Care Provider Facility Start: 08-13-2023 Telephone encounter Emery Cantu MD Work Phone: Endocrinology Comment on above: Release Of Medical R ecords Start: 08-13-2023 End: 08-13-2023 ambulatory BETHANY VELIZ Facility:[facility] Start: 08-13-2023 End: 08-13-2023 Patient encounter procedure Emery Cantu MD Work Phone: Endocrinology Comment on above: Multinodular goiter (Primary Dx); Disorder of adrenal gland (HCC) Start: 07-09-2023 End: 07-09-2023 ambulatory EMERYMUKUND CANTU Facility:[facility] Start: 06-23-2023 End: 06-24-2023 ambulatory EMERY CANTU Facility:[facility] Start: 06-15-2023 End: 06-16-2023 ambulatory EMERY CANTU Facility:[facility] Start: 06-15-2023 End: 06-15-2023 ambulatory EMERY CANTU Facility:[facility] Start: 05-15-2023 End: 05-15-2023 ambulatory EMERY CANTU Facility:[facility] Start: 05-17-2021 End: 05-17-[address] ANNAMARIE GOMEZ MD [facility] Start: 01-15-2018 Patient encounter Chester Prince Coope r Facility:[id number] Start: 07-17-2017 Patient encounter Bethany Prater Facility:[facility] Start: 07-17-2017 Patient encounter Chester Prince Coope r Facility:[id number] Start: 06-12-2017 Patient encounter Gonzalo Mclaughlin cility:[id number] Start: 06-12-2017 Patient encounter Diana Noonan acility:[id number] Procedures Date Procedure Procedure Detail Performing Clinician Start: 08-03-2010 Physical examination PHYSICAL EXAMIN ALYSON Garcias MD Plan of Treatment Date Care Activity Detail Author Start: 12-02-2028 Urine microalbumin profile DTaP,Tdap,Td Vaccine (4 - Td or Tdap) [facility] Start: 06-23-2026 Diabetes Screening Diabetes Screenin g [facility] Start: 08-13-2023 End: 11-12-2023 Thyrotropin [Units/volume] in Serum or Plasma TSH BLD Lab Routine Multinodular goiter Expected: 08/13/2023, Expires: 11/12/2023 [facility] Work Phone: Comment on above: Expected: 08/13/2023 , Expires: 11/12/2023 Start: 02-23-2023 Covid-19 Vaccine ( season) Covid-19 Vaccine ( season) [facility] Start: 2021 RSV Vaccine (1 - 1-d ose 60+ series) RSV Vaccine (1 - 1-dose 60+ series) [facility] Start: 01-03-2018 Pneumococcal vaccination Pneumococcal Vaccine (2 of 2 - PCV) [facility] Start: 02-17-2017 End: 02-17-[address] [facility] Work Phone: Start: 11-25-2013 Screening for malign ant neoplasm of cervix [facility] Start: 2011 Screening for malign ant neoplasm of lung Lung Cancer Screening [facility] Start: 10-07-2008 Screening for malign ant neoplasm of breast Mammogram Screening [facility] Start: 2006 Lipid panel Lipid Screening [facility] Start: 2006 Screening for malign ant neoplasm of colon [facility] Start: 1979 Annual PCP Team Sap Abap Programmer robin Disease Visit Annual PCP Team Chronic Disease Visit [facility] Start: 1979 BP Controlled (<130/80) BP Controlle d (<130/80) [facility] Start: 1979 Hepatitis C screening Hepatitis C Sc reening [facility] Start: 1979 HIV screening HIV Screening [facility] End: 09-11-2024 CT Adrenal gland WO and W contrast IV CT ADRENAL WO/W IVCON Radiology Routine Disorder of adrenal gland (HCC) 1 Occurrences starting 08/13/2023 until 09/11/2024 [facility] Work Phone: Comment on above: 1 Occurrences starti ng 08/13/2023 until 09/11/2024 Immunizations Immunization Date Immunization Notes Care Provider Fa cili 05-10-2023 influenza, injectabl e, quadrivalent, preservative free Emery Cantu MD Work Phone: [facility] 06-06-2018 zoster vaccine recombinant Emery Cantu MD Work Phone: [facility] 10-29-2008 tetanus toxoid, redu khloe diphtheria toxoid, and acellular pertussis vaccine, adsorbed Emery Cantu MD Work Phone: [facility] 10-23-1986 hepatitis B immune globulin Emery Cantu MD Work Phone: [facility] Payers Date Payer Category Payer Private Health Insurance [employer] PPO TPA [id number] 2023-Present [address] [place] [phone] PPO [id number] 2023 Private Health Insurance [id number] 2023 Unknown MMO [employer] PPO [id number] 2023-Present [phone] [address] [place] [address] PPO [id number] 2023 Unknown [id number] Unknown [id number] Social History Date Type Detail Facility Start: 08-18-2020 Heavy tobacco smoker (finding) [facility] Sex Assigned At [facility] Start: 08-13-2023 Tobacco smoking stat us MAIS Smokes tobacco daily [facility] History of tobacco use Cigarette Smoker C [facility] Start: 06-15-2023 End: 08-13-2023 Cigarettes smoked current (pack per day) - Reported 1 [facility] Start: 08-13-2023 Tobacco use and exposure Former smokeless tobacco user [facility] Start: 08-13-2023 Alcohol intake Current drinke r of alcohol (finding) [facility] Start: 06-15-2023 End: 08-13-2023 Tobacco use panel [facility] National Score (1-10 0), lower number is lower risk 46 [facility] Start: 11-25-2008 Alcohol Comment SOCIAL APPROX. 2 DRINKS PER WEEK [facility] Start: 1960 Sex Assigned At Not on file C [facility] Note 08-13-2023 Telephone Encounter - Nori Dahl RN - 08/13/2023 1:48 PM EST Note Date & Type Note Facility 08-13-2023 Miscellaneous Notes Formattin g of this note might be different from the original. Record release faxed to [facility] Medical Record department for Pt's parathyroid scan in ~2019. Fax confirmation received. Nori Dahl RN August 13, 2023 1:50 PM documented in this encounter [facility] Progress note 08-13-2023 Note Date & Type Note Facility 08-13-2023 Note HNO ID: [id number] Author: EMERY CANTU MD Service: ? Author Type: Physician Type: Progress Notes Filed: 08/13/2023 18:46 Note Text: Endocrinology and Metabolism Cope Follow-up visit note Chief Complaint: Hyperparathyroidism History of Present Illness: Latisha Stone is a 63 year old old female with cutaneous lupus erythematosus presenting with hypercalcemia secondary to primary hyperparathyroidism, multinodular goiter, left adrenal nodule. 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 [facility] She initially presented on 06/15/2023 for hypercalcemia associated with elevated PTH levels. She had no history of kidney stones, fractures, osteoporosis, height loss, weight loss, prior radiation to head and neck. There was no personal history of known thyroid disease. There was no family history of thyroid or parathyroid disease, osteoporosis. Her calcium intake was suboptimal at 1 serving of dietary calcium per day. She was taking multivitamin sporadically which contains vitamin D. She use a steroid ointment for cutaneous lupus. Denied any systemic steroid for prolonged period. She denied use of medications like lithium or thiazide diuretics. Caffeine: 1-3 c/day Smoking: Never smoked and Smoker, 1 ppd Alcohol: occasionally Exercise: no regular exercise program and minimal exercise- walking once a week weh depressed, now incrased to doing more steps a day History of falls: no Menopause at age: 52 years, no HRT HRT: No She had no symptoms of hypercalcemia. She was advised to take adequate calcium, Vitamin D for bone protection. All calcium labs were ordered and revealed primary hyperparathyroidism. 24 hour urine calcium was requested after holding calcium and Vitamin D supplements for 3 weeks (for assessing hypercalciuria as a surgical indication), which she just completed she reports. She has not completed the urine labs yet, due to work. She reports today that she had parathyroid scan done in Jul 2019 for hyperparathyroidism and was negative for adenoma. Left adrenal nodule: On the initial visit, on chart review, there was also found a CT abdomen and pelvis which shows 3.6 cm left adrenal nodule. Patient says this was done to evaluate for abnormal parathyroid glands. She was unaware of adrenal nodule. Symptoms related: Weight gain- 20 lbs in 1 to 2 year no proximal weakness, no easy bruising, no abdominal stretch aguayo No hx of HTN, DM, PCOS Labs done: 1 mg DST- resulted normal. Normal BP and hence aldosterone was not done Multinodular goiter: And on examination on the last visit, thyroid nodules were felt and US thyroid was recommended which showed 3 nodules, and she was recommended FNAB based on review of images. This was not scheduled yet PAST MEDICAL HISTORY Diagnosis Date ALLERGY ENVIRONMENTAL Diverticulosis of colon (without mention of hemorrhage) Diverticulosis Esophageal reflux Gastroesophageal reflux Irritable bowel syndrome Irritable bowel PAST SURGICAL HISTORY Procedure Laterality Date COLONOSCOPY FLX DX W/COLLJ SPEC WHEN PFRMD 04-30-14 DILATION AND CURETTAGE DXAND/THER NONOBSTETRIC Dilation AND curettage DOPPLER ECHOCARD PULSE WAVE W/SPECTRAL DISPLAY ESOPHAGOGASTRODUODENOSCOPY TRANSORAL DIAGNOSTIC 2006 EGD and c-scope HEMORRHOIDECTOMY INT AND XTRNL 2/> COLUMN/FRITZ 04-30-14 LAPAROSCOPY COLECTOMY PARTIAL W/ANASTOMOSIS 04-04-11 appey and umbilical hernia PAST SURGICAL HISTORY OF re-implanted roots in teeth(peridontal disease TONSILLECTOMY PRIMARY/SECONDARY Tonsillectomy FAMILY HISTORY Problem Relation Age of Onset Coronary Artery Disease Mother Cancer Father lung Alcohol/Drug Mother Alcohol/Drug Father Cancer Mother brain Heart Mother Heart Father ALLERGIES No Known Allergies Social History Tobacco Use Smoking status: Every Day Packs/day: 1.00 Years: 30.00 Additional pack years: 0.00 Total pack years: 30.00 Types: Cigarettes Smokeless tobacco: Former Vaping Use Vaping Use: Never used Substance Use Topics Alcohol use: Yes Comment: SOCIAL APPROX. 2 DRINKS PER WEEK Drug use: No Current Outpatient Medications Medication Sig loratadine 10 mg cap Take by mouth. famotidine (PEPCID) 10 mg tablet Take by mouth. sodium chloride 0.65 % nasal spray as needed. nystatin (MYCOSTATIN) powder Apply 1 application to affected area three times daily. iv contrast (will be provided with radiology test) CT adrenal WO/W Inject, intravenously, once for 1 dose.No IV access, insert saline lock prior to the beginning of sedation, infusion, injection of imaging exam. Discontinue saline lock post exam. If Pt. has a central line or IVAD, may access for administration according to line specific nursing protocol. Once exam is complete flush line and de-access according to line specific nursing protocol in the CT contrast administration (more content not included)... [facility] 08-13-2023 Patient Instructions Note Date & Type Note Facility 08-13-2023 Instructions Emery Cantu MD - 08/13/2023 11:45 AM EST Please do 24 hour urine labs along with blood labs for calcium: You have been off Vitamin D and calcium supplements for 3 weeks, so this collection can be done anytime soon. COLLECTING URINE FOR 24 HOURS: 1. Best done the morning of one day to the morning of the next day ( two consecutive mornings). 2. Imperative that you arise from bed at the exact same time on Day 1 and Day 2. 3. When you arise on Day 1 you will have to urinate. This goes into the toilet and is flushed away. 4. Every time from then on for the remainder of Day 1 and at night Day 1 to Day 2, every drop of urine that you pass must go into the container that we will provide for you. 5. When you arise on Day 2 you will also have to urinate. This goes into the container and completes the urine collection. 6. The container should be kept refrigerated until it is turned in to the laboratory. 7. Bring the completed urine collection container to the laboratory as soon as possible. ............................................ ............................................ ............................................ ............................... Please schedule an appointment for FNA of the thyroid nodules- right mid and left mid ............................................ ............................................ ............................................ .......... CT adrenal protocol ordered documented in this encounter [facility] History of Present illness Narrative 08-13-2023 Emery Cantu MD - 08/13/2023 11:40 AM EST Note Date & Type Note Facility 08-13-2023 History of Presen t illness Narrative Endocrinology and Metabolism Cope Follow-up visit note Chief Complaint: Hyperparathyroidism History of Present Illness: Latisha Stone is a 63 year old old female with cutaneous lupus erythematosus presenting with hypercalcemia secondary to primary hyperparathyroidism, multinodular goiter, left adrenal nodule. 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 [employer] [facility] [employer] She initially presented on 06/15/2023 for hypercalcemia associated with elevated PTH levels. She had no history of kidney stones, fractures, osteoporosis, height loss, weight loss, prior radiation to head and neck. There was no personal history of known thyroid disease. There was no family history of thyroid or parathyroid disease, osteoporosis. Her calcium intake was suboptimal at 1 serving of dietary calcium per day. She was taking multivitamin sporadically which contains vitamin D. She use a steroid ointment for cutaneous lupus. Denied any systemic steroid for prolonged period. She denied use of medications like lithium or thiazide diuretics. Caffeine: 1-3 c/day Smoking: Never smoked and Smoker, 1 ppd Alcohol: occasionally Exercise: no regular exercise program and minimal exercise- walking once a week weh depressed, now incrased to doing more steps a day History of falls: no Menopause at age: 52 years, no HRT HRT: No She had no symptoms of hypercalcemia. She was advised to take adequate calcium, Vitamin D for bone protection. All calcium labs were ordered and revealed primary hyperparathyroidism. 24 hour urine calcium was requested after holding calcium and Vitamin D supplements for 3 weeks (for assessing hypercalciuria as a surgical indication), which she just completed she reports. She has not completed the urine labs yet, due to work. She reports today that she had parathyroid scan done in Jul 2019 for hyperparathyroidism and was negative for adenoma. Left adrenal nodule: On the initial visit, on chart review, there was also found a CT abdomen and pelvis which shows 3.6 cm left adrenal nodule. Patient says this was done to evaluate for abnormal parathyroid glands. She was unaware of adrenal nodule. Symptoms related: Weight gain- 20 lbs in 1 to 2 year no proximal weakness, no easy bruising, no abdominal stretch aguayo No hx of HTN, DM, PCOS Labs done: 1 mg DST- resulted normal. Normal BP and hence aldosterone was not done Multinodular goiter: And on examination on the last visit, thyroid nodules were felt and US thyroid was recommended which showed 3 nodules, and she was recommended FNAB based on review of images. This was not scheduled yet PAST MEDICAL HISTORY Diagnosis Date ALLERGY ENVIRONMENTAL Diverticulosis of colon (without mention of hemorrhage) Diverticulosis Esophageal reflux Gastroesophageal reflux Irritable bowel syndrome Irritable bowel PAST SURGICAL HISTORY Procedure Laterality Date COLONOSCOPY FLX DX W/COLLJ SPEC WHEN PFRMD 04-30-14 DILATION & CURETTAGE DX&/THER NONOBSTETRIC Dilation & curettage DOPPLER ECHOCARD PULSE WAVE W/SPECTRAL DISPLAY ESOPHAGOGASTRODUODENOSCOPY TRANSORAL DIAGNOSTIC 2006 EGD and c-scope HEMORRHOIDECTOMY INT & XTRNL 2/> COLUMN/FRITZ 04-30-14 LAPAROSCOPY COLECTOMY PARTIAL W/ANASTOMOSIS 04-04-11 appey and umbilical hernia PAST SURGICAL HISTORY OF re-implanted roots in teeth(peridontal disease TONSILLECTOMY PRIMARY/SECONDARY <AGE 12 Tonsillectomy FAMILY HISTORY Problem Relation Age of Onset Coronary Artery Disease Mother Cancer Father lung Alcohol/Drug Mother Alcohol/Drug Father Cancer Mother brain Heart Mother Heart Father ALLERGIES No Known Allergies Social History Tobacco Use Smoking status: Every Day Packs/day: 1.00 Years: 30.00 Additional pack years: 0.00 Total pack years: 30.00 Types: Cigarettes Smokeless tobacco: Former Vaping Use Vaping Use: Never used Substance Use Topics Alcohol use: Yes Comment: SOCIAL APPROX. 2 DRINKS PER WEEK Drug use: No Current Outpatient Medications Medication Sig loratadine 10 mg cap Take by mouth. famotidine (PEPCID) 10 mg tablet Take by mouth. sodium chloride 0.65 % nasal spray as needed. nystatin (MYCOSTATIN) powder Apply 1 application to affected area three times daily. iv contrast (will be provided with radiology test) CT adrenal WO/W Inject, intravenously, once for 1 dose.No IV access, insert saline lock prior to the beginning of sedation, infusion, injection of imaging exam. Discontinue saline lock post exam. If Pt. has a central line or IVAD, may access for administration according to line specific nursing protocol. Once exam is complete flush line and de-access according to line specific nursing protocol in the CT contrast administration guidelines link. multivit,thx,calcium,iron,mins (MULTIVITAMIN AND MINERAL ORAL) [employer] Women's Daily Multivitamin qDay, 0 Refill(s) Start Date: 05/17/21 Status: Ordered (Patient not taking: Reported on 08/13/2023) dexAMETHasone (DECADRON) 1 mg tablet Take at 11 pm on one day (Patient not taking: Reported on 08/13/2023) ibuprofen 200 mg ORAL tablet Take 1-2 tablets by mouth every 4 hours as needed. FOR PAIN. (Patient not taking: Reported on 08/13/2023) FERROUS SULFATE 325 MG (65 MG ELEMENTAL IRON) TAB one tab PRN (Patient not taking: Reported on 08/13/2023) No current facility-administered medications for this visit. Review of Systems 10 point ROS was reviewed and negative unless indicated in the HPI Physical Exam: Body mass index is 25.12 kg/m . General: Comfortable, no obvious distress Eyes: Sclera anicteric, no pallor Mouth/Throat: Moist Mucous membranes, no erythema or exudate Thyroid: irregular contour on palpation, normal in size CV: Regular rhythm, normal rate. No murmurs auscultated Resp: Clear to auscultation bilaterally, equal air entry bilaterally, good effort Abdomen: Soft, non tender, non distended. No organomegaly Skin: No rashes, lesions, or subcutaneous nodules, no striae Psych: Alert and orientated x 3. Appropriate affect, good insight Extremities: No peripheral edema, no tenderness Musculoskeletal: Appropriate muscle bulk and strength Lymphatic: No cervical or axillary lymphadenopathy Neuro: Moves all four extremities. No focal deficits on limited exam. LABS: March 28, 2022 PTH 127.4 (18.4-80.1) Phosphorus 3.1 mg/dL (2.5-4.9) Vitamin D 25 hydroxy-32.9 ng/mL No concomitant calcium levels TSH 1.17 IU/mL (0.358-3.74) In October 2022, calcium, total was 9.8 mg/dl (8.5-10.1) Albumin 3.5 g/dL Component Latest Ref Rng & Units 06/23/2023 Protein, Total 6.3 - 8.0 g/dL 7.1 Albumin 3.9 - 4.9 g/dL 4.5 Calcium 8.5 - 10.2 mg/dL 10.8 (H) Bilirubin, Total 0.2 - 1.3 mg/dL 0.3 Alkaline Phosphatase 34 - 123 U/L 154 (H) AST 13 - 35 U/L 19 ALT 7 - 38 U/L 18 Glucose 74 - 99 mg/dL 147 (H) BUN 7 - 21 mg/dL 9 Creatinine 0.58 - 0.96 mg/dL 0.58 Sodium 136 - 144 mmol/L 134 (L) Potassium 3.7 - 5.1 mmol/L 4.6 Chloride 97 - 105 mmol/L 99 CO2 22 - 30 mmol/L 22 Anion Gap 9 - 18 mmol/L 13 eGFR >=60 mL/min/1.73m 102 PTH, Intact 15 - 65 pg/mL 116 (H) Magnesium 1.7 - 2.3 mg/dL 2.0 Phosphorus 2.7 - 4.8 mg/dL 2.6 (L) Vitamin D 25 Hydroxy 31.0 - 80.0 ng/mL 43.4 Alk Phosphatase, Bone ug/L 40.1 Dexamethasone ng/dL 126.8 Cortisol,ON DEX,Post <1.8 ug/dL 1.5 Ionized calcium was not done despite ordering, but corrected calcium was higher than normal at 10.4 mg/dl 24 hour urine collection for assessing hypercalcuria 99m Tc sestamibi dual phase parathyroid scintigraphy: 08/13/2019- requested from [facility] today Comparison: None available Findings: Following the intravenous administration of 26.0 mCi of 99m Tc sestamibi, image acquisitions of the anterior neck at approximately 15-minute and 2.0 hours post radiopharmaceutical provision revealed: 1. Immediate static blood pool acquisitions demonstrate symmetric radiopharmaceutical concentration noted in the right-left lobes of [id number] thyroid gland. 2. Delayed images depict symmetric and near complete washout of the radiotracer from the previously defined right-left thyroid colloid without evidence of focal retention of the radiotracer readily identified. Impression: Negative 99m Tc sestamibi parathyroid imaging dual phase examination. 2. There is no definitive scintigraphic evidence of parathyroid adenoma on the current evaluation. DXA: Not available CT abdomen/pelvis with contrast (likely 17/11/2022) Findings/impression: Normal right adrenal. 3.6 cm elongated left adrenal mass. Recommend follow-up in 12 months. Assessment & Plan: Hyperparathyroidism I indicated again that we need to complete labs to see if there is surgical indication and if there is, this will be followed by neck imaging, which was when she reported she had parathyroid scan done in 2019 not revealing any adenoma. If urine calcium is not high, will do DXA Scan If in case she has a surgical indication, I will refer her to ENT surgery, where she will have localizing imaging done. If negative for surgical indications, discussed monitoring calcium levels and bone density once every 6 months to 1 year Left adrenal nodule: 1 mg- DST with normal results No HTN, hence no ARR done. CT adrenal protocol advised Thyroid nodule on examination: She is asymptomatic and no history of thyroid nodules/cancer in the family US thyroid shows multinodular goiter TSH ordered Advised scheduling for FNAB due to two nodules meeting criteria, but if low TSH, will do thyroid uptake and scan to evaluate accordingly Follow up: based on cytopathology and labs/imaging I spent a total of 50 minutes on the date of the service which included preparing to see the patient, [id number] patient care, completing clinical documentation, obtaining and/or reviewing separately obtained history, performing a medically appropriate examination, counseling and educating the patient/family/caregiver, ordering medications, tests, or procedures, and independently interpreting results (not separately reported). Emery Cantu MD [facility] Endocrinology and Metabolism Cope [phone] documented in this encounter [facility] Progress note 07-09-2023 Note Date & Type Note Facility 07-09-2023 Note HNO ID: [id number] Author: JONAS GRIMM RDMS Service: ? Author Type: Weight Guesser Type: Progress Notes Filed: 07/09/2023 10:57 Note Text: Radiology Service Progress Note PATIENT NAME: Latisha Stone DATE OF SERVICE: July 09, 2023 TIME: 10:57 AM PATIENT IDENTITY VERIFICATION COMPLETED USING TWO (2) IDENTIFIERS: Name and Date of confirmed by patient verbally. FALL SCREENING: Has the patient had 2 falls in the last year or 1 fall with injury or currently using an Ambulatory Assistive Device (Walker, Cane, Wheelchair, Crutches, etc.)? No PATIENT GENDER DATA: Female. status: : No status: NO. PATIENT RELEVANT IMPLANT DATA REVIEWED: Not Applicable RADIOLOGY DEPARTMENT: Ultrasound PERIPHERAL IV DATA: Not applicable SIGNED BY: Jonas Grimm RDMS RVT July 09, 2023 10:57 AM [facility] Progress note 06-15-2023 Note Date & Type Note Facility 06-15-2023 Note HNO ID: [id number] Author: Emery Cantu MD Service: ? Author Type: Physician Type: Progress Notes Filed: 06/20/2023 5:00 PM Note Text: Endocrinology and Metabolism Cope Initial Clinic Visit Note NAME: Latisha Stone is a 63 year old old female PCP: Bethany Veliz MD, MD Requesting Provider: Bethany Veliz MD [address] [place], [place] [id number] My final recommendations will be communicated back to the requesting physician by way of shared medical record or letter via US mail. Chief Complaint: Hyperparathyroidism History of Present Illness: Latisha Stone is a 63 year old old female with cutaneous lupus erythematosus presenting with elevated PTH hormone. 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 [facility] Personal history of kidney stones: no Personal history of fractures: None Family history of osteoporosis: no Height loss: No Weight <127 lbs: No Prior radiation to the neck: no Personal history of thyroid or parathyroid disease: no Family history of thyroid or parathyroid disease: no Calcium Intake: Patient eats ~1 serving of calcium/day Patient takes calcium supplements- no Vitamin D Intake: Patient takes Vit D supplements- sporadic Mvt No recent or prolonged steroid use- Steroid ointment for Cutaneous lupus Caffeine: 1-3 c/day Smoking: Never smoked and Smoker, 1 ppd Alcohol: occasionally Exercise: no regular exercise program and minimal exercise- walking once a week weh depressed, now incrased to doing more steps a day History of falls: no Menopause at age: 52 years, no HRT HRT: No Signs, Symptoms AND Risk Factors for Hypercalcemia: - Anorexia: - Bone pain: no - Fatigue / poor concentration: no - Constipation: no - Fractures: no - Medications: [place] or thiazide diuretics- no - Muscle weakness: no - Nausea / vomiting: no - Nephrolithiasis: no On chart review, there was also found a CT abdomen and pelvis which shows 3.6 cm left adrenal nodule. Patient says this was done to evaluate for abnormal parathyroid glands. She was unaware of adrenal nodule. Symptoms related: Weight gain- 20 lbs in 1 to 2 year no proximal weakness, no easy bruising, no abdominal stretch aguayo No hx of HTN, DM, PCOS PAST MEDICAL HISTORY Diagnosis Date ALLERGY ENVIRONMENTAL Diverticulosis of colon (without mention of hemorrhage) Diverticulosis Esophageal reflux Gastroesophageal reflux Irritable bowel syndrome Irritable bowel PAST SURGICAL HISTORY Procedure Laterality Date COLONOSCOPY FLX DX W/COLLJ SPEC WHEN PFRMD 04-30-14 DILATION AND CURETTAGE DXAND/THER NONOBSTETRIC Dilation AND curettage DOPPLER ECHOCARD PULSE WAVE W/SPECTRAL DISPLAY ESOPHAGOGASTRODUODENOSCOPY TRANSORAL DIAGNOSTIC 2006 EGD and c-scope HEMORRHOIDECTOMY INT AND XTRNL 2/> COLUMN/FRITZ 04-30-14 LAPAROSCOPY COLECTOMY PARTIAL W/ANASTOMOSIS 04-04-11 appey and umbilical hernia PAST SURGICAL HISTORY OF re-implanted roots in teeth(peridontal disease TONSILLECTOMY PRIMARY/SECONDARY Tonsillectomy FAMILY HISTORY Problem Relation Age of Onset Coronary Artery Disease Mother Cancer Father lung Alcohol/Drug Mother Alcohol/Drug Father Cancer Mother brain Heart Mother Heart Father ALLERGIES Allergen Reactions Acyclovir Intolerance Sloughing of mucous membranes mouth and vagina Aspertain [Other] Hives Social History Tobacco Use Smoking status: Former Packs/day: 1.00 Years: 30.00 Additional pack years: 0.00 Total pack years: 30.00 Types: Cigarettes Quit date: 02/09/1976 Years since quittin.3 Substance Use Topics Alcohol use: Yes Comment: SOCIAL APPROX. 2 DRINKS PER WEEK Drug use: No Current Outpatient Medications Medication Sig multivit,thx,calcium,iron,mins (MULTIVITAMIN AND MINERAL ORAL) [employer] Women's Daily Multivitamin qDay, 0 Refill(s) Start Date: 05/17/21 Status: Ordered loratadine 10 mg cap Take by mouth. famotidine (PEPCID) 10 mg tablet Take by mouth. sodium chloride 0.65 % nasal spray as needed. nystatin (MYCOSTATIN) powder Apply 1 application to affected area three times daily. ibuprofen 200 mg ORAL tablet Take 1-2 tablets by mouth every 4 hours as needed. FOR PAIN. FERROUS SULFATE 325 MG (65 MG ELEMENTAL IRON) TAB one tab PRN No current facility-administered medications for this visit. Review of Systems 10 point ROS was reviewed and negative unless indicated in the HPI Physical Exam: Body mass index is 25.15 kg/m?. General: Comfortable, no obvious distress Eyes: Sclera anicteric, no pallor Mouth/Throat: Moist Mucous membranes, no erythema or exudate Thyroid: irregular contour on palpation, normal in size CV: Regular rhythm, normal rate. No murmurs auscultated Resp: Clear to auscultation bilaterally, equal air entry bilaterally, good effort Abdomen: Soft, non tender, non distended. No organomegaly Skin: No rashe (more content not included)... [facility] Clinical Note 08-21-2020 Note Date & Type Note Facility 08-21-2020 Note . MICRO - Microbiology PROCEDURE: Urine Culture [*1] SOURCE: Urine, Clean Catch BODY SITE: COLLECTED DATE/TIME: 08/18/2020 22:39 EST RECEIVED DATE/TIME: 08/19/2020 14:45 EST START DATE/TIME: 08/19/2020 14:45 EST FREE TEXT SOURCE: FINAL REPORTS Final Report [] Verified Date/Time/Personnel: 08/21/2020 07:47 EST >100,000 organisms per mL Escherichia coli PRELIMINARY REPORTS Preliminary Report [] Verified Date/Time/Personnel: 08/20/2020 12:31 EST >100,000 organisms per mL Escherichia coli DARBY to follow SUSCEPTIBILITY RESULTS Escherichia coli Antibiotic DARBY Dilut DARBY Inter Ampicillin <=8 Susceptible Ampicillin/ <=4/2 Susceptible Sulbactam Aztreonam <=4 Susceptible Cefazolin <=2 Susceptible Ciprofloxacin <=0.25 Susceptible Ertapenem <=0.5 Susceptible Gentamicin <=2 Susceptible Imipenem <=1 Susceptible Levofloxacin <=0.5 Susceptible Meropenem <=1 Susceptible Nitrofurantoin <=32 Susceptible Trimethoprim/ <=0.5/9.5 Susceptible Sulfa Performing Locations *1: This test was performed at: [facility], [address] [place] [address], [id number] , [facility] ([place]) Comment on above: Performed By: #### C BC, ADIFF, ANEU, LIP, AMRIT, CMP, ALC #### [facility] [address] [place], [place] [address] #### GFR, ACETA #### [address] [address] Evaluation + Plan note Note Date & Type Note Facility Evaluation + Plan note No data available for this section [facility] Evaluation note Note Date & Type Note Facility Evaluation note Diagnosis Multinodular goiter- Primary Nontoxic multinodular goiter Disorder of adrenal gland (HCC) Unspecified disorder of adrenal glands documented in this encounter [facility] Discharge instructions Note Date & Type Note Facility Hospital Discharge instructions No data available for this section [facility] Summary Purpose Family History No Family History Records FoundNo Family History Records FoundNo Family History Records Found Advance Directives No Advanced Directives Records FoundNo Advanced Directives Records FoundNo Advanced Directives Records Found Reason for Referral Specialty Diagnoses / Procedures Referred By Selena t Referred To Contact CT IMAGING Diagnoses Disorder of adrenal gland (HCC) Procedures CT ADRENAL WO/W IVCON CT ABDOMEN W & W/O CONTRAST Emery Cantu MD [address] [place] [address] [place] [address] Referral ID Status Reason Start Date Expiration Date Visits Requested Visits Authorized [id number] Pending Review Auto-Generat ed Referral 08/13/2023 09/11/2024 1 1 Additional Source Comments INFORMATION SOURCE (unrecogn ized section and content) DATE CREATED AUTHOR 01/16/2018 [facility] DATE CREATED AUTHOR AUTHOR'S ORGANIZ ATION 05/18/2021 [facility] ([place]) DATE CREATED AUTHOR AUTHOR'S ORGANIZ ATION 08/14/2023 [facility] Source Comments (unrecognize d section and content) In the event this informatio n is protected by the Federal Confidentiality of Alcohol and Drug Abuse Patient Records regulations: The Federal rules restrict any use of the information to criminally investigate or prosecute any alcohol or drug abuse patient.[facility] the event this information is protected by the Federal Confidentiality of Alcohol and Drug Abuse Patient Records regulations: The Federal rules restrict any use of the information to criminally investigate or prosecute any alcohol or drug abuse patient.[facility] Reason for Visit (unrecogniz ed section and content) Reason Comments Release Of Medical Records Reason Comments Follow Up Hyperparathyroidism Care Teams (unrecognized sec tion and content) Electrical And Radio Mechanic Relationship Specialty Start Date End Date Bethany Veliz MD [address] [place] [address] PCP - General Family Medicine 05/15/23 Electrical And Radio Mechanic Relationship Specialty Start Date End Date Bethany Veliz MD [address] [place] [address] PCP - General Family Medicine 05/15/23 FOR RECORDS PERTAINING TO PATIENTS WHO ARE OR HAVE BEEN ENROLLED IN A CHEMICAL DEPENDENCY/SUBSTANCEABUSE PROGRAM, SOME INFORMATION MAY BE OMITTED. This clinical summary was aggregated from multiple sources. Caution should be exercised in using it in the provision of clinical care. This summary normalizes information from multiple sources, and as a consequence, information in this document may materially change the coding, format and clinical context of patient data. In addition, data may be omitted in some cases. CLINICAL DECISIONS SHOULD BE BASED ON THE PRIMARY CLINICAL RECORDS. [facility] [employer] [facility]. provides no warranty or guarantee of the accuracy or completeness of information in this document.
[2024-04-13 00:34] LABS: Amphetamine Urine VISTA NEGATIVE (<1000 ng/mL); Barbiturate Urine VISTA NEGATIVE (< 200 ng/mL); Benzodiazepine Urine VISTA NEGATIVE (< 200 ng/mL); Cocaine Urine VISTA NEGATIVE (< 300 ng/mL); Ecstacy Urine VISTA NEGATIVE (< 500 ng/mL); Methadone Urine VISTA NEGATIVE (< 300 ng/mL); PCP Urine VISTA NEGATIVE (< 25 ng/mL); THC Urine VISTA NEGATIVE (< 50 ng/mL); Vista UDS pH Range 6
[2024-04-13] MEDS: hydrOXYzine PAM 25 MG Capsule 50 MG PO (01:30)
[2024-04-13] MEDS: Acetaminophen 325 MG Tablet 650 MG PO (06:57)
[2024-04-13] MEDS: Ondansetron ODT 4 MG Tablet 8 MG PO (07:40)
[2024-04-13 08:16] VITALS: BP 147/107; PULSE 71; RESP 16; O2SAT 97
--- NOTE | 2024-04-13 09:15 | ED.RN ---
Crisis called. ETOH below 100. Chart is faxed and Roxanne will be coming to see patient.
[2024-04-13] MEDS: Propranolol LA 60 MG Capsule 120 MG PO ×2 (11:28→23:40)
--- NOTE | 2024-04-13 15:03 | ED.RN ---
Left message for [facility] to give the ER called back.
--- NOTE | 2024-04-13 15:49 | CM.ED ---
Social Work: propeller layout worker faxed over the eligibility denial form to the Crisis Team per their request in order to help get patient placed. Needed proof of no insurance. Patient also confirmed with delinquency prevention social worker that she's self-pay. Cornelia Sotelo, HOSPITAL INTERNSHIP, SERVICE ASSOCIATE
[2024-04-13 16:17] VITALS: BP 172/92; PULSE 72; RESP 18; TEMP 36.8; O2SAT 98
--- NOTE | 2024-04-13 20:02 | ED.RN ---
accepted to [facility]. [facility]. Dr. Bell
--- NOTE | 2024-04-13 20:17 | CM.ED ---
Social Work: market research worker stopped in to make sure patient was ok and didn't need anything. Patient began talking about her history of alcohol abuse, current supports and community resources such as AA. Patient reported her friends were visiting earlier who agreed to take care of all patient's animals and feed them until patient returns home. Patient enjoyed having someone to talk to. market research worker provided emotional support and encouragement. No other needs identified at this time. Cornelia Sotelo, STAFF THERAPIST, TICKET MANAGER
[2024-04-13] MEDS: Famotidine 20 MG Tablet PO (23:40)
[2024-04-13 23:44] VITALS: BP 177/86; PULSE 63; RESP 18; O2SAT 94
--- NOTE | 2024-04-14 01:14 | ED.RN ---
continues to deny need for nausea meds
[2024-04-14] MEDS: Acetaminophen 325 MG Tablet 650 MG PO (04:34)
[2024-04-14] MEDS: Ondansetron ODT 4 MG Tablet PO (04:38)
[2024-04-14 06:30] VITALS: BP 151/84; PULSE 60; RESP 16; TEMP 36.7; O2SAT 96
[2024-04-14 08:00] VITALS: BP 147/86; PULSE 60; RESP 14; TEMP 37.2; O2SAT 95
--- NOTE | 2024-04-14 08:56 | NURSING ---
ETA 15 MINUTE
== END 2024-04-14 09:24 ==
PROVIDERS: Emergency Provider Emergency Medicine; PCP Family Medicine; Visit Provider Emergency Medicine
DX: R45.851 Suicidal ideations (principal); F10.229 Alcohol dependence with intoxication, unspecified; F17.210 Nicotine dependence, cigarettes, uncomplicated; E55.9 Vitamin D deficiency, unspecified; E21.3 Hyperparathyroidism, unspecified; I73.00 Raynaud's syndrome without gangrene; Z90.49 Acquired absence of other specified parts of digestive tract; Z79.899 Other long term (current) drug therapy
CPT/HCPCS: 71045; 80053; 80307; 82077; 85025; 85610; 93005; 99285; J7030; A4216

== ENCOUNTER 2024-12-28 14:16 | Inpatient (IN) | payer SELFPAY ==
[2024-12-28] VITALS (7 sets, daily range): BP systolic 136–178; BP diastolic 76–88; PULSE 85–106; RESP 16–20; TEMP 35.8–37; O2SAT 93–97; BMI 20.2; BMI 24.0
--- NOTE | 2024-12-28 15:07 | EDS_ITS ---
HPI History of Present Illness Chief Complaint: ETOH Intox Informant: patient Associated Symptoms Associated Symptoms: Positive for vomiting* Narrative Narrative: 64-year-old female history of intermittent alcohol abuse and hyperparathyroidism. She also has cutaneous lupus. Patient states she binge drinks sugar all month without drinking at all and then she will drink a lot in several days. States that she has had a 12 pack a day for the last 7 days. She is requesting detox. Prior similar symptoms: Yes Recent Illness/Hospitalization: No PFSH PFSH Medical History (Updated 12/28/24 @ 17:[address] Austen Garcia MD) Alcohol withdrawal seizure IBS (irritable bowel syndrome) GERD (gastroesophageal reflux disease) Hypertension Depression Anxiety Tonsillectomy planned Rupture of bowel Cutaneous lupus erythematosus Hyperparathyroidism Allergy/AdvReac Type Severity Reaction Status Date / Time No Known Allergies Allergy Verified 12/28/24 14:17 Family History no significant family his Surgical History (Updated 12/28/24 @ 15:08 by Irene Jauregui) History of umbilical hernia repair History of appendectomy History of colectomy H/O dilation and curettage History of bowel resection Social History Smoking Status: Heavy Smoker (>10/day) ROS ROS ED ROS Narrative Nausea and vomiting. Constitutional Constitutional ED: Denies chills or fever(s) Eyes Eyes: Denies blurry vision ENT ENT ED: Denies ear pain Cardiovascular Cardiovascular: Denies chest pain Respiratory/Chest Respiratory/Chest: Denies cough or dyspnea Gastrointestinal Gastrointestinal: Reports nausea and vomiting; Denies abdominal pain, constipation, diarrhea or melena Genitourinary Genitourinary ED: Denies dysuria Musculoskeletal Musculoskeletal: Denies arthralgias or back pain Integumentary Denies abscess Neurologic Neurologic: Denies headache(s) Psychiatric Psychiatric: Denies anxiety or depression Endocrine Endocrinology: Denies cold intolerance or heat intolerance Hematologic/Lymphatic Hematologic/Lymphatic: Denies easy bleeding, easy bruising or lymphadenopathy EXAM Physical Exam Narrative Exam Narrative: Well-appearing 64-year-old female. Vital signs are stable afebrile. Pulse ox 96% on room air no hypoxia. She is in no distress. She is actively nausea and vomiting in a bag. 2 family members present. H EENT exam pupils round reactive light. Moist mucous membranes. Neck nontender. No lymphadenopathy. Lungs clear to auscultation bilaterally. Heart regular rhythm rate about 90 no murmur. Chest wall ribs nontender. Abdomen soft nontender. Moving all 4 extremities. Nontender no edema. Normal strength. Normal range of motion. She is awake alert. Answering questions following commands. Const Vital Signs: 12/28/24 14:18 12/28/24 15:17 12/28/24 16:00 Temperature 96.5 F L Temperature Source Temporal Pulse Rate 95 89 93 Respiratory Rate 18 17 16 Blood Pressure 136/76 H 146/79 H 178/88 H Blood Pressure Mean 96 101 118 Pulse Ox 96 97 95 Oxygen Delivery Method Room Air Room Air Room Air Positive well nourished and well developed; Negative for obese, cachectic, contractures or unkempt General Appearance ED: well developed and NAD; Negative for unkempt, cachectic, contractures or pallor Nutritional Appearance: Negative for cachectic or obese HEENT Reports moist mucous membranes atraumatic; Negative for trauma or tenderness Eyes PERRL and EOMs intact bilaterally General Eye ED: Negative for pale conjunctiva or scleral icterus Neck no lymphadenopathy, supple and no JVD Thyroid: Negative for tender Lymph Lymphatic: no lymphadenopathy noted Chest Wall inspection of chest normal and palpation of chest normal Resp normal respiratory effort and clear to auscultation bilaterally Auscultation: Negative for rales, rhonchi or wheezes Cardio regular rate, regular rhythm, S1 normal heart sound, S2 normal heart sound and no murmurs GI soft to palpation, non-tender, non-distended and no masses Palpation: Negative for tender, guarding, rigid, hepatomegaly or splenomegaly Back/Spine no CVA tenderness General Back: Negative for CVA tenderness Cervical Spine: Negative for cervical spine tenderness Thoracic Spine / Upper Back: Negative for thoracic spinal tenderness Lumbar Spine / Lower Back: Negative for lumbar spinal tenderness Coccyx: Negative for swelling Extremity General Extremety ED: Negative for edema General Extremity: Negative for edema Neuro oriented x3 and CN's II-XII intact bilaterally Sensorium / Orientation: alert, oriented to person, oriented to place and oriented to time; Negative for confused or lethargic Speech: speech normal Motor Exam: strength 5/5 throughout Psych mental status grossly normal and thought process normal Appearance: Negative for unkempt Skin General Skin Exam: Negative for jaundice or pallor Lesions: no lesions Rashes: no rashes Trauma: Negative for abrasion or laceration MDM MDM MDM Narrative Medical decision making narrative: 64-year-old female binge drinker requesting detox for alcoholism. She will be given Zofran for nausea. Screening labs will be obtained. Repeat exam patient doing well at 5:22 PM. I went over test results. Hospitalist on page for admission. She will be given Zofran for continued nausea. A liter of fluid. History & Record Review Discussion w/independent historian: Patient and Family Additional record(s) reviewed:: No prior records Lab Data Attestation: I reviewed the patient's lab results. Lab results narrative: CBC shows a white count 8.6. H&H 15 and 46. Platelets 299. Urine tox screen negative. Alcohol elevated at 140. Electrolytes show sodium 127. Gap 18. BUN and creatinine 8 and 0.5. Glucose is 62. Liver enzymes are elevated with a direct bilirubin of 0.36. AST of 344. ALT of 269. Alk phos 136. Labs: Laboratory Results - last 24 hr 12/28/24 12/28/24 14:40 15:31 WBC 8.6 RBC 5.52 H Hgb 15.8 H Hct 46.1 MCV 83.5 MCH 28.6 MCHC 34.3 RDW Std Deviation 43.9 RDW Coeff of Dave 14.4 Plt Count 299 MPV 9.1 Immature Gran % (Auto) 0.300 Neut % (Auto) 82.1 H Lymph % (Auto) 12.7 L Barnwell % (Auto) 4.1 Eos % (Auto) 0.1 Baso % (Auto) 0.7 Absolute Neuts (auto) 7.1 Absolute Lymphs (auto) 1.09 Nucleated RBC % 0 Sodium 127 L Potassium 3.9 Chloride 86 L Carbon Dioxide 23.3 Anion Gap 18 H BUN 8 Creatinine 0.57 L Estim Creat Clear Calc 96.17 Est GFR (MDRD) Non-Af 102 BUN/Creatinine Ratio 14.2 Glucose 62 L Calcium 9.8 Total Bilirubin 0.75 Direct Bilirubin 0.36 H AST 344 H ALT 269 H Alkaline Phosphatase 136 H Total Protein 6.8 Albumin 4.4 Globulin 2.5 Urine Opiates Screen NEGATIVE U Buprenorphine Qual NEGATIVE Ur Oxycodone Screen NEGATIVE Urine Methadone Screen NEGATIVE Urine Fentanyl Screen NEGATIVE Ur Barbiturates Screen NEGATIVE Ur Phencyclidine Scrn NEGATIVE Ur Amphetamines Screen NEGATIVE U Benzodiazepines Scrn NEGATIVE Urine Cocaine Screen NEGATIVE U Cannabinoids Screen NEGATIVE Ethyl Alcohol 140.0 H Discharge Plan Dx/Rx/DC Orders Clinical Impression: Alcohol abuse, Admitted to alcohol detoxification center, Acute alcoholic hepatitis, Acute alcohol intoxication, Acute hyponatremia Disposition Disposition: Acute Care Hospital [facility]
--- NOTE | 2024-12-28 15:25 | ED.RN ---
Dr. Garcia notified of CIWA score of 15
[2024-12-28 15:46] LABS: Barbiturate Urine NEGATIVE (< 200 ng/mL); Benzodiazepine Urine NEGATIVE (< 200 ng/mL); PCP Urine NEGATIVE (< 25 ng/mL); THC Urine NEGATIVE (< 50 ng/mL)
[2024-12-28 15:46] LABS: Hematocrit 46.1 % (37-47); Hemoglobin 15.8 g/dL (12.0-15.0); Immature Granulocytes Count 0.030 X10^3/uL (0.0-0.0); Mean Corp Hgb Conc 34.3 g/dL (32-36); Mean Corpuscular Volume 83.5 fL (81-99); Mean Platelet Vol. 9.1 fl (6.2-12.0); NRBC Flagged by Analyzer 0 % (0-5); Platelet Count 299 K/mm3 (150-450); RBC Distribution Width CV 14.4 % (11.6-14.6); RBC Distribution Width SD 43.9 fl (35.1-43.9); Red Blood Count 5.52 M/mm3 (4.2-5.4); White Blood Count 8.6 K/mm3 (4.4-11.0)
--- OUTSIDE RECORDS SUMMARY | 2024-12-28 16:26 | XMS RPT_ITS | CCD ---
Author Organization [facility] Care Team Providers Care Phone Manager Name Role Phone Bogdan Garcias MD Unavailable Gonzalo Rojas Unavailable Unavailable *SELF, REFERRED Unavailable Unavailable Bethany Prater Unavailable Unavailable Merrick Boyer Unavailable Unavailable Gonzalo Rojas Unavailable Unavailable Bethany Prater Unavailable Unavailable Chester Sanders Unavailable Unavailable Gonzalo Rojas Unavailable Unavailable Bethany Prater Unavailable Unavailable Bethany Prater Unavailable Unavailable Chester Sanders Unavailable Unavailable *SELF, REFERRED Unavailable Unavailable Bethany Prater Unavailable Unavailable Bogdan Garcias MD Unavailable [phone] BETHANY VELIZ MD Primary Care Physician [phone] Bethany Veliz MD Primary Care Provider Bethany Veliz MD Primary Care Provider BENDARAM, EMERY ABDULLAHI Referring Unavaila BETHANY Pickard Primary Care Unavailable PENNYM, EMERY ABDULLAHI Referring Unavaila BETHANY Pickard Primary Care Unavailable PETRONAARAM, EMERY ABDULLAHI Attending Unavaila ble SELF Referring Unavailable BETHANY VELIZ Primary Care Unavailable PETRONAARAM, EMERY ABDULLAHI Attending Unavaila ble SELF Referring Unavailable BETHANY VELIZ Primary Care Unavailable PETRONAARAM, EMERY ABDULLAHI Referring Unavaila BETHANY Pickard Primary Care Unavailable PETRONAARAM, EMERY ABDULLAHI Referring Unavaila ble BETHANY VELIZ Primary Care Unavailable PENNYM, EMERY ABDULLAHI Referring Unavaila BETHANY Pickard Primary Care Unavailable Allergies Allergy Classification Reported Allergen(s) Allergy Type Date of Onset Reaction(s) Facility (2 sources) acyclovir drug allergy 08-03-2010 [facility] Work Phone: (2 sources) aspartame drug allergy 08-03-2010 [facility] Work Phone: Medications Current Medications Medication Drug Class(es) Dates Sig (Normalized) Sig (Original)
[2024-12-28 16:48] LABS: Alcohol, Blood (Medical)-Serum 140.0 mg/dL (<=10.0)
[2024-12-28 16:56] LABS: AST(SGOT) 344 U/L (<=31); Alanine Aminotransfer ALT/SGPT 269 U/L (<=34); Albumin, Serum 4.4 g/dL (3.4-4.8); Alkaline Phosphatase 136 U/L (35-104); Anion Gap 18 (5-15); BUN 8 mg/dL (4-19); BUN/Creat Ratio 14.2 RATIO (10-20); Bilirubin, Direct 0.36 mg/dL (0.00-0.30); Calcium,Total 9.8 mg/dL (7.6-11.0); Carbon Dioxide 23.3 mmol/L (21.0-32.0); Chloride 86 mmol/L (98-108); Estimated Creatinine Clearance 96.17 ml/min (50-250); Globulin 2.5 g/dL (2.2-4.2); Glucose 62 mg/dL (70-99); Potassium 3.9 mmol/L (3.3-5.1)
[2024-12-28] MEDS: 0.9% Normal Saline (1000mL) 1,000 ML 999 ML IV (17:43)
--- NOTE | 2024-12-28 17:47 | PCM.HP.STD ---
HPI - General General Date of Admission: 12/28/24 Date of Service: 12/28/24 Chief Complaint: Requesting detox HPI Narrative ALEXIS STONE, is a[age]-year-old female history of alcohol abuse presented to [facility] ED 12/28/2024 requesting detox from alcohol. She has had a 12 pack a day for the last 7 days. Additionally having nausea and vomiting on presentation. In the ED temperature 96.5, heart rate 95 with blood pressure 136/76, respiratory rate 18 and pulse ox 96% on room air. CBC with white blood cell count 8.6, hemoglobin 15.8. BMP w/ sodium 127, Cr of 0.57, glc 62. Liver profile with a an AST of 344 ALT 69, alk phos of 136 and direct bili of 0.36. Alcohol level 140. UDS negative. Hospitalist contacted for admission for alcohol detox. Patient evaluated at bedside, reports she has been binging a 12 pack a day for 7 days and was sipping on drinks this morning. She has been having vomiting and diarrhea which she reports happens when she starts drinking heavily and then tries to stop, denies any headache, has a chronic cough and a low bit of a sore throat presently with her vomiting, no chest pain or shortness of breath. Has some general complaints of abdominal pain but says this is chronic, overall patient poor historian and often changes answers to questions. [facility] Medical History (Updated 12/28/24 @ 17:[address] Austen Garcia MD) Alcohol withdrawal seizure Anxiety Cutaneous lupus erythematosus Depression GERD (gastroesophageal reflux disease) Hyperparathyroidism Hypertension IBS (irritable bowel syndrome) Rupture of bowel Tonsillectomy planned Home Medications ?Medication ?Instructions ?Recorded ?Last Taken ?Type famotidine 20 mg tablet (Pepcid) 20 mg PO DAILY 12/28/24 Unknown History loratadine 10 mg disintegrating 10 mg PO BID 12/28/24 Unknown History tablet (Allergy Relief (loratadine)) Allergy/AdvReac Type Severity Reaction Status Date / Time No Known Allergies Allergy Verified 12/28/24 14:17 Family History no significant family his Surgical History (Updated 12/28/24 @ 15:08 by Irene Jauregui) H/O dilation and curettage History of appendectomy History of bowel resection History of colectomy History of umbilical hernia repair Social History Smoking Status: Heavy Smoker (>10/day) ROS ROS Narrative General: Denies fever/chills HENT: Denies headache, denies stuffy nose, has a little bit of a sore throat EYES: Denies changes in vision Resp: Chronic cough, denies shortness of breath Cardiac: Denies chest pain GI: Some nausea and vomiting since this morning, chronic diarrhea, some chronic abdominal pain : Has been urinating a lot since getting fluids in the ED Extremity: Denies swelling MSK: Denies weakness Neuro: Denies any numbness/tingling Heme: Denies any bleeding or bruising Skin: Has had a rash on her arms since September, canceled her appointment with dermatology several days ago Psychiatric: No complaints voiced Vital Signs Vital Signs Vital Signs: 12/28/24 14:18 12/28/24 15:17 12/28/24 16:00 Temperature 96.5 F L Temperature Source Temporal Pulse Rate 95 89 93 Respiratory Rate 18 17 16 Blood Pressure 136/76 H 146/79 H 178/88 H Blood Pressure Mean 96 101 118 Pulse Ox 96 97 95 Oxygen Delivery Method Room Air Room Air Room Air 12/28/24 17:00 Temperature Temperature Source Pulse Rate 88 Respiratory Rate 16 Blood Pressure Blood Pressure Mean Pulse Ox 94 Oxygen Delivery Method Room Air Weight Weight: 60.3 kg Body Mass Index (BMI) 20.2 Physical Exam Narrative General: Patient alert, slow to answer questions, also will give different answers to the same question and fairly poor historian HEENT: Atraumatic, normocephalic Eyes: Anicteric, normal conjunctiva, extraocular movements grossly intact Neck: Supple Respiratory: Clear to auscultation bilaterally, normal respiratory effort Cardiovascular: Regular rate and rhythm GI: Soft, nontender, nondistended Extremities: No edema Musculoskeletal: Moving all extremities Neuro: No overt focal neurological deficits Skin: Has a scattered red rash on arms Psych: Cooperative Results Lab / Micro Data 12/28/24 15:31 12/28/24 15:31 Labs: Laboratory Results - last 24 hr 12/28/24 14:40: Urine Opiates Screen NEGATIVE, U Buprenorphine Qual NEGATIVE, Ur Oxycodone Screen NEGATIVE, Urine Methadone Screen NEGATIVE, Urine Fentanyl Screen NEGATIVE, Ur Barbiturates Screen NEGATIVE, Ur Phencyclidine Scrn NEGATIVE, Ur Amphetamines Screen NEGATIVE, U Benzodiazepines Scrn NEGATIVE, Urine Cocaine Screen NEGATIVE, U Cannabinoids Screen NEGATIVE 12/28/24 15:31: WBC 8.6, RBC 5.52 H, Hgb 15.8 H, Hct 46.1, MCV 83.5, MCH 28.6, MCHC 34.3, RDW Std Deviation 43.9, RDW Coeff of Dave 14.4, Plt Count 299, MPV 9.1, Immature Gran % (Auto) 0.300, Neut % (Auto) 82.1 H, Lymph % (Auto) 12.7 L, Centre % (Auto) 4.1, Eos % (Auto) 0.1, Baso % (Auto) 0.7, Absolute Neuts (auto) 7.1, Absolute Lymphs (auto) 1.09, Nucleated RBC % 0, Sodium 127 L, Potassium 3.9, Chloride 86 L, Carbon Dioxide 23.3, Anion Gap 18 H, BUN 8, Creatinine 0.57 L, Estim Creat Clear Calc 96.17, Est GFR (MDRD) Non-Af 102, BUN/Creatinine Ratio 14.2, Glucose 62 L, Calcium 9.8, Total Bilirubin 0.75, Direct Bilirubin 0.36 H, AST 344 H, ALT 269 H, Alkaline Phosphatase 136 H, Total Protein 6.8, Albumin 4.4, Globulin 2.5, Ethyl Alcohol 140.0 H Assessment & Plan Assessment/Plan (1) Acute alcohol intoxication: (2) Alcohol abuse: PLAN: Plan #Alcohol use disorder - We will begin CIWA every 4 for 24 hours, then every 6 for 24 hours, then every 12 until discharge -Will begin phenobarbital taper -Gabapentin 300 mg every 8 as needed -Will start Bentyl and hydroxyzine as needed as well as loperamide as needed -Trazodone 100 mg p.o. nightly as needed sleep -Begin thiamine and folic acid supplementation -Zofran as needed for nausea -Case management consult to assist with discharge planning -EtOH 140 -UDS negative #Elevated LFTs - Liver profile with a an AST of 344 ALT 69, alk phos of 136 and direct bili of 0.36 -Suspect this is d/t pts binge drinking -Repeat in the AM #Hyponatremia -Na 127 in the ED, no baseline in our system -IVF -Will check serum osms and urine studies -Repeat in the AM - Check TSH #Tobacco use -Advise cessation -Nicotine replacement available if desired #DVT ppx: Lovenox subq Ilsa Raymundo MD Charges/Coding Visit Charges Inpatient E&M: 98880 Init Hosp L2
--- OUTSIDE RECORDS SUMMARY | 2024-12-28 17:56 | XMS RPT_ITS | CCD ---
Author Organization [facility] Care Team Providers Care Supervisor Beet End Name Role Phone Bogdan Garcias MD Unavailable [phone] Gonzalo Rojas Unavailable Unavailable *SELF, REFERRED Unavailable Unavailable Bethany Prater Unavailable Unavailable Merrick Rush Unavailable Unavailable Gonzalo Rojas Unavailable Unavailable Bethany Prater Unavailable Unavailable Chester Sanders Unavailable Unavailable Gonzalo Rojas Unavailable Unavailable Bethany Prater Unavailable Unavailable Bethany Prater Unavailable Unavailable Chester Sanders Unavailable Unavailable *SELF, REFERRED Unavailable Unavailable Bethany Prater Unavailable Unavailable Bogdan Garcias MD Unavailable BETHANY VELIZ MD Primary Care Physician Bethany Veliz MD Primary Care Provider Bethany [...] Facility (2 sources) acyclovir drug allergy 08-03-2010 [facility] Work Phone: (2 sources) aspartame drug allergy 08-03-2010 [facility] Work Phone: Medications Current Medications Medication Drug Class(es) Dates Sig (Normalized) Sig (Original) amLODIPine 10 mg oral tablet (1 source) Dihydropyridine Calcium Channel Eddie Start: 03-25-2021 amLODIPine 10 mg oral tablet Dose : 10 mg = 1 tab(s), Oral, qDay, # 30 tab(s), 0 Refill(s) Start Date: 03/25/21 Status: Ordered calcium phosphate dibas/vit D3 (VITAMIN D, WITH CALCIUM, ORAL) (6 sources) calcium phosphat e dibas/vit D3 (VITAMIN D, WITH CALCIUM, ORAL) Take by mouth. Active dexamethasone 1 mg oral tablet (12 sources) Corticosteroid Start: 12-09-2024 dexAMETHasone (DECADRON) 1 mg tablet Indications: Adrenal cortical nodule (HCC) Take the tablet at 11 pm and go for labs the next morning on fasting at 8 am 1 tablet 12/09/2024 Active Start: 06-15-2023 End: 11-11-2024 dexAMETHasone (DECADRON) 1 m g tablet Indications: Adrenal cortical nodule (HCC) Take at 11 pm on one day 1 tablet 11/11/2024 Active Comment on above: Take at 11 pm on one day famotidine 10 mg oral tablet (8 sources) Histamine-2 Receptor Antagonist Start: 0 famotidine (PEPCID) 10 mg tablet Take by mouth. 05/12/2020 Active Comment on above: Take by mouth. ferrous sulfate 325 mg oral tablet (8 sources) Start: 8 FERROUS SULFATE 325 MG (65 MG ELEMENTAL IRON) TAB one tab PRN 0 10/08/2007 Active Comment on above: one tab PRN ibuprofen 200 mg oral tablet (8 sources) Nonsteroidal Anti-inflammatory Drug Start: 1 take 200-400 mg by mouth every four hours as needed ibuprofen 200 mg ORAL tablet Take 200-400 mg by mouth every 4 hours as needed. FOR PAIN. 0 04/11/2011 Active Comment on above: Take 1-2 tablets by mouth every 4 hours as needed. FOR PAIN. ketotifen 0.25 mg/ml ophthalmic solution (6 sources) Histamine-1 Receptor Inhibitor ketotifen fumarate (ALAWAY) 0.025 % (0.035 %) ophthalmic solution 1 drop two times a day. Active loratadine 10 mg oral capsule (8 sources) Start: 0 loratadine 10 mg cap Take by mouth. 08/28/2019 Active Comment on above: Take by mouth. multivit with minerals/lutein (MULTIVITAMIN 50 PLUS ORAL) (6 sources) multivit with minerals/lutein (MULTIVITAMIN 50 PLUS ORAL) Take by mouth. Active multivit,thx,calcium ,iron,mins (MULTIVITAMIN AND MINERAL ORAL) (8 sources) Start: 1 multivit,thx,calciu m,iron,mins (MULTIVITAMIN AND MINERAL ORAL) 05/17/2021 Active Start: 05-17-2021 multivit,thx,c alcium,iron,mins (MULTIVITAMIN AND MINERAL ORAL) [employer] Women's Daily Multivitamin qDay, 0 Refill(s) Start Date: 05/17/21 Status: Ordered 05/17/2021 Active Start: 05-17-2021 multivit,thx,c alcium,iron,mins (MULTIVITAMIN AND MINERAL ORAL) [employer] Women's Daily Multivitamin qDay, 0 Refill(s) Start Date: 05/17/21 Status: Ordered 0 05/17/2021 Active Comment on above: [employer] Wome n's Daily Multivitamin qDay, 0 Refill(s) Start Date: 05/17/21 Status: Ordered [employer] Women's Daily Multivitamin (1 source) Start: 05-17-20 21 [employer] Women's Daily Multivitamin qDay, 0 Refill(s) Start Date: 05/17/21 Status: Ordered nystatin 100 unt/mg topical powder (8 sources) Polyene Antifungal Start: 05-25-20 14 nystatin (MYCOSTATIN) powder Apply 1 application to affected area three times daily. 1 Bottle 0 05/25/2014 Active Comment on above: Apply 1 application to affected area three times daily. pantoprazole 40 mg delayed release oral tablet (1 source) Proton Pump Inhibitor Start: 03-24-20 21 pantoprazole 40 mg oral enteric coated tablet Dose : 40 mg = 1 tab(s), Oral, qDayAC, 0 Refill(s) Start Date: 03/24/21 Status: Ordered polymyxin B-trimethoprim 10,000 units-1 mg/mL ophthalmic solution (1 source) Start: 03-28-20 take 1 dose into the eye(s) every three hours polymyxin B-trimethoprim 10,000 units-1 mg/mL ophthalmic solution Dose = 1 drop(s), Eyes, both, q3h, 0 Refill(s) Start Date: 03/28/21 Status: Ordered Propranolol (1 source) beta-Adrenergic Eddie Start: 05-17-20 take 1 capsule by mouth twice daily propranolol 120 mg oral capsule, extended release take 1 capsule by mouth twice a day Start Date: 05/17/21 Status: Ordered sodium chloride 0.111 meq/ml nasal spray (8 sources) Start: 08-28-19 sodium chloride 0.65 % nasal spray as needed. 08/28/2019 Active Comment on above: as needed. Completed/Discontinued Medications Medication Drug Class(es) Dates Sig (Normalized) Sig (Original) desloratadine / pseudoephedrine (2 sources) alpha-Adrenergic Agonist, Histamine-1 Receptor Antagonist Start: 08-03-2010 CLARINEX-D 24 HOUR 5-240 MG [id number] 1 tab daily DESLORATADINE-PSEUDO EPHEDRINE [id number] Odette HUDSON iv contrast (will be provided with radiology test) (3 sources) Start: 11-11-2024 End: 11-12-2024 iv contrast (will be provided with radiology [...] the CT contrast administration guidelines link. 1 each 11/11/2024 11/12/2024 Start: 08-13-2023 End: 08-14-2023 iv contrast (will be provide d with radiology test) CT adrenal WO/W Inject, [...] in the CT contrast administration guidelines link. Problems Active Problems Problem Classification Problem Date Documented Date Episodic/Chronic Anxiety disorders (10 sources) Anxiety disorder; Translations: [Anxiety disorder, unspecified] Onset: 02-17-2017 02-17-2017 Chronic Coagulation and hemorrhagic disorders (9 sources) Thrombocytopenic disorder; Translations: [Thrombocytopenia, unspecified] Onset: 08-08-2023 05-12-2021 Chronic Diabetes mellitus without complication (1 source) Impaired glucose tolerance (oral); Translations: [Impaired glucose tolerance associated with drugs] Onset: 11-11-2024 Episodic Diseases of white blood cells (1 source) Leukopenia 05-12-2021 Chronic Diverticulosis and diverticulitis (8 sources) Diverticulitis of colon with perforation; Translations: [Diverticulitis of large intestine with perforation and abscess without bleeding] Onset: 04-11-2011 04-11-2011 Chronic E Codes: Adverse effects of medical drugs (1 source) Adverse effect of unspecified drugs, medicaments and biological substances, initial encounter; Translations: [Impaired glucose tolerance associated with drugs] Onset: 11-11-2024 Episodic Esophageal disorders (10 sources) Gastroesophageal reflux disease; Translations: [Gastro-esophageal reflux disease without esophagitis] Onset: 02-17-2017 02-17-2017 Chronic Essential hypertension (9 sources) Essential hypertension; Translations: [Essential (primary) hypertension] Onset: 04-02-2022 08-08-2023 Chronic Mood disorders (8 sources) Dysthymia; Translations: [Dysthymic disorder] Onset: 08-08-2023 08-08-2023 Chronic Nutritional deficiencies (8 sources) Vitamin D deficiency; Translations: [Vitamin D deficiency, unspecified] Onset: 08-08-2023 08-08-2023 Chronic Osteoarthritis (10 sources) Osteoarthritis; Translations: [Unspecified osteoarthritis, unspecified site] Onset: 02-17-2017 02-17-2017 Chronic Osteoporosis (8 sources) Osteoporosis; Translations: [Age-related osteoporosis without current pathological fracture] Onset: 08-08-2023 08-08-2023 Chronic Other circulatory disease (8 sources) Raynaud's disease; Translations: [Raynaud's syndrome without gangrene] Onset: 08-08-2023 08-08-2023 Chronic Other endocrine disorders (11 sources) Hyperparathyroidism; Translations: [Hyperparathyroidism, unspecified] Onset: 08-09-2019 08-08-2023 Chronic Other endocrine disorders (5 sources) Disorder of adrenal gland; Translations: [Disorder of adrenal gland, unspecified] 08-13-2023 Chronic Other endocrine disorders (4 sources) Disorder of adrenal gland, unspecified; Translations: [Unspecified disorder of adrenal glands] Onset: 11-11-2024 11-11-2024 Chronic Other endocrine disorders (1 source) Hyperparathyroidism, unspecified; Translations: [Hyperparathyroidism (HCC)] Onset: 08-08-2023 Chronic Other inflammatory condition of skin (8 sources) Cutaneous lupus erythematosus; Translations: [Other local lupus erythematosus] Onset: 08-08-2023 08-08-2023 Chronic Thyroid disorders (7 sources) Multinodular goiter; Translations: [Nontoxic multinodular goiter] Onset: 11-11-2024 08-13-2023 Chronic Unclassified (1 source) Physical examination; Translations: [Encounter for general adult medical examination without abnormal findings] Onset: 08-03-2010 08-03-2010 Past or Other Problems Problem Classification Problem Date Documented Da te Episodic/Chronic Appendicitis and other appendiceal conditions (8 sources) Appendicitis; Translations: [Unspecified appendicitis] Onset: 04-11-2011 04-11-2011 Episodic Hemorrhoids (10 sources) Hemorrhoids; Translations: [Unspecified hemorrhoids] Onset: 04-14-2014 02-17-2017 Episodic Other inflammatory condition of skin (8 sources) Pruritus ani; Translations: [Pruritus ani] Onset: 11-24-2014 11-24-2014 Episodic Other skin disorders (8 sources) Skin lesion; Translations: [Disorder of the skin and subcutaneous tissue, unspecified] Onset: 02-09-2016 02-09-2016 Episodic Results Test Name Value Interpretation Reference Range Facility [facility] 12-09-2024 CNOV Office Visit (ENWSTR ) -------- LATISHA STONE ([id number]) 1960 F Date Time Provider Department 12/09/24 1:40 PM EMERY CANTU ENWSTR During your visit today, we recorded the following information about you: Temperature Pulse Respiration Blood pressure 98.4 degrees 94/minute 12/minute 118/76 Weight 60.7 kg Emery Cantu MD 12/09/2024 6:54 PM Signed Endocrinology and Metabolism [place] Follow-up visit note Chief Complaint: Hyperparathyroidism History of Present Illness: Latisha Stone is a 64 year old old female with cutaneous lupus erythematosus presenting for follow up of hypercalcemia secondary to primary hyperparathyroidism, multinodular goiter, left adrenal nodule. 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 LV 07/[address] 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 [employer] She initially presented on 06/15/2023 for hypercalcemia associated with elevated PTH levels. She had no history of kidney stones, fractures, osteoporosis, height loss, weight loss, prior radiation to head and neck. There was no personal history of known thyroid disease. There was no family history of thyroid or parathyroid disease, osteoporosis. Her calcium intake : almond milk 2 glasses daily, about 900 ml, eats yogurt, sardines etc. Thinks she is getting She use a steroid ointment for cutaneous [...] adequate calcium, Vitamin D for bone protection. Calcium labs including 24 hr urine calcium was ordered, but were done different from instructions given She had parathyroid scan done in Jul 2019 for hyperparathyroidism and was negative for adenoma. Left adrenal nodule: On the initial visit, on chart review, there was also found a CT abdomen and pelvis which shows 3.6 cm left adrenal nodule. Patient reported this was done to evaluate for abnormal parathyroid glands. She was unaware of adrenal nodule. Explained on last visit, but she again ask the same thing, and says she knows that the adenoma is causing high calcium Symptoms related: Weight gain- 20 lbs in 1 to 2 year no proximal weakness, no easy bruising, no abdominal stretch aguayo No hx of HTN, DM, PCOS Labs done: 1 mg DST- resulted normal in 05/2023. Normal BP and hence aldosterone was not done. No concerns for Pheo Multinodular goiter: And on examination on the last visit, thyroid nodules were felt and US thyroid was recommended which showed 3 nodules, and she was recommended FNAB based on review of images. Not done, repeat thyroid US was recommended which was done along with TSH PAST MEDICAL HISTORY Diagnosis Date ALLERGY ENVIRONMENTAL [...] History Tobacco Use Smoking status: Every Day Current packs/day: 1.00 Average packs/day: 1 pack/day for 30.0 years (30.0 ttl pk-yrs) Types: Cigarettes Smokeless tobacco: Former Vaping Use Vaping status: Never Used Substance Use Topics Alcohol use: Yes Comment: SOCIAL APPROX. 2 DRINKS PER WEEK Drug use: No Current Outpatient Medications Medication Sig multivit with minerals/lutein (MULTIVITAMIN 50 PLUS ORAL) Take by mouth. calcium phosphate dibas/vit D3 (VITAMIN D, WITH CALCIUM, ORAL) Take by mouth. ketotifen fumarate (ALAWAY) 0.025 % (0.035 %) ophthalmic solution 1 drop two times a day. dexAMETHasone (DECADRON) 1 mg tablet Take at 11 pm on one day multivit,thx,calcium,iro n,mins (MULTIVITAMIN AND MINERAL ORAL) [employer] (more content not included)... Normal [facility] -------- LATISHA STONE ([id number]) 1960 F Date Time Provider Department 12/09/24 EMERY CANTU ENTR During your visit today, we recorded the following information about you: Emery Cantu MD 12/09/2024 6:54 PM Signed Please advise patient to do salivary cortisol test: day 1 and day 2 as per instructions below: Salivary cortisol tests - to measure cortisol levels in saliva Instructions for Collection: - Do not brush teeth before collecting sample. - Do not eat or drink for 15 minutes prior to sample collection. - Collect sample between 11:00 pm and midnight. No earlier than 11:00 pm and no later than 12:00 am, midnight , otherwise you will have to repeat the test. This is a time sensitive collection. It must be done between 11:00 pm and 12:00 am, midnight. To use the Salivette: - Remove top cap of the tube to expose the swab. - Pour swab directly into the mouth by tipping the tube so the swab falls into the mouth. - Do NOT touch the swab with your fingers. - Keep the swab in your mouth for approximately one minute. - Roll the swab in your mouth. - Do NOT chew the swab. - Spit the swab back into the tube. - Do NOT touch the swab with your fingers. - Replace the cap. - Make sure cap is screwed on tightly. - Record the collection time on the tube. Additional Instructions: If you are not able to return within eight hours after collection, please keep refrigerated until you can bring back; must be returned within three days. On , advise doing a repeat dexamethasone test Instructions: 1. Take dexamethasone 1-mg tab by mouth at 11 PM the evening before your test. 2. Go to the lab the next morning and have your blood drawn at ~8 AM. *Do not eat or drink anything other than water from the time you take dexamethasone to the time you get your blood drawn. 3. If either of the following situations happen, DO NOT HAVE YOUR BLOOD DRAWN: A. You forget to take the pill at 11 PM the evening before B. You cannot get your blood drawn the next morning at ~8 AM C. If either situation happens, please call me to let me know All orders placed Cornelia Rodriges MA 12/12/2024 9:35 AM Signed Phoned patient to answer her questions regarding labs. I answered all questions to patients satisfaction and she reports no other questions. Cornelia Rodriges MA Allergies As of Date: 12/09/2024 (No Known Allergies) Date Reviewed: 12/09/2024 Reviewed by: Cornelia Rodriges MA - Fully Assessed Reason for Visit: Patient Question [5991] Cmt: Upcoming lab tests Prescriptions as of 12/12/2024 - dexAMETHasone (DECADRON) 1 mg tablet Take the tablet at 11 pm and go for labs the next morning on fasting at 8 am - multivit with minerals/lutein (MULTIVITAMIN 50 PLUS ORAL) Take by mouth. - calcium phosphate dibas/vit D3 (VITAMIN D, WITH CALCIUM, ORAL) Take by mouth. - ketotifen fumarate (ALAWAY) 0.025 % (0.035 %) ophthalmic solution 1 drop two times a day. - dexAMETHasone (DECADRON) 1 mg tablet Take at 11 pm on one day - multivit,thx,calcium,iro n,mins (MULTIVITAMIN AND MINERAL ORAL) - loratadine 10 mg cap Take by mouth. - famotidine (PEPCID) 10 mg tablet Take by mouth. - sodium chloride 0.65 % nasal spray as needed. - nystatin (MYCOSTATIN) powder Apply 1 application to affected area three times daily. - ibuprofen 200 mg ORAL tablet Take 200-400 mg by mouth every 4 hours as needed. FOR PAIN. - FERROUS SULFATE 325 MG (65 MG ELEMENTAL IRON) TAB one tab PRN Problem List As Of Date 12/09/2024 Noted Resolved Diverticulitis of colon with perforation [K57.2*04/11/2011 Appendicitis [K37] 04/11/2011 Unspecified hemorrhoids without mention of comp*04/14/2014 Anal pruritus [L29.0] 11/24/2014 Skin lesion [L98.9] 02/09/2016 Anxiety disorder [F41.9] 02/17/2017 Diagnosed: 08/08/2023 Cutaneous lupus erythematosus [L93.2] 08/08/2023 Diagnosed: 08/08/2023 Dysthymia [F34.1] 08/08/2023 Diagnosed: 08/08/2023 Disorder involving thrombocytopenia (HCC) [D69.*08/08/2023 Diagnosed: 08/08/2023 Essential (primary) hypertension [I10] 04/02/2022 Diagnosed: 08/08/2023 Gastroesophageal reflux disease [K21.9] 02/17/2017 Diagnosed: 08/08/2023 Hyperparathyroidism (HCC) [E21.3] 08/09/2019 Diagnosed: 08/08/2023 Osteoarthritis [M19.90] 02/17/2017 Diagnosed: 08/08/2023 Osteoporosis [M81.0] 08/08/2023 Diagnosed: 08/08/2023 Raynaud's disease [I73.00] 08/08/2023 Diagnosed: 08/08/2023 Vitamin D deficiency [E55.9] 08/08/2023 Diagnosed: 08/08/2023 Encounter Status:Closed by CORNELIA RODRIGES on 6/20/25 Normal [facility] CALCIUM, 24 HR URINEon 12-04 Calcium (24H U) [Mass/Time] 549.7 mg/24 hr High 100.0-300.0 [facility] Comment on above: Order Comment: Speci men Type: BLOOD SPECIMEN Ordering Facility: [facility] Address: [address] [place], [place] [address] Performed By: #### 2 4331-1 #### [facility] CLIA [id number] [address] [place], [place] [id number] [place] [facility] CLIA [id number] [address] [place] [address] [place] #### 3016-3, 2731-01 #### [facility] CLIA [id number] [address] [place], [place] [address] [place] PERIOD (HRS) 24 hr Normal [facility] Comment on above: Order Comment: Speci men Type: BLOOD SPECIMEN Ordering Facility: [facility] Address: [address] [place] [address] Performed By: #### 2 4331-1 #### [facility] CLIA [id number] [address] [place], [place] [address] [place] [facility] CLIA [id number] [address] [place] [id number] [place] #### 3016-3, 2731-01 #### [facility] CLIA [id number] [address] [place], [place] [address] [place] Specimen volume (24H U) 5.975 L Normal [facility] Comment on above: Order Comment: Speci men Type: BLOOD SPECIMEN Ordering Facility: [facility] Address: [address] [place], [place] [address] Performed By: #### 2 4331-1 #### [facility] CLIA [id number] [address] [place], [place] [address] [place] [facility] CLIA [id number] [address] [place] [address] [place] #### 3016-3, 2731-8 #### [facility] CLIA [id number] [address] [place] [address] [place] CREATININE, 24 HOUR URINEon 12-04-2024 Creatinine (24H U) [Mass/Time] 0.926 g/24 hr Normal 0.800-1.800 [facility] Comment on above: Order Comment: Speci men Type: URINE SPECIMEN Ordering Facility: [facility] Address: [address] [place] [address] Performed By: #### U CRD #### [facility] CLIA [id number] [address] [place] [address] [place] [facility] CLIA [id number] [address] [place] [address] [place] PERIOD (HRS) 24 hr Normal [facility] Comment on above: Order Comment: Speci men Type: URINE SPECIMEN Ordering Facility: [facility] Address: [address] [place] [address] Performed By: #### U CRD #### [facility] CLIA [id number] [address] [place] [address] [place] [facility] CLIA [id number] [address] [place] [address] [place] Specimen volume (24H U) 5.975 L Normal [facility] Comment on above: Order Comment: Speci men Type: URINE SPECIMEN Ordering Facility: [facility] Address: [address] [place] [address] Performed By: #### U CRD #### [facility] CLIA [id number] [address] [place], [place] [address] [place] [facility] CLIA [id number] [address] [place] [address] [place] Cortis p Dex SerPl-mCncon Cortisol post dose dexamethasone [Mass/Vol] 1.8 ug/dL High <1.8 [facility] Comment on above: Order Comment: Manjinder leyva Type: BLOOD SPECIMEN Ordering Facility: [facility] Address: [address] [place] [address] Result Comment: Afte r overnight 1 mg dexamethasone, an manager construction cortisol of <1.8 ug/dL may indicate an adequate cortisol suppression. This result should be interpreted within the clinical context and other test results. Mazin et al. Evidence for the Low Dose Dexamethasone Suppression Test to Screen for Liverpool's Syndrome - Recommendations for a Protocol for Biochemistry Laboratories. 1997 Jaylene. Clin. Biochem. 34 222-229. Performed By: #### 2 4331-1 #### [facility] CLIA [id number] [address] [place] [address] [place] [facility] CLIA [id number] [address] [place] [address] [place] #### 3016-3, 2731-8 #### [facility] CLIA [id number] [address] [place] [address] [place] DEXAMETHASONEon 12-04-2024 DEXAMETHASONE 229.2 ng/dL Normal [facility] Comment on above: Order Comment: Manjinder leyva Type: BLOOD SPECIMEN Ordering Facility: [facility] Address: [address] [place] [address] Result Comment: INTE RPRETIVE INFORMATION: Dexamethasone, Serum [...] developed and its performance characteristics determined by [facility]. It has not been cleared or approved by the [place] Food and Drug Administration. This test was performed in a CLIA certified laboratory and is intended for clinical purposes. Performed By: [facility] [address] [place] [address] Licensed Professional Counselor: Octavio Martinez MD, PhD CLIA Number: [id number] Performed By: #### 2 4331-1 #### [facility] CLIA [id number] [address] [place] [address] [place] [facility] CLIA [id number] [address] [place] [address] [place] #### 3016-3, 2731-8 #### [facility] CLIA [id number] [address] [place] [address] [place] Sodium (24H U) [Moles/Time]o n 12-04-2024 PERIOD (HRS) 24 hr Normal [facility] Comment on above: Order Comment: Speci men Type: URINE SPECIMEN Ordering Facility: [facility] Address: [address] [place] [address] Performed By: #### 2 956-1 #### [facility] CLIA [id number] [address] [place] [address] [place] Specimen volume (24H U) 5.975 L Normal [facility] Comment on above: Order Comment: Speci men Type: URINE SPECIMEN Ordering Facility: [facility] Address: [address] [place] [address] Performed By: #### 2 956-1 #### [facility] CLIA [id number] [address] [place] [address] [place] Sodium 24h Ur-sRateon 2024 Sodium (24H U) [Moles/Time] <120 Normal 40-220 [facility] Comment on above: Order Comment: Speci men Type: URINE SPECIMEN Ordering Facility: [facility] Address: [address] [place] [address] Performed By: #### 2 956-1 #### [facility] CLIA [id number] [address] [place] [address] [place] [place] ALK PHOS BONE SPECon 025 ALK PHOSPHATASE, BONE 28.7 ug/L Normal [facility] Comment on above: Order Comment: Speci men Type: BLOOD SPECIMEN Ordering Facility: [facility] Address: [address] [place] [address] Result Comment: INTE RPRETIVE INFORMATION: Bone Specific Alkaline Phosphatase Premenopausal Female: 4.5 - 16.9 ug/L Postmenopausal Female: 7.0 - 22.4 ug/L INTERPRETIVE INFORMATION: Bone Specific Alkaline Phosphatase Liver alkaline phosphatase can affect the measurement of bone specific alkaline phosphatase in this assay. Each 100 U/L of liver alkaline phosphatase contributes an additional 2.5 to 5.8 ug/L to the bone specific alkaline phosphatase result. Performed By: [facility] [address] [place] [address] Licensed Professional Counselor: Octavio Martinez MD, PhD CLIA Number: [id number] Performed By: #### 2 4331-1 #### [facility] CLIA [id number] [address] [place] [address] [place] [facility] CLIA [id number] [address] [place] [address] [place] #### 3016-3, 2731-8 #### [facility] CLIA [id number] [address] [place] [address] [place] [address] ADRENAL WO/W IVCONon 06-0 CT ADRENAL WO/W IVCON * * *Final Report* * * DATE OF EXAM: Nov 28 2024 12:22PM [facility] 0536 - CT ADRENAL WO/W IVCON / PROCEDURE REASON: Disorder of adrenal gland (HCC) * * * * Physician Interpretation * * * * EXAMINATION: CT ABDOMEN / ADRENAL GLANDS WITHOUT IV CONTRAST CLINICAL HISTORY: Disorder of adrenal gland (HCC) TECHNIQUE: Thin section spiral imaging through the adrenal glands was performed without IV or oral contrast due to the clinical indication. This does limit the exam for some other diagnoses. MQ: CTAdWO_2 Contrast: IV: None Oral: None CT Radiation dose: Integrated dose-length product (DLP) for this visit = 246 mGy*cm. CT Dose Reduction Employed: Automated exposure control(AEC) and iterative recon COMPARISON: CT abdomen 11/17/2022. RESULT: Adrenal glands: Right adrenal gland: No nodules, masses or thickening. Left adrenal gland: Hypoattenuating thickening of the posteromedial limb in the left adrenal gland measures up to 1.0 cm, demonstrates hypoattenuation (-13 HU), no significant interval changes compared to 10/2022 characteristics that favor benign etiology such as adenoma. Abdomen: Liver: Unremarkable. Biliary System: Gallbladder is unremarkable. Spleen: No splenomegaly. Pancreas: No pancreatic duct dilation. Otherwise unremarkable. Kidneys: No stones or hydronephrosis. Stable 1.0 cm cyst in the superior left renal pole. Lymph Nodes: No abdominal lymphadenopathy. Mesentery/Peritoneum: No ascites or mass. GI Tract: Imaged segments are unremarkable. Vasculature: Atherosclerotic vascular calcifications, no aneurysm. Lower thorax and bones: No significant findings. Basket Assembler (topogram) images: No additional findings. IMPRESSION: Stable nodular thickening of the left adrenal gland as noted on 10/2022 with hypoattenuation suggestive of adenoma. Personal Assistant: RACHAEL Transcribe Date/Time: Nov 28 2024 12:16P Dictated by : MILDRED LINDSAY MD This examination was interpreted and the report reviewed and electronically signed by: MILDRED LINDSAY MD on Nov 28 2024 1:16PM EST [id number] Normal [facility] CT Adrenal gland WO and W co ntrast Anupama 11-28-2024 IMPRESSION: Stable nodular thickening of the left adrenal gland as noted on 10/2022 with hypoattenuation suggestive of adenoma. Personal Assistant: [facility] Transcribe Date/Time: Nov 28 2024 12:16P Dictated by : MILDRED LINDSAY MD This examination was interpreted and the report reviewed and electronically signed by: MILDRED LINDSAY MD on Nov 28 2024 1:16PM EST DIVISION OF RADIOLOGY * * *Final Report* * * DATE OF EXAM: Nov 28 2024 12:22PM [facility] 0536 - CT ADRENAL WO/W IVCON / PROCEDURE REASON: Disorder of adrenal gland (HCC) * * * * Physician Interpretation * * * * EXAMINATION: CT ABDOMEN / ADRENAL GLANDS WITHOUT IV CONTRAST CLINICAL HISTORY: Disorder of adrenal gland (HCC) TECHNIQUE: Thin section spiral imaging through the adrenal glands was performed without IV or oral contrast due to the clinical indication. This does limit the exam for some other diagnoses. MQ: CTAdWO_2 Contrast: IV: None Oral: None CT Radiation dose: Integrated dose-length product (DLP) for this visit = 246 mGy*cm. CT Dose Reduction Employed: Automated exposure control(AEC) and iterative recon COMPARISON: CT abdomen 11/17/2022. RESULT: Adrenal glands: Right adrenal gland: No nodules, masses or thickening. Left adrenal gland: Hypoattenuating thickening of the posteromedial limb in the left adrenal gland measures up to 1.0 cm, demonstrates hypoattenuation (-13 HU), no significant interval changes compared to 10/2022 characteristics that favor benign etiology such as adenoma. Abdomen: Liver: Unremarkable. Biliary System: Gallbladder is unremarkable. Spleen: No splenomegaly. Pancreas: No pancreatic duct dilation. Otherwise unremarkable. Kidneys: No stones or hydronephrosis. Stable 1.0 cm cyst in the superior left renal pole. Lymph Nodes: No abdominal lymphadenopathy. Mesentery/Peritoneum: No ascites or mass. GI Tract: Imaged segments are unremarkable. Vasculature: Atherosclerotic vascular calcifications, no aneurysm. Lower thorax and bones: No significant findings. Basket Assembler (topogram) images: No additional findings. DIVISION OF RADIOLOGY Provider, [facility] - 11/28/2024 * * *Final Report* * * DATE OF EXAM: Nov 28 2024 12:22PM [facility] 0536 - CT ADRENAL WO/W IVCON / PROCEDURE REASON: Disorder of adrenal gland (HCC) * * * * Physician Interpretation * * * * EXAMINATION: CT ABDOMEN / ADRENAL GLANDS WITHOUT IV CONTRAST CLINICAL HISTORY: Disorder of adrenal gland (HCC) TECHNIQUE: Thin section spiral imaging through the adrenal glands was performed without IV or oral contrast due to the clinical indication. This does limit the exam for some other diagnoses. MQ: CTAdWO_2 Contrast: IV: None Oral: None CT Radiation dose: Integrated dose-length product (DLP) for this visit = 246 mGy*cm. CT Dose Reduction Employed: Automated exposure control(AEC) and iterative recon COMPARISON: CT abdomen 11/17/2022. RESULT: Adrenal glands: Right adrenal gland: No nodules, masses or thickening. Left adrenal gland: Hypoattenuating thickening of the posteromedial limb in the left adrenal gland measures up to 1.0 cm, demonstrates hypoattenuation (-13 HU), no significant interval changes compared to 10/2022 characteristics that favor benign etiology such as adenoma. Abdomen: Liver: Unremarkable. Biliary System: Gallbladder is unremarkable. Spleen: No splenomegaly. Pancreas: No pancreatic duct dilation. Otherwise unremarkable. Kidneys: No stones or hydronephrosis. Stable 1.0 cm cyst in the superior left renal pole. Lymph Nodes: No abdominal lymphadenopathy. Mesentery/Peritoneum: No ascites or mass. GI Tract: Imaged segments are unremarkable. Vasculature: Atherosclerotic vascular calcifications, no aneurysm. Lower thorax and bones: No significant findings. Basket Assembler (topogram) images: No additional findings. IMPRESSION IMPRESSION: Stable nodular thickening of the left adrenal gland as noted on 10/2022 with hypoattenuation suggestive of adenoma. Personal Assistant: [facility] Transcribe Date/Time: Nov 28 2024 12:16P Dictated by : MILDRED LINDSAY MD This examination was interpreted and the report reviewed and electronically signed by: MILDRED LINDSAY MD on Nov 28 2024 1:16PM EST [facility] Radiology Study observation (narrative) [facility] CT Adrenal gland WO and W co ntrast IVOrdered By: Ccf Provider on 11-28-2024 [facility] Calcium.ionized [Moles/Vol]o n 11-28-2024 Calcium.ionized (Bld) [Mass/Vol] 1.46 mmol/L High 1.08-1.30 [facility] Comment on above: Order Comment: Speci men Type: BLOOD SPECIMEN Ordering Facility: [facility] Address: [address] [place] [address] Performed By: #### 1 995-0 #### [facility] CLIA [id number] [address] [place] [address] [place] [address] [place] Calcium.ionized adjusted to pH 7.4 (Bld) [Moles/Vol] 1.42 mmol/L High 1.08-1.30 [facility] Comment on above: Order Comment: Speci men Type: BLOOD SPECIMEN Ordering Facility: [facility] Address: [address] [id number] Performed By: #### 1 995-0 #### [facility] CLIA [id number] [address] [place], [place] [address] [place] [facility] Comprehensive metabolic 2000 panelon 11-28-2024 Albumin [Mass/Vol] 4.8 g/dL Normal 3.9-4.9 [facility] Comment on above: Order Comment: Speci men Type: BLOOD SPECIMEN Ordering Facility: [facility] Address: [address] [place], [place] [address] Performed By: #### 2 4331-1 #### [facility] CLIA [id number] [address] [place] [address] [place] [facility] [id number] [place] [address] [place] #### 3016-3, 273-8 #### [facility] CLIA [id number] [address] [place] [address] [place] ALP [Catalytic activity/Vol] 134 U/L High 34-123 [facility] Comment on above: Order Comment: Speci men Type: BLOOD SPECIMEN Ordering Facility: [facility] Address: [address] [place], [place] [address] Performed By: #### 2 4331-1 #### [facility] CLIA [id number] [address] [address] [place] [facility] CLIA [id number] [place] [address] [place] #### 3016-3, 273-8 #### [facility] CLIA [id number] [address] [place], [place] [address] [place] ALT [Catalytic activity/Vol] 14 U/L Normal 7-38 [facility] Comment on above: Order Comment: Speci men Type: BLOOD SPECIMEN Ordering Facility: [facility] Address: [address] [id number] Performed By: #### 2 4331-1 #### [facility] CLIA [id number] [address] [address] [place] [facility] CLIA [id number] [address] [place] [address] [place] #### 3016-3, 2731-8 #### [facility] CLIA [id number] [address] [place] [address] [place] Anion gap [Moles/Vol] 11 mmol/L Normal 8-15 [facility] Comment on above: Order Comment: Speci men Type: BLOOD SPECIMEN Ordering Facility: [facility] Address: [address] [place], [place] [address] Performed By: #### 2 4331-1 #### [facility] CLIA [id number] [address] [place] [address] [place] [facility] CLIA [id number] [address] [place] [address] [place] #### 3016-3, 273-8 #### [facility] CLIA [id number] [address] [place], [place] [address] [place] AST [Catalytic activity/Vol] 16 U/L Normal 13-35 [facility] Comment on above: Order Comment: Speci men Type: BLOOD SPECIMEN Ordering Facility: [facility] Address: [facility] [place] [id number] Performed By: #### 2 4331-1 #### [facility] CLIA [id number] [address] [address] [place] [facility] CLIA [id number] [address] [place] [address] [place] #### 3016-3, 2731-01 #### [facility] CLIA [id number] [address] [place] [address] [place] Bilirubin [Mass/Vol] 0.3 mg/dL Normal 0.2-1.3 [facility] Comment on above: Order Comment: Speci men Type: BLOOD SPECIMEN Ordering Facility: [facility] Address: [address] [place] [address] Performed By: #### 2 4331-1 #### [facility] CLIA [id number] [address] [place] [address] [place] [facility] CLIA [id number] [address] [place] [address] [place] #### 3016-3, 2731-01 #### [facility] CLIA [id number] [address] [place] [address] [place] Calcium [Mass/Vol] 11.2 mg/dL High 8.5-10.2 [facility] Comment on above: Order Comment: Speci men Type: BLOOD SPECIMEN Ordering Facility: [facility] Address: [address] [place] [address] Performed By: #### 2 4331-1 #### [facility] CLIA [id number] [address] [place] [address] [place] [facility] CLIA [id number] [address] [place] [address] [place] #### 3016-3, 27307-02 #### [facility] CLIA [id number] [address] [place] [address] [place] Chloride [Moles/Vol] 100 mmol/L Normal 98-107 [facility] Comment on above: Order Comment: Speci men Type: BLOOD SPECIMEN Ordering Facility: [facility] Address: [address] [place] [address] Performed By: #### 2 4331-1 #### [facility] CLIA [id number] [address] [address] [place] [facility] CLIA [id number] [address] [place] [address] [place] #### 3016-3, 2730-8 #### [facility] CLIA [id number] [address] [facility] [place] [id number] [place] CO2 [Moles/Vol] 21 mmol/L Low 22-30 [facility] Comment on above: Order Comment: Speci men Type: BLOOD SPECIMEN Ordering Facility: [facility] Address: [address] [id number] Performed By: #### 2 4331-1 #### [facility] CLIA [id number] [address] [address] [place] [facility] CLIA [id number] [address] [place] [address] [place] #### 3016-3, 2731-01 #### [facility] CLIA [id number] [address] [address] [place] Creatinine [Mass/Vol] 0.59 mg/dL Normal 0.58-0.96 [facility] Comment on above: Order Comment: Speci men Type: BLOOD SPECIMEN Ordering Facility: [facility] Address: [address] [place] [address] Performed By: #### 2 4331-1 #### [facility] CLIA [id number] [address] [facility] [place] [id number] [place] [facility] CLIA [id number] [address] [place] [address] [place] #### 3016-3, 273-8 #### [facility] CLIA [id number] [facility] [place] [id number] [facility] Creatinine and Glomerular filtration rate.predicted panel (S/P/Bld) 101 mL/min/1.73m??? Normal >=60 [facility] Comment on above: Order Comment: Manjinder leyva Type: BLOOD SPECIMEN Ordering Facility: [facility] Address: [address] [place] [address] Result Comment: Jaz mated Glomerular Filtration Rate [...] reflect actual GFR. Performed By: #### 2 4331-1 #### [facility] CLIA [id number] [address] [place] [address] [place] [facility] CLIA [id number] [address] [place] #### 3016-3, 2738 #### [facility] CLIA [id number] [address] [place] [address] [place] Glucose [Mass/Vol] 94 mg/dL Normal 74-99 [facility] Comment on above: Order Comment: Manjinder leyva Type: BLOOD SPECIMEN Ordering Facility: [facility] Address: [address] [place] [address] Result Comment: The [place] Diabetes Association (ADA) provides guidance for cutoff [...] Standards of Medical Care in Diabetes 2016, [place] [employer]. Diabetes Care. 2016.39(Suppl 1). Performed By: #### 2 4331-1 #### [facility] CLIA [id number] [address] [place] [address] [place] [id number] [place] [address] [place] #### 3016-3, 273-8 #### [facility] CLIA [id number] [address] [place] [address] [place] Potassium [Moles/Vol] 4.4 mmol/L Normal 3.7-5.1 [facility] Comment on above: Order Comment: Speci men Type: BLOOD SPECIMEN Ordering Facility: [facility] Address: [address] [place] [address] Performed By: #### 2 4331-1 #### [facility] CLIA [id number] [address] [place] [address] [place] [facility] [id number] [address] [place] [address] [place] #### 3016-3, 2731-01 #### [facility] CLIA [id number] [address] [place], [place] [address] [place] Protein [Mass/Vol] 7.4 g/dL Normal 6.3-8.0 [facility] Comment on above: Order Comment: Speci men Type: BLOOD SPECIMEN Ordering Facility: [facility] Address: [address] [place], [place] [address] Performed By: #### 2 4331-1 #### [facility] CLIA [id number] [address] [place], [place] [address] [place] [facility] CLIA [id number] [address] [place] [address] [place] #### 3016-3, 8 #### [facility] CLIA [id number] [address] [address] [place] Sodium [Moles/Vol] 132 mmol/L Low 136-144 [facility] Comment on above: Order Comment: Speci men Type: BLOOD SPECIMEN Ordering Facility: [facility] Address: [address] [place] [address] Performed By: #### 2 4331-1 #### [facility] CLIA [id number] [address] [place], [place] [address] [place] [facility] CLIA [id number] [address] [place] [address] [place] #### 3016-3, 2731-01 #### [facility] CLIA [id number] [address] [place], [place] [address] [place] Urea nitrogen [Mass/Vol] 9 mg/dL Normal 7-21 [facility] Comment on above: Order Comment: Speci men Type: BLOOD SPECIMEN Ordering Facility: [facility] Address: [address] [place] [address] Performed By: #### 2 4331-1 #### [facility] CLIA [id number] [address] [place] [address] [place] [facility] CLIA [id number] [address] [place] [address] [place] #### 3016-3, 2731-01 #### [facility] CLIA [id number] [address] [place] [address] [place] US THYROID/PARATHYROIDon US THYROID/PARATHYROID * * *Final Report* * * DATE OF EXAM: Nov 28 2024 11:57AM [facility] 1048 - US THYROID/PARATHYROID / PROCEDURE REASON: multiple diagnoses * * * * Physician Interpretation * * * * EXAMINATION: THYROID ULTRASOUND CLINICAL HISTORY: Nontoxic multinodular goiter Hyperparathyroidism (HCC) TECHNIQUE: Sonography and Doppler imaging of the thyroid was performed. Images were obtained and stored in a permanent archive. MQ: UST_1 COMPARISON: 05/09/2024. RESULT: Right Lobe: 5.0 cm x 1.2 cm x 2.0 cm; homogeneous echogenicity, expected vascular flow. Left Lobe: 4.2 cm x 1.2 cm x 1.6 cm; homogeneous echogenicity, expected vascular flow. Isthmus: 0.2 cm The most suspicious thyroid nodule(s) (up to four) as below: NODULE 1: Location: Right mid Size: 1.4 x 0.9 x 1.3 cm Characteristics: Composition: Mixed cystic and solid, 1 point Echogenicity: Hypoechoic, 2 points Shape: Aeyyn-hqvz-iuaz, 0 points Margin: Smooth, 0 points Echogenic foci (add points for all that apply): Large comet tail artifacts in cysts, 0 points Internal vascularity: absent Interval growth: No significant growth given differences in technique TI-RADS Category: TR3 ACR Recommendation: TI-RADS 3 nodule. No FNA or further imaging is advised. NODULE 2: Location: Right mid/lower pole Size: 1.4 x 0.9 x 1.3 cm Characteristics: Composition: Solid or almost completely solid, 2 points Echogenicity: Hypoechoic, 2 points Shape: Waotv-lcjn-cscr, 0 points Margin: Smooth, 0 points Echogenic foci (add points for all that apply): Punctate echogenic foci, 3 points Macrocalcifications, 1 point Internal vascularity: present Interval growth: No significant growth given differences in technique TI-RADS Category: TR5 ACR Recommendation: TI-RADS 4 nodule. FNA is recommended. NODULE 3: Location: Left mid/upper pole Size: 1.6 x 0.8 x 1 cm Characteristics: Composition: Solid or almost completely solid, 2 points Echogenicity: Hypoechoic, 2 points Shape: Hnbhj-qnje-mjnk, 0 points Margin: Smooth, 0 points Echogenic foci (add points for all that apply): Large comet tail artifacts in cysts, 0 points Internal vascularity: present Interval growth: No significant growth given differences in technique TI-RADS Category: TR4 ACR Recommendation: TI-RADS 4 nodule. FNA is recommended. IMPRESSION: Thyroid nodule(s) is/are present. Fine needle aspiration is recommended if not previously performed. TI-RADS Category: TR5 ACR Recommendation: TI-RADS 5 nodule. FNA is advised. ACR recommendations are strictly based on the size and imaging appearance at the time of the exam and do not consider stability or previous biopsy results. Personal Assistant: PSCB Transcribe Date/Time: Dec 01 2024 7:26P Dictated by : SHARLENE PAEZ MD This examination was interpreted and the report reviewed and electronically signed by: SHARLENE PAEZ MD on Dec 01 2024 7:29PM EST [id number] Normal [facility] 25-hydroxyvitamin D3 [Mass/V ol]on 11-12-2024 Interpretation and review of laboratory results Normal [facility] The reference range interval was based on an analysis of samples from healthy adults and may not pertain to children from 0-18 years old. [facility] PTH INTACTon 11-12-2024 Parathyrin.intact [Mass/Vol] 65 pg/mL 15 - 65 pg/mL [facility] Parathyrin.intact [Mass/Vol] on 11-12-2024 Interpretation and review of laboratory results Normal [facility] THYROID STIMULATING HORMONEo n 11-12-2024 TSH Qn 1.26 m[IU]/L [facility] TSH Qnon 11-12-2024 Interpretation and review of laboratory results Normal [facility] VITAMIN D 25 HYDROXYon 11-12 25-hydroxyvitamin D3 [Mass/Vol] 41.1 ng/mL 31.0 - 80.0 ng/mL [facility] Comment on above: Classification of 25 [place] Vitamin D status: Deficiency/Insufficiency: < or = 30 ng/ml. Sufficiency/Optimal Levels: 31-80 ng/mL Toxicity: > 100 ng/mL. Test performed by chemiluminescent immunoassay. 25(OH)D3 SerPl-mCncon 2024 25-hydroxyvitamin D3 [Mass/Vol] 41.1 ng/mL Normal 31.0-80.0 [facility] Comment on above: Order Comment: Speci men Type: BLOOD SPECIMEN Ordering Facility: [facility] Address: [address] [place] [address] Result Comment: Clas sification of 25 [place] Vitamin D status: Deficiency/Insufficiency: < or = 30 ng/ml. Sufficiency/Optimal Levels: 31-80 ng/mL Toxicity: > 100 ng/mL. Test performed by chemiluminescent immunoassay. Performed By: #### 1 989-3 #### [facility] CLIA [id number] [address] [place] [address] [place] CBC W Auto Differential pane l (Bld)on 11-11-2024 Basophils (Bld) [#/Vol] 0.04 10*3/uL Normal <0.11 [facility] Comment on above: Order Comment: Speci men Type: BLOOD SPECIMEN Ordering Facility[facility] Address: [address] [place] [address] Performed By: #### 2 4331-1 #### [facility] CLIA [id number] [address] [place] [address] [place] [facility] CLIA [id number] [address] [place] [address] [place] #### 3016-3, 2738 #### [facility] CLIA [id number] [address] [place] [address] [place] Basophils/100 WBC (Bld) 0.5 % Normal [facility] Comment on above: Order Comment: Speci men Type: BLOOD SPECIMEN Ordering Facility: [facility] Address: [address] [place], [place] [address] Performed By: #### 2 4331-1 #### [facility] CLIA [id number] [address] [place], [place] [address] [place] [facility] CLIA [id number] [address] [place] [address] [place] #### 3016-3, 2731-01 #### [facility] CLIA [id number] [address] [place] [address] [place] Differential cell count method Nom (Bld) Auto Normal [facility] Comment on above: Order Comment: Speci men Type: BLOOD SPECIMEN Ordering Facility: [facility] Address: [address] [place] [address] Performed By: #### 2 4331-1 #### [facility] CLIA [id number] [address] [place] [address] [place] [facility] CLIA [id number] [place] [address] [place] #### 3016-3, 2731-01 #### [facility] CLIA [id number] [address] [place] [address] [place] Eosinophils (Bld) [#/Vol] 0.05 10*3/uL Normal <0.46 [facility] Comment on above: Order Comment: Speci men Type: BLOOD SPECIMEN Ordering Facility: [facility] Address: [address] [place] [address] Performed By: #### 2 4331-1 #### [facility] CLIA [id number] [address] [place] [address] [place] [facility] CLIA [id number] [place] [address] [place] #### 3016-3, 2731-01 #### [facility] CLIA [id number] [address] [place] [address] [place] Eosinophils/100 WBC (Bld) 0.6 % Normal [facility] Comment on above: Order Comment: Speci men Type: BLOOD SPECIMEN Ordering Facility: [facility] Address: [address] [place] [address] Performed By: #### 2 4331-1 #### [facility] CLIA [id number] [address] [place] [address] [place] [facility] CLIA [id number] [address] [place] [address] [place] #### 3016-3, 8 #### [facility] CLIA [id number] [address] [place] [address] [place] Erythrocyte distribution width (RBC) [Ratio] 15.7 % High 11.5-15.0 [facility] Comment on above: Order Comment: Speci men Type: BLOOD SPECIMEN Ordering Facility: [facility] Address: [address] [place] [address] Performed By: #### 2 4331-1 #### [facility] CLIA [id number] [address] [place] [address] [place] [facility] CLIA [id number] [address] [place] [address] [place] #### 3016-3, 2731-01 #### [facility] CLIA [id number] [address] [place] [address] [place] Hematocrit (Bld) [Volume fraction] 43.4 % Normal 36.0-46.0 [facility] Comment on above: Order Comment: Speci men Type: BLOOD SPECIMEN Ordering Facility: [facility] Address: [address] [place] [address] Performed By: #### 2 4331-1 #### [facility] CLIA [id number] [address] [place] [address] [place] [facility] CLIA [id number] [address] [place] [address] [place] #### 3016-3, 8 #### [facility] CLIA [id number] [address] [place] [address] [place] Hemoglobin (Bld) [Mass/Vol] 14.4 g/dL Normal 11.5-15.5 [facility] Comment on above: Order Comment: Speci men Type: BLOOD SPECIMEN Ordering Facility: [facility] Address: [address] [place] [address] Performed By: #### 2 4331-1 #### [facility] CLIA [id number] [address] [place] [address] [place] [facility] CLIA [id number] [address] [place] [address] [place] #### 3016-3, 8 #### [facility] CLIA [id number] [address] [place] [address] [place] Immature granulocytes (Bld) [#/Vol] 0.03 10*3/uL Normal <0.10 [facility] Comment on above: Order Comment: Speci men Type: BLOOD SPECIMEN Ordering Facility: [facility] Address: [address] [place] [address] Performed By: #### 2 4331-1 #### [facility] CLIA [id number] [address] [place] [address] [place] [facility] CLIA [id number] [address] [place] [address] [place] #### 3016-3, 2738 #### [facility] CLIA [id number] [address] [place] [address] [place] Immature granulocytes/100 WBC (Bld) 0.4 % Normal [facility] Comment on above: Order Comment: Speci men Type: BLOOD SPECIMEN Ordering Facility: [facility] Address: [address] [place], [place] [address] Performed By: #### 2 4331-1 #### [facility] CLIA [id number] [address] [place] [address] [place] [facility] CLIA [id number] [address] [place] [address] [place] #### 3016-3, 8 #### [facility] CLIA [id number] [address] [place] [address] [place] Lymphocytes (Bld) [#/Vol] 2.34 10*3/uL Normal 1.00-4.00 [facility] Comment on above: Order Comment: Speci men Type: BLOOD SPECIMEN Ordering Facility: [facility] Address: [address] [place] [address] Performed By: #### 2 4331-1 #### [facility] CLIA [id number] [address] [place] [address] [place] [facility] CLIA [id number] [address] [place] [address] [place] #### 3016-3, 2731-01 #### [facility] CLIA [id number] [address] [place] [address] [place] Lymphocytes/100 WBC (Bld) 29.4 % Normal [facility] Comment on above: Order Comment: Speci men Type: BLOOD SPECIMEN Ordering Facility: [facility] Address: [address] [place] [address] Performed By: #### 2 4331-1 #### [facility] CLIA [id number] [address] [place] [address] [place] [facility] CLIA [id number] [address] [place] [address] [place] #### 3016-3, 2730-8 #### [facility] CLIA [id number] [address] [place] [address] [place] MCH (RBC) [Entitic mass] 28.3 pg Normal 26.0-34.0 [facility] Comment on above: Order Comment: Speci men Type: BLOOD SPECIMEN Ordering Facility: [facility] Address: [address] [place] [address] Performed By: #### 2 4331-1 #### [facility] CLIA [id number] [address] [place] [address] [place] [facility] CLIA [id number] [address] [place] [address] [place] #### 3016-3, 27307-02 #### [facility] CLIA [id number] [address] [place] [address] [place] MCHC (RBC) [Mass/Vol] 33.2 g/dL Normal 30.5-36.0 [facility] Comment on above: Order Comment: Speci men Type: BLOOD SPECIMEN Ordering Facility: [facility] Address: [address] [place], [place] [address] Performed By: #### 2 4331-1 #### [facility] CLIA [id number] [address] [place] [address] [place] [facility] CLIA [id number] [address] [place] [address] [place] #### 3016-3, 27307-02 #### [facility] CLIA [id number] [address] [place], [place] [address] [place] MCV (RBC) [Entitic vol] 85.4 fL Normal 80.0-100.0 [facility] Comment on above: Order Comment: Speci men Type: BLOOD SPECIMEN Ordering Facility: [facility] Address: [address] [place], [place] [address] Performed By: #### 2 4331-1 #### [facility] CLIA [id number] [address] [place] [address] [place] [facility] CLIA [id number] [address] [place] [address] [place] #### 3016-3, 273-8 #### [facility] CLIA [id number] [address] [place] [address] [place] Monocytes (Bld) [#/Vol] 0.58 10*3/uL Normal <0.87 [facility] Comment on above: Order Comment: Speci men Type: BLOOD SPECIMEN Ordering Facility: [facility] Address: [address] [place] [address] Performed By: #### 2 4331-1 #### [facility] CLIA [id number] [address] [place] [address] [place] [facility] [id number] [address] [place] [address] [place] #### 3016-3, 2731-01 #### [facility] CLIA [id number] [address] [place] [address] [place] Monocytes/100 WBC (Bld) 7.3 % Normal [facility] Comment on above: Order Comment: Speci men Type: BLOOD SPECIMEN Ordering Facility: [facility] Address: [address] [place] [address] Performed By: #### 2 4331-1 #### [facility] CLIA [id number] [address] [place] [address] [place] [facility] CLIA [id number] [address] [place] [address] [place] #### 3016-3, 273-8 #### [facility] CLIA [id number] [address] [place] [address] [place] Neutrophils (Bld) [#/Vol] 4.92 10*3/uL Normal 1.45-7.50 [facility] Comment on above: Order Comment: Speci men Type: BLOOD SPECIMEN Ordering Facility: [facility] Address: [address] [place] [address] Performed By: #### 2 4331-1 #### [facility] CLIA [id number] [address] [place] [address] [place] [facility] CLIA [id number] [address] [place] [address] [place] #### 3016-3, 27307-02 #### [facility] CLIA [id number] [address] [place] [address] [place] Neutrophils/100 WBC (Bld) 61.8 % Normal [facility] Comment on above: Order Comment: Speci men Type: BLOOD SPECIMEN Ordering Facility: [facility] Address: [address] [place] [address] Performed By: #### 2 4331-1 #### [facility] CLIA [id number] [address] [place] [address] [place] [facility] CLIA [id number] [address] [place] [address] [place] #### 3016-3, 2731-01 #### [facility] CLIA [id number] [address] [place] [address] [place] Nucleated RBC (Bld) [#/Vol] 10*3/uL Normal <0.01 [facility] Comment on above: Order Comment: Speci men Type: BLOOD SPECIMEN Ordering Facility: [facility] Address: [address] [place], [place] [address] Performed By: #### 2 4331-1 #### [facility] CLIA [id number] [address] [place] [address] [place] [facility] CLIA [id number] [address] [place] [address] [place] #### 3016-3, 2731-01 #### [facility] CLIA [id number] [facility] [place] [address] [place] Nucleated RBC/100 WBC (Bld) [Ratio] 0.0 /100 WBC Normal [facility] Comment on above: Order Comment: Speci men Type: BLOOD SPECIMEN Ordering Facility: [facility] Address: [address] [place] [address] Performed By: #### 2 4331-1 #### [facility] CLIA [id number] [address] [place] [address] [place] [facility] [id number] [place] [address] [place] #### 3016-3, 2731-01 #### [facility] CLIA [id number] [address] [place] [address] [place] Platelet mean volume (Bld) [Entitic vol] 10.0 fL Normal 9.0-12.7 [facility] Comment on above: Order Comment: Speci men Type: BLOOD SPECIMEN Ordering Facility: [facility] Address: [address] [place] [address] Performed By: #### 2 4331-1 #### [facility] CLIA [id number] [address] [place], [place] [address] [place] [facility] CLIA [id number] [address] [place] [address] [place] #### 3016-3, 2731-01 #### [facility] CLIA [id number] [address] [place], [place] [address] [place] Platelets (Bld) [#/Vol] 347 10*3/uL Normal 150-400 [facility] Comment on above: Order Comment: Speci men Type: BLOOD SPECIMEN Ordering Facility: [facility] Address: [address] [place] [address] Performed By: #### 2 4331-1 #### [facility] CLIA [id number] [address] [place] [address] [place] [facility] CLIA [id number] [address] [place] [address] [place] #### 3016-3, 273-8 #### [facility] CLIA [id number] [address] [place] [address] [place] RBC (Bld) [#/Vol] 5.08 10*6/uL Normal 3.90-5.20 [facility] Comment on above: Order Comment: Speci men Type: BLOOD SPECIMEN Ordering Facility: [facility] Address: [address] [place] [address] Performed By: #### 2 4331-1 #### [facility] CLIA [id number] [address] [place] [address] [place] [facility] CLIA [id number] [address] [place] [address] [place] #### 3016-3, 273-8 #### [facility] CLIA [id number] [address] [place] [address] [place] WBC (Bld) [#/Vol] 7.96 10*3/uL Normal 3.70-11.00 [facility] Comment on above: Order Comment: Speci men Type: BLOOD SPECIMEN Ordering Facility: [facility] Address: [address] [place] [address] Performed By: #### 2 4331-1 #### [facility] CLIA [id number] [address] [place] [address] [facility] CLIA [id number] [address] [place] #### 3016-3, 2731-8 #### [facility] CLIA [id number] [address] [place] [address] [facility] CNOVon 11-11-2024 CNOV Office Visit (ENWSTR ) -------- LATISHA STONE ([id number]) 1960 F Date Time Provider Department 11/11/24 12:00 PM EMERY CANTU ENWSTR During your visit today, we recorded the following information about you: Temperature Pulse Respiration Weight 98.6 degrees 90/minute 12/minute 62.1 kg Emery Cantu MD 11/16/2024 10:23 PM Signed Endocrinology [facility] Metabolism [place] Follow-up visit note Chief Complaint: Hyperparathyroidism History of Present Illness: Latisha Stone is a 64 year old old female with cutaneous lupus erythematosus presenting for follow up of hypercalcemia secondary to primary hyperparathyroidism, multinodular goiter, left adrenal nodule. 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 LV 07/[address] 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 [employer] She initially presented on 06/15/2023 for hypercalcemia [...] urine labs yet, due to work. She reportedly had parathyroid scan done in Jul 2019 [...] Normal BP and hence aldosterone was not done. No concerns for Pheo Multinodular goiter: And on examination on the last visit, thyroid nodules were felt and US thyroid was recommended which showed 3 nodules, and she was recommended FNAB based on review of images. She was lost to follow up for more than one year due to alcohol abuse and suicidal ideation leading to hospitalization, and presenting today for rest of the work up PAST MEDICAL HISTORY Diagnosis Date ALLERGY ENVIRONMENTAL [...] History Tobacco Use Smoking status: Every Day Current packs/day: 1.00 Average packs/day: 1 pack/day for 30.0 years (30.0 ttl pk-yrs) Types: Cigarettes Smokeless tobacco: Former Vaping Use Vaping status: Never Used Substance Use Topics Alcohol use: Yes Comment: SOCIAL APPROX. 2 DRINKS PER WEEK Drug use: No Current Outpatient Medications Medication Sig multivit with minerals/lutein (MULTIVITAMIN 50 PLUS ORAL) Take by mouth. calcium phosphate dibas/vit D3 (VITAMIN D, WITH CALCIUM, ORAL) Take by mouth. ketotifen fumarate (ALAWAY) 0.025 % (0.035 (more content not included)... Normal [facility] HbA1c (Bld)on 11-11-2024 Average glucose Estimated from glycated hemoglobin (Bld) [Mass/Vol] 120 mg/dL Normal [facility] Comment on above: Order Comment: Manjinder leyva Type: BLOOD SPECIMEN Ordering Facility: [facility] Address: [address] [place] [address] Result Comment: eAG: (Estimated average glucose) is a calculated value from HgbA1c and is call center support representative of the average blood glucose level in the last 2-3 month period. Performed By: #### 2 4331-1 #### [facility] CLIA [id number] [address] [place] [address] [place] [facility] CLIA [id number] [address] [place] [address] [place] #### 3016-3, 2731-8 #### [facility] CLIA [id number] [address] [place] [address] [place] HbA1c (Bld) [Mass fraction] 5.8 % High 4.3-5.6 [facility] Comment on above: Order Comment: Manjinder leyva Type: BLOOD SPECIMEN Ordering Facility: [facility] Address: [address] [place] [address] Result Comment: Amer ican Diabetes Association guidelines indicate that patients with HgbA1c in the range 5.7-6.4% are at increased risk for development of diabetes, and intervention by lifestyle modification may be beneficial. HgbA1c greater or equal to 6.5% is considered diagnostic of diabetes. Performed By: #### 2 4331-1 #### [facility] CLIA [id number] [address] [place] [address] [place] [facility] CLIA [id number] [address] [place] [address] [place] #### 3016-3, 2731-01 #### [facility] CLIA [id number] [address] [place], [place] [address] [place] Lipid 1996 panelon 5 Cholesterol [Mass/Vol] 184 mg/dL Normal <200 [facility] Comment on above: Order Comment: Manjinder leyva Type: BLOOD SPECIMEN Ordering Facility: [facility] Address: [address] [place] [address] Result Comment: <200 mg/dL, Desirable 200-239 mg/dL, Borderline high >239 mg/dL, High Performed By: #### 2 4331-1 #### [facility] CLIA [id number] [address] [place] [address] [place] [facility] CLIA [id number] [address] [place] [address] [place] #### 3016-3, 2731-01 #### [facility] CLIA [id number] [address] [place] [address] [place] Cholesterol in HDL [Mass/Vol] 63 mg/dL Normal >39 [facility] Comment on above: Order Comment: Manjinder leyva Type: BLOOD SPECIMEN Ordering Facility: [facility] Address: [address] [facility] , [place] [address] Result Comment: 40-5 9 mg/dL, Acceptable >59 mg/dL, High: Negative risk factor for coronary heart disease <40 mg/dL, Low: Positive risk factor for coronary heart disease Performed By: #### 2 4331-1 #### [facility] CLIA [id number] [address] [place] [address] [place] [facility] CLIA [id number] [address] [place] [address] [place] #### 3016-3, 27307-02 #### [facility] CLIA [id number] [address] [place] [address] [place] Cholesterol in LDL [Mass/Vol] 105 mg/dL High <100 [facility] Comment on above: Order Comment: Speci men Type: BLOOD SPECIMEN Ordering Facility: [facility] Address: [facility] [address] [facility] , [place] [address] Result Comment: <100 mg/dL, Optimal 100-129 mg/dL, Near optimal/above optimal 130-159 mg/dL, Borderline high 160-189 mg/dL, High >189 mg/dL, Very high Secondary prevention optimal LDL Cholesterol levels are recommended to be <70 mg/dL LDL cholesterol is calculated using the Busch-NIH equation. Performed By: #### 2 4331-1 #### [facility] CLIA [id number] [address] [place] [address] [place] [facility] CLIA [id number] [address] [place] [address] [place] #### 3016-3, 27307-02 #### [facility] CLIA [id number] [address] [place] [address] [place] Cholesterol in LDL/Cholesterol in HDL [Mass ratio] 1.67 {ratio} Normal <2.54 [facility] Comment on above: Order Comment: Speci men Type: BLOOD SPECIMEN Ordering Facility: [facility] Address: [address] [place] [address] Result Comment: Fany aquino: 1. National Cholesterol Education Program ATP III Guideline At-A-Glance Quick Desk Reference: National Heart, Lung, and Blood [place]. National Institutes of Health. 2001: NIH Publication No. 01-3305. 2. An International Atherosclerosis Society position paper: global recommendations for the management of dyslipidemia: executive summary, Atherosclerosis. 2014: 232(2):410-413. Performed By: #### 2 4331-1 #### [facility] CLIA [id number] [address] [place] [address] [place] [facility] [id number] [address] [place] [address] [place] #### 3016-3, 273-8 #### [facility] CLIA [id number] [address] [place] [address] [place] Cholesterol in VLDL [Mass/Vol] 14 mg/dL Normal <30 [facility] Comment on above: Order Comment: Manjinder leyva Type: BLOOD SPECIMEN Ordering Facility: [facility] Address: [address] [place] [address] Performed By: #### 2 4331-1 #### [facility] CLIA [id number] [address] [place] [address] [place] [facility] [id number] [address] [place] [address] [place] #### 3016-3, 2730-8 #### [facility] CLIA [id number] [address] [address] [place] Cholesterol non HDL [Mass/Vol] 121 mg/dL Normal <130 [facility] Comment on above: Order Comment: Manjinder men Type: BLOOD SPECIMEN Ordering Facility: [facility] Address: [address], [place] [address] Result Comment: <130 mg/dL, Optimal 130-159 mg/dL, Near optimal/above optimal 160-189 mg/dL, Borderline high 190-219 mg/dL, High >219 mg/dL, Very high Secondary prevention optimal non HDL Cholesterol levels are recommended to be <100 mg/dL Performed By: #### 2 4331-1 #### [facility] CLIA [id number] [address] [place] [address] [place] [facility] CLIA [id number] [address] [place] [address] [place] #### 3016-3, 2731-01 #### [facility] CLIA [id number] [address] [place] [address] [place] Cholesterol.total/Ch olesterol in HDL [Mass ratio] 2.92 {ratio} Normal <5.10 [facility] Comment on above: Order Comment: Speci men Type: BLOOD SPECIMEN Ordering Facility: [facility] Address: [address], [place] [address] Performed By: #### 2 4331-1 #### [facility] CLIA [id number] [address] [place] [address] [place] [facility] CLIA [id number] [address] [place] [address] [place] #### 3016-3, 2731-01 #### [facility] CLIA [id number] [address] [place] [id number] [place] FASTING TIME 12 hrs Normal [facility] Comment on above: Order Comment: Speci men Type: BLOOD SPECIMEN Ordering Facility: [facility] Address: [address], [place] [address] Performed By: #### 2 4331-1 #### [facility] CLIA [id number] [address] [place] [id number] [place] [facility] CLIA [id number] [address] [place] [address] [place] #### 3016-3, 273-8 #### [facility] CLIA [id number] [address] [place] [address] [place] Triglyceride [Mass/Vol] 86 mg/dL Normal <150 [facility] Comment on above: Order Comment: Speci men Type: BLOOD SPECIMEN Ordering Facility: [facility] Address: [address] [address] Result Comment: <150 mg/dL, Normal 150-199 mg/dL, Borderline high 200-499 mg/dL, High >499 mg/dL, Very high Performed By: #### 2 4331-1 #### [facility] CLIA [id number] [address] [place] [address] [place] [facility] CLIA [id number] [address] [place] [address] [place] #### 3016-3, 2731-01 #### [facility] CLIA [id number] [address] [place] [address] [place] MAGNESIUMOrdered By: Risa rick on 11-11-2024 Magnesium [Mass/Vol] 2.2 mg/dL 1.7 - 2 .3 mg/dL [facility] Magnesium SerPl-mCncon 11-11 Magnesium [Mass/Vol] 2.2 mg/dL Normal 1.7-2.3 [facility] Comment on above: Order Comment: Speci men Type: BLOOD SPECIMEN Ordering Facility: [facility] Address: [address] [id number] Performed By: #### 2 4331-1 #### [facility] CLIA [id number] [address] [place] [address] [place] [facility] CLIA [id number] [address] [place] [address] [place] #### 3016-3, 273-8 #### [facility] CLIA [id number] [facility] [address] [address] [place] No Panel InformationOrdered By: Risa Martinez on 11-11-2024 Interpretation and review of laboratory results Normal [facility] PHOSPHORUS INORGANICon 11-11 Phosphate [Mass/Vol] 3.1 mg/dL 2.7 - 4 .8 mg/dL [facility] PTH-Intact SerPl-mCncon 10-24 Parathyrin.intact [Mass/Vol] 65 pg/mL Normal 15-65 [facility] Comment on above: Order Comment: Speci men Type: BLOOD SPECIMEN Ordering Facility: [facility] Address: [address] [place], [place] [address] Performed By: #### 2 4331-1 #### [facility] CLIA [id number] [address] [place] [address] [place] [facility] CLIA [id number] [address] [place] [address] [place] #### 3016-3, 2730-8 #### [facility] CLIA [id number] [address] [place], [place] [address] [place] Phosphate SerPl-mCncon 11-11 Phosphate [Mass/Vol] 3.1 mg/dL Normal 2.7-4.8 [facility] Comment on above: Order Comment: Speci men Type: BLOOD SPECIMEN Ordering Facility: [facility] Address: [address] [place], [place] [address] Performed By: #### 2 4331-1 #### [facility] CLIA [id number] [address] [place] [address] [place] [facility] CLIA [id number] [address] [place] [address] [place] #### 3016-3, 273-8 #### [facility] CLIA [id number] [address] [place] [address] [place] TSH SerPl-aCncon 11-11-2024 TSH Qn 1.260 m[IU]/L Normal 0.270-4.200 [facility] Comment on above: Order Comment: Speci men Type: BLOOD SPECIMEN Ordering Facility: [facility] Address: [address] [place] [address] Performed By: #### 2 4331-1 #### [facility] CLIA [id number] [address] [place] [address] [place] [facility] [id number] [address] [place] [address] [place] #### 3016-3, 2731-01 #### [facility] CLIA [id number] [address] [place] [address] [place] URINALYSIS, REFLEX MICROSCOP ICon 11-11-2024 Bilirubin Ql (U) Negative Normal Negative [facility] Comment on above: Order Comment: Speci men Type: BLOOD SPECIMEN Ordering Facility: [facility] Address: [address] [place] [address] Performed By: #### 2 4331-1 #### [facility] CLIA [id number] [address] [place] [address] [place] [facility] CLIA [id number] [address] [place] [address] [place] #### 3016-3, 273- #### [facility] CLIA [id number] [address] [place] [address] [place] Clarity (Unsp spec) Clear Normal Clear [facility] Comment on above: Order Comment: Speci men Type: BLOOD SPECIMEN Ordering Facility: [facility] Address: [address] [place], [place] [address] Performed By: #### 2 4331-1 #### [facility] CLIA [id number] [address] [address] [place] [facility] CLIA [id number] [address] [place] [address] [place] #### 3016-3, 273-8 #### [facility] CLIA [id number] [address] [place], [place] [address] [place] Color (U) Yellow Normal Yellow [facility] Comment on above: Order Comment: Speci men Type: BLOOD SPECIMEN Ordering Facility: [facility] Address: [address] [place] [address] Performed By: #### 2 4331-1 #### [facility] CLIA [id number] [address] [place], [place] [address] [place] [facility] CLIA [id number] [address] [place] [address] [place] #### 3016-3, 273-8 #### [facility] CLIA [id number] [address] [place] [address] [place] Glucose Test strip (U) [Mass/Vol] Negative Normal Negative [facility] Comment on above: Order Comment: Speci men Type: BLOOD SPECIMEN Ordering Facility: [facility] Address: [address] [place], [place] [address] Performed By: #### 2 4331-1 #### [facility] CLIA [id number] [address] [place] [address] [place] [facility] CLIA [id number] [address] [place] [address] [place] #### 3016-3, 2730-8 #### [facility] CLIA [id number] [address] [place] [address] [place] Hemoglobin Ql (U) Negative Normal Negative [facility] Comment on above: Order Comment: Speci men Type: BLOOD SPECIMEN Ordering Facility: [facility] Address: [address] [place] [address] Performed By: #### 2 4331-1 #### [facility] CLIA [id number] [address] [place] [address] [place] [facility] CLIA [id number] [address] [place] [address] [place] #### 3016-3, 8 #### [facility] CLIA [id number] [address] [place] [address] [place] Ketones Ql (U) Negative Normal Negative [facility] Comment on above: Order Comment: Speci men Type: BLOOD SPECIMEN Ordering Facility: [facility] Address: [address] [place] [address] Performed By: #### 2 4331-1 #### [facility] CLIA [id number] [address] [place] [address] [place] [facility] CLIA [id number] [address] [place] [address] [place] #### 3016-3, 8 #### [facility] CLIA [id number] [address] [place], [place] [address] [place] Leukocyte esterase Test strip Ql (U) Negative Normal Negative [facility] Comment on above: Order Comment: Speci men Type: BLOOD SPECIMEN Ordering Facility: [facility] Address: [address] [place] [address] Performed By: #### 2 4331-1 #### [facility] CLIA [id number] [facility] [address] [address] [place] [facility] CLIA [id number] [address] [place] [address] [place] #### 3016-3, 273-8 #### [facility] CLIA [id number] [address] [place] [address] [place] Nitrite Ql (U) Negative Normal Negative [facility] Comment on above: Order Comment: Speci men Type: BLOOD SPECIMEN Ordering Facility: [facility] Address: [address] [place] [address] Performed By: #### 2 4331-1 #### [facility] CLIA [id number] [address] [place] [address] [place] [id number] [place] [address] [place] #### 3016-3, 8 #### [facility] CLIA [id number] [address] [place] [address] [place] pH (U) 6.5 [pH] Normal <8.5 [facility] Comment on above: Order Comment: Speci men Type: BLOOD SPECIMEN Ordering Facility: [facility] Address: [address] [place] [address] Performed By: #### 2 4331-1 #### [facility] CLIA [id number] [address] [place], [place] [address] [place] [id number] [place] [address] [place] #### 3016-3, 273-8 #### [facility] CLIA [id number] [address] [place] [address] [place] Protein (U) [Mass/Vol] Negative Normal Negative [facility] Comment on above: Order Comment: Speci men Type: BLOOD SPECIMEN Ordering Facility: [facility] Address: [address] [place] [address] Performed By: #### 2 4331-1 #### [facility] CLIA [id number] [address] [place] [address] [place] [facility] CLIA [id number] [address] [place] [address] [place] #### 3016-3, 8 #### [facility] CLIA [id number] [address] [place] [address] [place] Specific gravity (U) [Rel density] 1.004 Low 1.005-1.030 [facility] Comment on above: Order Comment: Speci men Type: BLOOD SPECIMEN Ordering Facility: [facility] Address: [address] [place] [address] Performed By: #### 2 4331-1 #### [facility] CLIA [id number] [address] [place] [address] [place] [facility] CLIA [id number] [address] [place] [address] [place] #### 3016-3, 2731-01 #### [facility] CLIA [id number] [address] [place] [address] [place] Urobilinogen Ql (U) 0.2 EU/dL Normal 0.2-1.0 EU/dL [facility] Comment on above: Order Comment: Speci men Type: BLOOD SPECIMEN Ordering Facility: [facility] Address: [address] [place], [place] [address] Performed By: #### 2 4331-1 #### [facility] CLIA [id number] [address] [place], [place] [address] [place] [facility] CLIA [id number] [address] [place] [address] [place] #### 3016-3, 2731-8 #### [facility] CLIA [id number] [address] [place] [address] [place] 03-31-2021 Methylmalonic Acid 190 nmol/L Normal 79-376 [facility] ([place]) Comment on above: Result Comment: This test was developed and its performance characteristics determined by [facility]'s Bogdan Lizarraga [facility] Pathology and Laboratory Medicine [place] (RT PLNM). It has not been cleared or approved by the FDA. [facility] is regulated under CLIA as qualified to perform high complexity testing. This test is used for clinical purposes. It should not be regarded as investigational or for research. Performed By: [place] [address] [employer] Trimmer: Juan Berry III, M.D. CLIA#: [id number] Phone#: Performed By: #### C BC, ADIFF, ANEU, LIP, AMRIT, CMP, ALC #### [address] [address] #### GFR, ACETA #### [address] [address] RF 03-31-2021 Rheumatoid Factor <6.0 Normal <=6.0 [facility] ([place]) Comment on above: Result Comment: RF I [...] tests. These results were obtained with the [employer] QUANTA Lite RF IgM CYNDIE. RF IgM values obtained with different manufacturers' assay methods may not be used interchangeably. The magnitude of the reported IgM levels cannot be correlated to an endpoint titer. Performed By: #### C BC, ADIFF, ANEU, LIP, AMRIT, CMP, ALC #### [address] [address] #### GFR, ACETA #### [address] [address] .ANATon 03-28-2021 PANKAJ Pattern 1 Homogeneous Normal [facility] ([place]) Comment on above: Result Comment: At A ultman, an PANKAJ titer of less than 160 is not considered suggestive of significant rheumatoid disease. If clinical suspicion is high, suggest repeat testing in 1-2 months. Performed By: #### C BC, ADIFF, ANEU, LIP, AMRIT, CMP, ALC #### [address] [address] #### GFR, ACETA #### [address] [address] PANKAJ Titer 1 40 Normal [facility] ([place]) Comment on above: Performed By: #### C BC, ADIFF, ANEU, LIP, AMRIT, CMP, ALC #### [address] [address] #### GFR, ACETA #### [address] [address] .Auto Diffon 03-28-2021 Basophil, Absolute 0.00 10 3/mcL Normal 0.00-0.27 [facility] ([place]) Comment on above: Performed By: #### C BC, ADIFF, ANEU, LIP, AMRIT, CMP, ALC #### [address] [address] #### GFR, ACETA #### [address] [address] Basophils/100 WBC (Bld) 0.6 % Normal 0.0-2.5 [facility] ([place]) Comment on above: Performed By: #### C BC, ADIFF, ANEU, LIP, AMRIT, CMP, ALC #### [address] [address] #### GFR, ACETA #### [address] [address] Eosinophil, Absolute 0.10 10 3/mcL Normal 0.00-0.65 [facility] ([place]) Comment on above: Performed By: #### C BC, ADIFF, ANEU, LIP, AMRIT, CMP, ALC #### [address] [address] #### GFR, ACETA #### [address] [address] Eosinophils/100 WBC (Bld) 1.1 % Normal 0.0-6.0 [facility] ([place] Comment on above: Performed By: #### C BC, ADIFF, ANEU, LIP, AMRIT, CMP, ALC #### [address] [address] #### GFR, ACETA #### [address] [address] Lymphocyte, Absolute 1.30 10 3/mcL Normal 0.90-4.32 [facility] ([place]) Comment on above: Performed By: #### C BC, ADIFF, ANEU, LIP, AMRIT, CMP, ALC #### [address] [address] #### GFR, ACETA #### [address] [address] Lymphocytes/100 WBC (Bld) 19.2 % Low 20.0-40.0 [facility] ([place] Comment on above: Performed By: #### C BC, ADIFF, ANEU, LIP, AMRIT, CMP, ALC #### [address] [address] #### GFR, ACETA #### [address] [address] Monocyte, Absolute 1.00 10 3/mcL Normal 0.09-1.40 [facility] ([place]) Comment on above: Performed By: #### C BC, ADIFF, ANEU, LIP, AMRIT, CMP, ALC #### [address] [address] #### GFR, ACETA #### [address] [address] Monocytes/100 WBC (Bld) 15.0 % High 2.0-13.0 [facility] ([place] Comment on above: Performed By: #### C BC, ADIFF, ANEU, LIP, AMRIT, CMP, ALC #### [address] [address] #### GFR, ACETA #### [address] [address] Neutrophils/100 WBC (Bld) 64.1 % Normal 50.0-75.0 [facility] ([place] Comment on above: Performed By: #### C BC, ADIFF, ANEU, LIP, AMRIT, CMP, ALC #### [address] [address] #### GFR, ACETA #### [address] [address] .GFRon 03-28-2021 GFR >60 Normal [facility] ([place]) Comment on above: Result Comment: GFR Population [...] ADIFF, ANEU, LIP, AMRIT, CMP, ALC #### [address] [address] #### GFR, ACETA #### [address] [address] GFR Non- >60 Normal [facility] ([place] Comment on above: Result Comment: GFR Population [...] ADIFF, ANEU, LIP, AMRIT, CMP, ALC #### [address] [address] #### GFR, ACETA #### [address] [address] .Morphon 03-28-2021 Anisocytosis Ql (Bld) Slight Normal [facility] ([place] Comment on above: Performed By: #### C BC, ADIFF, ANEU, LIP, AMRIT, CMP, ALC #### [address] [address] #### GFR, ACETA #### [address] [address] Platelet Estimate Normal Normal [facility] ([place] Comment on above: Performed By: #### C BC, ADIFF, ANEU, LIP, AMRIT, CMP, ALC #### [address] [address] #### GFR, ACETA #### [address] [address] .NEUABSon 03-28-2021 Neutrophil, Absolute 4.20 10 3/mcL Normal 2.25-8.10 [facility] ([place]) Comment on above: Performed By: #### C BC, ADIFF, ANEU, LIP, AMRIT, CMP, ALC #### [address] [address] #### GFR, ACETA #### [address] [place] [address] ANAon 03-28-2021 PANKAJ See Titer Normal Neg 40 [facility] ([place] Comment on above: Result Comment: PANKAJ Screen and Titer methodology is an immunofluorescent technique utilizing Hep2 Substrate. Performed By: #### C BC, ADIFF, ANEU, LIP, AMRIT, CMP, ALC #### [address] [address] #### GFR, ACETA #### [address] [address] CBCon 03-28-2021 Platelet 186 10 3/mcL Normal 150-450 [facility] ([place]) Comment on above: Performed By: #### C BC, ADIFF, ANEU, LIP, AMRIT, CMP, ALC #### [address] [address] #### GFR, ACETA #### [address] [address] Platelet mean volume (Bld) [Entitic vol] 8.1 fL Normal 6.6-10.5 [facility] ([place] Comment on above: Performed By: #### C BC, ADIFF, ANEU, LIP, AMRIT, CMP, ALC #### [address] [address] #### GFR, ACETA #### [address] [address] Erythrocyte distribution width (RBC) [Ratio] 15.2 % Normal 11.5-15.5 [facility] ([place] Comment on above: Performed By: #### C BC, ADIFF, ANEU, LIP, AMRIT, CMP, ALC #### [address] [address] #### GFR, ACETA #### [address] [address] Hematocrit (Bld) [Volume fraction] 43.1 % Normal 34.0-46.0 [facility] ([place] Comment on above: Performed By: #### C BC, ADIFF, ANEU, LIP, AMRIT, CMP, ALC #### [place] [address] #### GFR, ACETA #### [address] [place] [address] Hgb 14.5 G/dL Normal 12.0-16.0 [facility] ([place] Comment on above: Performed By: #### C BC, ADIFF, ANEU, LIP, AMRIT, CMP, ALC #### [place] [address] #### GFR, ACETA #### [place] [address] MCH (RBC) [Entitic mass] 32.2 pg Normal 27.0-33.0 [facility] ([place] Comment on above: Performed By: #### C BC, ADIFF, ANEU, LIP, AMRIT, CMP, ALC #### [place] [address] #### GFR, ACETA #### [place] [address] MCHC 33.6 G/dL Normal 32.0-36.0 [facility] ([place] Comment on above: Performed By: #### C BC, ADIFF, ANEU, LIP, AMRIT, CMP, ALC #### [place] [address] #### GFR, ACETA #### [place] [address] MCV (RBC) [Entitic vol] 95.6 fL Normal 80.0-99.0 [facility] ([place] Comment on above: Performed By: #### C BC, ADIFF, ANEU, LIP, AMRIT, CMP, ALC #### [place] [address] #### GFR, ACETA #### [place] [address] RBC 4.50 10 6/mcL Normal 4.10-5.30 [facility] ([place] Comment on above: Performed By: #### C BC, ADIFF, ANEU, LIP, AMRIT, CMP, ALC #### [place] [address] #### GFR, ACETA #### [place] [address] WBC 6.50 10 3/mcL Normal 4.50-10.80 [facility] ([place] Comment on above: Performed By: #### C BC, ADIFF, ANEU, LIP, AMRIT, CMP, ALC #### [place] [address] #### GFR, ACETA #### [place] [address] CMPon 03-28-2021 Albumin Level 3.5 G/dL Normal 3.2-4.8 [facility] ([place] Comment on above: Performed By: #### C BC, ADIFF, ANEU, LIP, AMRIT, CMP, ALC #### [place] [address] #### GFR, ACETA #### [place] [address] Albumin/Globulin [Mass ratio] 1.1 {ratio} Normal 0.9-1.6 [facility] ([place] Comment on above: Performed By: #### C BC, ADIFF, ANEU, LIP, AMRIT, CMP, ALC #### [place] [address] #### GFR, ACETA #### [place] [address] ALP [Catalytic activity/Vol] 143 U/L High 38-126 [facility] ([place] Comment on above: Performed By: #### C BC, ADIFF, ANEU, LIP, AMRIT, CMP, ALC #### [place] [address] #### GFR, ACETA #### [place] [address] ALT [Catalytic activity/Vol] 100 U/L High 10-49 [facility] ([place] Comment on above: Performed By: #### C BC, ADIFF, ANEU, LIP, AMRIT, CMP, ALC #### [place] [address] #### GFR, ACETA #### [address] [address] AST [Catalytic activity/Vol] 109 U/L High 8-34 [facility] ([place] Comment on above: Performed By: #### C BC, ADIFF, ANEU, LIP, AMRIT, CMP, ALC #### [place] [address] #### GFR, ACETA #### [place] [address] Bili Total 0.70 mg/dL Normal 0.20-1.20 [facility] ([place] Comment on above: Result Comment: Use of this assay is not recommended for patients undergoing treatment with eltrombopag due to the potential for falsely elevated results. Performed By: #### C BC, ADIFF, ANEU, LIP, AMRIT, CMP, ALC #### [place] [address] #### GFR, ACETA #### [place] [address] BUN/Creatinine Ratio 20.7 ratio Normal 10.0-22.0 [facility] ([place]) Comment on above: Performed By: #### C BC, ADIFF, ANEU, LIP, AMRIT, CMP, ALC #### [place] [address] #### GFR, ACETA #### [place] [address] Calcium [Mass/Vol] 10.9 mg/dL High 8.7-10.4 [facility] [place] Comment on above: Result Comment: No te - New Reference Range in effect 20 Performed By: #### C BC, ADIFF, ANEU, LIP, AMRIT, CMP, ALC #### [place] [address] #### GFR, ACETA #### [place] [address] Chloride [Moles/Vol] 104 mmol/L Normal 98-110 [facility] ([place]) Comment on above: Performed By: #### C BC, ADIFF, ANEU, LIP, AMRIT, CMP, ALC #### [address] [address] #### GFR, ACETA #### [address] [address] CO2 [Moles/Vol] 26 mmol/L Normal 22-32 [facility] ([place] Comment on above: Performed By: #### C BC, ADIFF, ANEU, LIP, AMRIT, CMP, ALC #### [place] [address] #### GFR, ACETA #### [place] [address] Creatinine [Mass/Vol] 0.58 mg/dL Normal 0.50-1.20 [facility] ([place] Comment on above: Performed By: #### C BC, ADIFF, ANEU, LIP, AMRIT, CMP, ALC #### [place] [address] #### GFR, ACETA #### [place] [address] Electrolyte Balance 8.0 mEq/L Normal 4.0-15.0 [facility] ([place]) Comment on above: Performed By: #### C BC, ADIFF, ANEU, LIP, AMRIT, CMP, ALC #### [address] [address] #### GFR, ACETA #### [place] [address] Globulin 3.2 G/dL Normal 1.5-3.8 [facility] ([place] Comment on above: Performed By: #### C BC, ADIFF, ANEU, LIP, AMRIT, CMP, ALC #### [place] [address] #### GFR, ACETA #### [place] [address] Glucose [Mass/Vol] 101 mg/dL Normal 70-110 [facility] [place] Comment on above: Performed By: #### C BC, ADIFF, ANEU, LIP, AMRIT, CMP, ALC #### [place] [address] #### GFR, ACETA #### [place] [address] Potassium [Moles/Vol] 3.8 mmol/L Normal 3.5-5.0 [facility] ([place] Comment on above: Result Comment: Spec imen slightly hemolyzed. Performed By: #### C BC, ADIFF, ANEU, LIP, AMRIT, CMP, ALC #### [place] [address] #### GFR, ACETA #### [place] [address] Sodium [Moles/Vol] 138 mmol/L Normal 136-145 [facility] [place] Comment on above: Performed By: #### C BC, ADIFF, ANEU, LIP, AMRIT, CMP, ALC #### [place] [address] #### GFR, ACETA #### [place] [address] Total Protein 6.7 G/dL Normal 5.7-8.2 [facility] ([place]) Comment on above: Result Comment: No te - New Reference Range in effect 20 Performed By: #### C BC, ADIFF, ANEU, LIP, ARMIT, CMP, ALC #### [place] [address] #### GFR, ACETA #### [place] [address] Urea nitrogen [Mass/Vol] 12.0 mg/dL Normal 8.0-22.0 [facility] ([place] Comment on above: Performed By: #### C BC, ADIFF, ANEU, LIP, AMRIT, CMP, ALC #### [place] [address] #### GFR, ACETA #### [place] [address] .Auto Diffon 03-27-2021 Basophil, Absolute 0.00 10 3/mcL Normal 0.00-0.27 [facility] ([place]) Comment on above: Performed By: #### C BC, ADIFF, ANEU, LIP, AMRIT, CMP, ALC #### [address] [address] #### GFR, ACETA #### [address] [address] Basophils/100 WBC (Bld) 0.5 % Normal 0.0-2.5 [facility] ([place]) Comment on above: Performed By: #### C BC, ADIFF, ANEU, LIP, AMRIT, CMP, ALC #### [address] [address] #### GFR, ACETA #### [address] [address] Eosinophil, Absolute 0.10 10 3/mcL Normal 0.00-0.65 A [facility] ([place]) Comment on above: Performed By: #### C BC, ADIFF, ANEU, LIP, AMRIT, CMP, ALC #### [address] [address] #### GFR, ACETA #### [address] [address] Eosinophils/100 WBC (Bld) 1.3 % Normal 0.0-6.0 [facility] ([place]) Comment on above: Performed By: #### C BC, ADIFF, ANEU, LIP, AMRIT, CMP, ALC #### [address] [address] #### GFR, ACETA #### [address] [address] Lymphocyte, Absolute 0.70 10 3/mcL Low 0.90-4.32 A [facility] ([place]) Comment on above: Performed By: #### C BC, ADIFF, ANEU, LIP, AMRIT, CMP, ALC #### [address] [address] #### GFR, ACETA #### [address] [address] Lymphocytes/100 WBC (Bld) 15.8 % Low 20.0-40.0 [facility] ([place] Comment on above: Performed By: #### C BC, ADIFF, ANEU, LIP, AMRIT, CMP, ALC #### [address] [address] #### GFR, ACETA #### [address] [address] Monocyte, Absolute 0.50 10 3/mcL Normal 0.09-1.40 [facility] ([place]) Comment on above: Performed By: #### C BC, ADIFF, ANEU, LIP, AMRIT, CMP, ALC #### [place] [address] #### GFR, ACETA #### [address] [address] Monocytes/100 WBC (Bld) 10.5 % Normal 2.0-13.0 [facility] ([place]) Comment on above: Performed By: #### C BC, ADIFF, ANEU, LIP, AMRIT, CMP, ALC #### [address] [address] #### GFR, ACETA #### [address] [address] Neutrophils/100 WBC (Bld) 71.9 % Normal 50.0-75.0 [facility] ([place]) Comment on above: Performed By: #### C BC, ADIFF, ANEU, LIP, AMRIT, CMP, ALC #### [place] [address] #### GFR, ACETA #### [address] [address] .GFRon 03-27-2021 GFR >60 Normal [facility] ([place]) Comment on above: Result Comment: GFR Population [...] ADIFF, ANEU, LIP, AMRIT, CMP, ALC #### [place] [address] #### GFR, ACETA #### [address] [address] GFR Non- >60 Normal [facility] ([place]) Comment on above: Result Comment: GFR Population [...] ADIFF, ANEU, LIP, AMRIT, CMP, ALC #### [place] [address] #### GFR, ACETA #### [place] [address] .NEUABSon 03-27-2021 Neutrophil, Absolute 3.20 10 3/mcL Normal 2.25-8.10 A [facility] ([place]) Comment on above: Performed By: #### C BC, ADIFF, ANEU, LIP, AMRIT, CMP, ALC #### [address] [address] #### GFR, ACETA #### [address] [address] B12on 03-27-2021 Cobalamin (Vitamin B12) [Mass/Vol] 1134 pg/mL High 211-911 [facility] ([place]) Comment on above: Performed By: #### C BC, ADIFF, ANEU, LIP, AMRIT, CMP, ALC #### [address] [address] #### GFR, ACETA #### [address] [address] CBCon 03-27-2021 Erythrocyte distribution width (RBC) [Ratio] 14.7 % Normal 11.5-15.5 [facility] ([place]) Comment on above: Performed By: #### C BC, ADIFF, ANEU, LIP, AMRIT, CMP, ALC #### [place] [address] #### GFR, ACETA #### [address] [address] Hematocrit (Bld) [Volume fraction] 44.2 % Normal 34.0-46.0 [facility] ([place]) Comment on above: Performed By: #### C BC, ADIFF, ANEU, LIP, AMRIT, CMP, ALC #### [place] [address] #### GFR, ACETA #### [address] [address] Hgb 14.8 G/dL Normal 12.0-16.0 [facility] ([place]) Comment on above: Performed By: #### C BC, ADIFF, ANEU, LIP, AMRIT, CMP, ALC #### [place] [address] #### GFR, ACETA #### [address] [address] MCH (RBC) [Entitic mass] 32.2 pg Normal 27.0-33.0 [facility] ([place]) Comment on above: Performed By: #### C BC, ADIFF, ANEU, LIP, AMRIT, CMP, ALC #### [place] [address] #### GFR, ACETA #### [place] [address] MCHC 33.4 G/dL Normal 32.0-36.0 [facility] ([place] Comment on above: Performed By: #### C BC, ADIFF, ANEU, LIP, AMRIT, CMP, ALC #### [place] [address] #### GFR, ACETA #### [place] [address] MCV (RBC) [Entitic vol] 96.4 fL Normal 80.0-99.0 [facility] ([place] Comment on above: Performed By: #### C BC, ADIFF, ANEU, LIP, AMRIT, CMP, ALC #### [place] [address] #### GFR, ACETA #### [place] [address] Platelet 82 10 3/mcL Low 150-450 [facility] ([place]) Comment on above: Performed By: #### C BC, ADIFF, ANEU, LIP, AMRIT, CMP, ALC #### [place] [address] #### GFR, ACETA #### [place] [address] Platelet mean volume (Bld) [Entitic vol] 8.7 fL Normal 6.6-10.5 [facility] ([place]) Comment on above: Performed By: #### C BC, ADIFF, ANEU, LIP, AMRIT, CMP, ALC #### [place] [address] #### GFR, ACETA #### [place] [address] RBC 4.58 10 6/mcL Normal 4.10-5.30 [facility] ([place] Comment on above: Performed By: #### C BC, ADIFF, ANEU, LIP, AMRIT, CMP, ALC #### [place] [address] #### GFR, ACETA #### [place] [address] WBC 4.40 10 3/mcL Low 4.50-10.80 [facility] ([place]) Comment on above: Performed By: #### C BC, ADIFF, ANEU, LIP, AMRIT, CMP, ALC #### [place] [address] #### GFR, ACETA #### [place] [address] CMPon 03-27-2021 Albumin Level 3.5 G/dL Normal 3.2-4.8 [facility] ([place]) Comment on above: Performed By: #### C BC, ADIFF, ANEU, LIP, AMRIT, CMP, ALC #### [place] [address] #### GFR, ACETA #### [place] [address] Albumin/Globulin [Mass ratio] 1.1 {ratio} Normal 0.9-1.6 [facility] ([place]) Comment on above: Performed By: #### C BC, ADIFF, ANEU, LIP, AMRIT, CMP, ALC #### [place] [address] #### GFR, ACETA #### [place] [address] ALP [Catalytic activity/Vol] 151 U/L High 38-126 [facility] ([place] Comment on above: Performed By: #### C BC, ADIFF, ANEU, LIP, AMRIT, CMP, ALC #### [place] [address] #### GFR, ACETA #### [place] [address] ALT [Catalytic activity/Vol] 80 U/L High 10-49 [facility] ([place] Comment on above: Performed By: #### C BC, ADIFF, ANEU, LIP, AMRIT, CMP, ALC #### [place] [address] #### GFR, ACETA #### [address] [address] AST [Catalytic activity/Vol] 119 U/L High 8-34 [facility] ([place] Comment on above: Performed By: #### C BC, ADIFF, ANEU, LIP, AMRIT, CMP, ALC #### [place] [address] #### GFR, ACETA #### [place] [address] Bili Total 1.00 mg/dL Normal 0.20-1.20 [facility] ([place] Comment on above: Result Comment: Use of this assay is not recommended for patients undergoing treatment with eltrombopag due to the potential for falsely elevated results. Performed By: #### C BC, ADIFF, ANEU, LIP, AMRIT, CMP, ALC #### [place] [address] #### GFR, ACETA #### [place] [address] BUN/Creatinine Ratio 13.6 ratio Normal 10.0-22.0 [facility] ([place]) Comment on above: Performed By: #### C BC, ADIFF, ANEU, LIP, AMRIT, CMP, ALC #### [place] [address] #### GFR, ACETA #### [place] [address] Calcium [Mass/Vol] 10.8 mg/dL High 8.7-10.4 [facility] [place] Comment on above: Result Comment: No te - New Reference Range in effect 20 Performed By: #### C BC, ADIFF, ANEU, LIP, AMRIT, CMP, ALC #### [place] [address] #### GFR, ACETA #### [place] [address] Chloride [Moles/Vol] 107 mmol/L Normal 98-110 [facility] ([place] Comment on above: Performed By: #### C BC, ADIFF, ANEU, LIP, AMRIT, CMP, ALC #### [address] [address] #### GFR, ACETA #### [address] [address] CO2 [Moles/Vol] 27 mmol/L Normal 22-32 [facility] ([place] Comment on above: Performed By: #### C BC, ADIFF, ANEU, LIP, AMRIT, CMP, ALC #### [place] [address] #### GFR, ACETA #### [place] [address] Creatinine [Mass/Vol] 0.44 mg/dL Low 0.50-1.20 [facility] ([place] Comment on above: Performed By: #### C BC, ADIFF, ANEU, LIP, AMRIT, CMP, ALC #### [place] [address] #### GFR, ACETA #### [address] [address] Electrolyte Balance 9.0 mEq/L Normal 4.0-15.0 [facility] ([place]) Comment on above: Performed By: #### C BC, ADIFF, ANEU, LIP, AMRIT, CMP, ALC #### [place] [address] #### GFR, ACETA #### [place] [address] Globulin 3.2 G/dL Normal 1.5-3.8 [facility] ([place] Comment on above: Performed By: #### C BC, ADIFF, ANEU, LIP, AMRIT, CMP, ALC #### [place] [address] #### GFR, ACETA #### [address] [address] Glucose [Mass/Vol] 105 mg/dL Normal 70-110 [facility] [place] Comment on above: Performed By: #### C BC, ADIFF, ANEU, LIP, AMRIT, CMP, ALC #### [address] [address] #### GFR, ACETA #### [address] [address] Potassium [Moles/Vol] 3.3 mmol/L Low 3.5-5.0 [facility] ([place] Comment on above: Performed By: #### C BC, ADIFF, ANEU, LIP, AMRIT, CMP, ALC #### [place] [address] #### GFR, ACETA #### [address] [address] Sodium [Moles/Vol] 143 mmol/L Normal 136-145 [facility] [place] Comment on above: Performed By: #### C BC, ADIFF, ANEU, LIP, AMRIT, CMP, ALC #### [place] [address] #### GFR, ACETA #### [place] [address] Total Protein 6.7 G/dL Normal 5.7-8.2 [facility] ([place]) Comment on above: Result Comment: No te - New Reference Range in effect 20 Performed By: #### C BC, ADIFF, ANEU, LIP, AMRIT, CMP, ALC #### [place] [address] #### GFR, ACETA #### [place] [address] Urea nitrogen [Mass/Vol] 6.0 mg/dL Low 8.0-22.0 [facility] ([place]) Comment on above: Performed By: #### C BC, ADIFF, ANEU, LIP, AMRIT, CMP, ALC #### [place] [address] #### GFR, ACETA #### [address] [address] CRPon 03-27-2021 C-Reactive Protein 0.5 mg/dL Normal 0.0-1.0 [facility] [place] Comment on above: Result Comment: No te - New Reference Range in effect 20 Performed By: #### C BC, ADIFF, ANEU, LIP, AMRIT, CMP, ALC #### [address] [address] #### GFR, ACETA #### [place] [address] ESRon 03-27-2021 Erythrocyte Sed Rate 46 mm/hr High 0-30 [facility] ([place]) Comment on above: Performed By: #### C BC, ADIFF, ANEU, LIP, AMRIT, CMP, ALC #### [place] [address] #### GFR, ACETA #### [place] [address] Swetha 03-27-2021 Ferritin [Mass/Vol] 183.2 ng/mL Normal 8.0-252.0 [facility] ([place]) Comment on above: Performed By: #### C BC, ADIFF, ANEU, LIP, AMRIT, CMP, ALC #### [place] [address] #### GFR, ACETA #### [place] [address] FESon 03-27-2021 Iron [Mass/Vol] 110 ug/dL Normal 50-170 [facility] ([place] Comment on above: Performed By: #### C BC, ADIFF, ANEU, LIP, AMRIT, CMP, ALC #### [place] [address] #### GFR, ACETA #### [place] [address] Iron Sat 32 % Normal [facility] ([place]) Comment on above: Performed By: #### C BC, ADIFF, ANEU, LIP, AMRIT, CMP, ALC #### [place] [address] #### GFR, ACETA #### [place] [address] TIBC 339 mcg/dL Normal 250-500 [facility] ([place] Comment on above: Performed By: #### C BC, ADIFF, ANEU, LIP, AMRIT, CMP, ALC #### [place] [address] #### GFR, ACETA #### [place] [address] FOLon 03-27-2021 Folate 11.98 ng/mL Normal 5.38-24.00 [facility] ([place] Comment on above: Performed By: #### C BC, ADIFF, ANEU, LIP, AMRIT, CMP, ALC #### [place] [address] #### GFR, ACETA #### [place] [address] LDHon 03-27-2021 LDH 310 U/L High 120-246 [facility] ([place]) Comment on above: Performed By: #### C BC, ADIFF, ANEU, LIP, AMRIT, CMP, ALC #### [place] [address] #### GFR, ACETA #### [place] [address] MGon 03-27-2021 Magnesium [Mass/Vol] 1.9 mg/dL Normal 1.6-2.4 [facility] ([place]) Comment on above: Performed By: #### C BC, ADIFF, ANEU, LIP, AMRIT, CMP, ALC #### [place] [address] #### GFR, ACETA #### [place] [address] RETICon 03-27-2021 Immature Retic Fraction 0.60 IRF High 0.20-0.46 [facility] ([place]) Comment on above: Performed By: #### C BC, ADIFF, ANEU, LIP, AMRIT, CMP, ALC #### [place] [address] #### GFR, ACETA #### [address] [address] Reticulocytes, Absolute 23.8 10 3/mcL Normal 8.0-108.0 [facility] ([place] Comment on above: Performed By: #### C BC, ADIFF, ANEU, LIP, AMRIT, CMP, ALC #### [place] [address] #### GFR, ACETA #### [address] [address] Reticulocytes, Auto 0.5 % Normal 0.2-2.3 [facility] ([place] Comment on above: Performed By: #### C BC, ADIFF, ANEU, LIP, AMRIT, CMP, ALC #### [place] [address] #### GFR, ACETA #### [place] [address] TSHon 03-27-2021 TSH 2.286 mIU/mL Normal 0.550-4.780 [facility] ([place]) Comment on above: Result Comment: No te - New Reference Range in effect 20 Performed By: #### C BC, ADIFF, ANEU, LIP, AMRIT, CMP, ALC #### [place] [address] #### GFR, ACETA #### [address] [address] .Auto Diffon 03-26-2021 Basophil, Absolute 0.00 10 3/mcL Normal 0.00-0.27 [facility] ([place]) Comment on above: Performed By: #### C BC, ADIFF, ANEU, LIP, AMRIT, CMP, ALC #### [place] [address] #### GFR, ACETA #### [address] [address] Basophils/100 WBC (Bld) 0.4 % Normal 0.0-2.5 [facility] ([place] Comment on above: Performed By: #### C BC, ADIFF, ANEU, LIP, AMRIT, CMP, ALC #### [place] [address] #### GFR, ACETA #### [address] [address] Eosinophil, Absolute 0.10 10 3/mcL Normal 0.00-0.65 A [facility] ([place]) Comment on above: Performed By: #### C BC, ADIFF, ANEU, LIP, AMRIT, CMP, ALC #### [place] [address] #### GFR, ACETA #### [address] [address] Eosinophils/100 WBC (Bld) 2.4 % Normal 0.0-6.0 [facility] ([place]) Comment on above: Performed By: #### C BC, ADIFF, ANEU, LIP, AMRIT, CMP, ALC #### [place] [address] #### GFR, ACETA #### [address] [address] Lymphocyte, Absolute 1.00 10 3/mcL Normal 0.90-4.32 A [facility] ([place]) Comment on above: Performed By: #### C BC, ADIFF, ANEU, LIP, AMRIT, CMP, ALC #### [place] [address] #### GFR, ACETA #### [address] [address] Lymphocytes/100 WBC (Bld) 24.9 % Normal 20.0-40.0 [facility] ([place]) Comment on above: Performed By: #### C BC, ADIFF, ANEU, LIP, AMRIT, CMP, ALC #### [place] [address] #### GFR, ACETA #### [address] [address] Monocyte, Absolute 0.30 10 3/mcL Normal 0.09-1.40 [facility] ([place]) Comment on above: Performed By: #### C BC, ADIFF, ANEU, LIP, AMIRT, CMP, ALC #### [address] [address] #### GFR, ACETA #### [address] [address] Monocytes/100 WBC (Bld) 6.8 % Normal 2.0-13.0 [facility] ([place]) Comment on above: Performed By: #### C BC, ADIFF, ANEU, LIP, AMRIT, CMP, ALC #### [address] [address] #### GFR, ACETA #### [address] [address] Neutrophils/100 WBC (Bld) 65.5 % Normal 50.0-75.0 [facility] ([place] Comment on above: Performed By: #### C BC, ADIFF, ANEU, LIP, AMRIT, CMP, ALC #### [address] [address] #### GFR, ACETA #### [address] [address] .GFRon 03-26-2021 GFR >60 Normal [facility] ([place]) Comment on above: Result Comment: GFR Population [...] ADIFF, ANEU, LIP, AMRIT, CMP, ALC #### [address] [address] #### GFR, ACETA #### [address] [address] GFR Non- >60 Normal [facility] ([place] Comment on above: Result Comment: GFR Population [...] ADIFF, ANEU, LIP, AMRIT, CMP, ALC #### [place] [address] #### GFR, ACETA #### [address] [address] .NEUABSon 03-26-2021 Neutrophil, Absolute 2.70 10 3/mcL Normal 2.25-8.10 A [facility] ([place]) Comment on above: Performed By: #### C BC, ADIFF, ANEU, LIP, AMRIT, CMP, ALC #### [address] [address] #### GFR, ACETA #### [address] [address] BMPon 03-26-2021 BUN/Creatinine Ratio 15.4 ratio Normal 10.0-22.0 [facility] ([place]) Comment on above: Performed By: #### C BC, ADIFF, ANEU, LIP, AMRIT, CMP, ALC #### [address] [address] #### GFR, ACETA #### [address] [address] Calcium [Mass/Vol] 9.5 mg/dL Normal 8.7-10.4 [facility] [place] Comment on above: Result Comment: No te - New Reference Range in effect 20 Performed By: #### C BC, ADIFF, ANEU, LIP, AMRIT, CMP, ALC #### [place] [address] #### GFR, ACETA #### [address] [address] Chloride [Moles/Vol] 110 mmol/L Normal 98-110 [facility] ([place] Comment on above: Performed By: #### C BC, ADIFF, ANEU, LIP, AMRIT, CMP, ALC #### [place] [address] #### GFR, ACETA #### [address] [address] CO2 [Moles/Vol] 28 mmol/L Normal 22-32 [facility] ([place] Comment on above: Performed By: #### C BC, ADIFF, ANEU, LIP, AMRIT, CMP, ALC #### [place] [address] #### GFR, ACETA #### [place] [address] Creatinine [Mass/Vol] 0.39 mg/dL Low 0.50-1.20 [facility] ([place] Comment on above: Performed By: #### C BC, ADIFF, ANEU, LIP, AMRIT, CMP, ALC #### [place] [address] #### GFR, ACETA #### [address] [address] Electrolyte Balance 7.0 mEq/L Normal 4.0-15.0 [facility] ([place] Comment on above: Performed By: #### C BC, ADIFF, ANEU, LIP, AMRIT, CMP, ALC #### [place] [address] #### GFR, ACETA #### [place] [id number] Glucose [Mass/Vol] 79 mg/dL Normal 70-110 [facility] [place] Comment on above: Performed By: #### C BC, ADIFF, ANEU, LIP, AMRIT, CMP, ALC #### [address] [address] #### GFR, ACETA #### [address] [address] Potassium [Moles/Vol] 2.7 mmol/L Critically abnormal 3.5-5.0 [facility] ([place] Comment on above: Performed By: #### C BC, ADIFF, ANEU, LIP, AMRIT, CMP, ALC #### [address] [address] #### GFR, ACETA #### [address] [address] Sodium [Moles/Vol] 145 mmol/L Normal 136-145 [facility] [place] Comment on above: Performed By: #### C BC, ADIFF, ANEU, LIP, AMRIT, CMP, ALC #### [place] [address] #### GFR, ACETA #### [place] [address] Urea nitrogen [Mass/Vol] 6.0 mg/dL Low 8.0-22.0 [facility] ([place] Comment on above: Performed By: #### C BC, ADIFF, ANEU, LIP, AMRIT, CMP, ALC #### [place] [address] #### GFR, ACETA #### [address] [address] CBCon 03-26-2021 Erythrocyte distribution width (RBC) [Ratio] 14.5 % Normal 11.5-15.5 [facility] ([place] Comment on above: Performed By: #### C BC, ADIFF, ANEU, LIP, AMRIT, CMP, ALC #### [place] [address] #### GFR, ACETA #### [address] [address] Hematocrit (Bld) [Volume fraction] 38.4 % Normal 34.0-46.0 [facility] ([place] Comment on above: Performed By: #### C BC, ADIFF, ANEU, LIP, AMRIT, CMP, ALC #### [place] [address] #### GFR, ACETA #### [place] [address] Hgb 12.8 G/dL Normal 12.0-16.0 [facility] ([place] Comment on above: Performed By: #### C BC, ADIFF, ANEU, LIP, AMRIT, CMP, ALC #### [place] [address] #### GFR, ACETA #### [place] [address] MCH (RBC) [Entitic mass] 31.7 pg Normal 27.0-33.0 [facility] ([place] Comment on above: Performed By: #### C BC, ADIFF, ANEU, LIP, AMRIT, CMP, ALC #### [place] [address] #### GFR, ACETA #### [place] [address] MCHC 33.4 G/dL Normal 32.0-36.0 [facility] ([place] Comment on above: Performed By: #### C BC, ADIFF, ANEU, LIP, AMRIT, CMP, ALC #### [place] [address] #### GFR, ACETA #### [place] [address] MCV (RBC) [Entitic vol] 95.0 fL Normal 80.0-99.0 [facility] ([place] Comment on above: Performed By: #### C BC, ADIFF, ANEU, LIP, AMRIT, CMP, ALC #### [place] [address] #### GFR, ACETA #### [address] [address] Platelet 54 10 3/mcL Low 150-450 [facility] ([place] Comment on above: Performed By: #### C BC, ADIFF, ANEU, LIP, AMRIT, CMP, ALC #### [place] [address] #### GFR, ACETA #### [place] [address] Platelet mean volume (Bld) [Entitic vol] 8.1 fL Normal 6.6-10.5 [facility] ([place] Comment on above: Performed By: #### C BC, ADIFF, ANEU, LIP, AMRIT, CMP, ALC #### [place] [address] #### GFR, ACETA #### [place] [address] RBC 4.04 10 6/mcL Low 4.10-5.30 [facility] ([place] Comment on above: Performed By: #### C BC, ADIFF, ANEU, LIP, AMRIT, CMP, ALC #### [place] [address] #### GFR, ACETA #### [place] [address] WBC 4.20 10 3/mcL Low 4.50-10.80 [facility] ([place]) Comment on above: Performed By: #### C BC, ADIFF, ANEU, LIP, AMRIT, CMP, ALC #### [place] [address] #### GFR, ACETA #### [place] [address] CKon 03-26-2021 CK [Catalytic activity/Vol] 252 U/L High 7-185 [facility] ([place] Comment on above: Performed By: #### C BC, ADIFF, ANEU, LIP, AMRIT, CMP, ALC #### [place] [address] #### GFR, ACETA #### [place] [id number] Gordy 03-26-2021 Potassium [Moles/Vol] 3.6 mmol/L Normal 3.5-5.0 [facility] ([place] Comment on above: Performed By: #### C BC, ADIFF, ANEU, LIP, AMRIT, CMP, ALC #### [address] [address] #### GFR, ACETA #### [address] [address] MGon 03-26-2021 Magnesium [Mass/Vol] 1.2 mg/dL Low 1.6-2.4 [facility] ([place] Comment on above: Performed By: #### C BC, ADIFF, ANEU, LIP, AMRIT, CMP, ALC #### [address] [address] #### GFR, ACETA #### [address] [address] MRI BRAIN W/ + W/O CONTRASTo n [...] T2 hyperintensity in the cerebral white matter. Mercdao-white matter differentiation is maintained. There is no [...] 03/25/2021 10:41:29 PM Ordering Provider: ELAINA Gooden [facility] ([place]) .Auto Diffon 03-25-2021 Basophil, Absolute 0.00 10 3/mcL Normal 0.00-0.27 [facility] ([place]) Comment on above: Performed By: #### C BC, ADIFF, ANEU, LIP, AMRIT, CMP, ALC #### [place] [address] #### GFR, ACETA #### [address] [address] Basophils/100 WBC (Bld) 0.5 % Normal 0.0-2.5 [facility] ([place] Comment on above: Performed By: #### C BC, ADIFF, ANEU, LIP, AMRIT, CMP, ALC #### [place] [address] #### GFR, ACETA #### [address] [address] Eosinophil, Absolute 0.10 10 3/mcL Normal 0.00-0.65 A [facility] ([place]) Comment on above: Performed By: #### C BC, ADIFF, ANEU, LIP, MARIT, CMP, ALC #### [place] [address] #### GFR, ACETA #### [address] [address] Eosinophils/100 WBC (Bld) 1.4 % Normal 0.0-6.0 [facility] ([place] Comment on above: Performed By: #### C BC, ADIFF, ANEU, LIP, AMRIT, CMP, ALC #### [place] [address] #### GFR, ACETA #### [address] [address] Lymphocyte, Absolute 0.90 10 3/mcL Normal 0.90-4.32 A [facility] ([place]) Comment on above: Performed By: #### C BC, ADIFF, ANEU, LIP, AMRIT, CMP, ALC #### [place] [address] #### GFR, ACETA #### [address] [address] Lymphocytes/100 WBC (Bld) 21.8 % Normal 20.0-40.0 [facility] ([place]) Comment on above: Performed By: #### C BC, ADIFF, ANEU, LIP, AMRIT, CMP, ALC #### [place] [address] #### GFR, ACETA #### [address] [address] Monocyte, Absolute 0.20 10 3/mcL Normal 0.09-1.40 [facility] ([place]) Comment on above: Performed By: #### C BC, ADIFF, ANEU, LIP, AMRIT, CMP, ALC #### [place] [address] #### GFR, ACETA #### [address] [address] Monocytes/100 WBC (Bld) 4.9 % Normal 2.0-13.0 [facility] ([place] Comment on above: Performed By: #### C BC, ADIFF, ANEU, LIP, AMRIT, CMP, ALC #### [place] [address] #### GFR, ACETA #### [address] [address] Neutrophils/100 WBC (Bld) 71.4 % Normal 50.0-75.0 [facility] ([place]) Comment on above: Performed By: #### C BC, ADIFF, ANEU, LIP, AMRIT, CMP, ALC #### [place] [address] #### GFR, ACETA #### [address] [address] .GFRon 03-25-2021 GFR >60 Normal [facility] ([place]) Comment on above: Result Comment: GFR [...] ADIFF, ANEU, LIP, AMRIT, CMP, ALC #### [address] [address] #### GFR, ACETA #### [address] [address] GFR Non- >60 Normal [facility] ([place] Comment on above: Result Comment: GFR Population [...] ADIFF, ANEU, LIP, AMRIT, CMP, ALC #### [address] [address] #### GFR, ACETA #### [address] [address] .NEUABSon 03-25-2021 Neutrophil, Absolute 2.90 10 3/mcL Normal 2.25-8.10 A [facility] ([place]) Comment on above: Performed By: #### C BC, ADIFF, ANEU, LIP, AMRIT, CMP, ALC #### [place] [address] #### GFR, ACETA #### [address] [address] CBCon 03-25-2021 Erythrocyte distribution width (RBC) [Ratio] 14.6 % Normal 11.5-15.5 [facility] ([place] Comment on above: Performed By: #### C BC, ADIFF, ANEU, LIP, AMRIT, CMP, ALC #### [place] [address] #### GFR, ACETA #### [place] [address] Hematocrit (Bld) [Volume fraction] 38.0 % Normal 34.0-46.0 [facility] ([place] Comment on above: Performed By: #### C BC, ADIFF, ANEU, LIP, AMRIT, CMP, ALC #### [place] [address] #### GFR, ACETA #### [place] [address] Hgb 12.8 G/dL Normal 12.0-16.0 [facility] ([place] Comment on above: Performed By: #### C BC, ADIFF, ANEU, LIP, AMRIT, CMP, ALC #### [place] [address] #### GFR, ACETA #### [place] [address] MCH (RBC) [Entitic mass] 32.0 pg Normal 27.0-33.0 [facility] ([place] Comment on above: Performed By: #### C BC, ADIFF, ANEU, LIP, AMRIT, CMP, ALC #### [place] [address] #### GFR, ACETA #### [place] [address] MCHC 33.8 G/dL Normal 32.0-36.0 [facility] ([place] Comment on above: Performed By: #### C BC, ADIFF, ANEU, LIP, AMRIT, CMP, ALC #### [place] [id number] #### GFR, ACETA #### [address] [address] MCV (RBC) [Entitic vol] 94.7 fL Normal 80.0-99.0 [facility] ([place] Comment on above: Performed By: #### C BC, ADIFF, ANEU, LIP, AMRIT, CMP, ALC #### [place] [address] #### GFR, ACETA #### [place] [address] Platelet 50 10 3/mcL Low 150-450 [facility] ([place] Comment on above: Performed By: #### C BC, ADIFF, ANEU, LIP, AMRIT, CMP, ALC #### [place] [address] #### GFR, ACETA #### [place] [address] Platelet mean volume (Bld) [Entitic vol] 9.4 fL Normal 6.6-10.5 [facility] ([place] Comment on above: Performed By: #### C BC, ADIFF, ANEU, LIP, AMRIT, CMP, ALC #### [place] [address] #### GFR, ACETA #### [place] [address] RBC 4.01 10 6/mcL Low 4.10-5.30 [facility] ([place] Comment on above: Performed By: #### C BC, ADIFF, ANEU, LIP, AMRIT, CMP, ALC #### [place] [address] #### GFR, ACETA #### [place] [address] WBC 4.00 10 3/mcL Low 4.50-10.80 [facility] ([place] Comment on above: Performed By: #### C BC, ADIFF, ANEU, LIP, AMRIT, CMP, ALC #### [address] [address] #### GFR, ACETA #### [address] [address] CKon 03-25-2021 CK [Catalytic activity/Vol] 616 U/L High 7-185 [facility] ([place]) Comment on above: Performed By: #### C BC, ADIFF, ANEU, LIP, AMRIT, CMP, ALC #### [place] [address] #### GFR, ACETA #### [place] [address] CMPon 03-25-2021 Albumin Level 2.6 G/dL Low 3.2-4.8 [facility] ([place]) Comment on above: Performed By: #### C BC, ADIFF, ANEU, LIP, AMRIT, CMP, ALC #### [place] [address] #### GFR, ACETA #### [place] [address] Albumin/Globulin [Mass ratio] 1.0 {ratio} Normal 0.9-1.6 [facility] ([place]) Comment on above: Performed By: #### C BC, ADIFF, ANEU, LIP, AMRIT, CMP, ALC #### [place] [address] #### GFR, ACETA #### [place] [address] ALP [Catalytic activity/Vol] 125 U/L Normal 38-126 [facility] ([place]) Comment on above: Performed By: #### C BC, ADIFF, ANEU, LIP, AMRIT, CMP, ALC #### [place] [address] #### GFR, ACETA #### [place] [address] ALT [Catalytic activity/Vol] 24 U/L Normal 10-49 [facility] ([place]) Comment on above: Performed By: #### C BC, ADIFF, ANEU, LIP, AMRIT, CMP, ALC #### [place] [address] #### GFR, ACETA #### [address] [address] AST [Catalytic activity/Vol] 78 U/L High 8-34 [facility] ([place] Comment on above: Performed By: #### C BC, ADIFF, ANEU, LIP, AMRIT, CMP, ALC #### [place] [address] #### GFR, ACETA #### [place] [address] Bili Total 0.80 mg/dL Normal 0.20-1.20 [facility] ([place]) Comment on above: Result Comment: Use of this assay is not recommended for patients undergoing treatment with eltrombopag due to the potential for falsely elevated results. Performed By: #### C BC, ADIFF, ANEU, LIP, AMRIT, CMP, ALC #### [place] [address] #### GFR, ACETA #### [address] [address] BUN/Creatinine Ratio 27.7 ratio High 10.0-22.0 [facility] ([place]) Comment on above: Performed By: #### C BC, ADIFF, ANEU, LIP, AMRIT, CMP, ALC #### [place] [address] #### GFR, ACETA #### [place] [address] Calcium [Mass/Vol] 9.4 mg/dL Normal 8.7-10.4 [facility] ([place] Comment on above: Result Comment: No te - New Reference Range in effect 20 Performed By: #### C BC, ADIFF, ANEU, LIP, AMRIT, CMP, ALC #### [place] [address] #### GFR, ACETA #### [address] [address] Chloride [Moles/Vol] 110 mmol/L Normal 98-110 [facility] ([place]) Comment on above: Performed By: #### C BC, ADIFF, ANEU, LIP, AMRIT, CMP, ALC #### [place] [address] #### GFR, ACETA #### [place] [address] CO2 [Moles/Vol] 27 mmol/L Normal 22-32 [facility] ([place] Comment on above: Performed By: #### C BC, ADIFF, ANEU, LIP, AMRIT, CMP, ALC #### [place] [address] #### GFR, ACETA #### [place] [address] Creatinine [Mass/Vol] 0.47 mg/dL Low 0.50-1.20 [facility] ([place] Comment on above: Performed By: #### C BC, ADIFF, ANEU, LIP, AMRIT, CMP, ALC #### [place] [address] #### GFR, ACETA #### [place] [address] Electrolyte Balance 5.0 mEq/L Normal 4.0-15.0 [facility] ([place]) Comment on above: Performed By: #### C BC, ADIFF, ANEU, LIP, AMRIT, CMP, ALC #### [place] [address] #### GFR, ACETA #### [place] [address] Globulin 2.6 G/dL Normal 1.5-3.8 [facility] ([place] Comment on above: Performed By: #### C BC, ADIFF, ANEU, LIP, AMRIT, CMP, ALC #### [place] [address] #### GFR, ACETA #### [address] [address] Glucose [Mass/Vol] 93 mg/dL Normal 70-110 [facility] [place] Comment on above: Performed By: #### C BC, ADIFF, ANEU, LIP, AMRIT, CMP, ALC #### [place] [address] #### GFR, ACETA #### [address] [address] Potassium [Moles/Vol] 3.3 mmol/L Low 3.5-5.0 [facility] ([place] Comment on above: Performed By: #### C BC, ADIFF, ANEU, LIP, AMRIT, CMP, ALC #### [place] [address] #### GFR, ACETA #### [address] [address] Sodium [Moles/Vol] 142 mmol/L Normal 136-145 [facility] [place] Comment on above: Performed By: #### C BC, ADIFF, ANEU, LIP, AMRIT, CMP, ALC #### [place] [address] #### GFR, ACETA #### [address] [address] Total Protein 5.2 G/dL Low 5.7-8.2 [facility] ([place] Comment on above: Result Comment: No te - New Reference Range in effect 20 Performed By: #### C BC, ADIFF, ANEU, LIP, AMRIT, CMP, ALC #### [place] [address] #### GFR, ACETA #### [address] [address] Urea nitrogen [Mass/Vol] 13.0 mg/dL Normal 8.0-22.0 [facility] ([place] Comment on above: Performed By: #### C BC, ADIFF, ANEU, LIP, AMRIT, CMP, ALC #### [place] [address] #### GFR, ACETA #### [address] [address] .Auto Diffon 03-24-2021 Basophil, Absolute 0.00 10 3/mcL Normal 0.00-0.27 [facility] ([place]) Comment on above: Performed By: #### C BC, ADIFF, ANEU, LIP, AMRIT, CMP, ALC #### [place] [address] #### GFR, ACETA #### [address] [address] Basophils/100 WBC (Bld) 0.3 % Normal 0.0-2.5 [facility] ([place] Comment on above: Performed By: #### C BC, ADIFF, ANEU, LIP, AMRIT, CMP, ALC #### [place] [address] #### GFR, ACETA #### [address] [address] Eosinophil, Absolute 0.00 10 3/mcL Normal 0.00-0.65 A [facility] ([place]) Comment on above: Performed By: #### C BC, ADIFF, ANEU, LIP, AMRIT, CMP, ALC #### [place] [address] #### GFR, ACETA #### [address] [address] Eosinophils/100 WBC (Bld) 0.4 % Normal 0.0-6.0 [facility] ([place] Comment on above: Performed By: #### C BC, ADIFF, ANEU, LIP, AMRIT, CMP, ALC #### [place] [address] #### GFR, ACETA #### [address] [address] Lymphocyte, Absolute 0.50 10 3/mcL Low 0.90-4.32 A [facility] ([place]) Comment on above: Performed By: #### C BC, ADIFF, ANEU, LIP, AMRIT, CMP, ALC #### [place] [address] #### GFR, ACETA #### [address] [address] Lymphocytes/100 WBC (Bld) 12.2 % Low 20.0-40.0 [facility] ([place] Comment on above: Performed By: #### C BC, ADIFF, ANEU, LIP, AMRIT, CMP, ALC #### [place] [address] #### GFR, ACETA #### [address] [address] Monocyte, Absolute 0.30 10 3/mcL Normal 0.09-1.40 [facility] ([place]) Comment on above: Performed By: #### C BC, ADIFF, ANEU, LIP, AMRIT, CMP, ALC #### [place] [address] #### GFR, ACETA #### [address] [address] Monocytes/100 WBC (Bld) 8.4 % Normal 2.0-13.0 [facility] ([place]) Comment on above: Performed By: #### C BC, ADIFF, ANEU, LIP, AMRIT, CMP, ALC #### [place] [address] #### GFR, ACETA #### [address] [address] Neutrophils/100 WBC (Bld) 78.7 % High 50.0-75.0 [facility] ([place] Comment on above: Performed By: #### C BC, ADIFF, ANEU, LIP, AMRIT, CMP, ALC #### [place] [address] #### GFR, ACETA #### [address] [address] .GFRon 03-24-2021 GFR Non- >60 Normal [facility] ([place] Comment on above: Result Comment: GFR Population [...] ADIFF, ANEU, LIP, AMRIT, CMP, ALC #### [address] [address] #### GFR, ACETA #### [address] [address] GFR >60 Normal [facility] ([place]) Comment on above: Result Comment: GFR Population [...] ADIFF, ANEU, LIP, AMRIT, CMP, ALC #### [address] [address] #### GFR, ACETA #### [address] [address] .NEUABSon 03-24-2021 Neutrophil, Absolute 3.10 10 3/mcL Normal 2.25-8.10 A [facility] ([place]) Comment on above: Performed By: #### C BC, ADIFF, ANEU, LIP, AMRIT, CMP, ALC #### [address] [address] #### GFR, ACETA #### [address] [address] Leydi 03-24-2021 Ammonia 17 mcmol/l Normal 11-32 [facility] ([place] Comment on above: Performed By: #### C BC, ADIFF, ANEU, LIP, AMRIT, CMP, ALC #### [place] [address] #### GFR, ACETA #### [place] [address] BMPon 03-24-2021 BUN/Creatinine Ratio 40.0 ratio High 10.0-22.0 [facility] ([place] Comment on above: Performed By: #### C BC, ADIFF, ANEU, LIP, AMRIT, CMP, ALC #### [place] [address] #### GFR, ACETA #### [address] [address] Calcium [Mass/Vol] 9.5 mg/dL Normal 8.7-10.4 [facility] [place] Comment on above: Result Comment: No te - New Reference Range in effect 20 Performed By: #### C BC, ADIFF, ANEU, LIP, AMRIT, CMP, ALC #### [place] [address] #### GFR, ACETA #### [address] [address] Chloride [Moles/Vol] 103 mmol/L Normal 98-110 [facility] ([place] Comment on above: Performed By: #### C BC, ADIFF, ANEU, LIP, AMRIT, CMP, ALC #### [place] [address] #### GFR, ACETA #### [address] [address] CO2 [Moles/Vol] 28 mmol/L Normal 22-32 [facility] ([place] Comment on above: Performed By: #### C BC, ADIFF, ANEU, LIP, AMRIT, CMP, ALC #### [address] [address] #### GFR, ACETA #### [address] [address] Creatinine [Mass/Vol] 0.50 mg/dL Normal 0.50-1.20 [facility] ([place] Comment on above: Performed By: #### C BC, ADIFF, ANEU, LIP, AMRIT, CMP, ALC #### [place] [address] #### GFR, ACETA #### [address] [address] Electrolyte Balance 8.0 mEq/L Normal 4.0-15.0 [facility] ([place] Comment on above: Performed By: #### C BC, ADIFF, ANEU, LIP, AMRIT, CMP, ALC #### [place] [address] #### GFR, ACETA #### [address] [address] Glucose [Mass/Vol] 81 mg/dL Normal 70-110 [facility] [place] Comment on above: Performed By: #### C BC, ADIFF, ANEU, LIP, AMRIT, CMP, ALC #### [place] [address] #### GFR, ACETA #### [address] [address] Potassium [Moles/Vol] 2.9 mmol/L Low 3.5-5.0 [facility] ([place] Comment on above: Performed By: #### C BC, ADIFF, ANEU, LIP, AMRIT, CMP, ALC #### [address] [address] #### GFR, ACETA #### [address] [address] Sodium [Moles/Vol] 139 mmol/L Normal 136-145 [facility] [place] Comment on above: Performed By: #### C BC, ADIFF, ANEU, LIP, AMRIT, CMP, ALC #### [address] [address] #### GFR, ACETA #### [address] [address] Urea nitrogen [Mass/Vol] 20.0 mg/dL Normal 8.0-22.0 [facility] ([place] Comment on above: Performed By: #### C BC, ADIFF, ANEU, LIP, AMIRT, CMP, ALC #### [place] [address] #### GFR, ACETA #### [place] [address] CBCon 03-24-2021 Erythrocyte distribution width (RBC) [Ratio] 14.9 % Normal 11.5-15.5 [facility] ([place]) Comment on above: Performed By: #### C BC, ADIFF, ANEU, LIP, AMRIT, CMP, ALC #### [address] [address] #### GFR, ACETA #### [place] [address] Hematocrit (Bld) [Volume fraction] 41.8 % Normal 34.0-46.0 [facility] ([place] Comment on above: Performed By: #### C BC, ADIFF, ANEU, LIP, AMRIT, CMP, ALC #### [place] [address] #### GFR, ACETA #### [place] [address] Hgb 14.0 G/dL Normal 12.0-16.0 [facility] ([place] Comment on above: Performed By: #### C BC, ADIFF, ANEU, LIP, AMRIT, CMP, ALC #### [place] [address] #### GFR, ACETA #### [address] [address] MCH (RBC) [Entitic mass] 31.7 pg Normal 27.0-33.0 [facility] ([place] Comment on above: Performed By: #### C BC, ADIFF, ANEU, LIP, AMRIT, CMP, ALC #### [place] [address] #### GFR, ACETA #### [place] [address] MCHC 33.5 G/dL Normal 32.0-36.0 [facility] ([place] Comment on above: Performed By: #### C BC, ADIFF, ANEU, LIP, AMRIT, CMP, ALC #### [place] [address] #### GFR, ACETA #### [place] [address] MCV (RBC) [Entitic vol] 94.7 fL Normal 80.0-99.0 [facility] ([place] Comment on above: Performed By: #### C BC, ADIFF, ANEU, LIP, AMRIT, CMP, ALC #### [place] [address] #### GFR, ACETA #### [place] [address] Platelet 51 10 3/mcL Low 150-450 [facility] ([place] Comment on above: Performed By: #### C BC, ADIFF, ANEU, LIP, AMRIT, CMP, ALC #### [place] [address] #### GFR, ACETA #### [place] [address] Platelet mean volume (Bld) [Entitic vol] 8.7 fL Normal 6.6-10.5 [facility] ([place] Comment on above: Performed By: #### C BC, ADIFF, ANEU, LIP, AMRIT, CMP, ALC #### [place] [address] #### GFR, ACETA #### [place] [id number] RBC 4.41 10 6/mcL Normal 4.10-5.30 [facility] ([place] Comment on above: Performed By: #### C BC, ADIFF, ANEU, LIP, AMRIT, CMP, ALC #### [address] [address] #### GFR, ACETA #### [place] [address] WBC 3.90 10 3/mcL Low 4.50-10.80 [facility] ([place] Comment on above: Performed By: #### C BC, ADIFF, ANEU, LIP, AMRIT, CMP, ALC #### [place] [address] #### GFR, ACETA #### [address] 03-24-2021 CK [Catalytic activity/Vol] 1000 U/L High 7-185 [facility] ([place] Comment on above: Performed By: #### C BC, ADIFF, ANEU, LIP, AMRIT, CMP, ALC #### [place] [address] #### GFR, ACETA #### [place] [address] US ABDOMEN LIMITEDon 021 US ABDOMEN LIMITED [...] 03/24/2021 4:08:37 PM Ordering Provider: AYLA Gooden [facility] ([place]) .Auto Diffon 03-23-2021 Basophil, Absolute 0.00 10 3/mcL Normal 0.00-0.19 [facility] ([place]) Comment on above: Performed By: #### C BC, ADIFF, ANEU, LIP, AMRIT, CMP, ALC #### [place] [address] #### GFR, ACETA #### [address] [address] Basophils/100 WBC (Bld) 0.1 % Normal 0.0-2.5 [facility] ([place] Comment on above: Performed By: #### C BC, ADIFF, ANEU, LIP, AMRIT, CMP, ALC #### [address] [address] #### GFR, ACETA #### [address] [address] Eosinophil, Absolute 0.00 10 3/mcL Normal 0.00-0.40 A [facility] ([place]) Comment on above: Performed By: #### C BC, ADIFF, ANEU, LIP, AMRIT, CMP, ALC #### [place] [address] #### GFR, ACETA #### [address] [address] Eosinophils/100 WBC (Bld) 0.0 % Normal 0.0-7.0 [facility] ([place] Comment on above: Performed By: #### C BC, ADIFF, ANEU, LIP, AMRIT, CMP, ALC #### [place] [address] #### GFR, ACETA #### [address] [address] Lymphocyte, Absolute 0.40 10 3/mcL Low 0.77-3.85 A [facility] ([place] Comment on above: Performed By: #### C BC, ADIFF, ANEU, LIP, AMRIT, CMP, ALC #### [address] [address] #### GFR, ACETA #### [address] [address] Lymphocytes/100 WBC (Bld) 3.8 % Low 10.0-50.0 [facility] ([place]) Comment on above: Performed By: #### C BC, ADIFF, ANEU, LIP, AMRIT, CMP, ALC #### [address] [address] #### GFR, ACETA #### [address] [address] Monocyte, Absolute 0.50 10 3/mcL Normal 0.15-1.00 [facility] ([place]) Comment on above: Performed By: #### C BC, ADIFF, ANEU, LIP, AMRIT, CMP, ALC #### [address] [address] #### GFR, ACETA #### [address] [address] Monocytes/100 WBC (Bld) 4.9 % Normal 1.7-13.0 [facility] ([place]) Comment on above: Performed By: #### C BC, ADIFF, ANEU, LIP, AMRIT, CMP, ALC #### [place] [address] #### GFR, ACETA #### [address] [address] Neutrophils/100 WBC (Bld) 91.2 % High 37.0-80.0 [facility] ([place]) Comment on above: Performed By: #### C BC, ADIFF, ANEU, LIP, AMRIT, CMP, ALC #### [address] [address] #### GFR, ACETA #### [address] [address] .GFRon 03-23-2021 GFR 56 ml/min/1.73sqm Normal [facility] ([place] Comment on above: Result Comment: GFR Population [...] ADIFF, ANEU, LIP, AMRIT, CMP, ALC #### [address] [address] #### GFR, ACETA #### [address] [address] GFR Non- 46 ml/min/1.73sqm Normal [facility] ([place] Comment on above: Result Comment: GFR Population [...] ADIFF, ANEU, LIP, AMRIT, CMP, ALC #### [address] [address] #### GFR, ACETA #### [address] [address] .NEUABSon 03-23-2021 Neutrophil, Absolute 9.60 10 3/mcL High 2.85-6.16 A [facility] ([place]) Comment on above: Performed By: #### C BC, ADIFF, ANEU, LIP, AMRIT, CMP, ALC #### [place] [address] #### GFR, ACETA #### [place] [address] .Urinalysis Microscopic (AO) on 03-23-2021 UA Bacteria 4+ /hpf Abnormal [facility] ([place] Comment on above: Performed By: #### C BC, ADIFF, ANEU, LIP, AMRIT, CMP, ALC #### [place] [address] #### GFR, ACETA #### [place] [address] UA RBC None Seen Normal None Seen [facility] ([place] Comment on above: Performed By: #### C BC, ADIFF, ANEU, LIP, AMRIT, CMP, ALC #### [place] [address] #### GFR, ACETA #### [place] [address] UA Squam Epithelial 0-5 Abnormal None Seen [facility] ([place] Comment on above: Performed By: #### C BC, ADIFF, ANEU, LIP, AMRIT, CMP, ALC #### [place] [address] #### GFR, ACETA #### [place] [address] UA WBC 0-5 Abnormal None Seen [facility] ([place] Comment on above: Performed By: #### C BC, ADIFF, ANEU, LIP, AMRIT, CMP, ALC #### [place] [address] #### GFR, ACETA #### [place] [address] ACETAon 03-23-2021 Acetaminophen [Mass/Vol] 0.0 ug/mL Low 10.0-30.0 [facility] ([place] Comment on above: Performed By: #### C BC, ADIFF, ANEU, LIP, AMRIT, CMP, ALC #### [place] [address] #### GFR, ACETA #### [address] [address] Shahida 03-23-2021 Ethanol Level <3 Normal 0-3 [facility] ([place] Comment on above: Performed By: #### C BC, ADIFF, ANEU, LIP, AMRIT, CMP, ALC #### [place] [address] #### GFR, ACETA #### [place] [address] CBCon 03-23-2021 Erythrocyte distribution width (RBC) [Ratio] 14.2 % Normal 11.5-14.5 [facility] ([place] Comment on above: Performed By: #### C BC, ADIFF, ANEU, LIP, AMRIT, CMP, ALC #### [place] [address] #### GFR, ACETA #### [place] [address] Hematocrit (Bld) [Volume fraction] 48.9 % High 37.0-47.0 [facility] ([place] Comment on above: Performed By: #### C BC, ADIFF, ANEU, LIP, AMRIT, CMP, ALC #### [place] [address] #### GFR, ACETA #### [place] [address] Hgb 16.9 G/dL High 12.0-16.0 [facility] ([place] Comment on above: Performed By: #### C BC, ADIFF, ANEU, LIP, AMRIT, CMP, ALC #### [place] [address] #### GFR, ACETA #### [place] [address] MCH (RBC) [Entitic mass] 32.5 pg High 27.0-31.2 [facility] ([place] Comment on above: Performed By: #### C BC, ADIFF, ANEU, LIP, AMRIT, CMP, ALC #### [place] [address] #### GFR, ACETA #### [place] [address] MCHC 34.6 G/dL Normal 33.0-37.0 [facility] ([place] Comment on above: Performed By: #### C BC, ADIFF, ANEU, LIP, AMRIT, CMP, ALC #### [place] [address] #### GFR, ACETA #### [place] [address] MCV (RBC) [Entitic vol] 93.9 fL Normal 80.0-94.0 [facility] ([place] Comment on above: Performed By: #### C BC, ADIFF, ANEU, LIP, AMRIT, CMP, ALC #### [place] [address] #### GFR, ACETA #### [place] [address] Platelet 94 10 3/mcL Low 130-400 [facility] ([place] Comment on above: Performed By: #### C BC, ADIFF, ANEU, LIP, AMRIT, CMP, ALC #### [place] [address] #### GFR, ACETA #### [place] [address] Platelet mean volume (Bld) [Entitic vol] 8.3 fL Normal 7.4-10.4 [facility] ([place] Comment on above: Performed By: #### C BC, ADIFF, ANEU, LIP, AMRIT, CMP, ALC #### [place] [address] #### GFR, ACETA #### [place] [address] RBC 5.21 10 6/mcL Normal 4.20-5.40 [facility] ([place] Comment on above: Performed By: #### C BC, ADIFF, ANEU, LIP, AMRIT, CMP, ALC #### [place] [address] #### GFR, ACETA #### [place] [address] WBC 10.50 10 3/mcL Normal 4.60-10.80 [facility] ([place] Comment on above: Performed By: #### C BC, ADIFF, ANEU, LIP, AMRIT, CMP, ALC #### [place] [address] #### GFR, ACETA #### [place] [address] CKon 03-23-2021 CK [Catalytic activity/Vol] 369 U/L High 26-192 [facility] ([place] Comment on above: Performed By: #### C BC, ADIFF, ANEU, LIP, AMRIT, CMP, ALC #### [place] [address] #### GFR, ACETA #### [place] [address] CMPon 03-23-2021 Albumin Level 3.0 G/dL Low 3.5-5.0 [facility] ([place] Comment on above: Performed By: #### C BC, ADIFF, ANEU, LIP, AMRIT, CMP, ALC #### [place] [address] #### GFR, ACETA #### [place] [address] Albumin/Globulin [Mass ratio] 0.9 {ratio} Low 1.1-2.5 [facility] ([place] Comment on above: Performed By: #### C BC, ADIFF, ANEU, LIP, AMRIT, CMP, ALC #### [place] [address] #### GFR, ACETA #### [address] [address] ALP [Catalytic activity/Vol] 178 U/L High 40-135 [facility] ([place] Comment on above: Performed By: #### C BC, ADIFF, ANEU, LIP, AMRIT, CMP, ALC #### [address] [address] #### GFR, ACETA #### [address] [address] ALT [Catalytic activity/Vol] 34 U/L Normal 14-59 [facility] ([place] Comment on above: Performed By: #### C BC, ADIFF, ANEU, LIP, AMRIT, CMP, ALC #### [place] [address] #### GFR, ACETA #### [address] [address] AST [Catalytic activity/Vol] 56 U/L High 10-40 [facility] ([place] Comment on above: Performed By: #### C BC, ADIFF, ANEU, LIP, AMRIT, CMP, ALC #### [place] [address] #### GFR, ACETA #### [place] [address] Bili Total 1.2 mg/dL High 0.2-1.0 [facility] ([place] Comment on above: Result Comment: Use of this assay is not recommended for patients undergoing treatment with eltrombopag due to the potential for falsely elevated results. Performed By: #### C BC, ADIFF, ANEU, LIP, AMRIT, CMP, ALC #### [place] [address] #### GFR, ACETA #### [place] [address] BUN/Creatinine Ratio 18 ratio Normal 7-27 [facility] ([place] Comment on above: Performed By: #### C BC, ADIFF, ANEU, LIP, AMRIT, CMP, ALC #### [place] [address] #### GFR, ACETA #### [address] [address] Calcium [Mass/Vol] 9.5 mg/dL Normal 8.4-10.2 [facility] [place] Comment on above: Performed By: #### C BC, ADIFF, ANEU, LIP, AMRIT, CMP, ALC #### [place] [address] #### GFR, ACETA #### [address] [address] Chloride [Moles/Vol] 99 mmol/L Normal 98-107 [facility] ([place] Comment on above: Performed By: #### C BC, ADIFF, ANEU, LIP, AMRIT, CMP, ALC #### [place] [address] #### GFR, ACETA #### [place] [address] CO2 [Moles/Vol] 27 mmol/L Normal 22-29 [facility] ([place] Comment on above: Performed By: #### C BC, ADIFF, ANEU, LIP, AMRIT, CMP, ALC #### [place] [address] #### GFR, ACETA #### [address] [address] Creatinine [Mass/Vol] 1.19 mg/dL High 0.55-1.02 [facility] ([place] Comment on above: Performed By: #### C BC, ADIFF, ANEU, LIP, AMRIT, CMP, ALC #### [place] [address] #### GFR, ACETA #### [address] [address] Electrolyte Balance 12.0 mEq/L Normal [facility] ([place] Comment on above: Performed By: #### C BC, ADIFF, ANEU, LIP, AMRIT, CMP, ALC #### [place] [address] #### GFR, ACETA #### [address] [address] Globulin 3.3 G/dL Normal [facility] ([place] Comment on above: Performed By: #### C BC, ADIFF, ANEU, LIP, AMRIT, CMP, ALC #### [address] [address] #### GFR, ACETA #### [address] [address] Glucose [Mass/Vol] 125 mg/dL High 70-105 [facility] [place] Comment on above: Performed By: #### C BC, ADIFF, ANEU, LIP, AMRIT, CMP, ALC #### [address] [address] #### GFR, ACETA #### [address] [address] Potassium [Moles/Vol] 3.7 mmol/L Normal 3.5-5.1 [facility] ([place] Comment on above: Performed By: #### C BC, ADIFF, ANEU, LIP, AMRIT, CMP, ALC #### [address] [address] #### GFR, ACETA #### [address] [address] Sodium [Moles/Vol] 138 mmol/L Normal 136-145 [facility] [place] Comment on above: Performed By: #### C BC, ADIFF, ANEU, LIP, AMRIT, CMP, ALC #### [address] [address] #### GFR, ACETA #### [address] [address] Total Protein 6.3 G/dL Low 6.4-8.2 [facility] ([place]) Comment on above: Performed By: #### C BC, ADIFF, ANEU, LIP, AMRIT, CMP, ALC #### [address] [address] #### GFR, ACETA #### [place] [address] Urea nitrogen [Mass/Vol] 21 mg/dL High 7-18 [facility] ([place]) Comment on above: Performed By: #### C BC, ADIFF, ANEU, LIP, AMRIT, CMP, ALC #### [place] [address] #### GFR, ACETA #### [place] [address] [id number] 03-23-2021 Date of Onset [id number] Invalid Interpretation Code [facility] ([place]) Comment on above: Performed By: #### C BC, ADIFF, ANEU, LIP, AMRIT, CMP, ALC #### [place] [address] #### GFR, ACETA #### [place] [address] Employed in [employer] [facility] ([place]) Comment on above: Performed By: #### C BC, ADIFF, ANEU, LIP, AMRIT, CMP, ALC #### [place] [address] #### GFR, ACETA #### [place] [address] First Test Unknown [facility] ([place]) Comment on above: Performed By: #### C BC, ADIFF, ANEU, LIP, AMRIT, CMP, ALC #### [place] [address] #### GFR, ACETA #### [place] [address] Hospitalized No [facility] ([place] Comment on above: Performed By: #### C BC, ADIFF, ANEU, LIP, AMRIT, CMP, ALC #### [place] [address] #### GFR, ACETA #### [place] [address] ICU No [facility] ([place] Comment on above: Performed By: #### C BC, ADIFF, ANEU, LIP, AMRIT, CMP, ALC #### [address] [address] #### GFR, ACETA #### [place] [address] Not [facility] ([place]) Comment on above: Performed By: #### C BC, ADIFF, ANEU, LIP, AMRIT, CMP, ALC #### [address] [address] #### GFR, ACETA #### [place] [address] Resides in [facility] Setting No [facility] ([place]) Comment on above: Performed By: #### C BC, ADIFF, ANEU, LIP, AMRIT, CMP, ALC #### [address] [address] #### GFR, ACETA #### [place] [address] SARS-CoV-2 (COVID-19) RNA GABRIELLE+probe Ql (Unsp spec) Negative Normal Negative [facility] ([place]) Comment on above: Performed By: #### C BC, ADIFF, ANEU, LIP, AMRIT, CMP, ALC #### [address] [address] #### GFR, ACETA #### [place] [address] SARS-CoV-2 (COVID-19) RNA GABRIELLE+probe Ql (Unsp spec) Normal [facility] ([place]) Comment on above: Result Comment: Nega tive [...] ADIFF, ANEU, LIP, AMRIT, CMP, ALC #### [address] [address] #### GFR, ACETA #### [address] [address] Symptomatic as Defined by [facility] No Normal [facility] ([place]) Comment on above: Performed By: #### C BC, ADIFF, ANEU, LIP, AMRIT, CMP, ALC #### [address] [address] #### GFR, ACETA #### [place] [id number] CT HEAD OR BRAIN W/O CONTRAS Ton [...] Date: 03/23/2021 1:52:26 PM Ordering Provider: CECE BRADLEY [facility] ([place]) MGon 03-23-2021 Magnesium [Mass/Vol] 1.9 mg/dL Normal 1.8-2.4 [facility]) Comment on above: Performed By: #### C BC, ADIFF, ANEU, LIP, AMRIT, CMP, ALC #### [place] [address] #### GFR, ACETA #### [place] [address] SALon 03-23-2021 Salicylate Level 3.9 mg/dL Normal 2.8-20.0 [facility] ([place]) Comment on above: Performed By: #### C BC, ADIFF, ANEU, LIP, AMRIT, CMP, ALC #### [place] [address] #### GFR, ACETA #### [place] [address] TOXSCon 03-23-2021 U Ampheta (AO) Negative Normal [facility] ([place]) Comment on above: Performed By: #### C BC, ADIFF, ANEU, LIP, AMRIT, CMP, ALC #### [place] [address] #### GFR, ACETA #### [place] [id number] U Kimberly (AO) Negative Normal [facility] ([place]) Comment on above: Performed By: #### C BC, ADIFF, ANEU, LIP, AMRIT, CMP, ALC #### [address] [address] #### GFR, ACETA #### [address] [address] U Yariel (AO) Negative [facility] ([place]) Comment on above: Performed By: #### C BC, ADIFF, ANEU, LIP, AMRIT, CMP, ALC #### [address] [address] #### GFR, ACETA #### [address] [address] U Cannab (AO) Negative [facility] ([place]) Comment on above: Performed By: #### C BC, ADIFF, ANEU, LIP, AMRIT, CMP, ALC #### [place] [address] #### GFR, ACETA #### [address] [address] U Cocaine (AO) Negative [facility] ([place]) Comment on above: Performed By: #### C BC, ADIFF, ANEU, LIP, AMRIT, CMP, ALC #### [place] [address] #### GFR, ACETA #### [address] [address] U Methadone (AO) Negative [facility] ([place]) Comment on above: Performed By: #### C BC, ADIFF, ANEU, LIP, AMRIT, CMP, ALC #### [address] [address] #### GFR, ACETA #### [address] [address] U PCP (AO) Negative [facility] ([place]) Comment on above: Performed By: #### C BC, ADIFF, ANEU, LIP, AMRIT, CMP, ALC #### [place] [address] #### GFR, ACETA #### [address] [address] U TCA (AO) Negative Normal [facility] ([place]) Comment on above: Performed By: #### C BC, ADIFF, ANEU, LIP, AMRIT, CMP, ALC #### [place] [address] #### GFR, ACETA #### [place] [address] Urine Opiates (AO) Negative [facility] ([place]) Comment on above: Performed By: #### C BC, ADIFF, ANEU, LIP, AMRIT, CMP, ALC #### [place] [address] #### GFR, ACETA #### [place] [address] UAon 03-23-2021 Color (U) Yellow Normal [facility] ([place]) Comment on above: Performed By: #### C BC, ADIFF, ANEU, LIP, AMRIT, CMP, ALC #### [place] [address] #### GFR, ACETA #### [place] [address] Glucose (U) [Mass/Vol] Negative Normal Negative [facility] ([place]) Comment on above: Performed By: #### C BC, ADIFF, ANEU, LIP, AMRIT, CMP, ALC #### [place] [address] #### GFR, ACETA #### [place] [address] Ketones Ql (U) Negative Normal Negative [facility] ([place]) Comment on above: Performed By: #### C BC, ADIFF, ANEU, LIP, AMRIT, CMP, ALC #### [place] [address] #### GFR, ACETA #### [place] [address] UA Appear Cloudy Abnormal Clear [facility] ([place]) Comment on above: Performed By: #### C BC, ADIFF, ANEU, LIP, AMRIT, CMP, ALC #### [address] [address] #### GFR, ACETA #### [address] [address] UA Blood Small Abnormal Negative [facility] ([place]) Comment on above: Performed By: #### C BC, ADIFF, ANEU, LIP, AMRIT, CMP, ALC #### [address] [address] #### GFR, ACETA #### [address] [address] UA Leuk Est Negative Normal Negative [facility] ([place]) Comment on above: Performed By: #### C BC, ADIFF, ANEU, LIP, AMRIT, CMP, ALC #### [place] [address] #### GFR, ACETA #### [address] [address] UA Nitrite Negative Normal Negative [facility] ([place]) Comment on above: Performed By: #### C BC, ADIFF, ANEU, LIP, AMRIT, CMP, ALC #### [place] [address] #### GFR, ACETA #### [address] [address] UA pH 6.0 Normal 5.0 - 8.0 [facility] ([place]) Comment on above: Performed By: #### C BC, ADIFF, ANEU, LIP, AMRIT, CMP, ALC #### [address] [address] #### GFR, ACETA #### [place] [address] UA Protein 100 mg/dL Abnormal Negative [facility] ([place]) Comment on above: Performed By: #### C BC, ADIFF, ANEU, LIP, AMRIT, CMP, ALC #### [place] [address] #### GFR, ACETA #### [place] [address] UA Spec Grav >=1.030 Abnormal 1.015-1.025 [facility] ([place]) Comment on above: Performed By: #### C BC, ADIFF, ANEU, LIP, AMRIT, CMP, ALC #### [address] [address] #### GFR, ACETA #### [place] [address] UA Specimen Type Clean Catch Normal [facility] ([place]) Comment on above: Performed By: #### C BC, ADIFF, ANEU, LIP, AMRIT, CMP, ALC #### [place] [address] #### GFR, ACETA #### [place] [address] UA Urobilinogen 0.2 E.U./dL Normal 0.2-1.0 [facility] ([place]) Comment on above: Performed By: #### C BC, ADIFF, ANEU, LIP, AMRIT, CMP, ALC #### [place] [address] #### GFR, ACETA #### [place] [address] Urobilinogen (U) [Mass/Vol] Negative Normal Negative [facility] ([place]) Comment on above: Performed By: #### C BC, ADIFF, ANEU, LIP, AMRIT, CMP, ALC #### [place] [address] #### GFR, ACETA #### [place] [address] XR CHEST 1 VIEWon 03-23-2021 XR CHEST [...] 1:31:08 PM Ordering Provider: CECE BRADLEY Normal [facility] ([place]) .Urinalysis Microscopic (AO) on 08-19-2020 UA Bacteria 3+ /hpf Abnormal [facility] ([place]) Comment on above: Performed By: #### C BC, ADIFF, ANEU, LIP, AMRIT, CMP, ALC #### [place] [address] #### GFR, ACETA #### [place] [address] UA RBC None Seen Normal None Seen [facility] ([place] Comment on above: Performed By: #### C BC, ADIFF, ANEU, LIP, AMRIT, CMP, ALC #### [place] [address] #### GFR, ACETA #### [place] [address] UA Squam Epithelial 0-5 Abnormal None Seen [facility] ([place]) Comment on above: Performed By: #### C BC, ADIFF, ANEU, LIP, AMRIT, CMP, ALC #### [place] [address] #### GFR, ACETA #### [place] [address] UA WBC 5-10 Abnormal None Seen [facility] ([place]) Comment on above: Performed By: #### C BC, ADIFF, ANEU, LIP, AMRIT, CMP, ALC #### [place] [address] #### GFR, ACETA #### [place] [address] TOXSCon 08-19-2020 U Ampheta (AO) Negative [facility] ([place]) Comment on above: Performed By: #### T OXSC, UADIP, UAMICAO #### [address] [address] U Kimberly (AO) Negative [facility] ([place]) Comment on above: Performed By: #### T OXSC, UADIP, UAMICAO #### [address] [address] U Yariel (AO) Negative [facility] ([place]) Comment on above: Performed By: #### T OXSC, UADIP, UAMICAO #### [address] [address] U Cannab (AO) Negative [facility] ([place]) Comment on above: Performed By: #### T OXSC, UADIP, UAMICAO #### [address] [address] U Cocaine (AO) Negative [facility] ([place]) Comment on above: Performed By: #### T OXSC, UADIP, UAMICAO #### [address] [address] U Methadone (AO) Negative [facility] ([place]) Comment on above: Performed By: #### T OXSC, UADIP, UAMICAO #### [address] [address] U PCP (AO) Negative [facility] ([place]) Comment on above: Performed By: #### T OXSC, UADIP, UAMICAO #### [address] [address] U TCA (AO) Negative [facility] ([place]) Comment on above: Performed By: #### T OXSC, UADIP, UAMICAO #### [address] [address] Urine Opiates (AO) Negative [facility] ([place]) Comment on above: Performed By: #### T OXSC, UADIP, UAMICAO #### [address] [address] URINon 08-19-2020 Color (U) Yellow Normal [facility] ([place]) Comment on above: Performed By: #### C BC, ADIFF, ANEU, LIP, AMRIT, CMP, ALC #### [place] [address] #### GFR, ACETA #### [address] [address] Glucose (U) [Mass/Vol] Negative Normal Negative [facility] ([place]) Comment on above: Performed By: #### C BC, ADIFF, ANEU, LIP, AMRIT, CMP, ALC #### [place] [address] #### GFR, ACETA #### [place] [address] Ketones Ql (U) Negative Normal Negative [facility] ([place]) Comment on above: Performed By: #### C BC, ADIFF, ANEU, LIP, AMRIT, CMP, ALC #### [place] [address] #### GFR, ACETA #### [place] [address] UA Appear Slightly Cloudy Abnormal Clear [facility] ([place] Comment on above: Performed By: #### C BC, ADIFF, ANEU, LIP, AMRIT, CMP, ALC #### [place] [address] #### GFR, ACETA #### [place] [address] UA Blood Negative Normal Negative [facility] ([place] Comment on above: Performed By: #### C BC, ADIFF, ANEU, LIP, AMRIT, CMP, ALC #### [place] [address] #### GFR, ACETA #### [address] [address] UA Leuk Est Trace Abnormal Negative [facility] ([place]) Comment on above: Performed By: #### C BC, ADIFF, ANEU, LIP, AMRIT, CMP, ALC #### [place] [address] #### GFR, ACETA #### [place] [address] UA Nitrite Positive Abnormal Negative [facility] ([place] Comment on above: Performed By: #### C BC, ADIFF, ANEU, LIP, AMRIT, CMP, ALC #### [place] [address] #### GFR, ACETA #### [place] [address] UA pH 6.0 Normal 5.0 - 8.0 [facility] ([place] Comment on above: Performed By: #### C BC, ADIFF, ANEU, LIP, AMRIT, CMP, ALC #### [place] [address] #### GFR, ACETA #### [place] [address] UA Protein Negative Normal Negative [facility] ([place] Comment on above: Performed By: #### C BC, ADIFF, ANEU, LIP, AMRIT, CMP, ALC #### [place] [address] #### GFR, ACETA #### [place] [address] UA Spec Grav 1.015 Normal 1.015-1.025 [facility] ([place] Comment on above: Performed By: #### C BC, ADIFF, ANEU, LIP, AMRIT, CMP, ALC #### [place] [address] #### GFR, ACETA #### [place] [address] UA Specimen Type Clean Catch Normal [facility] ([place]) Comment on above: Performed By: #### C BC, ADIFF, ANEU, LIP, AMRIT, CMP, ALC #### [place] [address] #### GFR, ACETA #### [place] [address] UA Urobilinogen 0.2 E.U./dL Normal 0.2-1.0 [facility] ([place]) Comment on above: Performed By: #### C BC, ADIFF, ANEU, LIP, AMRIT, CMP, ALC #### [place] [address] #### GFR, ACETA #### [place] [address] Urobilinogen (U) [Mass/Vol] Negative Normal Negative [facility] ([place]) Comment on above: Performed By: #### C BC, ADIFF, ANEU, LIP, AMRIT, CMP, ALC #### [place] [address] #### GFR, ACETA #### [place] [address] .Auto Diffon 08-18-2020 Basophil, Absolute 0.10 10 3/mcL Normal 0.00-0.19 [facility] ([place]) Comment on above: Performed By: #### C BC, ADIFF, ANEU, LIP, AMRIT, CMP, ALC #### [place] [address] #### GFR, ACETA #### [place] [address] Basophils/100 WBC (Bld) 0.9 % Normal 0.0-2.5 [facility] ([place]) Comment on above: Performed By: #### C BC, ADIFF, ANEU, LIP, AMRIT, CMP, ALC #### [place] [address] #### GFR, ACETA #### [place] [address] Eosinophil, Absolute 0.00 10 3/mcL Normal 0.00-0.40 A [facility] ([place]) Comment on above: Performed By: #### C BC, ADIFF, ANEU, LIP, AMRIT, CMP, ALC #### [place] [address] #### GFR, ACETA #### [address] [address] Eosinophils/100 WBC (Bld) 0.3 % Normal 0.0-7.0 [facility] ([place]) Comment on above: Performed By: #### C BC, ADIFF, ANEU, LIP, AMRIT, CMP, ALC #### [place] [address] #### GFR, ACETA #### [address] [address] Lymphocyte, Absolute 2.60 10 3/mcL Normal 0.77-3.85 A [facility] ([place]) Comment on above: Performed By: #### C BC, ADIFF, ANEU, LIP, AMRIT, CMP, ALC #### [place] [address] #### GFR, ACETA #### [address] [address] Lymphocytes/100 WBC (Bld) 32.8 % Normal 10.0-50.0 [facility] ([place]) Comment on above: Performed By: #### C BC, ADIFF, ANEU, LIP, AMRIT, CMP, ALC #### [place] [address] #### GFR, ACETA #### [address] [address] Monocyte, Absolute 0.60 10 3/mcL Normal 0.15-1.00 [facility] ([place]) Comment on above: Performed By: #### C BC, ADIFF, ANEU, LIP, AMRIT, CMP, ALC #### [place] [address] #### GFR, ACETA #### [address] [address] Monocytes/100 WBC (Bld) 7.5 % Normal 1.7-13.0 [facility] ([place]) Comment on above: Performed By: #### C BC, ADIFF, ANEU, LIP, AMRIT, CMP, ALC #### [address] [address] #### GFR, ACETA #### [address] [address] Neutrophils/100 WBC (Bld) 58.5 % Normal 37.0-80.0 [facility] ([place]) Comment on above: Performed By: #### C BC, ADIFF, ANEU, LIP, AMRIT, CMP, ALC #### [address] [address] #### GFR, ACETA #### [address] [address] .GFRon 08-18-2020 GFR 109 ml/min/1.73sqm Normal [facility] ([place]) Comment on above: Result Comment: GFR Population [...] ADIFF, ANEU, LIP, AMRIT, CMP, ALC #### [address] [address] #### GFR, ACETA #### [address] [address] GFR Non- 90 ml/min/1.73sqm Normal [facility] ([place]) Comment on above: Result Comment: GFR Population [...] ADIFF, ANEU, LIP, AMRIT, CMP, ALC #### [place] [address] #### GFR, ACETA #### [place] [address] .NEUABSon 08-18-2020 Neutrophil, Absolute 4.70 10 3/mcL Normal 2.85-6.16 A [facility] ([place]) Comment on above: Performed By: #### C BC, ADIFF, ANEU, LIP, AMRIT, CMP, ALC #### [place] [address] #### GFR, ACETA #### [place] [address] ACETAon 08-18-2020 Acetaminophen [Mass/Vol] 0.0 ug/mL Low 10.0-30.0 [facility] ([place]) Comment on above: Performed By: #### C BC, ADIFF, ANEU, LIP, AMRIT, CMP, ALC #### [place] [address] #### GFR, ACETA #### [place] [address] Shahida 08-18-2020 Ethanol Level 360 mg/dL Critically abnormal 0-3 [facility] ([place]) Comment on above: Performed By: #### C BC, ADIFF, ANEU, LIP, AMRIT, CMP, ALC #### [place] [address] #### GFR, ACETA #### [place] [address] CBCon 08-18-2020 Erythrocyte distribution width (RBC) [Ratio] 16.4 % High 11.5-14.5 [facility] ([place]) Comment on above: Performed By: #### C BC, ADIFF, ANEU, LIP, AMRIT, CMP, ALC #### [place] [address] #### GFR, ACETA #### [address] [address] Hematocrit (Bld) [Volume fraction] 51.6 % High 37.0-47.0 [facility] ([place]) Comment on above: Performed By: #### C BC, ADIFF, ANEU, LIP, AMRIT, CMP, ALC #### [place] [address] #### GFR, ACETA #### [place] [address] Hgb 17.6 G/dL High 12.0-16.0 [facility] ([place]) Comment on above: Performed By: #### C BC, ADIFF, ANEU, LIP, AMRIT, CMP, ALC #### [place] [address] #### GFR, ACETA #### [place] [address] MCH (RBC) [Entitic mass] 30.0 pg Normal 27.0-31.2 [facility] ([place]) Comment on above: Performed By: #### C BC, ADIFF, ANEU, LIP, AMRIT, CMP, ALC #### [place] [address] #### GFR, ACETA #### [place] [address] MCHC 34.1 G/dL Normal 33.0-37.0 [facility] ([place]) Comment on above: Performed By: #### C BC, ADIFF, ANEU, LIP, AMRIT, CMP, ALC #### [place] [address] #### GFR, ACETA #### [place] [address] MCV (RBC) [Entitic vol] 88.0 fL Normal 80.0-94.0 [facility] ([place]) Comment on above: Performed By: #### C BC, ADIFF, ANEU, LIP, AMRIT, CMP, ALC #### [place] [address] #### GFR, ACETA #### [place] [address] Platelet 294 10 3/mcL Normal 130-400 [facility] ([place]) Comment on above: Performed By: #### C BC, ADIFF, ANEU, LIP, AMRIT, CMP, ALC #### [place] [address] #### GFR, ACETA #### [place] [address] Platelet mean volume (Bld) [Entitic vol] 7.4 fL Normal 7.4-10.4 [facility] ([place]) Comment on above: Performed By: #### C BC, ADIFF, ANEU, LIP, AMRIT, CMP, ALC #### [place] [address] #### GFR, ACETA #### [place] [address] RBC 5.86 10 6/mcL High 4.20-5.40 [facility] ([place]) Comment on above: Performed By: #### C BC, ADIFF, ANEU, LIP, AMRIT, CMP, ALC #### [place] [address] #### GFR, ACETA #### [place] [address] WBC 8.00 10 3/mcL Normal 4.60-10.80 [facility] ([place]) Comment on above: Performed By: #### C BC, ADIFF, ANEU, LIP, AMRIT, CMP, ALC #### [place] [address] #### GFR, ACETA #### [place] [address] CMPon 08-18-2020 Albumin Level 3.9 G/dL Normal 3.5-5.0 [facility] ([place]) Comment on above: Performed By: #### C BC, ADIFF, ANEU, LIP, AMRIT, CMP, ALC #### [place] [address] #### GFR, ACETA #### [address] [address] Albumin/Globulin [Mass ratio] 1.1 {ratio} Normal 1.1-2.5 [facility] ([place]) Comment on above: Performed By: #### C BC, ADIFF, ANEU, LIP, AMRIT, CMP, ALC #### [place] [address] #### GFR, ACETA #### [address] [address] ALP [Catalytic activity/Vol] 151 U/L High 40-135 [facility] ([place]) Comment on above: Performed By: #### C BC, ADIFF, ANEU, LIP, AMRIT, CMP, ALC #### [place] [address] #### GFR, ACETA #### [address] [address] ALT [Catalytic activity/Vol] 91 U/L High 14-59 [facility] ([place]) Comment on above: Performed By: #### C BC, ADIFF, ANEU, LIP, AMRIT, CMP, ALC #### [place] [address] #### GFR, ACETA #### [address] [address] AST [Catalytic activity/Vol] 105 U/L High 10-40 [facility] ([place]) Comment on above: Performed By: #### C BC, ADIFF, ANEU, LIP, AMRIT, CMP, ALC #### [place] [address] #### GFR, ACETA #### [address] [address] Bili Total 0.4 mg/dL Normal 0.2-1.0 [facility] ([place]) Comment on above: Result Comment: Use of this assay is not recommended for patients undergoing treatment with eltrombopag due to the potential for falsely elevated results. Performed By: #### C BC, ADIFF, ANEU, LIP, AMRIT, CMP, ALC #### [address] [address] #### GFR, ACETA #### [address] [address] BUN/Creatinine Ratio 15 ratio Normal 7-27 [facility] ([place]) Comment on above: Performed By: #### C BC, ADIFF, ANEU, LIP, AMRIT, CMP, ALC #### [place] [address] #### GFR, ACETA #### [address] [address] Calcium [Mass/Vol] 9.9 mg/dL Normal 8.4-10.2 [facility] [place] Comment on above: Performed By: #### C BC, ADIFF, ANEU, LIP, AMRIT, CMP, ALC #### [place] [address] #### GFR, ACETA #### [address] [address] Chloride [Moles/Vol] 101 mmol/L Normal 98-107 [facility] ([place]) Comment on above: Performed By: #### C BC, ADIFF, ANEU, LIP, AMRIT, CMP, ALC #### [place] [address] #### GFR, ACETA #### [address] [address] CO2 [Moles/Vol] 24 mmol/L Normal 22-29 [facility] ([place]) Comment on above: Performed By: #### C BC, ADIFF, ANEU, LIP, AMRIT, CMP, ALC #### [address] [address] #### GFR, ACETA #### [address] [address] Creatinine [Mass/Vol] 0.67 mg/dL Normal 0.55-1.02 [facility] ([place]) Comment on above: Performed By: #### C BC, ADIFF, ANEU, LIP, AMRIT, CMP, ALC #### [address] [address] #### GFR, ACETA #### [address] [address] Electrolyte Balance 14.0 mEq/L Normal [facility] ([place]) Comment on above: Performed By: #### C BC, ADIFF, ANEU, LIP, AMRIT, CMP, ALC #### [address] [address] #### GFR, ACETA #### [address] [address] Globulin 3.6 G/dL Normal [facility] ([place]) Comment on above: Performed By: #### C BC, ADIFF, ANEU, LIP, AMRIT, CMP, ALC #### [place] [address] #### GFR, ACETA #### [address] [address] Glucose [Mass/Vol] 79 mg/dL Normal 70-105 [facility] [place] Comment on above: Performed By: #### C BC, ADIFF, ANEU, LIP, AMRIT, CMP, ALC #### [place] [address] #### GFR, ACETA #### [address] [address] Potassium [Moles/Vol] 4.4 mmol/L Normal 3.5-5.1 [facility] ([place]) Comment on above: Performed By: #### C BC, ADIFF, ANEU, LIP, AMRIT, CMP, ALC #### [address] [address] #### GFR, ACETA #### [address] [address] Sodium [Moles/Vol] 139 mmol/L Normal 136-145 [facility] [place] Comment on above: Performed By: #### C BC, ADIFF, ANEU, LIP, AMRIT, CMP, ALC #### [place] [address] #### GFR, ACETA #### [place] [address] Total Protein 7.5 G/dL Normal 6.4-8.2 [facility] ([place]) Comment on above: Performed By: #### C BC, ADIFF, ANEU, LIP, AMRIT, CMP, ALC #### [place] [address] #### GFR, ACETA #### [place] [address] Urea nitrogen [Mass/Vol] 10 mg/dL Normal 7-18 [facility] ([place] Comment on above: Performed By: #### C BC, ADIFF, ANEU, LIP, AMRIT, CMP, ALC #### [place] [address] #### GFR, ACETA #### [place] [address] LIPon 08-18-2020 Lipase Level 198 U/L Normal 73-393 [facility] ([place] Comment on above: Performed By: #### C BC, ADIFF, ANEU, LIP, AMRIT, CMP, ALC #### [place] [address] #### GFR, ACETA #### [place] [address] SALon 08-18-2020 Salicylate Level 7.1 mg/dL Normal 2.8-20.0 [facility] ([place] Comment on above: Performed By: #### C BC, ADIFF, ANEU, LIP, AMRIT, CMP, ALC #### [place] [address] #### GFR, ACETA #### [address] [address] PANKAJ PANELon 07-18-2017 ANTINUCLEAR ANTIBODY Negative Normal NEGATIVE [facility] Comment on above: Order Comment: PANKAJ T EST INCLUDED IN ANAP2 Performed By: #### A NAP2 ####[id number] [place] [address] ANTI-CENTROMERE <0.2 Normal [facility] Comment on above: Order Comment: PANKAJ T EST INCLUDED IN ANAP2 Result Comment: REF VALUES< 1.0 = NEGATIVE>=1.0 = POSITIVE Performed By: #### A NAP2 ####[facility] [place] [address] ANTI-CHROMATIN <0.2 Normal [facility] Comment on above: Order Comment: PANKJA T EST INCLUDED IN ANAP2 Result Comment: REF VALUES< 1.0 = NEGATIVE>=1.0 = POSITIVE Performed By: #### A NAP2 ####[id number] [place] [address] ANTI-DNA [DS] 2.0 IU/mL Normal [facility] Comment on above: Order Comment: PANKAJ T EST INCLUDED IN ANAP2 Result Comment: REF VALUESNEGATIVE: <= 4 IU/MLEQUIVOCAL: 5- 9 IU/MLPOSITIVE: >=10 IU/ML Performed By: #### A NAP2 ####[facility] [place] [address] ANTI-NATALY-1 <0.2 Normal [facility] Comment on above: Order Comment: PANKAJ T EST INCLUDED IN ANAP2 Result Comment: REF VALUES< 1.0 = NEGATIVE>=1.0 = POSITIVE Performed By: #### A NAP2 ####[facility] [place] [address] ANTI-RIBOSOMAL P <0.2 Normal [facility] Comment on above: Order Comment: PANKAJ T EST INCLUDED IN ANAP2 Result Comment: REF VALUES< 1.0 = NEGATIVE>=1.0 = POSITIVE Performed By: #### A NAP2 ####[facility] [place] [address] ANTI-STUD MASTER/MISTRESS <0.2 Normal [facility] Comment on above: Order Comment: PANKAJ T EST INCLUDED IN ANAP2 Result Comment: REF VALUES< 1.0 = NEGATIVE>=1.0 = POSITIVE Performed By: #### A NAP2 ####[facility] [place] [address] ANTI-SCL-70 <0.2 Normal [facility] Comment on above: Order Comment: PANKAJ T EST INCLUDED IN ANAP2 Result Comment: REF VALUES< 1.0 = NEGATIVE>=1.0 = POSITIVE Performed By: #### A NAP2 ####[facility] [place] [address] ANTI-SM <0.2 Normal [facility] Comment on above: Order Comment: PANKAJ T EST INCLUDED IN ANAP2 Result Comment: REF VALUES< 1.0 = NEGATIVE>=1.0 = POSITIVE Performed By: #### A NAP2 ####[facility] [place] [address] ANTI-SM/STUD MASTER/MISTRESS <0.2 Normal [facility] Comment on above: Order Comment: PANKAJ T EST INCLUDED IN ANAP2 Result Comment: REF VALUES< 1.0 = NEGATIVE>=1.0 = POSITIVE Performed By: #### A NAP2 ####[facility] [place] [address] ANTI-SSA 0.8 AI Normal [facility] Comment on above: Order Comment: PANKAJ T EST INCLUDED IN ANAP2 Result Comment: REF VALUES< 1.0 = NEGATIVE>=1.0 = POSITIVE Performed By: #### A NAP2 ####[facility] [place] [address] ANTI-SSB 0.2 AI Normal [facility] Comment on above: Order Comment: PANKAJ T EST INCLUDED IN ANAP2 Result Comment: REF VALUES< 1.0 = NEGATIVE>=1.0 = POSITIVE Performed By: #### A NAP2 ####[facility] [place] [address] URINALYSISon 07-18-2017 APPEARANCE CLEAR Normal CLEAR [facility] Comment on above: Order Comment: PANKAJ T EST INCLUDED IN ANAP2 Performed By: #### U A ####[facility] [place] [address] BILIRUBIN Negative Normal NEGATIVE [facility] Comment on above: Order Comment: PANKAJ T EST INCLUDED IN ANAP2 Performed By: #### U A ####[facility] [id number] BLOOD Negative Normal NEGATIVE [facility] Comment on above: Order Comment: PANKAJ T EST INCLUDED IN ANAP2 Performed By: #### U A ####[facility] [id number] COLOR STRAW Normal STRAW,YELLOW [facility] Comment on above: Order Comment: PANKAJ T EST INCLUDED IN ANAP2 Performed By: #### U A ####[facility] [id number] GLUCOSE Negative Normal NEGATIVE [facility] Comment on above: Order Comment: PANKAJ T EST INCLUDED IN ANAP2 Performed By: #### U A ####[facility] [id number] KETONES Negative Normal NEGATIVE [facility] Comment on above: Order Comment: PANKAJ T EST INCLUDED IN ANAP2 Performed By: #### U A ####[facility] [id number] LEUKOCYTE ESTERASE Negative Normal NEGATIVE [facility] [place] Comment on above: Order Comment: PANKAJ T EST INCLUDED IN ANAP2 Performed By: #### U A ####[facility] [place] [address] NITRITE Negative Normal NEGATIVE [facility] Comment on above: Order Comment: PANKAJ T EST INCLUDED IN ANAP2 Performed By: #### U A ####[facility] [place] [address] pH 7.0 Normal 5.0 - 8.0 [facility] Comment on above: Order Comment: PANKAJ T EST INCLUDED IN ANAP2 Performed By: #### U A ####[facility] [place] [address] PROTEIN Negative Normal NEGATIVE [facility] Comment on above: Order Comment: PANKAJ T EST INCLUDED IN ANAP2 Performed By: #### U A ####[facility] [place] [address] SPECIFIC GRAVITY 1.003 Low 1.005 - 1.035 [facility] Comment on above: Order Comment: PANKAJ T EST INCLUDED IN ANAP2 Performed By: #### U A ####[facility] [place] [address] UROBILINOGEN <2.0 Normal 0.0 - 1.9 [facility] Comment on above: Order Comment: PANKAJ T EST INCLUDED IN ANAP2 Performed By: #### U A ####[facility] [place] [address] CBC AND DIFFERENTIALon 07-17 % AUTOMATED IMMATURE GRAN 0.3 % Normal 0.0 - 0.9 [facility] Comment on above: Order Comment: PANKAJ T EST INCLUDED IN ANAP2 Result Comment: Perc ent differential counts (%) should be interpreted in the context of the absolute cell counts (cells/L). Performed By: #### C BCDF ####[facility] [place] [address] % NEUTROPHIL 58.0 % Normal 40.0 - 80.0 [facility] Comment on above: Order Comment: PANKAJ T EST INCLUDED IN ANAP2 Performed By: #### C BCDF ####[facility] [place] [address] Basophils/100 WBC Auto (Bld) 0.04 x10E9/L Normal 0.00 - 0.10 [facility] Comment on above: Order Comment: PANKAJ T EST INCLUDED IN ANAP2 Performed By: #### C BCDF ####[facility] [place] [address] Basophils/100 WBC Auto (Bld) 0.6 % Normal 0.0 - 2.0 [facility] Comment on above: Order Comment: PANKAJ T EST INCLUDED IN ANAP2 Performed By: #### C BCDF ####[facility] [place] [address] Eosinophils 0.05 10*3/uL Normal 0.00 - 0.70 [facility] Comment on above: Order Comment: PANKAJ T EST INCLUDED IN ANAP2 Performed By: #### C BCDF ####[facility] [place] [address] Eosinophils/100 leukocytes 0.7 % Normal 0.0 - 6.0 [facility] Comment on above: Order Comment: PANKAJ T EST INCLUDED IN ANAP2 Performed By: #### C BCDF ####[facility] [place] [address] Erythrocyte distribution width Auto Ratio (RBC) 15.3 % High 11.5 - 14.5 [facility] Comment on above: Order Comment: PANKAJ T EST INCLUDED IN ANAP2 Performed By: #### C BCDF ####[facility] [place] [address] Erythrocytes (RBC) 5.36 x10E12/L High 4.00 - 5.20 [facility] Comment on above: Order Comment: PANKAJ T EST INCLUDED IN ANAP2 Performed By: #### C BCDF ####[facility] [place] [address] Hematocrit (HCT) 49.6 % High 36.0 - 46.0 [facility] Comment on above: Order Comment: PANKAJ T EST INCLUDED IN ANAP2 Performed By: #### C BCDF ####[facility] [place] [address] Hemoglobin mass conc (Bld) 15.4 g/dL Normal 12.0 - 16.0 [facility] Comment on above: Order Comment: PANKAJ T EST INCLUDED IN ANAP2 Performed By: #### C BCDF ####[facility] [place] [address] Lymphocytes 2.26 10*3/uL Normal 1.20 - 4.80 [facility] Comment on above: Order Comment: PANKAJ T EST INCLUDED IN ANAP2 Performed By: #### C BCDF ####[facility] [place] [address] Lymphocytes/100 leukocytes 33.2 % Normal 13.0 - 44.0 [facility] Comment on above: Order Comment: PANKAJ T EST INCLUDED IN ANAP2 Performed By: #### C BCDF ####[facility] [place] [address] MCHC mass conc (RBC) 31.0 g/dL Low 32.0 - 36.0 [facility] Comment on above: Order Comment: PANKAJ T EST INCLUDED IN ANAP2 Performed By: #### C BCDF ####[facility] [place] [address] MCV 93 fL Normal 80 - 100 [facility] Comment on above: Order Comment: PANKAJ T EST INCLUDED IN ANAP2 Performed By: #### C BCDF ####[facility] [place] [address] Monocytes 0.49 10*3/uL Normal 0.10 - 1.00 [facility] Comment on above: Order Comment: PANKAJ T EST INCLUDED IN ANAP2 Performed By: #### C BCDF ####[facility] [place] [address] Monocytes/100 leukocytes 7.2 % Normal 2.0 - 10.0 [facility] Comment on above: Order Comment: PANKAJ T EST INCLUDED IN ANAP2 Performed By: #### C BCDF ####[facility] [place] [address] Neutrophils 3.94 10*3/uL Normal 1.20 - 7.70 [facility] Comment on above: Order Comment: PANKAJ T EST INCLUDED IN ANAP2 Performed By: #### C BCDF ####[facility] [place] [address] Nucleated erythrocytes 0.0 /100 WBC Normal 0.0-0.0 [facility] Comment on above: Order Comment: PANKAJ T EST INCLUDED IN ANAP2 Performed By: #### C BCDF ####[facility] [place] [address] Platelets 323 10*3/uL Normal 150 - 450 [facility] Comment on above: Order Comment: PANKAJ T EST INCLUDED IN ANAP2 Performed By: #### C BCDF ####[facility] [place] [address] WBC (Leukocytes) 6.8 10*3/uL Normal 4.4 - 11.3 [facility] Comment on above: Order Comment: PANKAJ T EST INCLUDED IN ANAP2 Performed By: #### C BCDF ####[facility] [place] [address] COMPREHENSIVE PANELon 2017 Alanine aminotransferase (ALT) 17 U/L Normal 7 - 45 [facility] Comment on above: Order Comment: PANKAJ T EST INCLUDED IN ANAP2 Result Comment: Lu ents treated with Sulfasalazine may generate falsely decreased results for ALT. Performed By: #### C MP ####[facility] [place] [address] Albumin 5.2 g/dL High 3.4 - 5.0 [facility] Comment on above: Order Comment: PANKAJ T EST INCLUDED IN ANAP2 Performed By: #### C MP ####[facility] [place] [address] Alkaline phosphatase (ALP) 112 U/L High 33 - 110 [facility] Comment on above: Order Comment: PANKAJ T EST INCLUDED IN ANAP2 Performed By: #### C MP ####[facility] [place] [address] Anion gap 12 mmol/L Normal 10 - 20 [facility] Comment on above: Order Comment: PANKAJ T EST INCLUDED IN ANAP2 Performed By: #### C MP ####[facility] [place] [address] Aspartate aminotransferase (AST) 18 U/L Normal 9 - 39 [facility] Comment on above: Order Comment: PANKAJ T EST INCLUDED IN ANAP2 Performed By: #### C MP ####[facility] [place] [address] Bicarbonate (HCO3) 28 mmol/L Normal 21 - 32 [facility] [place] Comment on above: Order Comment: PANKAJ T EST INCLUDED IN ANAP2 Performed By: #### C MP ####[facility] [place] [address] Bilirubin (total) 0.5 mg/dL Normal 0.0 - 1.2 [facility] Comment on above: Order Comment: PANKAJ T EST INCLUDED IN ANAP2 Performed By: #### C MP ####[facility] [place] [address] Calcium 11.3 mg/dL High 8.6 - 10.6 [facility] Comment on above: Order Comment: PANKAJ T EST INCLUDED IN ANAP2 Performed By: #### C MP ####[facility] [place] [address] Chloride 100 mmol/L Normal 98 - 107 [facility] Comment on above: Order Comment: PANKAJ T EST INCLUDED IN ANAP2 Performed By: #### C MP ####[facility] [place] [address] Creatinine 0.72 mg/dL Normal 0.50 - 1.05 [facility] Comment on above: Order Comment: PANKAJ T EST INCLUDED IN ANAP2 Performed By: #### C MP ####[facility] [place] [address] GFR- AM. >60 Normal >60 [facility] Comment on above: Order Comment: PANKAJ T EST INCLUDED IN ANAP2 Result Comment: CALC ULATIONS OF ESTIMATED GFR ARE PERFORMED USING THE MDRD STUDY EQUATION FOR THE IDMS-TRACEABLE CREATININE METHODS. CLIN CHEM 2007;53:766-72 Performed By: #### C MP ####[facility] [place] [address] GFR-NON AM. >60 Normal >60 [facility] Comment on above: Order Comment: PANKAJ T EST INCLUDED IN ANAP2 Performed By: #### C MP ####[facility] [place] [address] Glucose mass conc 85 mg/dL Normal 74 - 99 [facility] Comment on above: Order Comment: PANKAJ T EST INCLUDED IN ANAP2 Performed By: #### C MP ####[facility] [place] [address] Potassium molar conc 4.3 mmol/L Normal 3.5 - 5.3 [facility] Comment on above: Order Comment: PANKAJ T EST INCLUDED IN ANAP2 Performed By: #### C MP ####[facility] [place] [address] Protein 7.7 g/dL Normal 6.4 - 8.2 [facility] Comment on above: Order Comment: PANKAJ T EST INCLUDED IN ANAP2 Performed By: #### C MP ####[facility] [place] [address] Sodium 136 mmol/L Normal 136 - 145 [facility] Comment on above: Order Comment: PANKAJ T EST INCLUDED IN ANAP2 Performed By: #### C MP ####[facility] [place] [address] Urea nitrogen 9 mg/dL Normal 6 - 23 [facility] Comment on above: Order Comment: PAKNAJ T EST INCLUDED IN ANAP2 Performed By: #### C MP ####[facility] [place] [address] SYPHILIS IGGon 07-17-2017 SYPHILIS IGG NON REACTIVE Normal NONREACTIVE [facility] Comment on above: Order Comment: PANKAJ T EST INCLUDED IN ANAP2 Result Comment: Lu ents receiving more than 5 mg/day of biotin may have interference in test results. A sample should be taken no sooner than eight hours after previous dose. Contact [phone] for additional information. Performed By: #### S YP ####[facility] [place] [address] Lab Specimen Source Normal [facility] Comment on above: Order Comment: PANKAJ T EST INCLUDED IN ANAP2 Performed By: #### S YPH ####[facility] [place] [address] Performed By: #### C MP ####[facility] [place] [address] Dermatopathologyon 7 Dermatopathology 83 Pathologist: MERRICK RUSH, MDDate of Procedure: 06/12/2017Date Received: 06/13/2017Date Reported 12/26/2017Submitting Physician: GONZALO ROJAS MDLocation: ADERM FINAL DIAGNOSISSKIN, LEFT MIDLINE UPPER BACK, SHAVE [...] completere-excision is recommended. Electronically Signed Out by MERRICK RUSH M.D. Electronically SignedOut By MERRICK RUSH MD/[facility] Clinical History:R/O inflammatory. R/O pleva. ([place] office). Specimens Submitted As:A: SKIN, LEFT MIDLINE UPPER BACK Gross Description:Received in formalin is a hagan piece of skin measuring [id number]. The specimen isinked and embedded in toto.dcp/06/13/2017 Normal [facility] Comment on above: Performed By: #### D ####Dermatopathology Office Visit: excision recta l tagon 02-17-2017 Documentation of current medications (procedure) Done Invalid Interpretation Code [facility] [employer] Work Phone: Fall risk assessment No [facility] [employer] Work Phone: Protein mass conc yes [facility] [employer] Work Phone: Protein mass conc Done [facility] [employer] Work Phone: Smoking cessation education (procedure) yes Invalid Interpretation Code [facility] [employer] Work Phone: Tobacco smoking status NHIS no [facility] [employer] Work Phone: Tobacco smoking status NHIS Current every day smoker [facility] [employer] Work Phone: Tobacco use HS Current every day smoker Invali d Interpretation Code [facility] Work Phone: Vital Signs Date Time Vital Sign Value Performing Clinician Facility 12-09-2024 13:46-0400 Body mass index (BMI) [Ratio] 23.7 kg/m2 Emery Cantu MD Work Phone: [facility] 12-09-2024 13:46-0400 Body temperature 98.4 [degF] Emery Cantu MD Work Phone: [facility] 12-09-2024 13:46-0400 Body weight 60.69 kg Emery Cantu MD Work Phone: [facility] 12-09-2024 13:46-0400 Diastolic blood pressure 76 mm[Hg] Emery Cantu MD Work Phone: [facility] 12-09-2024 13:46-0400 Heart rate 94 /min Emery Cantu MD Work Phone: [facility] 12-09-2024 13:46-0400 Respiratory rate 12 /min Emery Cantu MD Work Phone: [facility] 12-09-2024 13:46-0400 SaO2% (BldA) [Mass fraction] 97 % Emery Cantu MD Work Phone: [facility] 12-09-2024 13:46-0400 Systolic blood pressure 118 mm[Hg] Emery Cantu MD Work Phone: [facility] 11-11-2024 12:11-0400 Body mass index (BMI) [Ratio] 24.23 kg/m2 Emery Cantu MD Work Phone: [facility] 11-11-2024 12:11-0400 Body temperature 98.6 [degF] Emery Cantu MD Work Phone: [facility] 11-11-2024 12:11-0400 Body weight 62.05 kg Emery Cantu MD Work Phone: [facility] 11-11-2024 12:11-0400 Heart rate 90 /min Emery Cantu MD Work Phone: [facility] 11-11-2024 12:11-0400 Respiratory rate 12 /min Emery Cantu MD Work Phone: [facility] 11-11-2024 12:11-0400 SaO2% (BldA) [Mass fraction] 96 % Emery Cantu MD Work Phone: [facility] 08-13-2023 11:22-0500 Body height 160 cm Emery Cantu MD Work Phone: [facility] 08-13-2023 11:22-0500 Body weight 64.32 kg Emery Cantu MD Work Phone: [facility] 08-13-2023 11:22-0500 Diastolic blood pressure 82 mm[Hg] Emery Cantu MD Work Phone: [facility] 08-13-2023 11:22-0500 Heart rate 77 /min Emery Cantu MD Work Phone: [facility] 08-13-2023 11:22-0500 Respiratory rate 18 /min Emery Cantu MD Work Phone: [facility] 08-13-2023 11:22-0500 SaO2% (BldA) [Mass fraction] 98 % Emery Cantu MD Work Phone: [facility] 08-13-2023 11:22-0500 Systolic blood pressure 124 mm[Hg] Emery Cantu MD Work Phone: [facility] 02-17-2017 08:51-0400 Height 160.02 cm Bogdan Garcias MD [facility] Work Phone: 08-03-2010 17:45-0500 Body Temperature 97.7 [degF] Bogdan Garcias MD [facility] Work Phone: 08-03-2010 17:45-0500 BP Diastolic 70 mm[Hg] Bogdan Garcias MD [facility] Work Phone: 08-03-2010 17:45-0500 BP Systolic 110 mm[Hg] Bogdan Garcias MD [facility] Work Phone: 08-03-2010 17:45-0500 Pulse (Heart Rate) 72 /min Bogdan Garcias MD [facility] [employer] Work Phone: 08-03-2010 17:45-0500 Respiratory Rate 16 /min Bogdan Garcias MD [facility] [employer] Work Phone: 08-03-2010 17:45-0500 Weight 59.42 kg Bogdan Garcias MD [facility] [employer] Work Phone: Encounters Encounter Date Encounter Type Care Provider Facility Start: 12-22-2024 End: 12-22-2024 ambulatory Emery Cantu MD Work Phone: Endocrinology Comment on above: Thyroid Fine Needle Aspiration Start: 12-22-2024 End: 12-22-2024 E-mail encounter from caregiver Emery Cantu MD Work Phone: Endocrinology Start: 12-09-2024 End: 12-12-2024 Telephone encounter Emery Cantu MD Work Phone: Endocrinology Comment on above: Patient Question (Up coming lab tests) Start: 12-09-2024 End: 12-09-2024 Patient encounter procedure Emery Cantu MD Work Phone: Endocrinology Comment on above: Multinodular goiter (Primary Dx); Adrenal cortical nodule (HCC) Start: 12-09-2024 End: 12-09-2024 ambulatory EMERY CANTU Facility:[facility] Start: 12-04-2024 End: 12-04-2024 ambulatory EMERY CANTU Facility:[facility] Start: 11-28-2024 End: 11-28-2024 ambulatory EMERY CANTU Facility: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 Start: 11-11-2024 End: 11-11-2024 Patient encounter procedure Emery Cantu MD Work Phone: Endocrinology Comment on above: Nontoxic multinodula r goiter (Primary Dx); Hyperparathyroidism (HCC); Disorder of adrenal gland (HCC); Adrenal cortical nodule (HCC) Start: 11-11-2024 End: 11-11-2024 ambulatory EMERY CANTU Facility:[facility] Start: 08-13-2023 Telephone encounter Emery Cantu MD Work Phone: Endocrinology Comment on above: Release Of Medical R ecords Start: 08-13-2023 End: 08-13-2023 Patient encounter procedure Emery Cantu MD Work Phone: Endocrinology Comment on above: Multinodular goiter (Primary Dx); Disorder of adrenal gland (HCC) Start: 05-17-2021 End: 05-17-[address] ANNAMARIE GOMEZ MD [facility] Start: 01-15-2018 Patient encounter Chester Whitehead r Facility:[id number] Start: 07-17-2017 Patient encounter Bethany Prater Facility:[facility] Start: 07-17-2017 Patient encounter Chester Whitehead r Facility:[id number] Start: 06-12-2017 Patient encounter Gonzalo Mclaughlin cility:[id number] Start: 06-12-2017 Patient encounter Merrick Noonan acility:[id number] Procedures Date Procedure Procedure Detail Performing Clinician Start: 11-28-2024 Ct abdomen w/o & w/contrast material Emery Cantu MD Work Phone: Start: 11-11-2024 Lipid 1996 panel - S lesvia or Plasma Emery Cantu MD Work Phone: Start: 08-03-2010 Physical examination PHYSICAL EXAMIN ALYSON Garcias MD Plan of Treatment Date Care Activity Detail Author Start: 2036 RSV Vaccine (1 - 1-dose 75+ series) RSV Vaccine (1 - 1-dose 75+ series) [facility] Start: 11-11-2029 Lipid panel Lipid Screening [facility] Start: 12-02-2028 Urine microalbumin profile DTaP,Tdap,Td Vaccine (4 - Td or Tdap) [facility] Start: 11-29-2027 Diabetes Screening Diabetes Screening [facility] Start: 11-12-2027 Diabetes Screening Diabetes Screening [facility] Start: 06-23-2026 Diabetes Screening Diabetes Screening [facility] Start: 02-23-2025 Influenza vaccination Influenza Vaccine (Season Ended) [facility] Start: 02-11-2025 End: 05-13-2025 Comprehensive metabolic 2000 panel - Serum or Plasma COMPREHENSIVE METABOLIC PANEL Lab Routine Hyperparathyroidism (HCC) Expected: 02/11/2025, Expires: 05/13/2025 [facility] Comment on above: Expected: 02/11/2025, Expires: Start: 01-13-2025 End: 01-13-2025 Patient encounter procedure 01/13/2025 8:40 AM EDT Office Visit Endocrinology [address] [place], [place] [id number] Emery Cantu MD [address] [place] [id number] 5 WK F/U MULTINODULAR GOITER Endocrinology Comment on above: 5 WK F/U MULTINODULAR GOITER Start: 12-25-2024 End: 12-25-2024 Patient encounter procedure Endocrinology Comment on above: FNA FNAB x2 Start: 12-09-2024 End: 03-10-2025 Cortisol [Mass/volume] in Serum or Plasma --post dose dexamethasone CORTISOL SUPRES POST Lab Routine Adrenal cortical nodule (HCC) Expected: 12/09/2024, Expires: 03/10/2025 [facility] Comment on above: Expected: 12/09/2024, Expires: Start: 12-09-2024 End: 03-10-2025 DEXAMETHASONE DEXAMETHASONE Lab Routine Adrenal cortical nodule (HCC) Expected: 12/09/2024, Expires: 03/10/2025 [facility] Comment on above: Expected: 12/09/2024, Expires: Start: 12-09-2024 End: 12-09-2024 Patient encounter procedure 12/09/2024 1:40 PM EDT Office Visit Endocrinology [address] [place] [address] Emery Cantu MD [address] [place], [place] [address] 4 wk f/u- review CT and US 11/28/24 Endocrinology Comment on above: 4 wk f/u- review CT and US 11/28/24 Start: 11-28-2024 End: 11-28-2024 Patient encounter procedure Cat Scan Comment on above: Nontoxic multinodular goiter [E04.2]; Hy perparathyroidism (HCC) [E21.3] Start: 11-11-2024 End: 02-10-2025 ALK PHOS BONE SPEC ALK PHOS BONE SPEC Lab Routine Hyperparathyroidism (HCC) Expected: 11/11/2024, Expires: 02/10/2025 [facility] Comment on above: Expected: 11/11/2024, Expires: Start: 11-11-2024 End: 02-10-2025 Calcium.ionized [Moles/volume] in Blood CALCIUM, IONIZED Lab Routine Hyperparathyroidism (HCC) Expected: 11/11/2024, Expires: 02/10/2025 [facility] Comment on above: Expected: 11/11/2024, Expires: Start: 11-11-2024 End: 02-10-2025 Cortisol [Mass/volume] in Serum or Plasma --post dose dexamethasone CORTISOL SUPRES POST Lab Routine Adrenal cortical nodule (HCC) Expected: 11/11/2024, Expires: 02/10/2025 [facility] Comment on above: Expected: 11/11/2024, Expires: 5 Start: 11-11-2024 End: 02-10-2025 DEXAMETHASONE DEXAMETHASONE Lab Routine Adrenal cortical nodule (HCC) Expected: 11/11/2024, Expires: 02/10/2025 [facility] Comment on above: Expected: 11/11/2024, Expires: Start: 02-24-2024 Covid-19 Vaccine () Covid-19 Vaccine () [facility] Start: 08-13-2023 End: 11-12-2023 Thyrotropin [Units/volume] in Serum or Plasma TSH BLD Lab Routine Multinodular goiter Expected: 08/13/2023, Expires: 11/12/2023 [facility] Work Phone: Comment on above: Expected: 08/13/2023, Expires: Start: 02-23-2023 Covid-19 Vaccine ( season) Covid-19 Vaccine ( season) [facility] Start: 2021 RSV Vaccine (1 - 1-dose 60+ series) RSV Vaccine (1 - 1-dose 60+ series) [facility] Start: 01-03-2018 Pneumococcal vaccination Pneumococcal Vaccine (2 of 2 - PCV) [facility] Start: 01-03-2018 Pneumococcal Vaccine: 50+ (2 of 2 - PCV) Pneumococcal Vaccine: 50+ (2 of 2 - PCV) [facility] Start: 02-17-2017 End: 02-17-2017 Appointment [facility] Work Phone: Start: 11-25-2013 Screening for malignant neoplasm of cervix [facility] Start: 2011 Screening for malignant neoplasm of lung Lung Cancer Screening [facility] Start: 10-07-2008 Screening for malignant neoplasm of breast Mammogram Screening [facility] Start: 2006 Lipid panel Lipid Screening [facility] Start: 2006 Screening for malignant neoplasm of colon [facility] Start: 1979 Annual PCP Team Chronic Disease Visit Annual PCP Team Chronic Disease Visit [facility] Start: 1979 BP Controlled (<130/80) BP Controlled (<130/80) [facility] Start: 1979 Hepatitis C screening Hepatitis C Screening [facility] Start: 1979 HIV screening HIV Screening [facility] CALCIUM, 24 HR URINE CALCIUM, 24 HR URINE Lab Routine Hyperparathyroidism (HCC) Ordered: 11/11/2024 [facility] Comment on above: Ordered: 11/11/2024 CORTISOL SALIVA CORTISOL SALIVA Lab Routine Adrenal cortical nodule (HCC) Ordered: 12/09/2024 [facility] Comment on above: Ordered: 12/09/2024 CREATININE, 24 HOUR URINE CREATI NINE, 24 HOUR URINE Lab Routine Hyperparathyroidism (HCC) Ordered: 11/11/2024 [facility] Comment on above: Ordered: 11/11/2024 End: 09-11-2024 CT Adrenal gland WO and W contrast IV CT ADRENAL WO/W IVCON Radiology Routine Disorder of adrenal gland (HCC) 1 Occurrences starting 08/13/2023 until 09/11/2024 [facility] Work Phone: Comment on above: 1 Occurrences starting 08/13/2023 until 09/11/2024 End: 12-11-2025 CT Adrenal gland WO and W contrast IV CT ADRENAL WO/W IVCON Radiology Routine Disorder of adrenal gland (HCC) 1 Occurrences starting 11/11/2024 until 12/11/2025 [facility] Comment on above: 1 Occurrences starting 11/11/2024 until 12/11/2025 ENDO THYROID/LYMPH N ODE FNA ENDO THYROID/LYMPH NODE FNA Procedures Routine Multinodular goiter Ordered: 12/09/2024 [facility] Work Phone: Comment on above: Ordered: 12/09/2024 Sodium [Moles/time] in 24 hour Urine SODIUM 24 HR URINE Lab Routine Hyperparathyroidism (HCC) Ordered: 11/11/2024 [facility] Comment on above: Ordered: 11/11/2024 End: 12-11-2025 US Thyroid gland US THYROID/PARATHYROID Radiology Routine Nontoxic multinodular goiter Hyperparathyroidism (HCC) 1 Occurrences starting 11/11/2024 until 12/11/2025 [facility] Work Phone: Comment on above: 1 Occurrences starting 11/11/2024 until 12/11/2025 US Thyroid gland US THYROID/PARA THYROID Radiology Routine Nontoxic multinodular goiter Hyperparathyroidism (HCC) 11/28/2024 11:57 AM EDT [facility] Work Phone: Immunizations Immunization Date Immunization Notes Care Provider Arnoldo parekr 05-10-2023 influenza, injectabl e, quadrivalent, preservative free Emery Cantu MD Work Phone: [facility] 05-10-2023 influenza virus vacc ine, unspecified formulation Emery Cantu MD Work Phone: [facility] 06-06-2018 zoster vaccine recombinant Emery Cantu MD Work Phone: [facility] 10-29-2008 tetanus toxoid, redu khloe diphtheria toxoid, and acellular pertussis vaccine, adsorbed Emery Cantu MD Work Phone: [facility] 04-27-2008 tuberculin skin test ; purified protein derivative solution, intradermal Emery Cantu MD Work Phone: [facility] 10-23-1986 hepatitis B immune globulin Emery Cantu MD Work Phone: [facility] Payers Date Payer Category Payer Private Health Insurance [employer] PPO TPA [id number] 2023-Present [address] [place] [address] PPO [id number] 2023 Unknown MMO MMO [employer] PPO [id number] 2023-Present [phone] [address] [place] [address] PPO [id number] Unknown [id number] Social History Date Type Detail Facility Start: 08-18-2020 Heavy tobacco smoker (finding) [facility] Sex Assigned At [facility] Start: 08-13-2023 End: 11-11-2024 Tobacco smoking status NHIS Smokes tobacco daily [facility] History of tobacco use Cigarette Smoker C [facility] Start: 06-15-2023 End: 08-13-2023 Cigarettes smoked current (pack per day) - Reported 1 [facility] Start: 08-13-2023 End: 11-11-2024 Tobacco use and exposure Former smokeless tobacco user [facility] Start: 08-13-2023 End: 12-09-2024 Alcohol intake Current drinker of alcohol (finding) [facility] Start: 06-15-2023 End: 08-13-2023 Tobacco use panel [facility] National Score (1-10 0), lower number is lower risk 46 [facility] Start: 11-25-2008 Alcohol Comment SOCIAL APPROX. 2 DRINKS PER WEEK [facility] Start: 1960 Sex Assigned At Not on file C [facility] Functional Status Date Assessment Result Facility 11-24-2014 Are you deaf, or do you have serious difficulty hearing No 11/24/2014 8:39 AM Jay Muse [facility] 11-24-2014 Are you blind, or do you have serious difficulty seeing, even when wearing glasses No 11/24/2014 8:39 AM Jay Muse [facility] 11-24-2014 Do you have serious difficulty walking or climbing stairs No 11/24/2014 8:39 AM Jay Muse [facility] 11-24-2014 Do you have difficul ty dressing or bathing No 11/24/2014 8:39 AM Jay Muse [facility] 11-24-2014 Because of a physica l, mental, or emotional condition, do you have difficulty doing errands alone such as visiting a physician's office or shopping No 11/24/2014 8:39 AM Jay Muse [facility] Mental Status Date Assessment Result Facility 11-24-2014 Because of a physica l, mental, or emotional condition, do you have serious difficulty concentrating, remembering, or making decisions No 11/24/2014 8:39 AM Jay Muse [facility] Clinical Notes 08-21-2020 to 12-12-2024 Telephone Encounter - Cornelia Rodriges MA - 12/12/2024 9:34 AM EDTTelephone Encounter - Cornelia Rodriges MA - 12/12/2024 9:34 AM EDTPatient InstructionsPatient InstructionsPatient Instructions Note Date & Type Note Facility 12-12-2024 Telephone encounter Note Phoned patient to answer her questions regarding labs. I answered all questions to patients satisfaction and she reports no other questions. Cornelia Rodriges MA [facility] 12-12-2024 Miscellaneous Notes Phoned patient to answer her questions regarding labs. I answered all questions to patients satisfaction and she reports no other questions. Cornelia Rodriges MA Please advise patient to do salivary cortisol test: day 1 and day 2 as per instructions below: Salivary cortisol tests - to measure cortisol levels in saliva Instructions for Collection: - Do not brush teeth before collecting sample. - Do not eat or drink for 15 minutes prior to sample collection. - Collect sample between 11:00 pm and midnight. No earlier than 11:00 pm and no later than 12:00 am, midnight , otherwise you will have to repeat the test. This is a time sensitive collection. It must be done between 11:00 pm and 12:00 am, midnight. To use the Salivette: - Remove top cap of the tube to expose the swab. - Pour swab directly into the mouth by tipping the tube so the swab falls into the mouth. - Do NOT touch the swab with your fingers. - Keep the swab in your mouth for approximately one minute. - Roll the swab in your mouth. - Do NOT chew the swab. - Spit the swab back into the tube. - Do NOT touch the swab with your fingers. - Replace the cap. - Make sure cap is screwed on tightly. - Record the collection time on the tube. Additional Instructions: If you are not able to return within eight hours after collection, please keep refrigerated until you can bring back; must be returned within three days. On day, advise doing a repeat dexamethasone test Instructions: 1. Take dexamethasone 1-mg tab by mouth at 11 PM the evening before your test. 2. Go to the lab the next morning and have your blood drawn at ~8 AM. *Do not eat or drink anything other than water from the time you take dexamethasone to the time you get your blood drawn. 3. If either of the following situations happen, DO NOT HAVE YOUR BLOOD DRAWN: A. You forget to take the pill at 11 PM the evening before B. You cannot get your blood drawn the next morning at ~8 AM C. If either situation happens, please call me to let me know All orders placed documented in this encounter [facility] 12-09-2024 Telephone encounter Note Please advise patient to do salivary cortisol test: day 1 and day 2 as per instructions below: Salivary cortisol tests - to measure cortisol levels in saliva Instructions for Collection: - Do not brush teeth before collecting sample. - Do not eat or drink for 15 minutes prior to sample collection. - Collect sample between 11:00 pm and midnight. No earlier than 11:00 pm and no later than 12:00 am, midnight , otherwise you will have to repeat the test. This is a time sensitive collection. It must be done between 11:00 pm and 12:00 am, midnight. To use the Salivette: - Remove top cap of the tube to expose the swab. - Pour swab directly into the mouth by tipping the tube so the swab falls into the mouth. - Do NOT touch the swab with your fingers. - Keep the swab in your mouth for approximately one minute. - Roll the swab in your mouth. - Do NOT chew the swab. - Spit the swab back into the tube. - Do NOT touch the swab with your fingers. - Replace the cap. - Make sure cap is screwed on tightly. - Record the collection time on the tube. Additional Instructions: If you are not able to return within eight hours after collection, please keep refrigerated until you can bring back; must be returned within three days. On day, advise doing a repeat dexamethasone test Instructions: 1. Take dexamethasone 1-mg tab by mouth at 11 PM the evening before your test. 2. Go to the lab the next morning and have your blood drawn at ~8 AM. *Do not eat or drink anything other than water from the time you take dexamethasone to the time you get your blood drawn. 3. If either of the following situations happen, DO NOT HAVE YOUR BLOOD DRAWN: A. You forget to take the pill at 11 PM the evening before B. You cannot get your blood drawn the next morning at ~8 AM C. If either situation happens, please call me to let me know All orders placed [facility] 12-09-2024 Instructions Emery Cantu MD - 12/09/2024 2:08 PM EDT Please schedule for thyroid biopsy I shall wait for lab results for adrenal testing, before including more testing for cortisol as needed For parathyroid, surgery will be recommended but please continue taking Vitamin D and dietary calcium as instructed last time documented in this encounter [facility] 12-09-2024 Note HNO ID: [id number] Author: EMERY CANTU MD Service: ? Author Type: Physician Type: Progress Notes Filed: 12/09/2024 18:54 Note Text: Endocrinology and Metabolism [place] Follow-up visit note Chief Complaint: Hyperparathyroidism History of Present Illness: Latisha Stone is a 64 year old old female with cutaneous lupus erythematosus presenting for follow up of hypercalcemia secondary to primary hyperparathyroidism, multinodular goiter, left adrenal nodule. 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 LV 07/[address] 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 [employer] She initially presented on 06/15/2023 for hypercalcemia associated with elevated PTH levels. She had no history of kidney stones, fractures, osteoporosis, height loss, weight loss, prior radiation to head and neck. There was no personal history of known thyroid disease. There was no family history of thyroid or parathyroid disease, osteoporosis. Her calcium intake : almond milk 2 glasses daily, about 900 ml, eats yogurt, sardines etc. Thinks she is getting She use a steroid ointment for cutaneous [...] adequate calcium, Vitamin D for bone protection. Calcium labs including 24 hr urine calcium was ordered, but were done different from instructions given She had parathyroid scan done in Jul 2019 for hyperparathyroidism and was negative for adenoma. Left adrenal nodule: On the initial visit, on chart review, there was also found a CT abdomen and pelvis which shows 3.6 cm left adrenal nodule. Patient reported this was done to evaluate for abnormal parathyroid glands. She was unaware of adrenal nodule. Explained on last visit, but she again ask the same thing, and says she knows that the adenoma is causing high calcium Symptoms related: Weight gain- 20 lbs in 1 to 2 year no proximal weakness, no easy bruising, no abdominal stretch aguayo No hx of HTN, DM, PCOS Labs done: 1 mg DST- resulted normal in 05/2023. Normal BP and hence aldosterone was not done. No concerns for Pheo Multinodular goiter: And on examination on the last visit, thyroid nodules were felt and US thyroid was recommended which showed 3 nodules, and she was recommended FNAB based on review of images. Not done, repeat thyroid US was recommended which was done along with TSH PAST MEDICAL HISTORY Diagnosis Date ALLERGY ENVIRONMENTAL [...] History Tobacco Use Smoking status: Every Day Current packs/day: 1.00 Average packs/day: 1 pack/day for 30.0 years (30.0 ttl pk-yrs) Types: Cigarettes Smokeless tobacco: Former Vaping Use Vaping status: Never Used Substance Use Topics Alcohol use: Yes Comment: SOCIAL APPROX. 2 DRINKS PER WEEK Drug use: No Current Outpatient Medications Medication Sig multivit with minerals/lutein (MULTIVITAMIN 50 PLUS ORAL) Take by mouth. calcium phosphate dibas/vit D3 (VITAMIN D, WITH CALCIUM, ORAL) Take by mouth. ketotifen fumarate (ALAWAY) 0.025 % (0.035 %) ophthalmic solution 1 drop two times a day. dexAMETHasone (DECADRON) 1 mg tablet Take at 11 pm on one day multivit,thx,calcium,iron,mins (MULTIVITAMIN AND MINERAL ORAL) [employer] Women's Daily Multivitamin qDay, 0 Refill(s) Start Date: 05/17/21 Status: Ordered (Patient not taking: Reported on 08/13/2023) loratadine 10 mg cap Take by mouth. famotidine (PEPCID) 10 mg tablet Take by mouth. sodium chloride 0.65 % nasal spray as needed. nystatin (MYCOSTATIN) powder Apply 1 applicatio (more content not included)... [facility] 12-09-2024 History of Present illness Narrative Endocrinology and Metabolism [place] Follow-up visit note Chief Complaint: Hyperparathyroidism History of Present Illness: Latisha Stone is a 64 year old old female with cutaneous lupus erythematosus presenting for follow up of hypercalcemia secondary to primary hyperparathyroidism, multinodular goiter, left adrenal nodule. 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 LV 07/[address] 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 [employer] [facility] [employer] She initially presented on 06/15/2023 for hypercalcemia associated with elevated PTH levels. She had no history of kidney stones, fractures, osteoporosis, height loss, weight loss, prior radiation to head and neck. There was no personal history of known thyroid disease. There was no family history of thyroid or parathyroid disease, osteoporosis. Her calcium intake : almond milk 2 glasses daily, about 900 ml, eats yogurt, sardines etc. Thinks she is getting She use a steroid ointment for cutaneous [...] adequate calcium, Vitamin D for bone protection. Calcium labs including 24 hr urine calcium was ordered, but were done different from instructions given She had parathyroid scan done in Jul 2019 for hyperparathyroidism and was negative for adenoma. Left adrenal nodule: On the initial visit, on chart review, there was also found a CT abdomen and pelvis which shows 3.6 cm left adrenal nodule. Patient reported this was done to evaluate for abnormal parathyroid glands. She was unaware of adrenal nodule. Explained on last visit, but she again ask the same thing, and says she knows that the adenoma is causing high calcium Symptoms related: Weight gain- 20 lbs in 1 to 2 year no proximal weakness, no easy bruising, no abdominal stretch aguayo No hx of HTN, DM, PCOS Labs done: 1 mg DST- resulted normal in 05/2023. Normal BP and hence aldosterone was not done. No concerns for Pheo Multinodular goiter: And on examination on the last visit, thyroid nodules were felt and US thyroid was recommended which showed 3 nodules, and she was recommended FNAB based on review of images. Not done, repeat thyroid US was recommended which was done along with TSH PAST MEDICAL HISTORY Diagnosis Date ALLERGY ENVIRONMENTAL [...] History Tobacco Use Smoking status: Every Day Current packs/day: 1.00 Average packs/day: 1 pack/day for 30.0 years (30.0 ttl pk-yrs) Types: Cigarettes Smokeless tobacco: Former Vaping Use Vaping status: Never Used Substance Use Topics Alcohol use: Yes Comment: SOCIAL APPROX. 2 DRINKS PER WEEK Drug use: No Current Outpatient Medications Medication Sig multivit with minerals/lutein (MULTIVITAMIN 50 PLUS ORAL) Take by mouth. calcium phosphate dibas/vit D3 (VITAMIN D, WITH CALCIUM, ORAL) Take by mouth. ketotifen fumarate (ALAWAY) 0.025 % (0.035 %) ophthalmic solution 1 drop two times a day. dexAMETHasone (DECADRON) 1 mg tablet Take at 11 pm on one day multivit,thx,calcium,iron,mins (MULTIVITAMIN AND MINERAL ORAL) [employer] Women's Daily Multivitamin qDay, 0 Refill(s) Start Date: 05/17/21 Status: Ordered (Patient not taking: Reported on 08/13/2023) loratadine 10 mg cap Take by mouth. famotidine (PEPCID) 10 mg tablet Take by mouth. sodium chloride 0.65 % nasal spray as needed. nystatin (MYCOSTATIN) powder Apply 1 application to affected area three times daily. (Patient taking differently: Apply 1 application to affected area three times a day. As needed) ibuprofen 200 mg ORAL tablet Take 1-2 [...] unless indicated in the HPI Physical Exam: 12/09/24 1346 BP: 118/76 BP Site: Right Arm BP Position: Sitting BP Cuff Size: Regular Adult Pulse: 94 Resp: 12 Temp: 36.9 C (98.4 F) TempSrc: Temporal Artery SpO2: 97% Weight: 60.7 kg (133 lb 12.8 oz) Body mass index is 23.7 kg/m . No significant changes since last appt on 11/11/2024 General: Comfortable, no obvious distress Eyes: Sclera [...] 24 hour urine collection for assessing hypercalcuria Latest Ref Rng 11/11/2024 11/28/2024 12/04/2024 WBC 3.70 - 11.00 k/uL 7.96 RBC 3.90 - 5.20 m/uL 5.08 Hemoglobin 11.5 - 15.5 g/dL 14.4 Hematocrit 36.0 - 46.0 % 43.4 MCV 80.0 - 100.0 fL 85.4 MCH 26.0 - 34.0 pg 28.3 MCHC 30.5 - 36.0 g/dL 33.2 RDW-CV 11.5 - 15.0 % 15.7 (H) Platelet Count 150 - 400 k/uL 347 MPV 9.0 - 12.7 fL 10.0 Neut% % 61.8 Abs Neut (ANC) 1.45 - 7.50 k/uL 4.92 Lymph% % 29.4 Abs Lymph 1.00 - 4.00 k/uL 2.34 Gooding% % 7.3 Abs Gooding <0.87 k/uL 0.58 Eosin% % 0.6 Abs Eosin <0.46 k/uL 0.05 Baso% % 0.5 Abs Baso <0.11 k/uL 0.04 Immature Gran % % 0.4 IMMATURE GRANS (ABS) <0.10 k/uL 0.03 NRBC /100 WBC 0.0 Absolute nRBC <0.01 k/uL <0.01 DTYPE Auto Protein, Total 6.3 - 8.0 g/dL 7.4 Albumin 3.9 - 4.9 g/dL 4.8 Calcium 8.5 - 10.2 mg/dL 11.2 (H) Bilirubin, Total 0.2 - 1.3 mg/dL 0.3 Alkaline Phosphatase 34 - 123 U/L 134 (H) AST 13 - 35 U/L 16 ALT 7 - 38 U/L 14 Glucose 74 - 99 mg/dL 94 BUN 7 - 21 mg/dL 9 Creatinine 0.58 - 0.96 mg/dL 0.59 Sodium 136 - 144 mmol/L 132 (L) Potassium 3.7 - 5.1 mmol/L 4.4 Chloride 98 - 107 mmol/L 100 CO2 22 - 30 mmol/L 21 (L) Anion Gap 8 - 15 mmol/L 11 eGFR >=60 mL/min/1.73m 101 Color Yellow Yellow Clarity Clear Clear Glucose, Urine Negative Negative Bilirubin, Urine Negative Negative Ketones, Urine Negative Negative Specific Mark, Ur 1.005 - 1.030 1.004 (L) Hemoglobin/Blood,Ur Negative Negative pH, Urine <8.5 6.5 Protein, Urine Negative Negative Urobilinogen 0.2-1.0 EU/dL 0.2 EU/dL Nitrites Negative Negative Leukest Negative Negative Cholesterol, Total <200 mg/dL 184 Triglyceride <150 mg/dL 86 HDL Cholesterol >39 mg/dL 63 LDL Cholesterol, Calculated <100 mg/dL 105 (H) Non HDL Cholesterol <130 mg/dL 121 VLDL Cholesterol <30 mg/dL 14 TC:HDL Ratio <5.10 2.92 LDL:HDL Ratio <2.54 1.67 Fasting Time hrs 12 Creatinine 24 hr Ur 0.800 - 1.800 g/24 hr 0.926 Period hr 24 Period hr 24 Period 24 Urine Volume 24 hour mL 5,975 Urine Volume 24 hour mL 5,975 Urine Volume 24 hour 5,975 Calcium, 24 Hr Urine 100.0 - 300.0 mg/24 hr 549.7 (H) Sodium, 24 hr Urine 40 - 220 mmol/24 hr <120 Hemoglobin A1C 4.3 - 5.6 % 5.8 (H) Estimated Average Glucose mg/dL 120 Normalized Calcium 1.08 - 1.30 mmol/L 1.42 (H) Ionized Calcium 1.08 - 1.30 mmol/L 1.46 (H) TSH 0.270 - 4.200 mIU/L 1.260 Vitamin D 25 Hydroxy 31.0 - 80.0 ng/mL 41.1 Magnesium 1.7 - 2.3 mg/dL 2.2 Phosphorus 2.7 - 4.8 mg/dL 3.1 PTH, Intact 15 - 65 pg/mL 65 Alk Phosphatase, Bone ug/L 28.7 Dexamethasone ng/dL PENDING Cortisol,ON DEX,Post <1.8 ug/dL 1.8 (H) Update : dexamethasone levels 229.2 Legend: (H) High (L) Low 99m Tc sestamibi dual phase parathyroid scintigraphy: 08/13/2019- requested from [facility] today Comparison: None available Findings: Following the intravenous administration of 26.0 mCi of 99m Tc sestamibi, image acquisitions of the anterior neck at approximately 15-minute and 2.0 hours post radiopharmaceutical provision revealed: 1. Immediate static blood pool acquisitions demonstrate symmetric radiopharmaceutical concentration noted in the right-left lobes of jld-ddfpe-lplasm thyroid gland. 2. Delayed images depict symmetric and near complete washout of the radiotracer from the previously defined right-left thyroid colloid without evidence of focal retention of the radiotracer readily identified. Impression: Negative 99m Tc sestamibi parathyroid imaging dual phase examination. 2. There is no definitive scintigraphic evidence of parathyroid adenoma on the current evaluation. DXA: Not available CT abdomen/pelvis with contrast (likely 11/17/2022) Findings/impression: Normal right adrenal. 3.6 cm elongated left adrenal mass. Recommend follow-up in 12 months. Thyroid US: 11/28/2024: COMPARISON: 05/09/2024. RESULT: Right Lobe: 5.0 cm x 1.2 cm x 2.0 cm; homogeneous echogenicity, expected vascular flow. Left Lobe: 4.2 cm x 1.2 cm x 1.6 cm; homogeneous echogenicity, expected vascular flow. Isthmus: 0.2 cm The most suspicious thyroid nodule(s) (up to four) as below: NODULE 1: Location: Right mid Size: 1.4 x 0.9 x 1.3 cm Characteristics: Composition: Mixed cystic and solid, 1 point Echogenicity: Hypoechoic, 2 points Shape: Apzol-xhva-ixxk, 0 points Margin: Smooth, 0 points Echogenic foci (add points for all that apply): Large comet tail artifacts in cysts, 0 points Internal vascularity: absent Interval growth: No significant growth given differences in technique TI-RADS Category: TR3 ACR Recommendation: TI-RADS 3 nodule. No FNA or further imaging is advised. NODULE 2: Location: Right mid/lower pole Size: 1.4 x 0.9 x 1.3 cm Characteristics: Composition: Solid or almost completely solid, 2 points Echogenicity: Hypoechoic, 2 points Shape: Dzovv-iwct-jadb, 0 points Margin: Smooth, 0 points Echogenic foci (add points for all that apply): Punctate echogenic foci, 3 points Macrocalcifications, 1 point Internal vascularity: present Interval growth: No significant growth given differences in technique TI-RADS Category: TR5 ACR Recommendation: TI-RADS 4 nodule. FNA is recommended. NODULE 3: Location: Left mid/upper pole Size: 1.6 x 0.8 x 1 cm Characteristics: Composition: Solid or almost completely solid, 2 points Echogenicity: Hypoechoic, 2 points Shape: Ldhmz-nuek-jnyh, 0 points Margin: Smooth, 0 points Echogenic foci (add points for all that apply): Large comet tail artifacts in cysts, 0 points Internal vascularity: present Interval growth: No significant growth given differences in technique TI-RADS Category: TR4 ACR Recommendation: TI-RADS [address] F[address] is recommended. [address] adrenal protocol wo IV contrast: 11/28/2024 Adrenal glands: Right adrenal gland: No nodules, masses or thickening. Left adrenal gland: Hypoattenuating thickening of the posteromedial limb in the left adrenal gland measures up to 1.0 cm, demonstrates hypoattenuation (-13 HU), no significant interval changes compared to 10/2022 characteristics that favor benign etiology such as adenoma. Assessment & Plan: Primary Hyperparathyroidism: Based on labs and previous work up reveals no adenoma on Sestimibi scan She has surgical indication, with high calcium at 11.2 mg/dl, with PTH high normal at 65 pg/ml I discussed surgical recommendation if target located, either with imaging or exploration, I will refer her to Endocrine surgery, where she will have localizing imaging done. If negative for surgical indications, discussed monitoring calcium levels and bone density once every 6 months to 1 year, treatment of complications medically We discussed waiting for thyroid biopsy results before referral, see below Left adrenal nodule: CT abdomen showed 3.6 cm nodule in left adrenal in [address] adrenal protocol shows 1 cm adenoma in left adrenal gland- ?reduction in size due to significant change Likely benign adenoma due to characteristics and reduction in size 1 mg- DST with normal results in 05/2023. But results on 11/28/2024 show non suppressed cortisol levels. Dexamethasone levels were pending at the time of visit today, but results received now shows acceptable dexamethasone level Will indicate further testing with repeat DST, urinary and salivary cortisol x2 No HTN or hypokalemia, hence no ARR done. No indication for Pheo testing in this case Thyroid nodule on examination: She is asymptomatic and no history of thyroid nodules/cancer in the family US thyroid shows multinodular goiter Advised scheduling for FNAB due to two nodules meeting criteria She is okay biopsy in our office, after discussing use of numbing spray vs lidocaine for topical anesthesia Expected results and further testing in indeterminate results reviewed, with appropriate management accordingly Follow up: 4 to 5 weeks with FNA results I spent a total of 56 minutes on the date of the service which included preparing to see the patient, afck-bh-ektu patient care, completing clinical documentation, obtaining and/or reviewing separately obtained history, counseling and educating the patient/family/caregiver, ordering medications, tests, or procedures, independently interpreting results (not separately reported), and communicating results to the patient/family/caregiver. Emery Cantu MD [facility] Endocrinology and Metabolism [place] [phone] documented in this encounter [facility] 11-28-2024 History of Present illness Narrative Radiology Service Progress Note PATIENT NAME: Latisha Stone DATE OF SERVICE: November 28, 2024 TIME: 11:53 AM PATIENT IDENTITY VERIFICATION COMPLETED USING TWO (2) IDENTIFIERS: Name and Date of confirmed by patient verbally. FALL SCREENING: Has the patient had 2 falls in the last year or 1 fall with injury or currently using an Ambulatory Assistive Device (Walker, Cane, Wheelchair, Crutches, etc.)? No PATIENT GENDER DATA: Assigned female at . status: : No status: NO. PATIENT RELEVANT IMPLANT DATA REVIEWED: Not Applicable PATIENT PRESENTS WITH AN IMPLANTABLE OR ATTACHED TREATMENT PLANT OPERATOR: No RADIOLOGY DEPARTMENT: Ultrasound PERIPHERAL IV DATA: Not applicable SIGNED BY: Jackie Herzog RDMS November 28, 2024 11:53 AM documented in this encounter [facility] 11-28-2024 Note HNO ID: [id number] Author: JACKIE HERZOG RDMS Service: ? Author Type: Summer Sessions Director Type: Progress Notes Filed: 11/28/2024 11:53 Note Text: Radiology Service Progress Note PATIENT NAME: Latisha Stone DATE OF SERVICE: November 28, 2024 TIME: 11:53 AM PATIENT IDENTITY VERIFICATION COMPLETED USING TWO (2) IDENTIFIERS: Name and Date of confirmed by patient verbally. FALL SCREENING: Has the patient had 2 falls in the last year or 1 fall with injury or currently using an Ambulatory Assistive Device (Walker, Cane, Wheelchair, Crutches, etc.)? No PATIENT GENDER DATA: Assigned female at . status: : No status: NO. PATIENT RELEVANT IMPLANT DATA REVIEWED: Not Applicable PATIENT PRESENTS WITH AN IMPLANTABLE OR ATTACHED TREATMENT PLANT OPERATOR: No RADIOLOGY DEPARTMENT: Ultrasound PERIPHERAL IV DATA: Not applicable SIGNED BY: Jackie Herzog RDMS November 28, 2024 11:53 AM [facility] 11-28-2024 History of Present illness Narrative Radiology Service Progress Note PATIENT NAME: Latisha Stone DATE OF SERVICE: November 28, 2024 TIME: 3:57 PM PATIENT IDENTITY VERIFICATION COMPLETED USING TWO (2) IDENTIFIERS: Name and Date of confirmed by patient verbally. FALL SCREENING: Has the patient had 2 falls in the last year or 1 fall with injury or currently using an Ambulatory Assistive Device (Walker, Cane, Wheelchair, Crutches, etc.)? No PATIENT GENDER DATA: Assigned female at . status: : No status: NO. PATIENT RELEVANT IMPLANT DATA REVIEWED: Yes PATIENT PRESENTS WITH AN IMPLANTABLE OR ATTACHED TREATMENT PLANT OPERATOR: No RADIOLOGY DEPARTMENT: CT; Exam(s) Completed: Adrenal PERIPHERAL IV DATA: Not applicable SIGNED BY: RT Nathalia(Jody) November 28, 2024 3:57 PM documented in this encounter [facility] 11-28-2024 Note HNO ID: [id number] Author: GEETA WOLF RT(R) Service: ? Author Type: Summer Sessions Director Type: Progress Notes Filed: 11/28/2024 15:58 Note Text: Radiology Service Progress Note PATIENT NAME: Latisha Stone DATE OF SERVICE: November 28, 2024 TIME: 3:57 PM PATIENT IDENTITY VERIFICATION COMPLETED USING TWO (2) IDENTIFIERS: Name and Date of confirmed by patient verbally. FALL SCREENING: Has the patient had 2 falls in the last year or 1 fall with injury or currently using an Ambulatory Assistive Device (Walker, Cane, Wheelchair, Crutches, etc.)? No PATIENT GENDER DATA: Assigned female at . status: : No status: NO. PATIENT RELEVANT IMPLANT DATA REVIEWED: Yes PATIENT PRESENTS WITH AN IMPLANTABLE OR ATTACHED TREATMENT PLANT OPERATOR: No RADIOLOGY DEPARTMENT: CT; Exam(s) Completed: Adrenal PERIPHERAL IV DATA: Not applicable SIGNED BY: VINH Sloan) November 28, 2024 3:57 PM [facility] 11-11-2024 Instructions Emery Cantu MD - 11/11/2024 12:23 PM EDT Calcium labs to be done as indicated on last appointment, including 24 hr urine labs Instructions for 24 hr urine collection: It s very important to do the 24 hour urine collection correctly: First, you must stop any calcium and vitamin D supplements that you are taking for at least 3 weeks prior to doing the test. Prior to starting the test, you need to flower buncher or picker the specially prepared collection jug at the center where the urine sample will be dropped off when completed. On the day you start the urine collection: discard the first morning urine on day#1 (the day you start the collection). collect all urine therafter for the entire day, through the night, and include the first morning urine on day #2 (when the test is stopped). if you lose or spill any urine, or flush any urine accidentally te test cannot be interpreted and should be stopped. When you return the sample: bring the sample in as soon as it is completed - on the same day you finish the collection if possible. have blood drawn on the day you return the urine sample. I ll review these results with you once they ve been completed. This may take up to 10-14 days. For nodular thyroid: Please do thyroid ultrasound and TSH For adrenal nodule: CT adrenal protocol to be done Please do dexamethasone test : Directions for dexamethasone test: 1. Take dexamethasone 1-mg tab by mouth at 11 PM the evening before your test. 2. Go to the lab the next morning and have your blood drawn at ~8 AM. *Do not eat or drink anything other than water from the time you take dexamethasone to the time you get your blood drawn. 3. If either of the following situations happen, DO NOT HAVE YOUR BLOOD DRAWN: A. You forget to take the pill at 11 PM the evening before B. You cannot get your blood drawn the next morning at ~8 AM C. If either situation happens, please call me to let me know documented in this encounter [facility] 11-11-2024 Note HNO ID: [id number] Author: EMERY CANTU MD Service: ? Author Type: Physician Type: Progress Notes Filed: 11/16/2024 22:23 Note Text: Endocrinology and Metabolism [place] Follow-up visit note Chief Complaint: Hyperparathyroidism History of Present Illness: Latisha Stone is a 64 year old old female with cutaneous lupus erythematosus presenting for follow up of hypercalcemia secondary to primary hyperparathyroidism, multinodular goiter, left adrenal nodule. 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 [place] 07/[address] 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 [employer] She initially presented on 06/15/2023 for hypercalcemia [...] urine labs yet, due to work. She reportedly had parathyroid scan done in Jul 2019 [...] Normal BP and hence aldosterone was not done. No concerns for Pheo Multinodular goiter: And on examination on the last visit, thyroid nodules were felt and US thyroid was recommended which showed 3 nodules, and she was recommended FNAB based on review of images. She was lost to follow up for more than one year due to alcohol abuse and suicidal ideation leading to hospitalization, and presenting today for rest of the work up PAST MEDICAL HISTORY Diagnosis Date ALLERGY ENVIRONMENTAL [...] History Tobacco Use Smoking status: Every Day Current packs/day: 1.00 Average packs/day: 1 pack/day for 30.0 years (30.0 ttl pk-yrs) Types: Cigarettes Smokeless tobacco: Former Vaping Use Vaping status: Never Used Substance Use Topics Alcohol use: Yes Comment: SOCIAL APPROX. 2 DRINKS PER WEEK Drug use: No Current Outpatient Medications Medication Sig multivit with minerals/lutein (MULTIVITAMIN 50 PLUS ORAL) Take by mouth. calcium phosphate dibas/vit D3 (VITAMIN D, WITH CALCIUM, ORAL) Take by mouth. ketotifen fumarate (ALAWAY) 0.025 % (0.035 %) ophthalmic solution 1 drop two times a day. loratadine 10 mg cap Take by mouth. famotidine (PEPCID) 10 mg tablet Take by mouth. nystatin (MYCOSTATIN) powder Apply 1 application to affected area three times daily. (Patient taking differently: Apply 1 application to affected area th (more content not included)... [facility] 11-11-2024 History of Present illness Narrative Endocrinology and Metabolism [place] Follow-up visit note Chief Complaint: Hyperparathyroidism History of Present Illness: Latisha Stone is a 64 year old old female with cutaneous lupus erythematosus presenting for follow up of hypercalcemia secondary to primary hyperparathyroidism, multinodular goiter, left adrenal nodule. 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 [place] 07/[address] 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 [facility] She initially presented on 06/15/2023 for hypercalcemia [...] urine labs yet, due to work. She reportedly had parathyroid scan done in Jul 2019 [...] Normal BP and hence aldosterone was not done. No concerns for Pheo Multinodular goiter: And on examination on the last visit, thyroid nodules were felt and US thyroid was recommended which showed 3 nodules, and she was recommended FNAB based on review of images. She was lost to follow up for more than one year due to alcohol abuse and suicidal ideation leading to hospitalization, and presenting today for rest of the work up PAST MEDICAL HISTORY Diagnosis Date ALLERGY ENVIRONMENTAL [...] History Tobacco Use Smoking status: Every Day Current packs/day: 1.00 Average packs/day: 1 pack/day for 30.0 years (30.0 ttl pk-yrs) Types: Cigarettes Smokeless tobacco: Former Vaping Use Vaping status: Never Used Substance Use Topics Alcohol use: Yes Comment: SOCIAL APPROX. 2 DRINKS PER WEEK Drug use: No Current Outpatient Medications Medication Sig multivit with minerals/lutein (MULTIVITAMIN 50 PLUS ORAL) Take by mouth. calcium phosphate dibas/vit D3 (VITAMIN D, WITH CALCIUM, ORAL) Take by mouth. ketotifen fumarate (ALAWAY) 0.025 % (0.035 %) ophthalmic solution 1 drop two times a day. loratadine 10 mg cap Take by mouth. famotidine (PEPCID) 10 mg tablet Take by mouth. nystatin (MYCOSTATIN) powder Apply 1 application to affected area three times daily. (Patient taking differently: Apply 1 application to affected area three times a day. As needed) multivit,thx,calcium,iron,mins (MULTIVITAMIN AND MINERAL ORAL) [facility] Women's Daily Multivitamin qDay, 0 Refill(s) Start Date: 05/17/21 Status: Ordered (Patient not taking: Reported on 08/13/2023) sodium chloride 0.65 % nasal spray as needed. dexAMETHasone (DECADRON) 1 mg tablet Take at [...] HPI Physical Exam: Body mass index is 24.23 kg/m . General: Comfortable, no obvious distress [...] dual phase parathyroid scintigraphy: 08/13/2019- requested from [facility] today Comparison: None available Findings: Following the intravenous administration of 26.0 mCi of 99m Tc sestamibi, image acquisitions of the anterior neck at approximately 15-minute and 2.0 hours post radiopharmaceutical provision revealed: 1. Immediate static blood pool acquisitions demonstrate symmetric radiopharmaceutical concentration noted in the right-left lobes of ggl-brwae-hztzmn thyroid gland. 2. Delayed images depict symmetric [...] once every 6 months to 1 year Advised to do labs today- orders placed. She is not on any biotin supplements as reported today Left adrenal nodule: 1 mg- DST with normal results No HTN or hypokalemia, hence no ARR done. CT adrenal protocol advised- orders placed again Thyroid nodule on examination: She is asymptomatic and no history of thyroid nodules/cancer in the family US thyroid shows multinodular goiter Advised scheduling for FNAB due to two nodules meeting criteria on last visit if TSH is normal, but if low TSH, will do thyroid uptake and scan to evaluate accordingly TSH ordered again today, along with thyroid US to evaluate if any changes in nodules or if any new nodules Follow up: 4 weeks Medical Decision Making: Problems: Moderate: 2+ stable chronic illnesses Data: Unique test result(s) reviewed: 3+ Unique test(s) ordered: 3+ Risk: High: High risk from testing/treatment Medical Decision Making Level: 4 - Moderate Emery Cantu MD [facility] Endocrinology and Metabolism [place] [phone] documented in this encounter [facility] 08-13-2023 Miscellaneous Notes Record release faxed to [facility] Medical Record department for Pt's parathyroid scan in ~2019. Fax confirmation received. Nori Francis RN August 13, 2023 1:50 PM documented in this encounter [facility] 08-13-2023 Instructions Emery Cantu MD - 08/13/2023 [...] to the laboratory as soon as possible. ................................. ................................. ................................. ................................. ............................... Please schedule an appointment for FNA of the thyroid nodules- right mid and left mid ................................. ................................. ................................. ................................. .......... CT adrenal protocol ordered documented in this encounter [facility] 08-13-2023 History of Present illness Narrative Endocrinology and Metabolism [place] Follow-up visit note Chief Complaint: Hyperparathyroidism History of Present Illness: Latisha Stone is a 63 year old old female with cutaneous lupus erythematosus presenting with hypercalcemia secondary to primary hyperparathyroidism, multinodular goiter, left adrenal nodule. 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 [facility] [employer] She initially presented on 06/15/2023 for hypercalcemia [...] guidelines link. multivit,thx,calcium,iron,mins (MULTIVITAMIN AND MINERAL ORAL) [employer] Women's Daily Multivitamin qDay, 0 Refill(s) Start [...] dual phase parathyroid scintigraphy: 08/13/2019- requested from [facility] today Comparison: None available Findings: Following the intravenous administration of 26.0 mCi of 99m Tc sestamibi, image acquisitions of the anterior neck at approximately 15-minute and 2.0 hours post radiopharmaceutical provision revealed: 1. Immediate static blood pool acquisitions demonstrate symmetric radiopharmaceutical concentration noted in the right-left lobes of yev-xwvku-opmscx thyroid gland. 2. Delayed images depict symmetric [...] which included preparing to see the patient, pmhi-rv-kaam patient care, completing clinical documentation, obtaining and/or reviewing separately obtained history, performing a medically appropriate examination, counseling and educating the patient/family/caregiver, ordering medications, tests, or procedures, and independently interpreting results (not separately reported). Emery Cantu MD [facility] Endocrinology and Metabolism [place] [phone] documented in this encounter [facility] 08-21-2020 Note . MICRO - Microbiology PROCEDURE: [...] Locations *1: This test was performed at: [facility], [address] [place] [address], [id number] , [facility] ([place]) Comment on above: Performed By: #### C BC, ADIFF, ANEU, LIP, AMRIT, CMP, ALC #### [facility] [address] [place], [place] [address] #### GFR, ACETA #### [facility] [address] [place], [place] [address] Evaluation + Plan note No data available for this section [facility] Evaluation note Diagnosis Multinodular goiter- Primary Nontoxic multinodular goiter Disorder of adrenal gland (HCC) Unspecified disorder of adrenal glands [facility] Diagnosis Nontoxic multinodular goiter- Primary Hyperparathyroidism (HCC) Hyperparathyroidism, unspecified Disorder of adrenal gland (HCC) Unspecified disorder of adrenal glands Adrenal cortical nodule (HCC) Other specified disorders of adrenal glands documented in this encounter [facility] note* Diagnosis Nontoxic multinodular goiter Hyperparathyroidism (HCC) Hyperparathyroidism, unspecified documented in this encounter [facility] note* Diagnosis Disorder of adrenal gland (HCC) Unspecified disorder of adrenal glands documented in this encounter [facility] note* Diagnosis Multinodular goiter- Primary Nontoxic multinodular goiter Adrenal cortical nodule (HCC) Other specified disorders of adrenal glands documented in this encounter [facility] Discharge instructions No data available for this section [facility] Summary Purpose Family History No Family History Records FoundNo Family History Records FoundNo Family History Records Found Advance Directives No Advanced Directives Records FoundNo Advanced Directives Records FoundNo Advanced Directives Records Found Reason for Referral Specialty Diagnoses / Procedures Referred By Contac t Referred To Contact CT IMAGING Diagnoses Disorder of adrenal gland (HCC) Procedures CT ADRENAL WO/W IVCON CT ABDOMEN W & W/O CONTRAST Emery Cantu MD [address] [place] [address] [place] [id number] Referral ID Status Reason Start Date Expiration Date Visits Requested Visits Authorized [id number] Pending Review Auto-Generat ed Referral 08/13/2023 09/11/2024 1 1 Additional Source Comments INFORMATION SOURCE (unrecogn ized section and content) DATE CREATED AUTHOR 01/16/2018 [facility] DATE CREATED AUTHOR AUTHOR'S ORGANIZ ATION 05/18/2021 [facility] ([place]) DATE CREATED AUTHOR AUTHOR'S ORGANIZ ATION 12/15/2024 [facility] Source Comments (unrecognize d section and content) In the event this informatio n is protected by the Federal Confidentiality of Alcohol and Drug Abuse Patient Records regulations: The Federal rules restrict any use of the information to criminally investigate or prosecute any alcohol or drug abuse patient.[facility] the event this information is protected by the Federal Confidentiality of Alcohol and Drug Abuse Patient Records regulations: The Federal rules restrict any use of the information to criminally investigate or prosecute any alcohol or drug abuse patient.[facility] Cancer CenterIn the event this information is protected by the Federal Confidentiality of Alcohol and Drug Abuse Patient Records regulations: The Federal rules restrict any use of the information to criminally investigate or prosecute any alcohol or drug abuse patient.[facility] CenterIn the event this information is protected by the Federal Confidentiality of Alcohol and Drug Abuse Patient Records regulations: The Federal rules restrict any use of the information to criminally investigate or prosecute any alcohol or drug abuse patient.[facility] CenterIn the event this information is protected by the Federal Confidentiality of Alcohol and Drug Abuse Patient Records regulations: The Federal rules restrict any use of the information to criminally investigate or prosecute any alcohol or drug abuse patient.[facility] CenterIn the event this information is protected by the Federal Confidentiality of Alcohol and Drug Abuse Patient Records regulations: The Federal rules restrict any use of the information to criminally investigate or prosecute any alcohol or drug abuse patient.[facility] CenterIn the event this information is protected by the Federal Confidentiality of Alcohol and Drug Abuse Patient Records regulations: The Federal rules restrict any use of the information to criminally investigate or prosecute any alcohol or drug abuse patient.[facility] CenterIn the event this information is protected by the Federal Confidentiality of Alcohol and Drug Abuse Patient Records regulations: The Federal rules restrict any use of the information to criminally investigate or prosecute any alcohol or drug abuse patient.[facility] Reason for Visit (unrecogniz ed section and content) Reason Comments Release Of Medical Records Reason Comments Follow Up Hyperparathyroidism Reason Comments Hyperparathyroidism Thyroid Problem Specialty Diagnoses / Procedures Referred By Contac t Referred To Contact Endocrinology / ENDOCRINOLOGY Diagnoses Hyperparathyroidism Elevated HgA1c Thyroid nodules Management PTH and thyroid, labs Procedures OFFICE/OUTPATIENT ESTABLISHED MOD MDM 30 MIN EST DREAD PATIENT Self Emery Cantu MD [address] [place] [address] Phone: tel: fax: Referral ID Status Reason Start Date Expiration Date V isits Requested Visits Authorized [id number] Closed Financial Clearance Required - Self Pay Patient Cleared - Qualified for 501r Referred for JASMINA 11/11/2024 02/03/2025 1 1 Reason Comments Radiology US Specialty Diagnoses / Procedures Referred By Contac t Referred To Contact Diagnoses anything medically necessary Procedures anything medically necessary [place] [facility] [place] [address] Referral ID Status Reason Start Date Expiration Date Visits Requested Visits Authorized [id number] Authorized Patient Cleared - Qualified 100% FAS 11/21/2024 02/19/2025 99 [address] Specialty Diagnoses / Procedures Referred By Contac t Referred To Contact Diagnoses anything medically necessary Procedures anything medically [place] [place] [address] Referral ID Status Reason Start Date Expiration Date Visits Requested Visits Authorized [id number] Authorized Patient Cleared - Qualified 100% FAS 11/21/2024 02/19/2025 99 99 Reason Comments Hyperparathyroidism Adrenal Thyroid Nodule Specialty Diagnoses / Procedures Referred By Contac t Referred To Contact Diagnoses anything medically necessary Procedures anything medically [place] [place] [address] Referral ID Status Reason Start Date Expiration Date Visits Requested Visits Authorized [id number] Authorized Patient Cleared - Qualified 100% FAS 11/21/2024 02/19/2025 99 99 Reason Comments Patient Question Upcoming lab tests Care Teams (unrecognized sec tion and content) Supervisor Beet End Relationship Specialty Start Date End Date Bethany Veliz MD [address] [place] [address] PCP - General Family Medicine 05/15/23 Supervisor Beet End Relationship Specialty Start Date End Date Bethany Veliz MD [address] [place] [address] PCP - General Family Medicine 05/15/23 Supervisor Beet End Relationship Specialty Start Date End Date Bethany Veliz MD [address] [place] [address] PCP - General Family Medicine 05/15/23 Supervisor Beet End Relationship Specialty Start Date End Date Bethany Veliz MD [address] [place] [address] PCP - General Family Medicine 05/15/23 Supervisor Beet End Relationship Specialty Start Date End Date Bethany Veliz MD [address] [place] [address] PCP - General Family Medicine 05/15/23 Supervisor Beet End Relationship Specialty Start Date End Date Bethany Veliz MD [address] [place] [address] PCP - General Family Medicine 05/15/23 Supervisor Beet End Relationship Specialty Start Date End Date Bethany Veliz MD [address] [place] [address] PCP - General Family Medicine 05/15/23 Supervisor Beet End Relationship Specialty Start Date End Date Bethany Veliz MD [address] [place] [address] PCP - General Family Medicine 05/15/23 FOR [...] BE BASED ON THE PRIMARY CLINICAL RECORDS. [facility]. provides no warranty or guarantee of the accuracy or completeness of information in this document.
[2024-12-28] MEDS: 0.9% Normal Saline (1000mL) 1,000 ML 100 ML IV (18:56)
[2024-12-28 19:49] LABS: Osmolality, Serum 301 mOsm/KG (280-301)
[2024-12-28 20:19] LABS: Creatinine, Urine (random) 25.20 mg/dL (28.00-217.00)
[2024-12-28 20:21] LABS: Urea Nitrogen, Urine 151 mg/dL (NO RANGE EST.)
[2024-12-28] MEDS: hydrOXYzine PAM 25 MG Capsule 50 MG PO (23:40)
[2024-12-29 02:13] VITALS: BP 104/86; PULSE 100; RESP 22; TEMP 36.3; O2SAT 93
[2024-12-29] MEDS: 0.9% Saline Lock 10 ML Syringe IV (03:13)
[2024-12-29 04:33] LABS: Hematocrit 39.0 % (37-47); Hemoglobin 13.3 g/dL (12.0-15.0); Immature Granulocytes Count 0.030 X10^3/uL (0.0-0.0); Mean Corp Hgb Conc 34.1 g/dL (32-36); Mean Corpuscular Volume 84.1 fL (81-99); Mean Platelet Vol. 9.7 fl (6.2-12.0); NRBC Flagged by Analyzer 0 % (0-5); Platelet Count 222 K/mm3 (150-450); RBC Distribution Width CV 14.3 % (11.6-14.6); RBC Distribution Width SD 43.8 fl (35.1-43.9); Red Blood Count 4.64 M/mm3 (4.2-5.4); White Blood Count 6.3 K/mm3 (4.4-11.0)
[2024-12-29] MEDS: 0.9% Normal Saline (1000mL) 1,000 ML 100 ML IV (05:18)
[2024-12-29 05:36] LABS: AST(SGOT) 189 U/L (<=31); Alanine Aminotransfer ALT/SGPT 182 U/L (<=34); Albumin, Serum 3.6 g/dL (3.4-4.8); Alkaline Phosphatase 121 U/L (35-104); Anion Gap 9 (5-15); BUN 14 mg/dL (4-19); BUN/Creat Ratio 23.2 RATIO (10-20); Calcium,Total 10.3 mg/dL (7.6-11.0); Carbon Dioxide 28.3 mmol/L (21.0-32.0); Chloride 93 mmol/L (98-108); Estimated Creatinine Clearance 79.39 ml/min (50-250); Globulin 1.9 g/dL (2.2-4.2); Glucose 165 mg/dL (70-99); Potassium 3.6 mmol/L (3.3-5.1)
[2024-12-29 06:58] VITALS: BP 120/78; PULSE 80; RESP 14; TEMP 36.8; O2SAT 93
--- NOTE | 2024-12-29 07:14 | PCM.PN.HOSP ---
Reason for Visit Reason for Visit: Diagnoses Alcohol abuse, uncomplicated (12/28/24) Alcohol use, unspecified with intoxication, unspecified (12/28/24) Subjective Subjective Patient overnight with improvement in withdrawal symptoms however she notes she still has mild tremors in addition to nausea and reporting occasional dry heaving. She does have IBS and reports she chronically has issues with loose stools and she has had several of these requesting loperamide. She denies any abdominal pain or tenderness. She does report that she feels better than initial ED presentation. Patient denies fevers, chills, abdominal pain, chest pain or dyspnea. Objective Data Objective Data Vital Signs: Vital Signs Temp Pulse Resp BP Pulse Ox O2 Del Method 98.3 F 80 14 120/78 93 Room Air 12/29/24 06:58 12/29/24 06:58 12/29/24 06:58 12/29/24 06:58 12/29/24 06:58 12/29/24 06:58 Oxygen Delivery Method Room Air Weight: 135 lb 8 oz Body Mass Index (BMI) 24.0 Intake & Output: Intake and Output for Last 24 Hours 12/27/24 12/28/24 12/29/24 23:59 23:59 23:59 Intake Total 1480 / 1480 1999 Balance 1480 / 1480 1999 Lab / Micro Data 12/29/24 04:10 12/29/24 04:10 Labs: Laboratory Results - last 24 hr 12/28/24 14:40: Ur Random Sodium < 20, Urine Creatinine 25.20 L, Urine Potassium 10.9, Urine Chloride < 20, Urine Urea Nitrogen 151, Urine Opiates Screen NEGATIVE, U Buprenorphine Qual NEGATIVE, Ur Oxycodone Screen NEGATIVE, Urine Methadone Screen NEGATIVE, Urine Fentanyl Screen NEGATIVE, Ur Barbiturates Screen NEGATIVE, Ur Phencyclidine Scrn NEGATIVE, Ur Amphetamines Screen NEGATIVE, U Benzodiazepines Scrn NEGATIVE, Urine Cocaine Screen NEGATIVE, U Cannabinoids Screen NEGATIVE 12/28/24 15:31: WBC 8.6, RBC 5.52 H, Hgb 15.8 H, Hct 46.1, MCV 83.5, MCH 28.6, MCHC 34.3, RDW Std Deviation 43.9, RDW Coeff of Dave 14.4, Plt Count 299, MPV 9.1, Immature Gran % (Auto) 0.300, Neut % (Auto) 82.1 H, Lymph % (Auto) 12.7 L, [place] % (Auto) 4.1, Eos % (Auto) 0.1, Baso % (Auto) 0.7, Absolute Neuts (auto) 7.1, Absolute Lymphs (auto) 1.09, Nucleated RBC % 0, Sodium 127 L, Potassium 3.9, Chloride 86 L, Carbon Dioxide 23.3, Anion Gap 18 H, BUN 8, Creatinine 0.57 L, Estim Creat Clear Calc 96.17, Est GFR (MDRD) Non-Af 102, BUN/Creatinine Ratio 14.2, Glucose 62 L, Calcium 9.8, Total Bilirubin 0.75, Direct Bilirubin 0.36 H, AST 344 H, ALT 269 H, Alkaline Phosphatase 136 H, Total Protein 6.8, Albumin 4.4, Globulin 2.5, Ethyl Alcohol 140.0 H 12/28/24 18:36: Serum Osmolality 301 12/29/24 04:10: WBC 6.3, RBC 4.64, Hgb 13.3, Hct 39.0, MCV 84.1, MCH 28.7, MCHC 34.1, RDW Std Deviation 43.8, RDW Coeff of Dave 14.3, Plt Count 222, MPV 9.7, Immature Gran % (Auto) 0.500, Neut % (Auto) 66.8, Lymph % (Auto) 23.6, [place] % (Auto) 6.9, Eos % (Auto) 1.6, Baso % (Auto) 0.6, Absolute Neuts (auto) 4.2, Absolute Lymphs (auto) 1.48, Nucleated RBC % 0, Sodium 130 L, Potassium 3.6, Chloride 93 L, Carbon Dioxide 28.3, Anion Gap 9, BUN 14, Creatinine 0.60 L, Estim Creat Clear Calc 79.39, Est GFR (MDRD) Non-Af 101, BUN/Creatinine Ratio 23.2 H, Glucose 165 H, Calcium 10.3, Total Bilirubin 0.68, AST 189 H, ALT 182 H, Alkaline Phosphatase 121 H, Total Protein 5.4 L, Albumin 3.6, Globulin 1.9 L, Albumin/Globulin Ratio 1.9, TSH 1.770 Physical Exam Narrative Physical Examination: General: Awake, alert, oriented x 3 and cooperative, seated upright in the medical surgical bed, fatigued, no severe tremulous noted, does appear currently comfortable. Skin: Normal color, normal turgor, no icterus, no cyanosis aside from occasional stage ecchymoses, abrasions. HEENT: AT/NC, EOMI, PERRLA, MMM. Lungs: Mildly diminished, greater bases, appropriate effort, no rales, ronchi or wheezing. Heart: Regular rate and rhythm; no gallop, rub audible. Abdomen: Soft, NTTP, ND, hyperactive BS. Extremities: No cyanosis, clubbing, or edema. Neurological: Patient awake, alert, oriented as noted, cognitive function intact; pupils equally reactive to light and accommodation, cranial nerves grossly normal, moving all 4 extremities, no focal deficits, strength improving, mildly to moderately global decrease, very minimal tremulousness to upper extremities noted, withdrawal symptoms seem to improve since initial ED arrival. Psychiatric: Affect appears fatigued otherwise normal, no acute evidence of depressive or anxiety feelings but does have underlying history. Assessment & Plan Assessment/Plan (1) Admitted to alcohol detoxification center: PLAN: Plan The patient is a 64 y/o F w/ PMHx: Anxiety and Depression, Allergic Rhinitis, GERD, Cutaneous lupus erythematosus, HTN, IBS, EtOH abuse who presents to the [facility] ED on 12/28/2024 with history of ongoing alcohol intake of at least a 12 pack daily over the last 7 days with requested detoxification with onset of recently nausea and emesis with last intake noted the morning of presentation only taking sips prompting ED evaluation. #1. Acute abuse with Acute EtOH Withdrawal with acute on chronic alcoholic hepatitis: Admitted to medical surgical floor, initiated and continued on protocol with taper course of Phenobarbital, as needed gabapentin, Catapres, Bentyl, Vistaril, IV fluids, IV antiemetics, Tylenol as needed for pain. Will consult Case management for assistance for transition to next level of rehabilitation care. Mag, phos pending. Maintain on CIWA protocol concurrently. LFTs elevated upon presentation with AST/LT 334/269, alk phos 136, D bili 0.36, likely secondary in large part to heavy drinking with suspected acute on chronic alcoholic hepatitis. 12/29/24 repeat liver profile with T. bili 0.68, D bili 0.36, AST/ALT 189/182, alk phos 121, improving. #2. Hyponatremia, suspect in large part secondary to alcohol abuse but given recent decreased intake certainly could be component of hypovolemia: Admission sodium 127, repeat 12/29/24 sodium 130, judiciously hydrated per admission protocol for alcohol withdrawal treatment, chloride initially 86, repeat 93, TSH 1.770, upon admission hyponatremia workup included serum osmolality 301, urine sodium less than 20, urine creatinine 25.20 w/ estimated FeNa 0.34%, again mixed picture and highly suspect EtOH related in large part. Will defer repeat labs given #1 presentation high suspicion alcohol related; however if she does have more copious GI losses then would necessitate repeat lab trending. #3. IBS: Patient does have history of notable IBS and notes that when she drinks heavily and stops she does tend to have loose stools with no recent antibiotic therapy and unchanged from her previous pattern, will have as needed loperamide. If patient has continued significant loose stools although lower suspicion may require C. difficile/enteric pathogen assessment however this pattern is very similar to what she has had previous with alcohol withdrawal. #4. Hypertension: Noted medical history, not on any chronic regimen outpatient, BP is elevated above goal, no recent hypertensive medications noted in the system, will add low dose norvasc and monitor, PRN IV hydralazine if needed. #5. Anxiety and depression: Likely contributing to acute presentation #1 greatly, not on any regimen, case management consulted, would benefit from ongoing counseling and evaluation outpatient. #6. Tobacco Abuse: Encouraged cessation, inpatient consultation per RT, NR if desired. #7. GERD: Will add back home famotidine regimen. #8. Allergic rhinitis: Will continue patient on loratadine regimen. #9. DVT prophylaxis: Initially on Lovenox however given type of presentation with alcohol withdrawal treatment/detoxification type admission will de-escalate encourage ambulation instead. Charges/Coding Visit Charges Inpatient E&M: 36286 Subs Hosp L3
[2024-12-29 08:39] VITALS: BP 159/82; PULSE 82; RESP 18; TEMP 36.9; O2SAT 93
[2024-12-29] MEDS: Thiamine Hydrochloride 100 MG Tablet PO (08:46)
[2024-12-29 09:22] LABS: Prothrombin Time (Protime)PT. 13.2 SECONDS (11.7-14.9)
--- NOTE | 2024-12-29 10:46 | NURSING ---
ACUTE CARE SURGEON asked the pt if she wanted to get a shower. By the time she returned with supplies pt has already stopped her IV and disconnected it and was in the shower. Pt has been messing with her IV severla times in the evening and this am this RN caught her fixng her upstream errors. 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
--- NOTE | 2024-12-29 12:24 | ADDICTION ---
Met with patient to complete RAMP assessments. Pt is unsure of next step. We will discuss tomorrow. Reports that residential has not been beneficial previously. Clinician helped patient identify readiness. We will discuss options further tomorrow.
[2024-12-29 13:25] VITALS: BP 156/83; PULSE 91; RESP 18; TEMP 37; O2SAT 95
[2024-12-29 17:16] VITALS: BP 144/74; PULSE 87; RESP 20; TEMP 37; O2SAT 94
[2024-12-29 20:09] VITALS: BP 148/80; PULSE 89; RESP 16; TEMP 37.1; O2SAT 95
[2024-12-30] VITALS: BP 155/97; PULSE 88; RESP 18; TEMP 37.1; O2SAT 95
[2024-12-30 06:23] VITALS: BP 149/93; PULSE 83; RESP 16; TEMP 36.9; O2SAT 94
--- NOTE | 2024-12-30 06:58 | PCM.PN.HOSP ---
Reason for Visit Reason for Visit: Diagnoses Alcohol abuse, uncomplicated (12/28/24) Alcohol use, unspecified with intoxication, unspecified (12/28/24) Subjective Subjective Patient with no acute events overnight per self and staff report. Patient declined any further phenobarbital since the day prior despite transition to a lower dose and lengthening the frequency. Per discussion with staff she was up frequently and walking the halls. She notes that her symptoms have completely abated in regards to withdrawal symptoms. She denies any more copious severe diarrhea and states she feels as though she is returning to her baseline. Patient denies fevers, chills, nausea, emesis, abdominal pain, chest pain or dyspnea. Objective Data Objective Data Vital Signs: Vital Signs Temp Pulse Resp BP Pulse Ox O2 Del Method 98.5 F 83 16 149/93 H 94 Room Air 12/30/24 06:23 12/30/24 06:23 12/30/24 06:23 12/30/24 06:23 12/30/24 06:23 12/30/24 06:23 Oxygen Delivery Method Room Air Weight: 135 lb 8 oz Body Mass Index (BMI) 24.0 Intake & Output: Intake and Output for Last 24 Hours 12/28/24 12/29/24 12/30/24 23:59 23:59 23:59 Intake Total 1480 / 1480 2526.67 / 2526.67 1000 / 1000 Balance 1480 / 1480 2526.67 / 2526.67 1000 / 1000 Lab / Micro Data 12/29/24 04:10 12/29/24 04:10 Labs: Laboratory Results - last 24 hr 12/29/24 08:30: PT 13.2, INR 1.0 Physical Exam Narrative Physical Examination: General: Awake, alert, oriented x 3 and cooperative, initially walking in the halls, return to the bedside, appears stable with no obvious evidence of withdrawal symptoms. Skin: Normal color, normal turgor, no icterus, no cyanosis aside from occasional stage ecchymoses, abrasions. HEENT: AT/NC, EOMI, PERRLA, MMM. Lungs: Mildly diminished, greater bases, appropriate effort, no rales, ronchi or wheezing. Heart: Regular rate and rhythm; no gallop, rub audible. Abdomen: Soft, NTTP, ND, hyperactive BS. Extremities: No cyanosis, clubbing, or edema. Neurological: Patient awake, alert, oriented as noted, cognitive function intact; pupils equally reactive to light and accommodation, cranial nerves grossly normal, moving all 4 extremities, no focal deficits, strength preserved, no tremulous noted, denies any withdrawal symptoms at this time. Psychiatric: Affect appears more interactive, normal, no acute evidence of depressive or anxiety feelings but does have underlying history. Assessment & Plan Assessment/Plan (1) Admitted to alcohol detoxification center: PLAN: Plan The patient is a 64 y/o F w/ PMHx: Anxiety and Depression, Allergic Rhinitis, GERD, Cutaneous lupus erythematosus, HTN, IBS, EtOH abuse who presents to the [facility] ED on 12/28/2024 with history of ongoing alcohol intake of at least a 12 pack daily over the last 7 days with requested detoxification with onset of recently nausea and emesis with last intake noted the morning of presentation only taking sips prompting ED evaluation. #1. Acute abuse with Acute EtOH Withdrawal with acute on chronic alcoholic hepatitis: Admitted to medical surgical floor, initiated and continued on protocol with taper course of Phenobarbital, as needed gabapentin, Catapres, Bentyl, Vistaril, IV fluids, IV antiemetics, Tylenol as needed for pain. Case management consulted for assistance for transition to next level of rehabilitation care. Maintain on CIWA protocol concurrently. LFTs elevated upon presentation with AST/LT 334/269, alk phos 136, D bili 0.36, likely secondary in large part to heavy drinking with suspected acute on chronic alcoholic hepatitis. 12/29/24 repeat liver profile with T. bili 0.68, D bili 0.36, AST/ALT 189/182, alk phos 121, improved. Mag 1.5 with initial attempts to supplement IV with 2 g given at end of normal range however patient declined thus prescription given for oral supplementation x 3-day course. Phosphorus level 3.5. 12/29/2024 patient requesting alteration to the phenobarbital taper with decreased dose and length and frequency however she declined any further dosing since earlier in the day 12/29/2024. Reevaluation 12/30/2024 with resolved withdrawal symptoms and patient request for discharge. Recommending repeat hepatic profile assessment outpatient. #2. Hyponatremia, suspect in large part secondary to alcohol abuse but given recent decreased intake certainly could be component of hypovolemia: Admission sodium 127, repeat 12/29/24 sodium 130, judiciously hydrated per admission protocol for alcohol withdrawal treatment, chloride initially 86, repeat 93, TSH 1.770, upon admission hyponatremia workup included serum osmolality 301, urine sodium less than 20, urine creatinine 25.20 w/ estimated FeNa 0.34%, again mixed picture and highly suspect EtOH related in large part. Deferred repeat labs given #1 presentation high suspicion alcohol related; however if she does have more copious GI losses then would necessitate repeat lab trending. Recommending follow-up repeat renal function assessment outpatient. #3. IBS: Patient does have history of notable IBS and notes that when she drinks heavily and stops she does tend to have loose stools with no recent antibiotic therapy and unchanged from her previous pattern, will have as needed loperamide. If patient has continued significant loose stools although lower suspicion may require C. difficile/enteric pathogen assessment however this pattern is very similar to what she has had previous with alcohol withdrawal. #4. Hypertension: Noted medical history, not on any chronic regimen outpatient, BP during initial presentation elevated above goal, no recent hypertensive medications noted in the system, 12/29/24 added low dose norvasc and monitor, PRN IV hydralazine if needed. Will plan discharge on low-dose Norvasc. #5. Anxiety and depression: Likely contributing to acute presentation #1 greatly, not on any regimen, case management consulted, would benefit from ongoing counseling and evaluation outpatient. #6. Tobacco Abuse: Encouraged cessation, inpatient consultation per RT, NR if desired. #7. GERD: Maintain on home famotidine regimen. #8. Allergic rhinitis: Maintain on home loratadine regimen. #9. DVT prophylaxis: Initially on Lovenox however given type of presentation with alcohol withdrawal treatment/detoxification type admission will de-escalate encourage ambulation instead. Charges/Coding Visit Charges Inpatient E&M: 90750 Subs Hosp L2
[2024-12-30] MEDS: Thiamine Hydrochloride 100 MG Tablet PO (08:10)
--- NOTE | 2024-12-30 10:10 | CASEMGMT ---
Social Work- Pt is self-pay. Pt reported to not be [facility] eligible. Pt has [employer]. SW provided prescription benefit information, as well as [employer] card. Pt plans to d/c home today. [facility]
[2024-12-30 10:13] VITALS: BP 154/87; PULSE 82; RESP 18; TEMP 36.8; O2SAT 96
[2024-12-30 10:23] LABS: Magnesium 1.5 mg/dL (1.5-2.2)
--- NOTE | 2024-12-30 11:27 | NURSING ---
This RN went in to pt room to restart IV as pt original IV infiltrated. Informed pt that IV restart was needed for a new order of MG IV by Dr. Coombs. Pt asked what her MG level is and this RN informed her it was 1.5. Why do I have to have it then if it's normal and I'm going home. Pt is refusing to get the MG IV. Dr. Coombs contacted and aware.
--- NOTE | 2024-12-30 11:37 | PCM.DC.SUM ---
Providers Date of Admission: 12/28/24 Date of Discharge: 12/30/24 Primary Care Physician: Dr. Elder Cabrera MD Reason For Visit: desire for detox from etoh Diagnosis Discharge Diagnosis (1) Admitted to alcohol detoxification center: Status: Acute Plan: DISCHARGE PLANNING: #1. Acute abuse with Acute EtOH Withdrawal with acute on chronic alcoholic hepatitis #2. Hyponatremia, suspect in large part secondary to alcohol abuse but given recent decreased intake certainly could be component of hypovolemia #3. IBS #4. Hypertension #5. Anxiety and depression #6. Tobacco Abuse #7. GERD #8. Allergic rhinitis Medications at Discharge Home Medications famotidine 20 mg tablet (Pepcid) 20 mg PO DAILY 12/28/24 loratadine 10 mg disintegrating tablet (Allergy Relief (loratadine)) 10 mg PO BID 12/28/24 amlodipine 5 mg tablet 5 mg PO DAILY 30 days #30 tabs 12/30/24 folic acid 1 mg tablet 1 mg PO DAILY@0800 30 days #30 tabs 12/30/24 magnesium oxide 400 mg PO BID 3 days #6 caps 12/30/24 multivitamin with minerals 1 cap PO DAILY 30 days #30 caps 12/30/24 thiamine HCl (vitamin B1) 100 mg tablet 100 mg PO DAILYCM 30 days #30 tabs 12/30/24 Hospital Course Operations None Procedures None Summary of Care Provided Minutes Spent on Discharge: 35 Hospital Course: The patient is a 64 y/o F w/ PMHx: Anxiety and Depression, Allergic Rhinitis, GERD, Cutaneous lupus erythematosus, HTN, IBS, EtOH abuse who presentED to the [facility] ED on 12/28/2024 with history of ongoing alcohol intake of at least a 12 pack daily over the last 7 days with requested detoxification with onset of recently nausea and emesis with last intake noted the morning of presentation only taking sips prompting ED evaluation. Admitted to medical surgical floor, initiated and continued on protocol with taper course of Phenobarbital, as needed gabapentin, Catapres, Bentyl, Vistaril, IV fluids, IV antiemetics, Tylenol as needed for pain. Case management consulted for assistance for transition to next level of rehabilitation care. Maintain on CIWA protocol concurrently. LFTs elevated upon presentation with AST/LT 334/269, alk phos 136, D bili 0.36, likely secondary in large part to heavy drinking with suspected acute on chronic alcoholic hepatitis. 12/29/24 repeat liver profile with T. bili 0.68, D bili 0.36, AST/ALT 189/182, alk phos 121, improved. Mag 1.5 with initial attempts to supplement IV with 2 g given at end of normal range however patient declined thus prescription given for oral supplementation x 3-day course. Phosphorus level 3.5. 12/29/2024 patient requesting alteration to the phenobarbital taper with decreased dose and length and frequency however she declined any further dosing since earlier in the day 12/29/2024. Reevaluation 12/30/2024 with resolved withdrawal symptoms and patient request for discharge. Recommended repeat hepatic profile assessment outpatient. Admission sodium 127, repeat 12/29/24 sodium 130, judiciously hydrated per admission protocol for alcohol withdrawal treatment, chloride initially 86, repeat 93, TSH 1.770, upon admission hyponatremia workup included serum osmolality 301, urine sodium less than 20, urine creatinine 25.20 w/ estimated FeNa 0.34%, again mixed picture and highly suspect EtOH related in large part. Recommended follow-up repeat renal function assessment outpatient. During admission patient with elevated BP above goal, not on regimen but history HTN noted, added low dose norvasc with improvement with rx sent upon discharge. In additiona, Rx for thiamine, folic acid and MVI sent upon discharge. Encouraged continued outpatient follow-up with PCP. Weight / BMI Weight Weight: 135 lb 8 oz Body Mass Index (BMI) 24.0 ABG / Lab / Microbiology Data 12/29/24 04:10 12/29/24 04:10 Laboratory: Laboratory Results - last 24 hr 12/30/24 09:26: Phosphorus 3.5, Magnesium 1.5 D/C Instructions Discharge Diet: Low fat / Low cholesterol May resume sexual activity in: No Restrictions Weight Bearing Status: Weight bearing as tolerated Call your doctor if you observe: - (Any concerning withdrawal symptoms we recommend immediate ED repeat evaluation. ) DC O2, CPAP, BIPAP Needs Home O2 Discharge instructions: No Meaningful Use Info Meaningful Use Meaningful Use Diagnoses (Choose all that apply): None applicable Ischemic Stroke Statin Dosing Therapy Reference: STATIN DOSE THERAPY REFERENCE: * Patients > 75 years receive moderate or high dose statin therapy. * Patients 75 years or YOUNGER should receive HIGH intensity statin dose unless contraindicated. You will be required to document reason for non-treatment if statin daily dose does not meet guidelines. HIGH DOSE STATIN THERAPY DAILY Atorvastatin > than or = to 40 mg Rosuvastatin > than or = to 20 mg Amlodipine + Atorvastatin > than or = to 2.5/40 mg Ezetimibe + Simvastatin 10/80 mg Simvastatin 80mg Discharge Plan Admission Admit Date/Time: 12/28/24 17:47 Primary Reason for Your Visit: EtOH withdrawal, EtOH abuse Attending Provider: Heidi Coombs Primary Care Provider: Elder Cabrera Consulting Providers: Ilsa Raymundo Instructions Patient Instructions: Alcohol Addiction, ED High Blood Pressure Hypertension Additional Instructions / Restrictions: ADDITIONAL FOLLOW-UP/INSTRUCTIONS: #1. Acute abuse with Acute EtOH Withdrawal with acute on chronic alcoholic hepatitis: Admitted to medical surgical floor, initiated and continued on protocol with taper course of Phenobarbital, as needed gabapentin, Catapres, Bentyl, Vistaril, IV fluids, IV antiemetics, Tylenol as needed for pain. Case management consulted for assistance for transition to next level of rehabilitation care. Maintain on CIWV protocol concurrently. --LFTs elevated upon presentation with AST/LT 334/269, alk phos 136, D bili 0.36, likely secondary in large part to heavy drinking with suspected acute on chronic alcoholic hepatitis WITH 12/29/24 repeat liver profile with T. bili 0.68, D bili 0.36, AST/ALT 189/182, alk phos 121, improved. --Phosphorous level normal range. Magnesium low end of normal range 1.5. Given deferral of IV regimen recommend continued oral regimen for the next 3 days with repeat level outpatient with primary care physician. --Encourage continued sobriety. Treated with short course tapering phenobarbital which was deferred beyond the initial 24 hours per your preference. #2. Hyponatremia, suspect in large part secondary to alcohol abuse but given recent decreased intake certainly could be component of hypovolemia: --Admission sodium 127, repeat 12/29/24 sodium 130. TSH normal range. Recommend repeat basic metabolic panel outpatient with primary care physician at follow-up. #3. Hypertension: --BP during presentation above goal with noted history. Given elevation added low dose norvasc. Recommend follow-up BP re-assessment outpatient with primary care physician with further adjustments as needed. Discharge Orders/Prescriptions Prescriptions: New amlodipine 5 mg Tablet 5 mg PO DAILY 30 Days Qty: 30 0RF folic acid 1 mg Tablet 1 mg PO DAILY@0800 30 Days Qty: 30 0RF thiamine HCl (vitamin B1) 100 mg Tablet 100 mg PO DAILYCM 30 Days Qty: 30 0RF multivitamin with minerals Capsule 1 cap PO DAILY 30 Days Qty: 30 0RF magnesium oxide 400 mg magnesium capsule 400 mg PO BID 3 Days Qty: 6 0RF No Action loratadine [Allergy Relief (loratadine)] 10 mg tablet,disintegrating 10 mg PO BID famotidine [Pepcid] 20 mg tablet 20 mg PO DAILY Referrals / Follow Up: Elder Cabrera MD [Primary Care Provider] - (Follow-up in 3-5 days to review admission and have blood pressure re-assessment. Given magnesium was at the low end of normal recommend repeat level outpatient to assure improving.) Elder Cabrera MD [[facility]] - Disposition Disposition (needs filled in before D/C Order can be placed): Home, Self Care Charges/Coding Visit Charges Inpatient E&M: 05769 Disch Hosp >30min
[2024-12-30 13:31] VITALS: BP 131/80; PULSE 95; RESP 18; TEMP 36.6; O2SAT 97
--- NOTE | 2024-12-30 13:38 | CASEMGMT ---
Addendum entered by Alecia Quezada 12/30/24 13:57: Received returned call from [facility] transportation, they do not have availability to transport pt home. Updated pt nurse. Provided with resources for alternate options for transport home. Original Note: Pt nurse states pt does not have transportation home. TC to [facility] van, spoke with Elaine. She states that she will check with a hi lo driver to see if able to add pt to the end of the day. She will call RN MIKHAIL back.
== END 2024-12-30 14:20 | disposition home or self-care (01) | DRG 897 ==
LOC: ED 17:22 → MS3 17:54
PROVIDERS: Admitting Provider Internal Medicine; Emergency Provider Emergency Medicine; PCP Family Medicine; Visit Provider Family Medicine
DX: F10.239 Alcohol dependence with withdrawal, unspecified (principal); E87.1 Hypo-osmolality and hyponatremia; K70.10 Alcoholic hepatitis without ascites; I10 Essential (primary) hypertension; F32.A Depression, unspecified; K58.9 Irritable bowel syndrome, unspecified; F41.9 Anxiety disorder, unspecified; K21.9 Gastro-esophageal reflux disease without esophagitis; J30.9 Allergic rhinitis, unspecified; F17.200 Nicotine dependence, unspecified, uncomplicated; L93.1 Subacute cutaneous lupus erythematosus; R79.0 Abnormal level of blood mineral; F10.229 Alcohol dependence with intoxication, unspecified; Z53.20 Procedure and treatment not carried out because of patient's decision for unspecified reasons; Z90.49 Acquired absence of other specified parts of digestive tract; Z79.899 Other long term (current) drug therapy
CPT/HCPCS: 36415; 80048; 80053; 80076; 80307; 82077; 82436; 82570; 83735; 83930; 84100; 84133; 84300; 84443; 84540; 85025; 85610; 99284; 99406; A4216; J2405